=== PATIENT | female | born 1945 | race Caucasian/White ===

== ENCOUNTER 2023-09-23 09:41 | Outpatient (OUT) | payer MEDICARE, OTHER, SELFPAY ==
[2023-09-23 10:06] LABS: Basophils Percent Auto 0.6 % (0.2-2.0); Eosinophils Absolute Auto 0.1 10^3/uL (0.0-0.7); Eosinophils Percent Auto 1.8 % (0.9-7.0); Hematocrit 42.8 % (36.0-48.0); Hemoglobin 14.1 g/dL (12.0-16.0); Immature Granulocytes Abs Auto 0.02 10^3/uL (0.00-0.03); Immature Granulocytes Pct Auto 0.3 % (0.0-0.5); Lymphocytes Absolute Auto 2.4 10^3/uL (1.2-3.8); Lymphocytes Percent Auto 35.2 % (20.5-60.0); Mean Corpuscular HGB Conc 32.9 g/dL (29.9-35.2); Mean Corpuscular Hemoglobin 29.8 pg (26.7-34.0); Mean Corpuscular Volume 90.5 fL (81.0-99.0); Mean Platelet Volume 8.8 fL (9.5-13.5); Monocytes Absolute Auto 0.5 10^3/uL (0.3-0.8); Monocytes Percent Auto 8.1 % (1.7-12.0); Neutrophils Absolute Auto 3.6 10^3/uL (1.4-6.5); Platelet Count 344 10^3/uL (150-450); Red Blood Count 4.73 10^6/uL (4.20-5.40); Red Cell Distribution Width 12.8 % (11.0-15.0); White Blood Count 6.7 10^3/uL (4.0-11.0)
[2023-09-23 10:20] LABS: Alanine Aminotransferase 49 U/L (14-59); Albumin Globulin Ratio 1.1; Albumin Level 3.7 g/dL (3.4-5.0); Alkaline Phosphatase 82 U/L (46-116); Anion Gap 11.6; Aspartate Amino Transferase 37 U/L (15-37); BUN Creatinine Ratio 19.4; Bilirubin Total 0.6 mg/dL (0.2-1.0); Calcium 9.2 mg/dL (8.5-10.1); Carbon Dioxide 27.9 mmol/L (21.0-32.0); Chloride 102 mmol/L (98-107); Chol HDL Ratio 3.2; Cholesterol 164 mg/dL (<=200); Estimated GFR (African America >60 (>=60); Estimated GFR (Non-African Ame 59 (>=60); Globulin 3.5 g/dL; Glucose 108 mg/dL (74-106); HDL Cholesterol 51 mg/dL (40-60); Potassium 4.5 mmol/L (3.5-5.1); Sodium 137 mmol/L (136-145); Total Protein 7.2 g/dL (6.4-8.2); Triglycerides 162 mg/dL (<=150); VLDL CHOLESTEROL 32.4 mg/dL
== END 2023-09-23 09:42 | disposition home or self-care (01) ==
LOC: LAB 09:46
PROVIDERS: PCP Family Medicine; Visit Provider Nurse Practitioner Family
DX: I25.810 Atherosclerosis of coronary artery bypass graft(s) without angina pectoris (principal); E78.2 Mixed hyperlipidemia
CPT/HCPCS: 36415; 80053; 80061; 85025

== ENCOUNTER 2024-02-08 07:16 | Outpatient (OUT) | payer MEDICARE, OTHER, SELFPAY ==
--- OUTSIDE RECORDS SUMMARY | 2024-02-08 07:19 | XMS_ITS | CCD ---
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 [address] [address] Astronomy Department Chair: Shamir Milton MD MCHC (RBC) [Mass/Vol] 32.3 g/dL Normal 28.4-34.8 [facility] Comment on above: Performed By: #### C DP, BMP, MATIAS #### [address] [address] Astronomy Department Chair: Shamir Milton MD MCV (RBC) [Entitic vol] 93.3 fL Normal 82.6-102.9 [facility] Comment on above: Performed By: #### C DP, BMP, MATIAS #### [address] [address] Astronomy Department Chair: Shamir Milton MD NRBC Automated 0.0 per 100 WBC Normal 0.0 [facility] Comment on above: Performed By: #### C DP, BMP, MATIAS #### [address] [address] Astronomy Department Chair: Shamir Milton MD Platelet mean volume (Bld) [Entitic vol] 9.4 fL Normal 8.1-13.5 [facility] Comment on above: Performed By: #### C DP, BMP, MATISA #### [address] [address] [employer] Department Chair: Shamir Milton MD Platelets (Bld) [#/Vol] 292 10*3/uL Normal 138-453 [facility] Comment on above: Performed By: #### C DP, BMP, MATIAS #### [address] [address] Astronomy Department Chair: Shamir Milton MD RBC (Bld) [#/Vol] 3.42 10*6/uL Low 3.95-5.11 [facility] Comment on above: Performed By: #### C DP, BMP, MATIAS #### [address] [address] Astronomy Department Chair: Shamir Milton MD WBC (Bld) [#/Vol] 8.6 10*3/uL Normal 3.5-11.3 [facility] Comment on above: Performed By: #### C DP, BMP, MATIAS #### [address] [address] Astronomy Department Chair: Shamir Milton MD Phosphorus, Inorg.on Phosphorus, Inorg. 2.8 mg/dL Normal 2.6-4.5 [facility] Comment on above: Performed By: #### C DP, BMP, MATIAS #### [facility] [address] [place] [address] Astronomy Department Chair: Shamir Milton MD Basic Metabolic Profon 09-29 Anion gap [Moles/Vol] 8 mmol/L Low 9-17 [facility] Comment on above: Performed By: #### C DP, BMP, MATIAS #### [facility] [address] [place] [address] Astronomy Department Chair: Shamir Milton MD Calcium [Mass/Vol] 8.2 mg/dL Low 8.6-10.4 [facility] Comment on above: Performed By: #### C DP, BMP, MATIAS #### [facility] [address] [place] [address] Astronomy Department Chair: Shamir Milton MD Chloride [Moles/Vol] 98 mmol/L Normal 98-107 [facility] Comment on above: Performed By: #### C DP, BMP, MATIAS #### [facility] [address] [place] [address] Astronomy Department Chair: Shamir Milton MD CO2 [Moles/Vol] 24 mmol/L Normal 20-31 [facility] Comment on above: Performed By: #### C DP, BMP, MATIAS #### [facility] [address] [place] [address] Astronomy Department Chair: Shamir Milton MD Creatinine [Mass/Vol] 0.58 mg/dL Normal 0.50-0.90 [facility] Comment on above: Performed By: #### C DP, BMP, MATIAS #### [facility] [address] [place] [address] Astronomy Department Chair: Shamir Milton MD GFR/1.73 sq M.predicted among non-blacks MDRD (S/P/Bld) [Vol rate/Area] mL/min/{1.73_m2} Normal >60 [facility] Comment on above: Result Comment: Effective Jul 30, 2022 These results are not intended for use in patients <18 years of age. eGFR results are calculated without a race factor using the 2020 CKD-EPI equation. Careful clinical correlation is recommended, particularly when comparing to results calculated using previous equations. The CKD-EPI equation is less accurate in patients with extremes of muscle mass, extra-renal metabolism of creatine, excessive creatine ingestion, or following therapy that affects renal tubular secretion. Performed By: #### C MILAGROS LOPEZ, MATIAS #### [address] [address] Astronomy Department Chair: Shamir Milton MD Glucose [Mass/Vol] 99 mg/dL Normal 70-99 [facility] Comment on above: Performed By: #### C JOHN BMP, MATIAS #### [address] [address] Astronomy Department Chair: Shamir Milton MD Potassium [Moles/Vol] 4.1 mmol/L Normal 3.7-5.3 [facility] Comment on above: Performed By: #### C JOHN BMP, MATIAS #### [address] [address] Astronomy Department Chair: Shamir Milton MD Sodium [Moles/Vol] 130 mmol/L Low 135-144 [facility] Comment on above: Performed By: #### C DP BMP, MATIAS #### [facility] [employer] [address] [place] [address] Astronomy Department Chair: Shamir Milton MD Urea nitrogen [Mass/Vol] 14 mg/dL Normal 8-23 [facility] Comment on above: Performed By: #### C DP BMP, MATIAS #### [facility] [employer] [address] [place] [address] Astronomy Department Chair: Shamir Milton MD CBC with Diffon 09-29-2022 Abs. Basophil 0.04 k/uL Normal 0.00-0.20 [facility] Comment on above: Performed By: #### C DP, MATIAS, BMP #### [place] [address] Astronomy Department Chair: Shamir Milton MD Abs.Imm.Granulocyte 0.05 k/uL Normal 0.00-0.30 [facility] Comment on above: Performed By: #### C DP, MATIAS, BMP #### [place] [address] Astronomy Department Chair: Shamir Milton MD Abs.Neutrophil (Seg) 4.47 k/uL Normal 1.50-8.10 [facility] Comment on above: Performed By: #### C DP, MATIAS, BMP #### [place] [address] [employer] Department Chair: Shamir Milton MD Basophils/100 WBC (Bld) 1 % Normal 0-2 [facility] Comment on above: Performed By: #### C DP, MATIAS, BMP #### [place] [address] [employer] Department Chair: Shamir Milton MD Eosinophils (Bld) [#/Vol] 0.27 10*3/uL Normal 0.00-0.44 [facility] Comment on above: Performed By: #### C DP, MATIAS, BMP #### [address] [address] Astronomy Department Chair: Shamir Milton MD Eosinophils/100 WBC (Bld) 4 % Normal 1-4 [facility] Comment on above: Performed By: #### C DP, MATIAS, BMP #### [facility] [employer] [address] [place] [address] Astronomy Department Chair: Shamir Milton MD Erythrocyte distribution width (RBC) [Ratio] 13.0 % Normal 11.8-14.4 [facility] Comment on above: Performed By: #### C DP, MATIAS, BMP #### [facility] [employer] [address] [place] [address] Astronomy Department Chair: Shamir Milton MD Hematocrit (Bld) [Volume fraction] 29.4 % Low 36.3-47.1 [facility] Comment on above: Performed By: #### C DP, MATIAS, BMP #### [facility] [employer] [address] [place] [address] Astronomy Department Chair: Shamir Milton MD Hemoglobin (Bld) [Mass/Vol] 9.8 g/dL Low 11.9-15.1 [facility] Comment on above: Performed By: #### C DP, MATIAS, BMP #### [facility] [employer] [address] [place] [address] Astronomy Department Chair: Shamir Milton MD Immature granulocytes/100 WBC (Bld) 1 % High 0 [facility] Comment on above: Performed By: #### C DP, MATIAS, BMP #### [address] [address] Astronomy Department Chair: Shamir Milton MD Lymphocytes (Bld) [#/Vol] 1.61 10*3/uL Normal 1.10-3.70 [facility] Comment on above: Performed By: #### C DP, MATIAS, BMP #### [facility] [employer] [address] [place] [address] Astronomy Department Chair: Shamir Milton MD Lymphocytes/100 WBC (Bld) 23 % Low 24-43 [facility] Comment on above: Performed By: #### C DP, MATIAS, BMP #### [facility] [employer] [address] [place] [address] Astronomy Department Chair: Shamir Milton MD MCH (RBC) [Entitic mass] 30.3 pg Normal 25.2-33.5 [facility] Comment on above: Performed By: #### C DP, MATIAS, BMP #### [address] [address] Astronomy Department Chair: Shamir Milton MD MCHC (RBC) [Mass/Vol] 33.3 g/dL Normal 28.4-34.8 [facility] Comment on above: Performed By: #### C DP, MATIAS, BMP #### [address] [address] Astronomy Department Chair: Shamir Milton MD MCV (RBC) [Entitic vol] 91.0 fL Normal 82.6-102.9 [facility] Comment on above: Performed By: #### C DP, MATIAS, BMP #### [address] [address] Astronomy Department Chair: Shamir Milton MD Monocytes (Bld) [#/Vol] 0.71 10*3/uL Normal 0.10-1.20 [facility] Comment on above: Performed By: #### C DP, MATIAS, BMP #### [address] [address] Astronomy Department Chair: Shamir Milton MD Monocytes/100 WBC (Bld) 10 % Normal 3-12 [facility] Comment on above: Performed By: #### C DP, MATIAS, BMP #### [address] [address] Astronomy Department Chair: Shamir Milton MD Neutrophil (Seg) 61 % Normal 36-65 [facility] Comment on above: Performed By: #### C DP, MATIAS, BMP #### [address] [address] Astronomy Department Chair: Shamir Milton MD NRBC Automated 0.0 per 100 WBC Normal 0.0 [facility] Comment on above: Performed By: #### C DP, MATIAS, BMP #### [facility] [address] [place] [address] Astronomy Department Chair: Shamir Milton MD Platelet mean volume (Bld) [Entitic vol] 9.5 fL Normal 8.1-13.5 [facility] Comment on above: Performed By: #### C DP, MATIAS, BMP #### [facility] [employer] [address] [place] [address] Astronomy Department Chair: Shamir Milton MD Platelets (Bld) [#/Vol] 232 10*3/uL Normal 138-453 [facility] Comment on above: Performed By: #### C DP, MATIAS, BMP #### [facility] [employer] [address] [place] [address] Astronomy Department Chair: Shamir Milton MD RBC (Bld) [#/Vol] 3.23 10*6/uL Low 3.95-5.11 [facility] Comment on above: Performed By: #### C DP, MATIAS, BMP #### [address] [address] Astronomy Department Chair: Shamir Milton MD WBC (Bld) [#/Vol] 7.2 10*3/uL Normal 3.5-11.3 [facility] Comment on above: Performed By: #### C DP, MATIAS, BMP #### [facility] [employer] [address] [place] [address] Astronomy Department Chair: Shamir Milton MD Phosphorus, Inorg.on 022 Phosphorus, Inorg. 2.9 mg/dL Normal 2.6-4.5 [facility] Comment on above: Performed By: #### C DP, BMP, MATIAS #### [facility] [employer] [address] [place] [phone] Astronomy Department Chair: Shamir Milton MD Basic Metabolic Profon 09-28 Anion gap [Moles/Vol] 10 mmol/L Normal 9-17 [facility] Comment on above: Performed By: #### B MP, MATIAS, MG, CDP #### [facility] [employer] [address] [place] [address] Astronomy Department Chair: Shamir Milton MD Calcium [Mass/Vol] 8.6 mg/dL Normal 8.6-10.4 [facility] Comment on above: Performed By: #### B MP, MATIAS, MG, CDP #### [facility] [employer] [address] [place] [address] Astronomy Department Chair: Shamir Milton MD Chloride [Moles/Vol] 96 mmol/L Low 98-107 [facility] Comment on above: Performed By: #### B MP, MATIAS, MG, CDP #### [facility] [employer] [address] [place] [address] Astronomy Department Chair: Shamir Milton MD CO2 [Moles/Vol] 23 mmol/L Normal 20-31 [facility] Comment on above: Performed By: #### B MP, MATIAS, MG, CDP #### [facility] [employer] [address] [place] [address] Astronomy Department Chair: Shamir Milton MD Creatinine [Mass/Vol] 0.67 mg/dL Normal 0.50-0.90 [facility] Comment on above: Performed By: #### B MP, MATIAS, MG, CDP #### [facility] [employer] [address] [place] [address] Astronomy Department Chair: Shamir Milton MD GFR/1.73 sq M.predicted among non-blacks MDRD (S/P/Bld) [Vol rate/Area] mL/min/{1.73_m2} Normal >60 [facility] Comment on above: Result Comment: Effective Jul 30, 2022 These results are not intended for use in patients <18 years of age. eGFR results are calculated without a race factor using the 2020 CKD-EPI equation. Careful clinical correlation is recommended, particularly when comparing to results calculated using previous equations. The CKD-EPI equation is less accurate in patients with extremes of muscle mass, extra-renal metabolism of creatine, excessive creatine ingestion, or following therapy that affects renal tubular secretion. Performed By: #### B MP, MATIAS, MG, CDP #### [address] [address] Astronomy Department Chair: Shamir Milton MD Glucose [Mass/Vol] 115 mg/dL High 70-99 [facility] Comment on above: Performed By: #### B MP, MATIAS, MG, CDP #### [address] [address] Astronomy Department Chair: Shamir Milton MD Potassium [Moles/Vol] 4.5 mmol/L Normal 3.7-5.3 [facility] Comment on above: Performed By: #### B MP, MATIAS, MG, CDP #### [address] [address] Astronomy Department Chair: Shamir Milton MD Sodium [Moles/Vol] 129 mmol/L Low 135-144 [facility] Comment on above: Performed By: #### B MP, MATIAS, MG, CDP #### [facility] [employer] [address] [place] [address] Astronomy Department Chair: Shamir Milton MD Urea nitrogen [Mass/Vol] 16 mg/dL Normal 8-23 [facility] Comment on above: Performed By: #### B MP, MATIAS, MG, CDP #### [facility] [employer] [address] [place] [phone] Astronomy Department Chair: Shamir Milton MD CBC with Diffon 09-28-2022 Abs. Basophil <0.03 Normal 0.00-0.20 [facility] Comment on above: Performed By: #### B MP, MAITAS, MG, CDP #### [facility] [employer] [address] [place] [address] Astronomy Department Chair: Shamir Milton MD Abs.Imm.Granulocyte 0.07 k/uL Normal 0.00-0.30 [facility] Comment on above: Performed By: #### B MP, MATIAS, MG, CDP #### [facility] [employer] [address] [place] [address] Astronomy Department Chair: Shamir Milton MD Abs.Neutrophil (Seg) 7.39 k/uL Normal 1.50-8.10 [facility] Comment on above: Performed By: #### B MP, MATIAS, MG, CDP #### [facility] [employer] [address] [place] [phone] Astronomy Department Chair: Shamir Milton MD Basophils/100 WBC (Bld) 0 % Normal 0-2 [facility] Comment on above: Performed By: #### B MP, MATIAS, MG, CDP #### [address] [address] Astronomy Department Chair: Shamir Milton MD Eosinophils (Bld) [#/Vol] 0.12 10*3/uL Normal 0.00-0.44 [facility] Comment on above: Performed By: #### B MP, MATIAS, MG, CDP #### [facility] [employer] [address] [place] [address] Astronomy Department Chair: Shamir Milton MD Eosinophils/100 WBC (Bld) 1 % Normal 1-4 [facility] Comment on above: Performed By: #### B MP, MATIAS, MG, CDP #### [facility] [employer] [address] [place] [address] Astronomy Department Chair: Shamir Milton MD Erythrocyte distribution width (RBC) [Ratio] 13.0 % Normal 11.8-14.4 [facility] Comment on above: Performed By: #### B MP, MATIAS, MG, CDP #### [facility] [employer] [address] [place] [address] Astronomy Department Chair: Shamir Milton MD Hematocrit (Bld) [Volume fraction] 33.2 % Low 36.3-47.1 [facility] Comment on above: Performed By: #### B MP, MATIAS, MG, CDP #### [facility] [employer] [address] [place] [address] Astronomy Department Chair: Shamir Milton MD Hemoglobin (Bld) [Mass/Vol] 10.9 g/dL Low 11.9-15.1 [facility] Comment on above: Performed By: #### B MP, MAITAS, MG, CDP #### [facility] [address] [place] [address] Astronomy Department Chair: Shamir Milton MD Immature granulocytes/100 WBC (Bld) 1 % High 0 [facility] Comment on above: Performed By: #### B MP, MATIAS, MG, CDP #### [facility] [employer] [address] [place] [phone] Astronomy Department Chair: Shamir Milton MD Lymphocytes (Bld) [#/Vol] 2.21 10*3/uL Normal 1.10-3.70 [facility] Comment on above: Performed By: #### B MP, MATIAS, MG, CDP #### [facility] [address] [place] [address] Astronomy Department Chair: Shamir Milton MD Lymphocytes/100 WBC (Bld) 21 % Low 24-43 [facility] Comment on above: Performed By: #### B MP, MATIAS, MG, CDP #### [facility] [address] [place] [phone] Astronomy Department Chair: Shamir Milton MD MCH (RBC) [Entitic mass] 30.8 pg Normal 25.2-33.5 [facility] Comment on above: Performed By: #### B MP, MATIAS, MG, CDP #### [facility] [address] [place] [phone] Astronomy Department Chair: Shamir Milton MD MCHC (RBC) [Mass/Vol] 32.8 g/dL Normal 28.4-34.8 [facility] Comment on above: Performed By: #### B MP, MATIAS, MG, CDP #### [address] [address] Astronomy Department Chair: Shamir Milton MD MCV (RBC) [Entitic vol] 93.8 fL Normal 82.6-102.9 [facility] Comment on above: Performed By: #### B MP, MATIAS, MG, CDP #### [address] [address] Astronomy Department Chair: Shamir Milton MD Monocytes (Bld) [#/Vol] 0.77 10*3/uL Normal 0.10-1.20 [facility] Comment on above: Performed By: #### B MP, MATIAS, MG, CDP #### [place] [address] Astronomy Department Chair: Shamir Milton MD Monocytes/100 WBC (Bld) 7 % Normal 3-12 [facility] Comment on above: Performed By: #### B MP, MATIAS, MG, CDP #### [place] [address] Astronomy Department Chair: Shamir Milton MD Neutrophil (Seg) 70 % High 36-65 [facility] Comment on above: Performed By: #### B MP, MATIAS, MG, CDP #### [place] [address] Astronomy Department Chair: Shamir Milton MD NRBC Automated 0.0 per 100 WBC Normal 0.0 [facility] Comment on above: Performed By: #### B MP, MATIAS, MG, CDP #### [address] [address] Astronomy Department Chair: Shamir Milton MD Platelet mean volume (Bld) [Entitic vol] 9.8 fL Normal 8.1-13.5 [facility] Comment on above: Performed By: #### B MP, MATIAS, MG, CDP #### [facility] [employer] [address] [place] [phone] Astronomy Department Chair: Shamir Milton MD Platelets (Bld) [#/Vol] 273 10*3/uL Normal 138-453 [facility] Comment on above: Performed By: #### B MP, MATIAS, MG, CDP #### [facility] [address] [place] [phone] Astronomy Department Chair: Shamir Milton MD RBC (Bld) [#/Vol] 3.54 10*6/uL Low 3.95-5.11 [facility] Comment on above: Performed By: #### B MP, MATIAS, MG, CDP #### [facility] [employer] [address] [place] [phone] Astronomy Department Chair: Shamir Milton MD WBC (Bld) [#/Vol] 10.6 10*3/uL Normal 3.5-11.3 [facility] Comment on above: Performed By: #### B MP, MATIAS, MG, CDP #### [facility] [employer] [address] [place] [phone] Astronomy Department Chair: Shamir Milton MD Magnesiumon 09-28-2022 Magnesium [Mass/Vol] 2.0 mg/dL Normal 1.6-2.6 [facility] Comment on above: Performed By: #### B MP, MATIAS, MG, CDP #### [facility] [address] [place] [phone] Astronomy Department Chair: Shamir Milton MD Phosphorus, Inorg.on 022 Phosphorus, Inorg. 1.9 mg/dL Low 2.6-4.5 [facility] Comment on above: Performed By: #### B MP, MATIAS, MG, CDP #### [facility] [address] [place] [phone] Astronomy Department Chair: Shamir Milton MD Basic Metabolic Profon 09-27 Anion gap [Moles/Vol] 8 mmol/L Low 9-17 [facility] Comment on above: Performed By: #### B MP, MATIAS, MG, CDP #### [facility] [address] [place] [phone] Astronomy Department Chair: Shamir Milton MD Calcium [Mass/Vol] 8.7 mg/dL Normal 8.6-10.4 [facility] Comment on above: Performed By: #### B MP, MATIAS, MG, CDP #### [facility] [employer] [address] [place] [address] Astronomy Department Chair: Shamir Milton MD Chloride [Moles/Vol] 102 mmol/L Normal 98-107 [facility] Comment on above: Performed By: #### B MP, MATIAS, MG, CDP #### [facility] [address] [place] [phone] Astronomy Department Chair: Shamir Milton MD CO2 [Moles/Vol] 23 mmol/L Normal 20-31 [facility] Comment on above: Performed By: #### B MP, MATIAS, MG, CDP #### [facility] [address] [place] [phone] Astronomy Department Chair: Shamir Milton MD Creatinine [Mass/Vol] 0.61 mg/dL Normal 0.50-0.90 [facility] Comment on above: Performed By: #### B MP, MATIAS, MG, CDP #### [facility] [address] [place] [phone] Astronomy Department Chair: Shamir Milton MD GFR/1.73 sq M.predicted among non-blacks MDRD (S/P/Bld) [Vol rate/Area] mL/min/{1.73_m2} Normal >60 [facility] Comment on above: Result Comment: Effective Jul 30, 2022 These results are not intended for use in patients <18 years of age. eGFR results are calculated without a race factor using the 2020 CKD-EPI equation. Careful clinical correlation is recommended, particularly when comparing to results calculated using previous equations. The CKD-EPI equation is less accurate in patients with extremes of muscle mass, extra-renal metabolism of creatine, excessive creatine ingestion, or following therapy that affects renal tubular secretion. Performed By: #### B MP, MATIAS, MG, CDP #### [facility] [address] [place] [phone] Astronomy Department Chair: Shamir Milton MD Glucose [Mass/Vol] 129 mg/dL High 70-99 [facility] Comment on above: Performed By: #### B MP, MATIAS, MG, CDP #### [facility] [employer] [address] [place] [phone] Astronomy Department Chair: Shamir Milton MD Potassium [Moles/Vol] 4.4 mmol/L Normal 3.7-5.3 [facility] Comment on above: Performed By: #### B MP, MATIAS, MG, CDP #### [facility] [employer] [address] [place] [phone] Astronomy Department Chair: Shamir Milton MD Sodium [Moles/Vol] 133 mmol/L Low 135-144 [facility] Comment on above: Performed By: #### B MP, MATIAS, MG, CDP #### [facility] [employer] [address] [place] [address] [phone] Astronomy Department Chair: Shamir Milton MD Urea nitrogen [Mass/Vol] 14 mg/dL Normal 8-23 [facility] Comment on above: Performed By: #### B MP, MATIAS, MG, CDP #### [facility] [employer] [address] [place] [address] [phone] Astronomy Department Chair: Shamir Milton MD CBC with Diffon 09-27-2022 Abs. Basophil <0.03 Normal 0.00-0.20 [facility] Comment on above: Performed By: #### B MP, MATIAS, MG, CDP #### [facility] [address] [place] [address] [place] [address] Astronomy Department Chair: Shamir Milton MD Abs. Eosinophil <0.03 Normal 0.00-0.44 [facility] Comment on above: Performed By: #### B MP, MATIAS, MG, CDP #### [facility] [employer] [address] [place] [address] [phone] Astronomy Department Chair: Shamir Milton MD Abs.Imm.Granulocyte 0.04 k/uL Normal 0.00-0.30 [facility] Comment on above: Performed By: #### B MP, MATIAS, MG, CDP #### [facility] [employer] [address] [place] [address] [phone] Astronomy Department Chair: Shamir Milton MD Abs.Neutrophil (Seg) 7.93 k/uL Normal 1.50-8.10 [facility] Comment on above: Performed By: #### B MP, MATIAS, MG, CDP #### [facility] [employer] [address] [place] [address] [phone] Astronomy Department Chair: Shamir Milton MD Basophils/100 WBC (Bld) 0 % Normal 0-2 [facility] Comment on above: Performed By: #### B MP, MATIAS, MG, CDP #### [facility] [address] [place] [address] [phone] Astronomy Department Chair: Shamir Milton MD Eosinophils/100 WBC (Bld) 0 % Low 1-4 [facility] Comment on above: Performed By: #### B MP, MATIAS, MG, CDP #### [facility] [address] [place] [phone] Astronomy Department Chair: Shamir Milton MD Erythrocyte distribution width (RBC) [Ratio] 12.9 % Normal 11.8-14.4 [facility] Comment on above: Performed By: #### B MP, MATIAS, MG, CDP #### [facility] [address] [place] [address] [phone] Astronomy Department Chair: Shamir Milton MD Hematocrit (Bld) [Volume fraction] 34.8 % Low 36.3-47.1 [facility] Comment on above: Performed By: #### B MP, MATIAS, MG, CDP #### [facility] [address] [place] [address] 23021 Astronomy Department Chair: Shamir Milton MD Hemoglobin (Bld) [Mass/Vol] 11.0 g/dL Low 11.9-15.1 [facility] Comment on above: Performed By: #### B MP, MATIAS, MG, CDP #### [facility] [employer] [address] [place] [address] 74650 Astronomy Department Chair: Shamir Milton MD Immature granulocytes/100 WBC (Bld) 0 % Normal 0 [facility] Comment on above: Performed By: #### B MP, MATIAS, MG, CDP #### [facility] [employer] [address] [place] [address] [phone] Astronomy Department Chair: Shamir Milton MD Lymphocytes (Bld) [#/Vol] 1.05 10*3/uL Low 1.10-3.70 [facility] Comment on above: Performed By: #### B MP, MATIAS, MG, CDP #### [facility] [employer] [address] [place] [address] 6[address]16 Astronomy Department Chair: Shamir Milton MD Lymphocytes/100 WBC (Bld) 11 % Low 24-43 [facility] Comment on above: Performed By: #### B MP, MATIAS, MG, CDP #### [facility] [employer] [address] [place] [address] 14013 Astronomy Department Chair: Shamir Milton MD MCH (RBC) [Entitic mass] 30.2 pg Normal 25.2-33.5 [facility] Comment on above: Performed By: #### B MP, MATIAS, MG, CDP #### [facility] [employer] [address] [place] [address] 18416 Astronomy Department Chair: Shamir Milton MD MCHC (RBC) [Mass/Vol] 31.6 g/dL Normal 28.4-34.8 [facility] Comment on above: Performed By: #### B MP, MATIAS, MG, CDP #### [address] [address] Astronomy Department Chair: Shamir Milton MD MCV (RBC) [Entitic vol] 95.6 fL Normal 82.6-102.9 [facility] Comment on above: Performed By: #### B MP, MATIAS, MG, CDP #### [address] [address] Astronomy Department Chair: Shamir Milton MD Monocytes (Bld) [#/Vol] 0.76 10*3/uL Normal 0.10-1.20 [facility] Comment on above: Performed By: #### B MP, MATIAS, MG, CDP #### [address] [address] Astronomy Department Chair: Shamir Milton MD Monocytes/100 WBC (Bld) 8 % Normal 3-12 [facility] Comment on above: Performed By: #### B MP, MATIAS, MG, CDP #### [address] [address] Astronomy Department Chair: Shamir Milton MD Neutrophil (Seg) 81 % High 36-65 [facility] Comment on above: Performed By: #### B MP, MATIAS, MG, CDP #### [address] [phone] Astronomy Department Chair: Shamir Milton MD NRBC Automated 0.0 per 100 WBC Normal 0.0 [facility] Comment on above: Performed By: #### B MP, MATIAS, MG, CDP #### [address] [address] Astronomy Department Chair: Shamir Milton MD Platelet mean volume (Bld) [Entitic vol] 9.6 fL Normal 8.1-13.5 [facility] Comment on above: Performed By: #### B MP, MATIAS, MG, CDP #### [facility] [employer] [facility] [place] [address] Astronomy Department Chair: Shamir Milton MD Platelets (Bld) [#/Vol] 244 10*3/uL Normal 138-453 [facility] Comment on above: Performed By: #### B MP, MATIAS, MG, CDP #### [facility] [place] [address] Astronomy Department Chair: Shamir Milton MD RBC (Bld) [#/Vol] 3.64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
[2024-02-08 09:37] LABS: Alanine Aminotransferase 33 U/L (14-59); Albumin Level 3.6 g/dL (3.4-5.0); Alkaline Phosphatase 73 U/L (46-116); Aspartate Amino Transferase 24 U/L (15-37); Bilirubin Direct 0.1 mg/dL (0.0-0.2); Bilirubin Total 0.5 mg/dL (0.2-1.0); Chol HDL Ratio 2.9; Cholesterol 155 mg/dL (<=200); Globulin 3.5 g/dL; HDL Cholesterol 53 mg/dL (40-60); LDL Cholesterol Calculated 73.2 mg/dL; Total Protein 7.1 g/dL (6.4-8.2); Triglycerides 144 mg/dL (<=150); VLDL CHOLESTEROL 28.8 mg/dL
== END 2024-02-08 07:17 | disposition home or self-care (01) ==
LOC: LAB 07:16
PROVIDERS: PCP Family Medicine; Visit Provider Nurse Practitioner Family
DX: E78.5 Hyperlipidemia, unspecified (principal)
CPT/HCPCS: 36415; 80061; 80076

== ENCOUNTER 2024-04-02 07:57 | Outpatient (OUT) | payer MEDICARE, OTHER, SELFPAY ==
--- NOTE | 2024-04-02 07:59 | XR_ITS ---
[facility] [place] [id number] Patient Name: LORENZO ABBASI MRN: [id number] date: 1945 Sex: F Assigned Patient Location: LAB Current Patient Location: Accession/Order Number: [id number] Exam Date: 04/02/2024 08:03 Report Date: 04/03/2024 09:11 At the request of: ASHOK BRYANT Procedure: XR hand RT min 3V PROCEDURE: XR hand RT min 3V HISTORY: Hand Pain M79.643 ; first digit pain; no known injury COMPARISON: None. FINDINGS: BONES:Narrowing of the first tarsal-metatarsal joints and the first metatarsophalangeal joint without significant periarticular osteophytes. Narrowing of the distal interphalangeal joints of the second third digits with large posterior projecting osteophytes. Mild degenerative changes of the scaphoid-trapezium and scaphoid-trapezoid joints of the wrist. SOFT TISSUES:No visible soft tissue swelling. EFFUSION:None visible. OTHER: Negative. XR/XR hand RT min 3V IMPRESSION: 1. No appreciable acute abnormality. 2. Multifocal mild to moderate degenerative joint disease likely contributing to patient's symptoms. Electronically authenticated by: RAQUEL KING Date: 04/03/2024 09:11
--- OUTSIDE RECORDS SUMMARY | 2024-04-02 08:13 | XMS_ITS | CCD ---
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 [facility] [address] [place] [address] Contract Administration Coordinator: Shamir Milton MD Test ordered CDP Normal [facility] Comment on above: Performed By: #### B CATHY, REJEC #### [facility] [address] [place] [address] Contract Administration Coordinator: Shamir Milton MD TSH w/reflex to FT4on 2021 Thyroid Stim. Horm. 1.19 uIU/mL Normal 0.30-5.00 [facility] Comment on above: Performed By: #### C MILAGROS LOPEZ, MATIAS #### [address] [address] Contract Administration Coordinator: Shamir Milton MD Thyroxine, Freeon 09-26-2022 Thyroxine, Free 1.66 ng/dL Normal 0.93-1.70 [facility] Comment on above: Performed By: #### C JOHN BMP, MATIAS #### [facility] [address] [place] [address] Contract Administration Coordinator: Shamir Milton MD Troponinon 09-26-2022 Troponin, High Sens 9 ng/L Normal 0-14 [facility] Comment on above: Result Comment: High Sensitivity Troponin values cannot be compared with other Troponin methodologies. Patients with high levels of Biotin oral intake (i.e >5mg/day) may have falsely decreased Troponin levels. Samples collected within 8 hours of biotin intake may require additional information for diagnosis. Performed By: #### B MP, MATIAS, MG, CDP #### [facility] [address] [place] [address] Contract Administration Coordinator: Shamir Milton MD Vitamin D 25 [place]on 09-26-2022 Vitamin D 25 [place] 47.8 ng/mL Normal >29.9 [facility] Comment on above: Result Comment: Reference Range: Vitamin D status Range Deficiency <20 ng/mL Mild Deficiency 20-30 ng/mL Sufficiency 30-100 ng/mL Toxicity >100 ng/mL Performed By: #### C DP, BMP, MATIAS #### [facility] [address] [place] [phone] Contract Administration Coordinator: Shamir Milton MD Vitamin D 25 [place] 49.4 ng/mL Normal >29.9 [facility] Comment on above: Result Comment: Reference Range: Vitamin D status Range Deficiency <20 ng/mL Mild Deficiency 20-30 ng/mL Sufficiency 30-100 ng/mL Toxicity >100 ng/mL Performed By: #### B MP, MATIAS, MG, CDP #### [facility] [address] [place] [address] Contract Administration Coordinator: Shamir Milton MD XR FEMUR LEFT (MIN [...] C Connors MD 09/26/22 Final result Normal [facility] XR KNEE LEFT (3 VIEWS)on XR [...] C Connors MD 09/26/22 Final result Normal [facility] XR PELVIS (MIN 3 VIEWS)on XR [...] Sanjuana Desouza MD 09/26/22 Final result Normal [facility] CARDIAC RADHA ADMITon 022 CK [Catalytic activity/Vol] 450 U/L Critically high 26-192 [facility] Comment on above: Performed By: #### C JUAN CARLOS MORGAN CMADM ####[facility] [address] [place] [phone] Espinoza CK.MB [Mass/Vol] 10.56 ng/mL Critically high <=3.60 [facility] Comment on above: Performed By: #### C CATHY LIPA, CMADM ####[facility] [address] [place] [phone]. Karey Espinoza HSTROP 7.0 pg/mL Normal 4.0-51.3 [facility] Comment on above: Result Comment: CUT- OFF POINTS HAVE BEEN ESTABLISHED BASED ON THE FOURTH UNIVERSAL DEFINITIONS OF MYOCARDIAL INFARCTION. THE UPPER REFERENCE LIMIT (URL) OF TROPONIN, DEFINED THE 99TH PERCENTILE OF cTnI DISTRIBUTION IN A REFERENCE POPULATION, HAS BEEN CONFIRMED THE DECISION THRESHOLD FOR DC DIAGNOSIS. Performed By: #### C JUAN CARLOS MORGAN CMADM ####[facility] [address] [place] [address]Dr. Karey Espinoza KARL 1641 ng/mL Critically high 9-82 [facility] Comment on above: Performed By: #### C JUAN CARLOS MORGAN CMADM ####[facility] [address] [place] [address]Dr. Karey Espinoza CBC AUTO DIFFon 09-25-2022 BASO # 0.1 103/ul Normal 0.0-0.1 [facility] Comment on above: Performed By: #### C BC ####[facility] [address] [place], [place] [address]Dr. Karey Espinoza Basophils/100 WBC (Bld) 0.4 % Normal 0.2-2.0 [facility] Comment on above: Performed By: #### C BC ####[facility] [address] [place], [place] [address]Dr. Karey Espinoza EO # 0.2 103/ul Normal 0.0-0.7 [facility] Comment on above: Performed By: #### C BC ####[facility] [address] [place] [address]Dr. Karey Espinoza Eosinophils/100 WBC (Bld) 1.2 % Normal 0.9-7.0 [facility] Comment on above: Performed By: #### C BC ####[facility] [address] [place], [place] [address]Dr. Karey Espinoza Erythrocyte distribution width (RBC) [Ratio] 13.0 % Normal 11.0-15.0 [facility] Comment on above: Performed By: #### C BC ####[facility] [address] [place] [address]Dr. Karey Espinoza Hematocrit (Bld) [Volume fraction] 40.8 % Normal 36.0-48.0 [facility] Comment on above: Performed By: #### C BC ####[facility] [address] [place] [address]Dr. Karey Espinoza Hemoglobin (Bld) [Mass/Vol] 14.0 g/dL Normal 12.0-16.0 [facility] Comment on above: Performed By: #### C BC ####[facility] [address] [place] [address]Dr. Karey Espinoza IG # 0.22 10e3/ul Critically high 0.00-0.03 [facility] Comment on above: Performed By: #### C BC ####[facility] [address] [place] [address]Dr. Karey Espinoza IG % 1.6 % Critically high 0.0-0.5 [facility] Comment on above: Performed By: #### C BC ####[facility] [address] [place] [address]Dr. Camillarony Espinoza LYMPH # 1.9 103/ul Normal 1.2-3.8 [facility] Comment on above: Performed By: #### C BC ####[facility] [address] [place] [address]Dr. Camillarony Espinoza Lymphocytes/100 WBC (Bld) 13.3 % Critically low 20.5-60.0 [facility] Comment on above: Performed By: #### C BC ####[facility] [address] [place] [address]Dr. Camillarony Espinoza MANUAL DIFF REQ NO Normal [facility] Comment on above: Performed By: #### C BC ####[facility] [address] [place], [place] [address]Dr. Karey Espinoza MCH (RBC) [Entitic mass] 30.0 pg Normal 26.7-34.0 [facility] Comment on above: Performed By: #### C BC ####[facility] [address] [place] [phone]. Karey Espinoza MCHC (RBC) [Mass/Vol] 34.3 g/dL Normal 29.9-35.2 [facility] Comment on above: Performed By: #### C BC ####[facility] [address] [place] [phone]. Karey Espinoza MCV (RBC) [Entitic vol] 87.4 fL Normal 81.0-99.0 [facility] Comment on above: Performed By: #### C BC ####[facility] [address] [place] [phone]. Karey Espinoza MONO # 0.8 103/ul Normal 0.3-0.8 [facility] Comment on above: Performed By: #### C BC ####[facility] [address] [place] [phone]. Karey Espinoza Monocytes/100 WBC (Bld) 5.4 % Normal 1.7-12.0 [facility] Comment on above: Performed By: #### C BC ####[facility] [address] [place] [phone]. Karey Espinoza NEUT # 10.8 103/ul Critically high 1.4-6.5 [facility] Comment on above: Performed By: #### C BC ####[facility] [address] [place] [phone]. Karey Espinoza Neutrophils/100 WBC (Bld) 78.1 % Critically high 43.0-75.0 [facility] Comment on above: Performed By: #### C BC ####[facility] [address] [place] [phone]. Karey Espinoza Platelet mean volume (Bld) [Entitic vol] 9.0 fL Critically low 9.5-13.5 [facility] Comment on above: Performed By: #### C BC ####[facility] [address] [place] [phone]. Karey Alexis PLT 345 103/ul Normal 150-450 [facility] Comment on above: Performed By: #### C BC ####[facility] [address] [place], [place] [address]Av. Karey Espinoza RBC 4.67 106/ul Normal 4.20-5.40 [facility] Comment on above: Performed By: #### C BC ####[facility] [address] [place], [place] [address]Uk. Karey Espinoza WBC 13.9 103/ul Critically high 4.0-11.0 [facility] Comment on above: Performed By: #### C BC ####[facility] [address] [place], [place] [address]Kj. Karey Espinoza CT ABD/PELV W CONon 09-25-20 [...] by: FADY BAUER Date: 2022-09-25 15:00 Normal [facility] CT HEAD WO CONon 09-25-2022 CT [...] SHAHLA CLAIRE Date: 2022-09-25 14:41 Normal [facility] Covid-19 PCR (CVDTB)on 08-29 SARS-CoV-2 (COVID-19) RNA JORI+probe Ql (Unsp spec) Not detected Normal NOT DETECTED [facility] Comment on above: Result Comment: When [...] for this test is supported by the [place] of Health and Human Service's declaration that [...] longer be used). Performed By: #### C VDTB #### [facility] [address] [place] [address] [address] Karey Espinoza ER URINE PROFILEon 2 Bilirubin Ql (U) Negative Normal NEGATIVE [facility] Comment on above: Performed By: #### E NEDA REDDING ####[facility] [address] [place] [address]Dr. Karey Espinoza Clarity (U) SL CLOUDY Abnormal CLEAR [facility] Comment on above: Performed By: #### E NEDA REDDING ####[facility] [address] [place] [address]DrAshley Espinoza Color (U) YELLOW Normal YELLOW [facility] Comment on above: Performed By: #### NELSON REYESICRO ####[facility] [address] [place] [address]Dr. Karey HAYESAHD A micrscopic examination will be performed if indicated. Normal [facility] Comment on above: Performed By: #### Kvng REDDING UMICRO ####[facility] [address] [place] [address]Dr. Karey Espinoza Glucose Ql (U) Negative Normal NEGATIVE [facility] Comment on above: Performed By: #### Kvng REDDING UMICRO ####[facility] [address] [place], [place] [address]Dr. Karey Espinoza Hemoglobin Ql (U) SMALL Abnormal NEGATIVE [facility] Comment on above: Performed By: #### Kvng REDDING UMICRO ####[facility] [address] [place], [place] [address]Dr. Karey Espinoza Ketones Ql (U) Negative Normal NEGATIVE [facility] Comment on above: Performed By: #### Kvng REDDING UMICRO ####[facility] [address] [place], [place] [address]Dr. Karey Espinoza LEUKOCYTES Negative Normal NEGATIVE [facility] Comment on above: Performed By: #### COLTON REYESRO ####[facility] [address] [place], [place] [address]Dr. Karey Espinoza Nitrite Ql (U) Negative Normal NEGATIVE [facility] Comment on above: Performed By: #### Kvng REDDING UMICRO ####[facility] [address] [place] [address]Dr. Karey Espinoza pH (U) 5.0 [pH] Normal 5-9 [facility] Comment on above: Performed By: #### NELSON REYESICRO ####[facility] [address] [place], [place] [address]Dr. Karey Espinoza SPEC GRAVITY 1.010 Normal 1.005-<=1.025 [facility] Comment on above: Performed By: #### NEDA REYES ####[facility] [address] [place] [address]Dr. Karey Espinzoa UA PROTEIN Negative Normal NEGATIVE/ TRACE [facility] Comment on above: Performed By: #### COLTON REYESRO ####[facility] [address] [place] [address]Dr. Karey Espinoza UR MICRO IND INDICATED Normal [facility] Comment on above: Performed By: #### NEDA REYES ####[facility] [address] [place] [address]Dr. Karey Espinoza Urobilinogen Qn (U) 0.2 {Jose'U}/dL Normal 0.2 - 1. 0 [facility] Comment on above: Performed By: #### NEDA REYES ####[facility] [address] [place] [address]Dr. Karey Espinoza LIPASEon 09-25-2022 Lipase [Catalytic activity/Vol] 341.0 U/L Normal 73.0-393.0 [facility] Comment on above: Performed By: #### C MP, LIPA, CMADM ####[facility] [address] [place] [address]Dr. Karey Espinoza PROF 14(COMP METB)on 022 Albumin [Mass/Vol] 3.6 g/dL Normal 3.4-5.0 [facility] Comment on above: Performed By: #### C MP, LIPA, CMADM ####[facility] [address] [place] [address]Dr. Karey Espinoza Albumin/Globulin [Mass ratio] 1.1 {ratio} Normal [facility] Comment on above: Performed By: #### C MP, LIPA, CMADM ####[facility] [address] [place] [address]Dr. Karey Espinoza ALP [Catalytic activity/Vol] 92 U/L Normal 46-116 [facility] Comment on above: Performed By: #### C MP, LIPA, CMADM ####[facility] [address] [place] [address]Dr. Karey Espinoza ALT [Catalytic activity/Vol] 77 U/L Critically high 14-59 [facility] Comment on above: Performed By: #### C MP, LIPA, CMADM ####[facility] [address] [place] [address]Dr. Karey Espinoza Anion gap [Moles/Vol] 11.6 mmol/L Normal Th e [facility] Comment on above: Performed By: #### C MP, LIPA, CMADM ####[facility] [facility] [address] [place] [address]Dr. Karey Espinoza AST [Catalytic activity/Vol] 85 U/L Critically high 15-37 [facility] Comment on above: Performed By: #### C MP, LIPA, CMADM ####[facility] [address] [place] [address]Dr. Karey Espinoza Bilirubin [Mass/Vol] 0.6 mg/dL Normal 0.2-1.0 [facility] Comment on above: Performed By: #### C MP, LIPA, CMADM ####[facility] [address] [place] [address]Dr. Karey Espinoza Calcium [Mass/Vol] 9.2 mg/dL Normal 8.5-10.1 [facility] Comment on above: Performed By: #### C MP, LIPA, CMADM ####[facility] [address] [place] [address]Dr. Karey Espinoza Chloride [Moles/Vol] 101 mmol/L Normal 98-107 [facility] Comment on above: Performed By: #### C MP, LIPA, CMADM ####[facility] [address] [place] [address]Dr. Karey Espinoza CO2 [Moles/Vol] 25.9 mmol/L Normal 21.0-32.0 [facility] Comment on above: Performed By: #### C MP, LIPA, CMADM ####[facility] [address] [place] [address]Dr. Karey Espinoza Creatinine [Mass/Vol] 1.11 mg/dL Critically high 0.55-1.02 [facility] Comment on above: Performed By: #### C MP, LIPA, CMADM ####[facility] [address] [place] [address]Dr. Karey Espinoza EGFR-AF PERUVIAN 58 mL/min/1.73m2 Critically low >=60 [facility] Comment on above: Performed By: #### C MP, LIPA, CMADM ####[facility] [address] [place] [address]Dr. Camillalan Espinoza EGFR-NON AF PERUVIAN 48 mL/min/1.73m2 Critically low >=60 [facility] Comment on above: Performed By: #### C MP, LIPA, CMADM ####[facility] [address] [place] [address]Dr. Karey Espinoza Globulin (S) [Mass/Vol] 3.3 g/dL Normal [facility] Comment on above: Performed By: #### C MP, LIPA, CMADM ####[facility] [address] [place] [address]Dr. Karey Espinoza Glucose [Mass/Vol] 149 mg/dL Critically high 74-106 [facility] Comment on above: Performed By: #### C MP, LIPA, CMADM ####[facility] [address] [place] [address]Dr. Karey Espinoza Potassium [Moles/Vol] 4.5 mmol/L Normal 3.5-5.1 [facility] Comment on above: Performed By: #### C MP, LIPA, CMADM ####[facility] [address] [place] [address]Dr. Camillalan Espinoza Protein [Mass/Vol] 6.9 g/dL Normal 6.4-8.2 [facility] Comment on above: Performed By: #### C MP, LIPA, CMADM ####[facility] [address] [place] [address]Dr. Camillalan Espinoza Sodium [Moles/Vol] 134 mmol/L Critically low 136-145 Th [facility] Comment on above: Performed By: #### C MP, LIPA, CMADM ####[facility] [address] [place] [phone] Espinoza Urea nitrogen [Mass/Vol] 18.0 mg/dL Normal 7.0-18.0 [facility] Comment on above: Performed By: #### C MP, LIPA, CMADM ####[facility] [address] [place] [phone] Espinoza Urea nitrogen/Creatinine [Mass ratio] 16.2 mg/mg Normal [facility] Comment on above: Performed By: #### C MP, LIPA, CMADM ####[facility] [address] [place] [address]DrAshley Espinoza PROTIMEon 09-25-2022 INR Coag (PPP) [Relative time] 1.11 {INR} Normal [facility] Comment on above: Performed By: #### P T, PTT #### [facility] [address] [address] [address] Karey Espinoza INR GUIDELINES SEE BELOW Normal [facility] Comment on above: Result Comment: FAHAD RED INR: 2.0 - 3.0 CONDITIONS NOT LISTED BELOW 2.5 - 3.5 FOR PROSTHETIC HEART VALVE REPLACEMENT 2.5 - 3.5 RECURRENT THROMBOSIS Performed By: #### P T, PTT #### [facility] [address] [address] [address] Karey Espinoza PT Coag (PPP) [Time] 11.9 s Critically high 9.0-11.6 [facility] Comment on above: Performed By: #### P T, PTT #### [facility] [address] [address] [address] Karey Espinoza PTTon 09-25-2022 aPTT Coag (Bld) [Time] 30.4 s Normal 22.3-36.2 [facility] Comment on above: Performed By: #### P T, PTT #### [facility] [address] [address] [address] Karey Espinoza Trauma Profileon 09-25-2022 Anion gap [Moles/Vol] 12 mmol/L Normal 9-17 [facility] Comment on above: Performed By: #### B MP, MATIAS, MG, CDP #### [place] [id number] Contract Administration Coordinator: Shamir Milton MD Chloride [Moles/Vol] 102 mmol/L Normal 98-107 [facility] Comment on above: Performed By: #### B MP, MATIAS, MG, CDP #### [facility] [address] [place] [address] Contract Administration Coordinator: Shamir Milton MD CO2 [Moles/Vol] 20 mmol/L Normal 20-31 [facility] Comment on above: Performed By: #### B MP, MATIAS, MG, CDP #### [facility] [address] [place] [address] Contract Administration Coordinator: Shamir Milton MD Creatinine [Mass/Vol] 0.76 mg/dL Normal 0.50-0.90 [facility] Comment on above: Performed By: #### B MP, MATIAS, MG, CDP #### [place] [id number] Contract Administration Coordinator: Shamir Milton MD Ethanol [Mass/Vol] mg/dL Normal <10 [facility] Comment on above: Performed By: #### B MP, MATIAS, MG, CDP #### [place] [id number] Contract Administration Coordinator: Shamir Milton MD Ethanol percent <0.010 Normal <0.010 [facility] Comment on above: Performed By: #### B MP, MATIAS, MG, CDP #### [place] [id number] Contract Administration Coordinator: Shamir Milton MD GFR/1.73 sq M.predicted among non-blacks MDRD (S/P/Bld) [Vol rate/Area] mL/min/{1.73_m2} Normal >60 [facility] Comment on above: Result Comment: Effective [...] #### B MP, MATIAS, MG, CDP #### [address] [address] Contract Administration Coordinator: Shamir Milton MD Glucose [Mass/Vol] 127 mg/dL High 70-99 [facility] Comment on above: Performed By: #### B MP, MATIAS, MG, CDP #### [address] [address] Contract Administration Coordinator: Shamir Milton MD Potassium [Moles/Vol] 4.1 mmol/L Normal 3.7-5.3 [facility] Comment on above: Performed By: #### B MP, MATIAS, MG, CDP #### [address] [address] Contract Administration Coordinator: Shamir Milton MD Sodium [Moles/Vol] 134 mmol/L Low 135-144 [facility] Comment on above: Performed By: #### B MP, MATIAS, MG, CDP #### [address] [address] Contract Administration Coordinator: Shamir Milton MD Urea nitrogen [Mass/Vol] 14 mg/dL Normal 8-23 [facility] Comment on above: Performed By: #### B MP, MATIAS, MG, CDP #### [address] [address] Contract Administration Coordinator: Shamir Milton MD aPTT Coag (Bld) [Time] 24.4 s Normal 20.5-30.5 [facility] Comment on above: Result Comment: IV Heparin Therapy Range: 48.6-77.8 Performed By: #### B MP, MATIAS, MG, CDP #### [address] [phone] Contract Administration Coordinator: Shamir Milton MD INR Coag (PPP) [Relative time] 1.1 {INR} Normal [facility] Comment on above: Result Comment: Therapeutic Range: Moderate Anticoagulant Intensity: INR = 2.0-3.0 High Anticoagulant Intensity: INR = 2.5-3.5 Performed By: #### B MP, MATIAS, MG, CDP #### [address] [address] Contract Administration Coordinator: Shamir Milton MD PT Coag (PPP) [Time] 11.3 s Normal 9.1-12.3 [facility] Comment on above: Performed By: #### B MP, MATIAS, MG, CDP #### [address] [address] Contract Administration Coordinator: Shamir Milton MD HCG Screen, Blood Negative Normal [facility] Comment on above: Result Comment: Spec imens with hCG levels near the threshold of the test (25 mIU/mL) may give a negative or indeterminate result. In such cases, another test should be performed with a new specimen in 48-72 hours. If early is suspected clinically in this setting, correlation with quantitative serum b-hCG level is suggested. [employer] [facility] has confirmed the use of plasma for this test. This has not been cleared or approved by the [place]. Food and Drug Administration. The FDA has determined that such clearance is not necessary. Performed By: #### B MP, MATIAS, MG, CDP #### [address] [phone] Contract Administration Coordinator: Shamir Milton MD Body Temp. 37.0 Normal [facility] Comment on above: Performed By: #### B MP, MATIAS, MG, CDP #### [place] [id number] Contract Administration Coordinator: Shamir Milton MD Carboxy Hgb 2.3 % Normal 0-5 [facility] Comment on above: Result Comment: Reference Range: Non-Smokers 0-2% Average Smoker 2-4% Heavy Smoker <10% Performed By: #### B MP, MATIAS, MG, CDP #### [address] [address] Contract Administration Coordinator: Shamir Milton MD FIO2 INFORMATION NOT PROVIDED Normal [facility] Comment on above: Performed By: #### B MP, MATIAS, MG, CDP #### [facility] [address] [place] [phone] Contract Administration Coordinator: Shamir Milton MD HCO3 (Bld) [Moles/Vol] 22.7 mmol/L Low 24-30 [facility] Comment on above: Performed By: #### B MP, MATIAS, MG, CDP #### [facility] [address] [place] [address] Contract Administration Coordinator: Shamir Milton MD Negative Base Excess 2.5 mmol/L High 0.0-2.0 [facility] Comment on above: Performed By: #### B MP, MATIAS, MG, CDP #### [facility] [address] [place] [address] Contract Administration Coordinator: Shamir Milton MD Oxygen saturation in Blood 73.8 % Normal 60.0-85.0 [facility] Comment on above: Performed By: #### B MP, MATIAS, MG, CDP #### [facility] [address] [place] [address] Contract Administration Coordinator: Shamir Milton MD pCO2 42.6 mm Hg Normal 39-55 [facility] Comment on above: Performed By: #### B MP, MATIAS, MG, CDP #### [facility] [address] [place] [address] Contract Administration Coordinator: Shamir Milton MD pH (Bld) 7.345 [pH] Normal 7.320-7.420 [facility] Comment on above: Performed By: #### B MP, MATIAS, MG, CDP #### [facility] [address] [place] [phone] Contract Administration Coordinator: Shamir Milton MD pO2 40.7 mm Hg Normal 30-50 [facility] Comment on above: Performed By: #### B MP, MATIAS, MG, CDP #### [facility] [address] [place] [address] Contract Administration Coordinator: Shamir Milton MD Erythrocyte distribution width (RBC) [Ratio] 13.0 % Normal 11.8-14.4 [facility] Comment on above: Performed By: #### B MP, MATIAS, MG, CDP #### [facility] [address] [place] [address] Contract Administration Coordinator: Shamir Milton MD Hematocrit (Bld) [Volume fraction] 42.4 % Normal 36.3-47.1 [facility] Comment on above: Performed By: #### B MP, MATIAS, MG, CDP #### [facility] [address] [place] [address] Contract Administration Coordinator: Shamir Milton MD Hemoglobin (Bld) [Mass/Vol] 14.5 g/dL Normal 11.9-15.1 [facility] Comment on above: Performed By: #### B MP, MATIAS, MG, CDP #### [facility] [address] [place] [address] Contract Administration Coordinator: Shamir Milton MD MCH (RBC) [Entitic mass] 30.1 pg Normal 25.2-33.5 [facility] Comment on above: Performed By: #### B MP, MATIAS, MG, CDP #### [facility] [address] [place] [phone] Contract Administration Coordinator: Shamir Milton MD MCHC (RBC) [Mass/Vol] 34.2 g/dL Normal 28.4-34.8 [facility] Comment on above: Performed By: #### B MP, MATIAS, MG, CDP #### [address] [address] Contract Administration Coordinator: Shamir Milton MD MCV (RBC) [Entitic vol] 88.1 fL Normal 82.6-102.9 [facility] Comment on above: Performed By: #### B MP, MATIAS, MG, CDP #### [facility] [address] [place] [address] Contract Administration Coordinator: Shamir Milton MD NRBC Automated 0.0 per 100 WBC Normal 0.0 [facility] Comment on above: Performed By: #### B MP, MATIAS, MG, CDP #### [address] [address] Contract Administration Coordinator: Shamir Milton MD Platelet mean volume (Bld) [Entitic vol] 9.3 fL Normal 8.1-13.5 [facility] Comment on above: Performed By: #### B MP, MATIAS, MG, CDP #### [address] [address] Contract Administration Coordinator: Shamir Milton MD Platelets (Bld) [#/Vol] 335 10*3/uL Normal 138-453 [facility] Comment on above: Performed By: #### B MP, MATIAS, MG, CDP #### [facility] [address] [place] [phone] Contract Administration Coordinator: Shamir Milton MD RBC (Bld) [#/Vol] 4.81 10*6/uL Normal 3.95-5.11 [facility] Comment on above: Performed By: #### B MP, MATIAS, MG, CDP #### [facility] [address] [place] [phone] Contract Administration Coordinator: Shamir Milton MD WBC (Bld) [#/Vol] 12.0 10*3/uL High 3.5-11.3 [facility] Comment on above: Performed By: #### B MP, MATIAS, MG, CDP #### [facility] [address] [place] [address] Contract Administration Coordinator: Shamir Milton MD Blood Bank BILL FOR SERVICES PERFORMED Normal [facility] Comment on above: Performed By: #### B MP, MATIAS, MG, CDP #### [facility] [address] [place], [place] [phone] Contract Administration Coordinator: Shamir Milton MD Type + Screenon 09-25-2022 Type + Screen Sample Expiration 09/28/2022,2359 Arm Band Number [id number] ABO/Rh(D) O POSITIVE Antibody Screen NEGATIVE Normal [facility] Comment on above: Performed By: #### C DP, BMP, MATIAS #### [facility] [address] [facility] [place], [place] [phone] Contract Administration Coordinator: Shamir Milton MD URINE MICROSCOPIC ONLYon BACTERIA NONE SEEN Normal NONE SEEN [facility] Comment on above: Performed By: #### NEDA REYES ####[facility] [address] [place] [address]Dr. Karey Espinoza Bacteria identified Cx Nom (U) NOT INDICATED Normal [facility] Comment on above: Performed By: #### COLTON REYESRO ####[facility] [address] [place] [phone]. Karey Espinoza CAST NONE SEEN Normal NONE SEEN [facility] Comment on above: Performed By: #### COLTON REYESRO ####[facility] [address] [place] [address]Dr. aKrey Espinoza Crystals LM Nom (Urine sed) NONE SEEN Normal NONE SEEN [facility] Comment on above: Performed By: #### NEDA REYES ####[facility] [address] [place] [address]Dr. Karey Espinoza Epithelial cells LM Ql (Urine sed) RARE Normal NONE SEEN /RARE [facility] Comment on above: Performed By: #### E ERICKAR UMICRO ####[facility] [address] [place] [phone]. Karey Espinoza MUCOUS NONE SEEN Normal NONE SEEN [facility] Comment on above: Performed By: #### E MILADIS UMICRO ####[facility] [address] [place] [phone]. Karey Espinoza RBC 0-2 Normal 0-2 [facility] Comment on above: Performed By: #### E MILADIS UMICRO ####[facility] [address] [place] [phone]. Karey Espinoza WBC NONE SEEN Normal NONE SEEN [facility] Comment on above: Performed By: #### E NELSON REDDINGICRO ####[facility] [address] [place] [phone]. Karey Espinoza XR HIP LEFT (2-3 VIEWS)on [...] Mikie Caba MD 09/25/22 Final result Normal [facility] XR PELVIS (MIN 3 VIEWS)on XR [...] Mikie Caba MD 09/25/22 Final result Normal [facility] XR TIBIA FIBULA LEFT (2 VIEW [...] Mikie Caba MD 09/25/22 Final result Normal [facility] LIPID PROFILEon 09-14-2022 CHOL-HDL RATIO NORM SEE BELOW Normal [facility] Comment on above: Result Comment: 3.3 - 4.4 LOW RISK 4.4 - 7.1 AVERAGE RISK 7.1 - 11.0 MODERATE RISK >11.0 HIGH RISK Performed By: #### L IPID, LIVER #### [facility] [address] [address] [address] Karey Espinoza Cholesterol [Mass/Vol] 165 mg/dL Normal <=200 [facility] Comment on above: Performed By: #### L IPID, LIVER #### [facility] [address] [address] [address] Karey Espinoza Cholesterol in HDL [Mass/Vol] 57 mg/dL Normal 40-60 [facility] Comment on above: Performed By: #### L IPID, LIVER #### [facility] [address] [address] [address] Karey Espinoza Cholesterol in LDL [Mass/Vol] 83.2 mg/dL Normal [facility] Comment on above: Performed By: #### L IPID, LIVER #### [facility] [address] [address] [address] Karey Espinoza Cholesterol.total/Cho lesterol in HDL [Mass ratio] 2.9 {ratio} Normal [facility] Comment on above: Performed By: #### L IPID, LIVER #### [facility] [address] [address] [address] Karey Espinoza HDL NORMAL > or = 60 mg/dl - LO W CARDIOVASCULAR RISK <40 mg/dl - HIGH CARDIOVASCULAR RISK Normal [facility] Comment on above: Performed By: #### L IPID, LIVER #### [facility] [address] [address] [address] Karey Espinoza LDL CALC NORMAL SEE BELOW Normal [facility] Comment on above: Result Comment: <100 mg/dl OPTIMAL 100 - 129 mg/dl NEAR OR ABOVE OPTIMAL 130 - 159 mg/dl BORDERLINE HIGH 160 - 189 mg/dl HIGH >190 mg/dl VERY HIGH Performed By: #### L IPID, LIVER #### [facility] [address] [address] [address] Karey Espinoza Triglyceride [Mass/Vol] 124 mg/dL Normal <=150 [facility] Comment on above: Performed By: #### L IPID, LIVER #### [facility] [address] [address] [address] Karey Espinoza VLDL CALC 24.8 mg/dL Normal [facility] Comment on above: Performed By: #### L IPID, LIVER #### [facility] [address] [address] [address] Karey Espinoza LIVER PROFILEon 09-14-2022 Albumin [Mass/Vol] 3.6 g/dL Normal 3.4-5.0 [facility] Comment on above: Performed By: #### L IPID, LIVER #### [facility] [address] [place] [address] Dr. Karey Espinoza Albumin/Globulin [Mass ratio] 1.1 {ratio} Normal [facility] Comment on above: Performed By: #### L IPID, LIVER #### [facility] [address] [place] [address] Dr. Karey Espinoza ALP [Catalytic activity/Vol] 75 U/L Normal 46-116 [facility] Comment on above: Performed By: #### L IPID, LIVER #### [facility] [address] [place] [address] Dr. Karey Espinoza ALT [Catalytic activity/Vol] 57 U/L Normal 14-59 [facility] Comment on above: Performed By: #### L IPID, LIVER #### [facility] [address] [place] [address] Dr. Karey Espinoza AST [Catalytic activity/Vol] 35 U/L Normal 15-37 [facility] Comment on above: Performed By: #### L IPID, LIVER #### [facility] [address] [place] [address] Dr. Karey Espinoza BILI, CONJUGATED 0.1 mg/dL Normal 0.0-0.2 [facility] Comment on above: Performed By: #### L IPID, LIVER #### [facility] [address] [address] [address] Kraey Espinoza Bilirubin [Mass/Vol] 0.5 mg/dL Normal 0.2-1.0 [facility] Comment on above: Performed By: #### L IPID, LIVER #### [facility] [address] [address] [address] Karey Espinoza Globulin (S) [Mass/Vol] 3.3 g/dL Normal [facility] Comment on above: Performed By: #### L IPID, LIVER #### [facility] [address] [address] [address] Karey Espinoza Protein [Mass/Vol] 6.9 g/dL Normal 6.4-8.2 [facility] Comment on above: Performed By: #### L IPID, LIVER #### [facility] [address] [place] [address] Dr. Karey Espinoza Covid-19 PCR (CVDTB)on 03-29 SARS-CoV-2 (COVID-19) RNA JORI+probe Ql (Unsp spec) Not detected Normal NOT DETECTED [facility] Comment on above: Result Comment: This test is not yet approved or cleared by the [place] FDA. When there are no FDA-approved or cleared tests available, and other criteria are met, FDA can make tests available under an emergency access mechanism called an Emergency Use Authorization (EUA). The EUA for this test is supported by the Lead Systems Analyst of Health and Human Service's (HHS's) declaration [...] SARS-CoV-2. Performed By: #### C VDTBH #### [facility] [address] [place], [place] [address] Dr. Karey Espinoza SYMPTOMATIC COVID-19 ANTIGEN on 04-20-2022 EUA Statement SEE BELOW Normal [facility] Comment on above: Result Comment: This test [...] revoked sooner. Performed By: #### C VDAGS ####[facility] [address] [place] [phone] Espinoza SARS-CoV-2 (COVID-19) RNA JORI+probe Ql (Unsp spec) Negative Normal NEGATIVE [facility] Comment on above: Performed By: #### C VDAGS ####[facility] [address] [place] [phone]. Karey Espinoza LIPID PROFILEon 04-04-2022 CHOL-HDL RATIO NORM SEE BELOW Normal [facility] Comment on above: Result Comment: 3.3 - 4.4 LOW RISK 4.4 - 7.1 AVERAGE RISK 7.1 - 11.0 MODERATE RISK >11.0 HIGH RISK Performed By: #### L RAJ, LIPID ####[facility] [address] [place] [phone] Espinoza Cholesterol [Mass/Vol] 198 mg/dL Normal <=200 [facility] Comment on above: Performed By: #### L RAJ, LIPID ####[facility] [address] [place] [phone] Espinoza Cholesterol in HDL [Mass/Vol] 50 mg/dL Normal 40-60 [facility] Comment on above: Performed By: #### L RAJ LIPID ####[facility] [address] [place] [phone]. Karey Espinoza Cholesterol in LDL [Mass/Vol] 110.8 mg/dL Normal [facility] Comment on above: Performed By: #### L IVROGELIO LIPID ####[facility] [address] [place] [phone]. Karey Espinoza Cholesterol.total/Cho lesterol in HDL [Mass ratio] 4.0 {ratio} Normal [facility] Comment on above: Performed By: #### L RAJ LIPID ####[facility] [address] [place] [phone]. Karey Espinoza HDL NORMAL > or = 60 mg/dl - LO W CARDIOVASCULAR RISK <40 mg/dl - HIGH CARDIOVASCULAR RISK Normal [facility] Comment on above: Performed By: #### Carli ATNHONY LIPID ####[facility] Mqajyccbsu0962 [place] [phone]. Karey Espinoza LDL CALC NORMAL SEE BELOW Normal [facility] Comment on above: Result Comment: <100 mg/dl OPTIMAL 100 - 129 mg/dl NEAR OR ABOVE OPTIMAL 130 - 159 mg/dl BORDERLINE HIGH 160 - 189 mg/dl HIGH >190 mg/dl VERY HIGH Performed By: #### L RAJ LIPID ####[facility] [address] [place], [place] [address]Ep. Karey Espinoza Triglyceride [Mass/Vol] 186 mg/dL Critically high <=150 [facility] Comment on above: Performed By: #### L RAJ LIPID ####[facility] Pwetwcjrgl4107 [place], [place] [address]Sd. Karey Espinoza VLDL CALC 37.2 mg/dL Normal [facility] Comment on above: Performed By: #### L IVROGELIO LIPID ####[facility] Cqxmhjpenm8090 [place], [place] [address]Mx. Karey Espinoza LIVER PROFILEon 04-04-2022 Albumin [Mass/Vol] 3.8 g/dL Normal 3.4-5.0 [facility] Comment on above: Performed By: #### L IVER, LIPID ####[facility] Dhqthcvfoc2506 [place] [id number]. Karey Espinoza Albumin/Globulin [Mass ratio] 1.2 {ratio} Normal [facility] Comment on above: Performed By: #### L IVER, LIPID ####[facility] Cfjqyqgjyx1668 [place] [id number]. Karey Espinoza ALP [Catalytic activity/Vol] 78 U/L Normal 46-116 [facility] Comment on above: Performed By: #### L IVER, LIPID ####[facility] Pnwerbrrbh5563 [place] [id number]. Karey Espinoza ALT [Catalytic activity/Vol] 33 U/L Normal 14-59 [facility] Comment on above: Performed By: #### L IVER, LIPID ####[facility] Sipwwynott0373 [place] [id number]. Karey Espinoza AST [Catalytic activity/Vol] 26 U/L Normal 15-37 [facility] Comment on above: Performed By: #### L IVER, LIPID ####[facility] Atnsnmitbw3458 [place] [id number]. Karey Espinoza BILI, CONJUGATED 0.1 mg/dL Normal 0.0-0.2 [facility] Comment on above: Performed By: #### L IVER, LIPID ####[facility] Bswefghjyo0362 [place] [id number]. Karey Espinoza Bilirubin [Mass/Vol] 0.5 mg/dL Normal 0.2-1.0 [facility] Comment on above: Performed By: #### L IVER, LIPID ####[facility] Pashqbxorx2089 [place] [phone]. Karey Espinoza Globulin (S) [Mass/Vol] 3.2 g/dL Normal [facility] Comment on above: Performed By: #### L IVER, LIPID ####[facility] Ipxmcvygbp9964 [place] [phone]. Karey Espinoza Protein [Mass/Vol] 7.0 g/dL Normal 6.4-8.2 [facility] Comment on above: Performed By: #### L RAJ, LIPID ####[facility] Gbigqessua7425 [place] [address]DrAshley Espinoza XR lumbar spine 2-3V*on XR lumbar spine 2-3V* [facility] Main [place] [address] [place] [address] XRay Report Signed Patient: Anabela Abbasi MR#: [id number] 5 : 1945 Acct:[id number] Age/Sex: 75 / F ADM Date: 03/30/21 Loc: XD Room: Type: [facility] Attending Dr: Brian Gonzales MD Ordering [...] Wang Jr., M.D.03/30/2021 2:53 PM Dictation Location: [place] [address] Transcribed By: [facility] 03/30/21 1456 Dictated By: Maciel Wang Jr, MD 03/30/211449 Signed By: 03/30/211452 [facility] Home Health Records 2020 Home Health Records [id number]:127 Normal [facility] Glucose Poct Glucometerson 0 03-03-2021 Commemt1 Glu2: Cleaned Meter Normal [facility] Comment on above: Result Comment: PERF ORMED BY: [facility] [address] [place] [id number] PATHOLOGIST ENGINEERING TECHNICAL ANALYST JU MCPHERSON M.D. Performed By: #### G LULS ####Point of Care testing, Glucose [Mass/Vol] 99 mg/dL Normal [facility] Comment on above: Result Comment: Enders om Glucose Reference Range is dependent on time and content of last meal. Glucose of more than 200 mg/dL in a nonstressed, ambulatory subject supports the diagnosis of Diabetes Mellitus. Performed By: #### G LULS ####Point of Care testing, Glucose Poct Glucometerson 0 03-02-2021 Commemt1 Glu2: Cleaned Meter Normal [facility] Comment on above: Result Comment: PERF ORMED BY: [facility] [address] [place] [address] PATHOLOGIST ENGINEERING TECHNICAL ANALYST JU MCPHERSON M.D. Performed By: #### G LULS ####Point of Care testing, Glucose [Mass/Vol] 87 mg/dL Normal [facility] Comment on above: Result Comment: [place] om Glucose Reference Range is dependent on time and content of last meal. Glucose of more than 200 mg/dL in a nonstressed, ambulatory subject supports the diagnosis of Diabetes Mellitus. Performed By: #### G LULS ####Point of Care testing, Glucose [Mass/Vol] 131 mg/dL Normal [facility] Comment on above: Result Comment: [place] om Glucose Reference Range is dependent on time and content of last meal. Glucose of more than 200 mg/dL in a nonstressed, ambulatory subject supports the diagnosis of Diabetes Mellitus. PERFORMED BY: [place] [id number] PATHOLOGIST ENGINEERING TECHNICAL ANALYST JU MCPHERSON M.D. Performed By: #### G LULS ####Point of Care testing, Glucose Poct Glucometerson 0 03-01-2021 Commemt1 Glu2: Cleaned Meter [facility] Comment on above: Result Comment: PERF ORMED BY: [place] [address] [place] [address] PATHOLOGIST ENGINEERING TECHNICAL ANALYST JU MCPHERSON M.D. Performed By: #### G LULS ####Point of Care testing, Glucose [Mass/Vol] 197 mg/dL Normal [facility] Comment on above: Result Comment: [place] om Glucose Reference Range is dependent on time and content of last meal. Glucose of more than 200 mg/dL in a nonstressed, ambulatory subject supports the diagnosis of Diabetes Mellitus. Performed By: #### G LULS ####Point of Care testing, Commemt1 Glu2: Cleaned Meter [facility] Comment on above: Result Comment: PERF ORMED BY: [address] [address] PATHOLOGIST ENGINEERING TECHNICAL ANALYST JU MCPHERSON M.D. Performed By: #### G LULS ####Point of Care testing, Glucose [Mass/Vol] 132 mg/dL Normal [facility] Comment on above: Result Comment: [place] om Glucose Reference Range is dependent on time and content of last meal. Glucose of more than 200 mg/dL in a nonstressed, ambulatory subject supports the diagnosis of Diabetes Mellitus. Performed By: #### G LULS ####Point of Care testing, ABO/Rh Retypeon 02-28-2021 ABO/RH Recheck Result Positive Normal [facility] Comment on above: Result Comment: PERF ORMED BY: [address] [place] [address] PATHOLOGIST ENGINEERING TECHNICAL ANALYST JU MCPHERSON M.D. Complete Blood Count Auto Di ffon 02-28-2021 Basophils (Bld) [#/Vol] 0.1 10*3/uL Normal 0.0-0.2 [facility] Comment on above: Result Comment: PERF ORMED BY: [facility] [address] [place] [address] PATHOLOGIST ENGINEERING TECHNICAL ANALYST JU MCPHERSON M.D. Performed By: #### C MP, CBC, TROP ####[address] Basophils/100 WBC (Bld) 0.4 % Normal . [facility] Comment on above: Performed By: #### C MP, CBC, TROP ####[address] Eosinophils (Bld) [#/Vol] 0.0 10*3/uL Normal 0.0-0.45 [facility] Comment on above: Performed By: #### C MP, CBC, TROP ####[address] Eosinophils/100 WBC (Bld) 0.0 % Normal . [facility] Comment on above: Performed By: #### C MP, CBC, TROP ####[address] Erythrocyte distribution width (RBC) [Ratio] 13.6 % Normal 11.9-15.3 [facility] Comment on above: Performed By: #### C MP, CBC, TROP ####[address] Hematocrit (Bld) [Volume fraction] 38.3 % Normal 34.0-46.4 [facility] Comment on above: Performed By: #### C MP, CBC, TROP ####[address] Hemoglobin (Bld) [Mass/Vol] 13.0 g/dL Normal 11.8-15.4 [facility] Comment on above: Performed By: #### C MP, CBC, TROP ####[address] Lymphocytes (Bld) [#/Vol] 0.8 10*3/uL Low 1.00-4.8 [facility] Comment on above: Performed By: #### C MP, CBC, TROP ####[address] [address] [place] Lymphocytes/100 WBC (Bld) 5.8 % Normal . [facility] Comment on above: Performed By: #### C MP, CBC, TROP ####[address] MCH (RBC) [Entitic mass] 30.0 pg Normal 24.7-34.3 [facility] Comment on above: Performed By: #### C MP, CBC, TROP ####[address] MCV (RBC) [Entitic vol] 88.6 fL Normal 80-100 [facility] Comment on above: Performed By: #### C MP, CBC, TROP ####[address] Mean Corpuscular HGB Conc 33.8 g/dL Normal 32.0-35.0 [facility] Comment on above: Performed By: #### C MP, CBC, TROP ####[address] Monocytes (Bld) [#/Vol] 0.6 10*3/uL Normal 0.0-0.8 [facility] Comment on above: Performed By: #### C MP, CBC, TROP ####[address] Monocytes/100 WBC (Bld) 4.5 % Normal . [facility] Comment on above: Performed By: #### C MP, CBC, TROP ####[address] Neutrophils (Bld) [#/Vol] 11.8 10*3/uL High 1.8-7.7 [facility] Comment on above: Performed By: #### C MP, CBC, TROP ####[address] Neutrophils/100 WBC (Bld) 89.3 % Normal . [facility] Comment on above: Performed By: #### C MP, CBC, TROP ####[place] [id number] [facility] Nucleated RBC/100 WBC (Bld) [Ratio] 0.1 % Normal 0-0.5 [facility] Comment on above: Performed By: #### C MP, CBC, TROP ####[address] Platelet mean volume (Bld) [Entitic vol] 7.2 fL Normal 6.3-10.7 [facility] Comment on above: Performed By: #### C MP, CBC, TROP ####[address] Platelets (Bld) [#/Vol] 369 10*3/uL Normal 150-450 [facility] Comment on above: Performed By: #### C MP, CBC, TROP ####[address] RBC (Bld) [#/Vol] 4.32 10*6/uL Normal 3.60-5.00 [facility] Comment on above: Performed By: #### C MP, CBC, TROP ####[address] WBC (Bld) [#/Vol] 13.2 10*3/uL High 4.5-11.0 [facility] Comment on above: Performed By: #### C MP, CBC, TROP ####[address] Comprehensive Metabolic Pane khalida 02-28-2021 Albumin [Mass/Vol] 3.4 g/dL Normal 3.2-5.5 [facility] Comment on above: Performed By: #### C MP, CBC, TROP ####[address] Albumin/Globulin [Mass ratio] 1.4 {ratio} Normal [facility] Comment on above: Performed By: #### C MP, CBC, TROP ####[address] ALP [Catalytic activity/Vol] 48 U/L Normal 32-92 [facility] Comment on above: Performed By: #### C MP, CBC, TROP ####[facility] Vbr2940 [place] [address] [facility] ALT [Catalytic activity/Vol] 23 U/L Normal 10-60 [facility] Comment on above: Performed By: #### C MP, CBC, TROP ####[facility] Vya0119 [place] [address] [facility] AST [Catalytic activity/Vol] 32 U/L Normal 10-42 [facility] Comment on above: Performed By: #### C MP, CBC, TROP ####[facility] Agv8601 [place] [address] [facility] Bilirubin [Mass/Vol] 0.5 mg/dL Normal 0.3-1.2 [facility] Comment on above: Performed By: #### C MP, CBC, TROP ####[place] [id number] [facility] Calcium [Mass/Vol] 8.9 mg/dL Normal 8.2-10.2 [facility] Comment on above: Performed By: #### C MP, CBC, TROP ####[place] [id number] [facility] Chloride [Moles/Vol] 102 mmol/L Normal 95-114 [facility] Comment on above: Performed By: #### C MP, CBC, TROP ####[facility] Ydj9600 [place] [address] [facility] CO2 [Moles/Vol] 22.6 mmol/L Normal 22.0-30.0 [facility] Comment on above: Performed By: #### C MP, CBC, TROP ####[facility] Caa4309 [place] [address] [facility] Creatinine [Mass/Vol] 0.93 mg/dL Normal 0.44-1.03 [facility] Comment on above: Performed By: #### C MP, CBC, TROP ####[facility] [place] [address] [place] Creatinine Clr Calc Pharmacy 50.13 Normal [facility] Comment on above: Result Comment: PERF ORMED BY: [facility] [address] [place] [id number] PATHOLOGIST ENGINEERING TECHNICAL ANALYST JU MCPHERSON M.D. Performed By: #### C MP, CBC, TROP ####[facility] [place] [address] [facility] Estimated GFR ( [place] > 60 [facility] Comment on above: Result Comment: GFR estimated reference range: According to KDOQI guidelines, <60 ml/min/1.73m2 is sufficient to diagnose a patient with chronic kidney disease. Performed By: #### C MP, CBC, TROP ####[place] [address] [place] [id number] [facility] Estimated GFR (Non- Am 59 [facility] Comment on above: Performed By: #### C MP, CBC, TROP ####[place] [address] [place] [phone] [facility] Globulin (S) [Mass/Vol] 2.5 g/dL [facility] Comment on above: Performed By: #### C MP, CBC, TROP ####[place] [address] [place] [address] [facility] Glucose [Mass/Vol] 198 mg/dL High 70-100 [facility] Comment on above: Result Comment: [place] Glucose Reference Range is dependent on time and content of last meal. Glucose of more than 200 mg/dL in a nonstressed, ambulatory subject supports the diagnosis of Diabetes Mellitus. ADA recommended reference range Performed By: #### C MP, CBC, TROP ####[place] [address] [place] [address] [facility] Potassium [Moles/Vol] 3.9 mmol/L Normal 3.5-5.1 [facility] Comment on above: Performed By: #### C MP, CBC, TROP ####[place] [address] [place] [id number] [facility] Protein [Mass/Vol] 5.9 g/dL Low 6.1-7.9 [facility] Comment on above: Performed By: #### C MP, CBC, TROP ####[facility] Izd0073 [place] [id number] [facility] Sodium [Moles/Vol] 133 mmol/L Low 136-146 [facility] Comment on above: Performed By: #### C MP, CBC, TROP ####[facility] Hzn0558 [place] [address] [facility] Urea nitrogen [Mass/Vol] 13 mg/dL Normal 9-23 [facility] Comment on above: Performed By: #### C MP, CBC, TROP ####[facility] Kux7053 [place] [address] [facility] ECG 12 lead ECGon 02-28-2021 ECG 12 lead ECG [facility] Main [place] [address] [place] [address] Electrocardiograph Report Signed Patient: Anabela Abbasi MR#: [id number] 5 : 1945 Acct:[id number] Age/Sex: 75 / F ADM Date: 02/28/21 Loc: Room: [address] [place] [address] Type: ADM IN Attending Dr: Brian Gonzales [...] MD 02/28/21 1425 Signed By: 02/28/21 1538 [facility] Glucose Poct Glucometerson 0 02-28-2021 Glucose [Mass/Vol] 192 mg/dL [facility] Comment on above: Result Comment: [facility] Glucose Reference Range is dependent on time and content of last meal. Glucose of more than 200 mg/dL in a nonstressed, ambulatory subject supports the diagnosis of Diabetes Mellitus. PERFORMED BY: [place] [address] PATHOLOGIST ENGINEERING TECHNICAL ANALYST JU MCPHERSON M.D. Performed By: #### G LULS ####Point of Care testing, Commemt1 Glu2: Cleaned Meter Normal [facility] Comment on above: Result Comment: PERF ORMED BY: [address] [place] [id number] PATHOLOGIST ENGINEERING TECHNICAL ANALYST JU MCPHERSON M.D. Performed By: #### G LULS ####Point of Care testing, Glucose [Mass/Vol] 202 mg/dL Normal [facility] Comment on above: Result Comment: [place] Glucose Reference Range is dependent on time and content of last meal. Glucose of more than 200 mg/dL in a nonstressed, ambulatory subject supports the diagnosis of Diabetes Mellitus. Performed By: #### G LULS ####Point of Care testing, Troponin I(TnI)on 02-28-2021 Troponin I.cardiac [Mass/Vol] ng/mL Normal 0-0.02 [facility] Comment on above: Result Comment: VARGHESE DC Cut off value > or equal to 0.03 ng/mL in conjunction with clinical conditions of myocardial infarction. (www.escardio.org/guidelines) PERFORMED BY: [place] [address] PATHOLOGIST ENGINEERING TECHNICAL ANALYST JU MCPHERSON M.D. Performed By: #### C MP, CBC, TROP ####[facility] Dcv3587 [place] [phone] [place] XR lumbar spine 2-3V*on XR lumbar spine 2-3V* [facility] Main [place] [address] [place], [place] [id number] XRay Report Signed Patient: Anabela Abbasi MR#: [id number] 5 : 1945 Acct:[id number] Age/Sex: 75 / F ADM Date: 02/28/21 Loc: Room: 9G3878-7 Type: ADM IN Attending Dr: Brian Gonzales [...] Rahul Desai M.D.02/28/2021 12:05 PM Dictation Location: [place] [address] Transcribed By: [facility] 02/28/21 1205 Dictated By: Rahul Desai DO 02/28/21 1153 Signed By: 02/28/21 1205 Normal [facility] COVID-19 FRon 02-24-2021 SARS-CoV-2 (COVID-19) RNA JORI+probe Ql (Unsp spec) Negative Normal Negative [facility] Comment on above: Order Comment: Healt hcare Worker?: N Result Comment: Test ing for SARS-CoV-2 by RT-PCR This test was developed and its performance characteristics determined by [employer]) and validated at the [facility]. This test has not been FDA cleared [...] is terminated or revoked sooner. PERFORMED BY: [place] [address] PATHOLOGIST ENGINEERING TECHNICAL ANALYST JU MCPHERSON M.D. Performed By: #### C OVID-19 [facility] #### [address] Basic Metabolic Panelon 01-27 Calcium [Mass/Vol] 10.1 mg/dL Normal 8.2-10.2 [facility] Comment on above: Result Comment: PERF ORMED BY: [place] [address] PATHOLOGIST ENGINEERING TECHNICAL ANALYST JU MCPHERSON M.D. Performed By: #### C BC, BMP #### [address] Chloride [Moles/Vol] 100 mmol/L Normal 95-114 [facility] Comment on above: Performed By: #### C BC, BMP #### [address] CO2 [Moles/Vol] 25.9 mmol/L Normal 22.0-30.0 [facility] Comment on above: Performed By: #### C BC, BMP #### [address] Creatinine [Mass/Vol] 1.00 mg/dL Normal 0.44-1.03 [facility] Comment on above: Performed By: #### C BC, BMP #### [address] Estimated GFR ( [place] > 60 [facility] Comment on above: Result Comment: GFR estimated reference range: According to KDOQI guidelines, <60 ml/min/1.73m2 is sufficient to diagnose a patient with chronic kidney disease. Performed By: #### C BC, BMP #### [address] Estimated GFR (Non- Am 54 [facility] Comment on above: Performed By: #### C BC, BMP #### [place] [address] [place] Glucose [Mass/Vol] 101 mg/dL High 70-100 [facility] Comment on above: Result Comment: [facility] Glucose Reference Range is dependent on time and content of last meal. Glucose of more than 200 mg/dL in a nonstressed, ambulatory subject supports the diagnosis of Diabetes Mellitus. ADA recommended reference range Performed By: #### C BC, BMP #### [facility] [address] Potassium [Moles/Vol] 4.6 mmol/L Normal 3.5-5.1 [facility] Comment on above: Performed By: #### C BC, BMP #### [facility] [address] Sodium [Moles/Vol] 135 mmol/L Low 136-146 [facility] Comment on above: Performed By: #### C BC, BMP #### [facility] [address] Urea nitrogen [Mass/Vol] 13 mg/dL Normal 9-23 [facility] Comment on above: Performed By: #### C BC, BMP #### [facility] [address] [place] [address] [place] Basophils Auto (Bld) [#/Vol] on 02-16-2021 Basophils (Bld) [#/Vol] 0.0 10*3/uL 0.0-0.2 [facility] Basophils/100 WBC Auto (Bld) on 02-16-2021 Basophils/100 WBC (Bld) 0.9 % [facility] Blood hemoglobin measurement (mass/volume)on 02-16-2021 Hemoglobin (Bld) [Mass/Vol] 14.5 g/dL 11.8-15.4 [facility] Blood leukocytes automated c ount (number/volume)on 02-16-2021 WBC (Bld) [#/Vol] 5.6 10*3/uL 4.5-11.0 [facility] Complete Blood Count Auto Di ffon 02-16-2021 Basophils (Bld) [#/Vol] 0.0 10*3/uL Normal 0.0-0.2 [facility] Comment on above: Result Comment: PERF ORMED BY: [place] [address] PATHOLOGIST ENGINEERING TECHNICAL ANALYST JU MCPHERSON M.D. Performed By: #### C BC, BMP #### [address] Basophils/100 WBC (Bld) 0.9 % Normal . [facility] Comment on above: Performed By: #### C BC, BMP #### [facility] [address] Eosinophils (Bld) [#/Vol] 0.1 10*3/uL Normal 0.0-0.45 [facility] Comment on above: Performed By: #### C BC, BMP #### [address] Eosinophils/100 WBC (Bld) 1.0 % Normal . [facility] Comment on above: Performed By: #### C BC, BMP #### [address] Erythrocyte distribution width (RBC) [Ratio] 14.1 % Normal 11.9-15.3 [facility] Comment on above: Performed By: #### C BC, BMP #### [address] Hematocrit (Bld) [Volume fraction] 42.6 % Normal 34.0-46.4 [facility] Comment on above: Performed By: #### C BC, BMP #### [address] Hemoglobin (Bld) [Mass/Vol] 14.5 g/dL Normal 11.8-15.4 [facility] Comment on above: Performed By: #### C BC, BMP #### [address] Lymphocytes (Bld) [#/Vol] 1.9 10*3/uL Normal 1.00-4.8 [facility] Comment on above: Performed By: #### C BC, BMP #### [address] Lymphocytes/100 WBC (Bld) 33.3 % Normal . [facility] Comment on above: Performed By: #### C BC, BMP #### [address] MCH (RBC) [Entitic mass] 30.1 pg Normal 24.7-34.3 [facility] Comment on above: Performed By: #### C BC, BMP #### [address] MCV (RBC) [Entitic vol] 88.4 fL Normal 80-100 [facility] Comment on above: Performed By: #### C JOSE L, BMP #### [address] Mean Corpuscular HGB Conc 34.0 g/dL Normal 32.0-35.0 [facility] Comment on above: Performed By: #### C JOSE L, BMP #### [address] Monocytes (Bld) [#/Vol] 0.5 10*3/uL Normal 0.0-0.8 [facility] Comment on above: Performed By: #### C JOSE L, BMP #### [address] Monocytes/100 WBC (Bld) 9.3 % Normal . [facility] Comment on above: Performed By: #### C BC, BMP #### [address] Neutrophils (Bld) [#/Vol] 3.1 10*3/uL Normal 1.8-7.7 [facility] Comment on above: Performed By: #### C BC, BMP #### [address] Neutrophils/100 WBC (Bld) 55.5 % Normal . [facility] Comment on above: Performed By: #### C BC, BMP #### [address] Nucleated RBC/100 WBC (Bld) [Ratio] 0.1 % Normal 0-0.5 [facility] Comment on above: Performed By: #### C JOSE L, BMP #### [facility] [address] Platelet mean volume (Bld) [Entitic vol] 7.6 fL Normal 6.3-10.7 [facility] Comment on above: Performed By: #### C JOSE L, BMP #### [facility] [address] Platelets (Bld) [#/Vol] 417 10*3/uL Normal 150-450 [facility] Comment on above: Performed By: #### C JOSE L, BMP #### [address] RBC (Bld) [#/Vol] 4.82 10*6/uL Normal 3.60-5.00 [facility] Comment on above: Performed By: #### C JOSE L, BMP #### [address] WBC (Bld) [#/Vol] 5.6 10*3/uL Normal 4.5-11.0 [facility] Comment on above: Performed By: #### C JOSE L, BMP #### [address] Creatinine and Glomerular fi ltration rate.predicted panel (S/P/Bld)on 02-16-2021 Creatinine [Mass/Vol] 1.00 mg/dL 0.44-1.03 [facility] Eosinophils Auto (Bld) [#/Vo l]on 02-16-2021 Eosinophils (Bld) [#/Vol] 0.1 10*3/uL 0.0-0.45 [facility] Eosinophils/100 WBC Auto (Bl d)on 02-16-2021 Eosinophils/100 WBC (Bld) 1.0 % [facility] Erythrocyte distribution wid th Auto (RBC) [Ratio]on 02-16-2021 Erythrocyte distribution width (RBC) [Ratio] 14.1 % 11.9-15.3 [facility] Estimated glomerular filtrat ion rate (GFR) non- Americanon 02-16-2021 GFR/1.73 sq M.predicted among non-blacks MDRD (S/P/Bld) [Vol rate/Area] 54 mL/Min [facility] Hematocrit Auto (Bld) [Volum e fraction]on 02-16-2021 Hematocrit (Bld) [Volume fraction] 42.6 % 34.0-46.4 [facility] Laboratory - Hematology and Cell countson 02-16-2021 Nucleated RBC/100 WBC (Bld) [Ratio] 0.1 % 0-0.5 [facility] Lymphocytes Auto (Bld) [#/Vo l]on 02-16-2021 Lymphocytes (Bld) [#/Vol] 1.9 10*3/uL 1.00-4.8 [facility] Lymphocytes/100 WBC Auto (Bl d)on 02-16-2021 Lymphocytes/100 WBC (Bld) 33.3 % [facility] MCH Auto (RBC) [Entitic mass ]on 02-16-2021 MCH (RBC) [Entitic mass] 30.1 pg 24.7-34.3 [facility] MCHC Auto (RBC) [Mass/Vol]on 02-16-2021 MCHC (RBC) [Mass/Vol] 34.0 g/dL 32.0-35.0 [facility] MCV Auto (RBC) [Entitic vol] on 02-16-2021 MCV (RBC) [Entitic vol] 88.4 fL 80-100 [facility] Monocytes Auto (Bld) [#/Vol] on 02-16-2021 Monocytes (Bld) [#/Vol] 0.5 10*3/uL 0.0-0.8 [facility] Monocytes/100 WBC Auto (Bld) on 02-16-2021 Monocytes/100 WBC (Bld) 9.3 % [facility] Neutrophils Auto (Bld) [#/Vo l]on 02-16-2021 Neutrophils (Bld) [#/Vol] 3.1 10*3/uL 1.8-7.7 [facility] Neutrophils/100 WBC Auto (Bl d)on 02-16-2021 Neutrophils/100 WBC (Bld) 55.5 % [facility] No Panel Informationon 02-16 Estimated GFR () > 60 mL/Min [facility] Comment on above: GFR estimated refere nce range: According to KDOQI guidelines, <60 ml/min/1.73m2 is sufficient to diagnose a patient with chronic kidney disease. Pharmacy Creatinine Clearance (Chem N/A [facility] PST Type and Screenon 2020 ABO and Rh group Nom (Bld) Blood group O Rh(D) positive Normal [facility] Comment on above: Order Comment: Date of Surgery: [id number] Result Comment: PERF ORMED BY: [facility] [address] [place] [address] PATHOLOGIST ENGINEERING TECHNICAL ANALYST JU MCPHERSON M.D. Platelet mean volume Auto (B ld) [Entitic vol]on 02-16-2021 Platelet mean volume (Bld) [Entitic vol] 7.6 fL 6.3-10.7 [facility] Platelets Auto (Bld) [#/Vol] on 02-16-2021 Platelets (Bld) [#/Vol] 417 10*3/uL 150-450 [facility] RBC Auto (Bld) [#/Vol]on RBC (Bld) [#/Vol] 4.82 10*6/uL 3.60-5.00 [facility] Serum or plasma calcium samir urement (mass/volume)on 02-16-2021 Calcium [Mass/Vol] 10.1 mg/dL 8.2-10.2 [facility] Serum or plasma chloride valeria surement (moles/volume)on 02-16-2021 Chloride [Moles/Vol] 100 mmol/L 95-114 [facility] Serum or plasma glucose samir urement (mass/volume)on 02-16-2021 Glucose [Mass/Vol] 101 mg/dL 70-100 [facility] Comment on above: ADA recommended refe rence rangeRandom Glucose Reference Range is dependent on time and content of last meal. Glucose of more than 200 mg/dL in a nonstressed, ambulatory subject supports the diagnosis of Diabetes Mellitus. Serum or plasma potassium me asurement (moles/volume)on 02-16-2021 Potassium [Moles/Vol] 4.6 mmol/L 3.5-5.1 [facility] Serum or plasma sodium measu rement (moles/volume)on 02-16-2021 Sodium [Moles/Vol] 135 mmol/L 136-146 [facility] Serum or plasma total carbon dioxide measurement (moles/volume)on 02-16-2021 CO2 [Moles/Vol] 25.9 mmol/L 22.0-30.0 [facility] Serum or plasma urea nitroge n measurement (mass/volume)on 02-16-2021 Urea nitrogen [Mass/Vol] 13 mg/dL 07-20 [facility] STR cardiac stress/lexiscano n 02-09-2021 STR cardiac stress/lexiscan [facility] [place] [address] Cardiac Stress Test Signed Patient: Anabela Abbasi MR#: [id number] 5 : 1945 Acct:[id number] Age/Sex: 75 / F ADM Date: 02/07/21 Loc: [place] Room: Type: [facility] Attending Dr: Mikie Daugherty MD Ordering Provider: [...] 02/09/21 1831 Signed By: 02/10/21 1408 Normal [facility] NM karl perf SPECT rest stron 02-07-2021 NM karl perf SPECT rest str [address] [address] Nuclear Medicine Report Signed Patient: Anabela Abbasi MR#: [id number] 5 : 1945 Acct:[id number] Age/Sex: 75 / F ADM Date: 02/07/21 Loc: [place] Room: Type: [facility] Attending Dr: Mikie Daugherty MD Ordering Provider: [...] available for comparison. Transcribed By: ISSAC 02/07/21 4399 Dictated By: Bjorn Simon MD 02/07/21 1654 Signed By: 02/08/21 0943 [facility] XR lumbar spine 6V w bending on 01-05-2021 XR lumbar spine 6V w bending [address] [address] XRay Report Signed Patient: Anabela Abbasi MR#: [id number] 5 : 1945 Acct:[id number] Age/Sex: 75 / F ADM Date: 01/05/21 Loc: XD Room: Type: [facility] Attending Dr: Brian Gonzales MD Ordering Provider: Brian Gonzales MD Date of Service: 01/05/21 XR/XR lumbar spine 6V w bending: m54.16 ([id number]) XR/XR scoliosis survey: M54.16 Copies to: Brian [...] Wang Jr., M.D.01/05/2021 3:44 PM Dictation Location: [place] [address] Transcribed By: [facility] 01/05/21 1544 Dictated By: Maciel Wang Jr, MD 01/05/21 1535 Signed By: 01/05/21 1544 [facility] Vital Signs Date Time Vital Sign Value Performing Clinician Facility 10-11-2021 14:00-0500 Body height 160.02 cm Brian Gonzales Other [facility] Other 10-11-2021 14:00-0500 Body mass index (BMI) [Ratio] 27.63 kg/m2 Brian Gonzales Other [facility] Other 10-11-2021 14:00-0500 Body weight 70.76 kg Brian Gonzales Other [facility] Other 10-11-2021 14:00-0500 Diastolic blood pressure 86 mm[Hg] Brian Gonzales Other [facility] Other 10-11-2021 14:00-0500 Systolic blood pressure 132 mm[Hg] Brian Gonzales Other [facility] Other 02-07-2021 14:28-0400 Body height 160.02 cm M Ashok Hoy Work Phone: [facility] 02-07-2021 14:28-0400 Body weight 72.12 kg M Ashok Hoy Work Phone: [facility] 02-07-2021 14:20-0400 Diastolic blood pressure 82 mm[Hg] M Ashok Hoy Work Phone: [facility] 02-07-2021 14:20-0400 Heart rate 64 /min M Ashok Hoy Work Phone: [facility] 02-07-2021 14:20-0400 Systolic blood pressure 145 mm[Hg] M Ashok Hoy Work Phone: [facility] Encounters Encounter Date Encounter Type Care Provider Facility Start: 09-18-2023 End: 09-18-2023 ambulatory KATLYN [facility] Start: 12-18-2022 End: 12-18-2022 ambulatory [facility] Start: 11-06-2022 End: 11-06-2022 ambulatory [facility] Start: 09-25-2022 End: 10-01-2022 Evaluation and management of inpatient KEYONNA SUMMERS [facility] Start: 09-25-2022 End: 09-25-[address] RAQUEL KING Facility:[facility] Start: 09-14-2022 End: 09-15-[address] SHADE ROJO Facility:[facility] Start: 04-20-2022 End: 04-20-[address] ASHOK AGUSTIN . Facility:[facility] Start: 04-04-2022 End: 04-05-2022 ambulatory KATLYN BERNADINE Facility:[facility] Start: 10-11-2021 End: 10-11-2021 ambulatory Brian Gonzales Other [facility] Other Start: 10-11-2021 Office outpatient vi sit 15 minutes Brian Gonzales [facility] [place] Start: 02-16-2021 End: 02-16-2021 Patient encounter procedure Tim Connollyyovani Nisreen Phone: -Pre-Surgical Testing Start: 02-07-2021 End: 02-07-2021 Patient encounter procedure Tim Connollyyovani Work Phone: -Nuc Med [facility] Start: 01-05-2021 End: 01-05-2021 Patient encounter procedure Tim Connollyyovani Work Phone: -XRay [facility] Procedures Date Procedure Procedure Detail Performing Clinician Start: 02-16-2021 Antibody screen Comment on above: Order Comment: Date of Surgery: [id number] Result Comment: PERF ORMED BY: [facility] [address] [place] [address] PATHOLOGIST ENGINEERING TECHNICAL ANALYST JU MCPHERSON M.D. Start: 02-07-2021 Single photon emissi on computerized tomography Tim AvalosAshok Mohsenyovani Work Phone: Start: 01-05-2021 Scoliosis survey X-ray Tim AvalosAshok Mohsenyovani Nisreen Phone: Start: 01-05-2021 X-ray of lumbar spin e, six views including bending views Tim Ashok Mohsenoyvani Work Phone: Immunizations Immunization Date Immunization Notes Care Provider Emily walter 01-12-2021 COVID-19 mRNA,[id number] b2 (Pfizer) Tim Agustin Work Phone: [facility] 12-22-2020 COVID-19 mRNA,[id number] b2 (Pfizer) Tim Agustin Work Phone: [facility] Payers Date Payer Category Payer Unknown [id number] 2022 Unknown [id number] 1958 Medicare [id number] 1958 Private Health Insurance [id number] 1945 Unknown [id number] 2.16. [id number] 1945 Unknown [id number] 2.16. [id number] 1945 Unknown [id number] 2.16. [id number] 1945 Unknown [id number] 2.16.84 [id number] 1945 Unknown [id number] 2.16.84 [id number] 1945 Unknown [id number] 2.16.84 [id number] 1945 Unknown [id number] 2.16.84 [id number] Self-pay Self Pay [id number] Social History Date Type Detail Facility Start: 02-16-2021 Tobacco smoking status NHIS Never smoked tobacco (finding) [facility] Start: 1945 Sex Assigned At Female F [facility] Sex Assigned At Sex Assigned At Bir [facility] Other Goals Date Patient Goal Desired Activity /State Progress note 09-18-2023 Note Date & Type Note Facility 09-18-2023 Note Cardiovascular Medic [facility] SUBJECTIVE Chief Complaint Patient presents with [...] comparison ASSESSMENT/PLAN: Diagnosis Plan 1. Atherosclerosis of [place] coronary artery of [place] heart without angina pectoris Comprehensive metabolic panel CBC Lipid panel 2. Essential hypertension 3. Mixed hyperlipid (more content not included)... [facility] Clinical Note 09-25-2022 Note Date & [...] authenticated by: RAQUEL KING Date: 2022-09-25 14:50 [facility] Clinical Note 09-25-2022 Note Date & [...] authenticated by: RAQUEL KING Date: 2022-09-25 14:50 [facility] Evaluation note 10-11-2021 Note Date & [...] 9 months. Sep, Kyphoscoliosis (ICD-10 - M41.9) [facility] Other Evaluation note Note Date & Type Note Facility Evaluation note No Assessments Information Avail able [facility] History general Narrative - Reported Note Date & Type Note Facility History general Narrative - Reported Type Medical History high blood pressure Medical History high cholesterol Surgical History heart stent Surgical History knee replacement Surgical History tonsillectomy Surgical History breast cyst Surgical History [facility] see surgical hx [facility] Other Advance Directives No Advanced Directives Records Found Advance Directive Response Recorded Date/ Time Advance Directives No May 19 18 9:01am Chief Complaint and Reason for Visit [...] section and content) DATE CREATED AUTHOR 03/27/2021 [facility] DATE CREATED AUTHOR AUTHOR'S ORGANIZ ATION 10/16/2021 [facility] DATE CREATED AUTHOR AUTHOR'S ORGANIZ ATION 02/01/2023 [facility] DATE CREATED AUTHOR AUTHOR'S ORGANIZ ATION 02/28/2023 [facility] DATE CREATED AUTHOR AUTHOR'S ORGANIZ ATION 02/28/2024 [facility] REASON FOR VISIT (unrecogniz ed section and [...] BE BASED ON THE PRIMARY CLINICAL RECORDS. [facility] [email or web address] [facility]. provides no warranty or guarantee of the accuracy or completeness of information in this document.
== END 2024-04-02 07:58 | disposition home or self-care (01) ==
LOC: LAB 07:57
PROVIDERS: PCP Family Medicine; Visit Provider Family Medicine
DX: M79.641 Pain in right hand (principal); M19.041 Primary osteoarthritis, right hand
CPT/HCPCS: 73130

== ENCOUNTER 2024-04-08 15:16 | Outpatient (RCR) | payer MEDICARE, OTHER, SELFPAY | END 2024-04-18 16:27 | disposition home or self-care (01) | LOC: OT 15:16 | PROVIDERS: PCP Family Medicine; Visit Provider Family Medicine | DX: M79.643 Pain in unspecified hand (principal) | CPT/HCPCS: 97018; 97110; 97165; 97760 ==

== ENCOUNTER 2024-07-16 13:29 | Outpatient (RCR) | payer MEDICARE, OTHER, SELFPAY | END 2024-08-22 15:46 | disposition home or self-care (01) | LOC: PT 13:29 | PROVIDERS: PCP Family Medicine; Visit Provider Family Medicine | DX: R42 Dizziness and giddiness (principal) | CPT/HCPCS: 95992; 97110; 97112; 97140; 97162; 97530 ==

== ENCOUNTER 2024-07-21 06:41 | Outpatient (OUT) | payer MEDICARE, OTHER, SELFPAY ==
--- NOTE | 2024-07-21 | MR_ITS ---
The [address] [address] Patient Name: LORENZO ABBASI MRN: [facility]:[id number] date: 1945 Sex: F Assigned Patient Location: MRI Current Patient Location: MRI Accession/Order Number: [id number] Exam Date: 07/21/2024 07:05 Report Date: 07/21/2024 16:57 At the request of: ASHOK BRYANT Procedure: MR head/brain wo con EXAMINATION: MR head/brain wo con HISTORY: R42 Vertigo. Dizziness. COMPARISON: Head CT 09/25/2022. TECHNIQUE: Multiplanar, multisequence MRI images of the brain without intravenous contrast. FINDINGS: No restricted diffusion. Mild T2 hyperintensity in the supratentorial white matter. Ventricles and sulci normal in size. No hydrocephalus. There is no midline shift, mass effect, or abnormal extraaxial fluid collections. Pituitary gland is not abnormally enlarged. There is no evidence for a Chiari I malformation. The orbital apices are clear. The flow voids of [place] are visualized, implying that the vessels are patent. MR/MR head/brain wo con IMPRESSION: Negative for acute infarct or acute intracranial process. Minimal age-appropriate chronic microvascular ischemia in the supratentorial white matter. No evidence for communicating hydrocephalus. Electronically authenticated by: MAGALIS LIPSCOMB Date: 07/21/2024 16:57
--- OUTSIDE RECORDS SUMMARY | 2024-07-21 06:44 | XMS_ITS | CCD ---
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 Sufficiency 30-100 ng/mL Toxicity >100 ng/mL Performed By: #### C JOHN BMP, MATIAS #### [facility] [address] [place] [address] Kitchen Helper: Shamir Milton MD Vitamin D 25 [place] 49.4 ng/mL Normal >29.9 [facility] Comment on above: Result Comment: Reference Range: Vitamin D status Range Deficiency <20 ng/mL Mild Deficiency 20-30 ng/mL Sufficiency 30-100 ng/mL Toxicity >100 ng/mL Performed By: #### B MP MATIAS, MG, CDP #### [facility] [address] [place] [address] Kitchen Helper: Shamir Milton MD XR FEMUR LEFT (MIN [...] MD 09/26/22 Final result Normal [facility] XR KNEE LEFT (3 VIEWS)on XR [...] MD 09/26/22 Final result Normal [facility] XR PELVIS (MIN 3 VIEWS)on XR [...] MD 09/26/22 Final result Normal [facility] CARDIAC RADHA ADMITon 022 CK [Catalytic activity/Vol] 450 U/L Critically high 26-192 [facility] Comment on above: Performed By: #### C MP, LIPA, CMADM ####[facility] [address] [address]Dr. Karey Espinoza CK.MB [Mass/Vol] 10.56 ng/mL Critically high <=3.60 [facility] Comment on above: Performed By: #### C MP, LIPA, CMADM ####[facility] [address] [phone]. Karey Espinoza HSTROP 7.0 pg/mL Normal 4.0-51.3 [facility] Comment on above: Result Comment: CUT- OFF POINTS HAVE BEEN ESTABLISHED BASED ON THE FOURTH UNIVERSAL DEFINITIONS OF MYOCARDIAL INFARCTION. THE UPPER REFERENCE LIMIT (URL) OF TROPONIN, DEFINED THE 99TH PERCENTILE OF cTnI DISTRIBUTION IN A REFERENCE POPULATION, HAS BEEN CONFIRMED THE DECISION THRESHOLD FOR AK DIAGNOSIS. Performed By: #### C MP, LIPA, CMADM ####[facility] [address] [phone]. Karey Espinoza KARL 1641 ng/mL Critically high 9-82 [facility] Comment on above: Performed By: #### C MP, LIPA, CMADM ####[facility] [address] [phone]. Karey Espinoza CBC AUTO DIFFon 09-25-2022 BASO # 0.1 103/ul Normal 0.0-0.1 [facility] Comment on above: Performed By: #### C BC ####[facility] [address] [phone]. Karey Espinoza Basophils/100 WBC (Bld) 0.4 % Normal 0.2-2.0 [facility] Comment on above: Performed By: #### C BC ####[facility] [address] [address]Dr. Karey Espinoza EO # 0.2 103/ul Normal 0.0-0.7 [facility] Comment on above: Performed By: #### C BC ####[facility] [address] [place], [place] [address]Dr. Karey Espinoza Eosinophils/100 WBC (Bld) 1.2 % Normal 0.9-7.0 [facility] Comment on above: Performed By: #### C BC ####[facility] [address] [place], [place] [address]Dr. Karey Espinoza Erythrocyte distribution width (RBC) [Ratio] 13.0 % Normal 11.0-15.0 [facility] Comment on above: Performed By: #### C BC ####[facility] [address] [place], [place] [address]Dr. Karey Espinoza Hematocrit (Bld) [Volume fraction] 40.8 % Normal 36.0-48.0 [facility] Comment on above: Performed By: #### C BC ####[facility] [address] [place], [place] [address]Dr. Karey Espinoza Hemoglobin (Bld) [Mass/Vol] 14.0 g/dL Normal 12.0-16.0 [facility] Comment on above: Performed By: #### C BC ####[facility] [address] [place], [place] [address]Dr. Karey Espinoza IG # 0.22 10e3/ul Critically high 0.00-0.03 [facility] Comment on above: Performed By: #### C BC ####[facility] [address] [place], [place] [address]Dr. Karey Espinoza IG % 1.6 % Critically high 0.0-0.5 [facility] Comment on above: Performed By: #### C BC ####[facility] [address] [address]Dr. Karey Alexis LYMPH # 1.9 103/ul Normal 1.2-3.8 [facility] Comment on above: Performed By: #### C BC ####[facility] [address] [address]Dr. Karey Alexis Lymphocytes/100 WBC (Bld) 13.3 % Critically low 20.5-60.0 [facility] Comment on above: Performed By: #### C BC ####[facility] [address] [address]Dr. Karey Alexis MANUAL DIFF REQ NO Normal [facility] Comment on above: Performed By: #### C BC ####[facility] [address] [address]Dr. Karey Alexis MCH (RBC) [Entitic mass] 30.0 pg Normal 26.7-34.0 [facility] Comment on above: Performed By: #### C BC ####[facility] [address] [place], [place] [address]Dr. Karey Espinoza MCHC (RBC) [Mass/Vol] 34.3 g/dL Normal 29.9-35.2 [facility] Comment on above: Performed By: #### C BC ####[facility] [address] [place], [place] [address]Dr. Karey Alexis MCV (RBC) [Entitic vol] 87.4 fL Normal 81.0-99.0 [facility] Comment on above: Performed By: #### C BC ####[facility] [address] [place], [place] [address]Dr. Karey Alexis MONO # 0.8 103/ul Normal 0.3-0.8 [facility] Comment on above: Performed By: #### C BC ####[facility] [address] [place], [place] [address]Dr. Karey Alexis Monocytes/100 WBC (Bld) 5.4 % Normal 1.7-12.0 [facility] Comment on above: Performed By: #### C BC ####[facility] [address] [place], [place] [address]Dr. Karey Espinoza NEUT # 10.8 103/ul Critically high 1.4-6.5 [facility] Comment on above: Performed By: #### C BC ####[facility] [address] [address]Dr. Karey Espinoza Neutrophils/100 WBC (Bld) 78.1 % Critically high 43.0-75.0 [facility] Comment on above: Performed By: #### C BC ####[facility] [address] [address]Dr. Karey Espinoza Platelet mean volume (Bld) [Entitic vol] 9.0 fL Critically low 9.5-13.5 [facility] Comment on above: Performed By: #### C BC ####[facility] [address] [address]Dr. Karey Espinoza PLT 345 103/ul Normal 150-450 [facility] Comment on above: Performed By: #### C BC ####[facility] [address] [phone]. Karey Espinoza RBC 4.67 106/ul Normal 4.20-5.40 [facility] Comment on above: Performed By: #### C BC ####[facility] [address] [phone]. Karey Espinoza WBC 13.9 103/ul Critically high 4.0-11.0 [facility] Comment on above: Performed By: #### C BC ####[facility] [address] [address]. Karey Espinoza CT ABD/PELV W CONon 09-25-[address] ABD/PELV W CON EXAM: CT ABD/PELV [...] FADY BAUER Date: 2022-09-25 15:00 Normal [facility] CT HEAD WO CONon 09-25-2022 CT HEAD [...] SHAHLA CLAIRE Date: 2022-09-25 14:41 Normal [facility] 08[facility]29 SARS-CoV-2 (COVID-19) RNA JORI+probe Ql (Unsp spec) Not detected Normal NOT DETECTED [facility] Comment on above: Result Comment: When diagnostic [...] for this test is supported by the [place] [employer] and [employer] Service's declaration that [...] longer be used). Performed By: #### [facility] #### [facility] [address] [address] [address] Karey Espinoza ER URINE PROFILEon 2 Bilirubin Ql (U) Negative Normal NEGATIVE [facility] Comment on above: Performed By: #### Kvng REDDING UMICRO ####[facility] [address] [address]Dr. Karey Espinoza Clarity (U) SL CLOUDY Abnormal CLEAR [facility] Comment on above: Performed By: #### Kvng REDDING UMICRO ####[facility] [address] [address]Dr. Karey Espinoza Color (U) YELLOW Normal YELLOW [facility] Comment on above: Performed By: #### Kvng REDDING UMICRO ####[facility] [address] [address]Dr. Karey FRANZ A micrscopic examination will be performed if indicated. Normal [facility] Comment on above: Performed By: #### Kvng REDDING UMICRO ####[facility] [address] [address]Dr. Karey Espinoza Glucose Ql (U) Negative Normal NEGATIVE [facility] Comment on above: Performed By: #### Kvng REDDING UMICRO ####[facility] [address] [address]Dr. Karey Espinoza Hemoglobin Ql (U) SMALL Abnormal NEGATIVE [facility] Comment on above: Performed By: #### Kvng REDDING UMICRO ####[facility] [address] [address]Dr. Karey Espinoza Ketones Ql (U) Negative Normal NEGATIVE [facility] Comment on above: Performed By: #### NEDA REYES ####[facility] [address] [address]Dr. Camillarony Alexis LEUKOCYTES Negative Normal NEGATIVE [facility] Comment on above: Performed By: #### NEDA REYES ####[facility] [address] [address]Dr. Karey Espinoza Nitrite Ql (U) Negative Normal NEGATIVE [facility] Comment on above: Performed By: #### NEDA REYES ####[facility] [address] [address]Dr. Karey Espinoza pH (U) 5.0 [pH] Normal 5-9 [facility] Comment on above: Performed By: #### NEDA REYES ####[facility] [address] [address]Dr. Karey Espinoza SPEC GRAVITY 1.010 Normal 1.005-<=1.025 [facility] Comment on above: Performed By: #### NEDA REYES ####[facility] [address] [place], [place] [address]Dr. Karey Espinoza UA PROTEIN Negative Normal NEGATIVE/ TRACE [facility] Comment on above: Performed By: #### NEDA REYES ####[facility] [address] [address]Dr. Karey Espinoza UR MICRO IND INDICATED Normal [facility] Comment on above: Performed By: #### NEDA REYES ####[facility] [address] [address]Dr. Camillarony Espinoza Urobilinogen Qn (U) 0.2 {Jose'U}/dL Normal 0.2 - 1. 0 [facility] Comment on above: Performed By: #### NEDA REYES ####[facility] [address] [address]Dr. Karey Espinoza LIPASEon 09-25-2022 Lipase [Catalytic activity/Vol] 341.0 U/L Normal 73.0-393.0 [facility] Comment on above: Performed By: #### C MP, LIPA, CMADM ####[facility] [address] [address]Dr. Karey Espinoza PROF 14(COMP METB)on 022 Albumin [Mass/Vol] 3.6 g/dL Normal 3.4-5.0 [facility] Comment on above: Performed By: #### C MP, LIPA, CMADM ####[facility] [address] [address]Dr. Karey Espinoza Albumin/Globulin [Mass ratio] 1.1 {ratio} Normal [facility] Comment on above: Performed By: #### C CATHY LIPA, CMADM ####[facility] [address] [place], [place] [address]Dr. Karey Espinoza ALP [Catalytic activity/Vol] 92 U/L Normal 46-116 [facility] Comment on above: Performed By: #### C CATHY LIPA, CMADM ####[facility] [address] [place], [place] [address]Dr. Karey Espinoza ALT [Catalytic activity/Vol] 77 U/L Critically high 14-59 [facility] Comment on above: Performed By: #### C CATHY LIPA, CMADM ####[facility] [address] [place], [place] [address]Dr. Karey Espinoza Anion gap [Moles/Vol] 11.6 mmol/L Normal [facility] Comment on above: Performed By: #### C MP, LIPA, CMADM ####[facility] [address] [address]Dr. Karey Espinoza AST [Catalytic activity/Vol] 85 U/L Critically high 15-37 [facility] Comment on above: Performed By: #### C CATHY LIPA, CMADM ####[facility] [address] [address]Dr. Karey Espinoza Bilirubin [Mass/Vol] 0.6 mg/dL Normal 0.2-1.0 [facility] Comment on above: Performed By: #### C MP, LIPA, CMADM ####[facility] [address] [address]Dr. Karey Espinoza Calcium [Mass/Vol] 9.2 mg/dL Normal 8.5-10.1 [facility] Comment on above: Performed By: #### C MP, LIPA, CMADM ####[facility] [address] [address]Dr. Karey Espinoza Chloride [Moles/Vol] 101 mmol/L Normal 98-107 [facility] Comment on above: Performed By: #### C MP, LIPA, CMADM ####[facility] [address] [address]Dr. Karey Espinoza CO2 [Moles/Vol] 25.9 mmol/L Normal 21.0-32.0 [facility] Comment on above: Performed By: #### C MP, LIPA, CMADM ####[facility] [address] [address]Dr. Karey Espinoza Creatinine [Mass/Vol] 1.11 mg/dL Critically high 0.55-1.02 [facility] Comment on above: Performed By: #### C MP, LIPA, CMADM ####[facility] [address] [address]Dr. Karey Espinoza EGFR-AF NIUEAN 58 mL/min/1.73m2 Critically low >=60 [facility] Comment on above: Performed By: #### C MP, LIPA, CMADM ####[facility] [address] [address]Dr. Karey Espinoza EGFR-NON AF NIUEAN 48 mL/min/1.73m2 Critically low >=60 The [facility] Comment on above: Performed By: #### C MP, LIPA, CMADM ####[facility] [address] [place], [place] [address]Dr. Karey Espinoza Globulin (S) [Mass/Vol] 3.3 g/dL Normal [facility] Comment on above: Performed By: #### C MP, LIPA, CMADM ####[facility] [address] [place] [address]Dr. Karey Espinoza Glucose [Mass/Vol] 149 mg/dL Critically high 74-106 T [facility] Comment on above: Performed By: #### C JUAN CARLOS MORGAN, CMADM ####[facility] [address] [address]Dr. Karey Espinoza Potassium [Moles/Vol] 4.5 mmol/L Normal 3.5-5.1 [facility] Comment on above: Performed By: #### C CIERRA MORGANA, CMADM ####[facility] [address] [address]Dr. Karey Espinoza Protein [Mass/Vol] 6.9 g/dL Normal 6.4-8.2 [facility] Comment on above: Performed By: #### C JUAN CARLOS MORGAN, CMADM ####[facility] [address] [address]Dr. Karey Espinoza Sodium [Moles/Vol] 134 mmol/L Critically low 136-145 Th [facility] Comment on above: Performed By: #### C CIERRA MORGANA, CMADM ####[facility] [address] [address]Dr. Karey Espinoza Urea nitrogen [Mass/Vol] 18.0 mg/dL Normal 7.0-18.0 [facility] Comment on above: Performed By: #### C CIERRA MORGANA, CMADM ####[facility] [address] [address]Dr. Karey Espinoza Urea nitrogen/Creatinine [Mass ratio] 16.2 mg/mg Normal [facility] Comment on above: Performed By: #### C ACTHY LIPA, CMADM ####[facility] [address] [address]Dr. Karey Espinoza PROTIMEon 09-25-2022 INR Coag (PPP) [Relative time] 1.11 {INR} Normal [facility] Comment on above: Performed By: #### P T, PTT #### [facility] Laboratory [address] [address] [address] Karey Espinoza INR GUIDELINES SEE BELOW Normal [facility] Comment on above: Result Comment: FAHAD RED INR: 2.0 - 3.0 CONDITIONS NOT LISTED BELOW 2.5 - 3.5 FOR PROSTHETIC HEART VALVE REPLACEMENT 2.5 - 3.5 RECURRENT THROMBOSIS Performed By: #### P T, PTT #### [facility] Laboratory [address] [place] [address] Dr. Karey Espinoza PT Coag (PPP) [Time] 11.9 s Critically high 9.0-11.6 [facility] Comment on above: Performed By: #### P T, PTT #### [facility] Laboratory [address] [place] [address] Dr. Karey Espinoza PTTon 09-25-2022 aPTT Coag (Bld) [Time] 30.4 s Normal 22.3-36.2 [facility] Comment on above: Performed By: #### P T, PTT #### [facility] [address] [place] [address] Dr. Karey Espinoza Trauma Profileon 09-25-2022 Anion gap [Moles/Vol] 12 mmol/L Normal 9-17 [facility] Comment on above: Performed By: #### B MP, MATIAS, MG, CDP #### [facility] [address] [place] [address] Kitchen Helper: Shamir Milton MD Chloride [Moles/Vol] 102 mmol/L Normal 98-107 [facility] Comment on above: Performed By: #### B MP, MATIAS, MG, CDP #### [facility] [address] [place] [address] Kitchen Helper: Shamir Milton MD CO2 [Moles/Vol] 20 mmol/L Normal 20-31 [facility] Comment on above: Performed By: #### B MP, MATIAS, MG, CDP #### [facility] [address] [place] [address] Kitchen Helper: Shamir Milton MD Creatinine [Mass/Vol] 0.76 mg/dL Normal 0.50-0.90 [facility] Comment on above: Performed By: #### B MP, MATIAS, MG, CDP #### [address] [address] Kitchen Helper: Shamir Milton MD Ethanol [Mass/Vol] mg/dL Normal <10 [facility] Comment on above: Performed By: #### B MP, MATIAS, MG, CDP #### [address] [address] Kitchen Helper: Shamir Milton MD Ethanol percent <0.010 Normal <0.010 [facility] Comment on above: Performed By: #### B MP, MATIAS, MG, CDP #### [address] [address] Kitchen Helper: Shamir Milton MD GFR/1.73 sq M.predicted among non-blacks MDRD (S/P/Bld) [Vol rate/Area] mL/min/{1.73_m2} Normal >60 [facility] Comment on above: Result Comment: Effective [...] #### B MP, MATIAS, MG, CDP #### [address] [address] Kitchen Helper: Shamir Milton MD Glucose [Mass/Vol] 127 mg/dL High 70-99 [facility] Comment on above: Performed By: #### B MP, MATIAS, MG, CDP #### [address] [address] Kitchen Helper: Shamir Milton MD Potassium [Moles/Vol] 4.1 mmol/L Normal 3.7-5.3 [facility] Comment on above: Performed By: #### B MP, MATIAS, MG, CDP #### [facility] [address] [place] [address] Kitchen Helper: Shamir Milton MD Sodium [Moles/Vol] 134 mmol/L Low 135-144 [facility] Comment on above: Performed By: #### B MP, MATIAS, MG, CDP #### [facility] [address] [place] [address] Kitchen Helper: Shamir Milton MD Urea nitrogen [Mass/Vol] 14 mg/dL Normal 8-23 [facility] Comment on above: Performed By: #### B MP, MATIAS, MG, CDP #### [facility] [address] [place] [address] Kitchen Helper: Shamir Milton MD aPTT Coag (Bld) [Time] 24.4 s Normal 20.5-30.5 [facility] Comment on above: Result Comment: IV Heparin Therapy Range: 48.6-77.8 Performed By: #### B MP, MATIAS, MG, CDP #### [facility] [address] [place] [address] Kitchen Helper: Shamir Milton MD INR Coag (PPP) [Relative time] 1.1 {INR} Normal [facility] Comment on above: Result Comment: Therapeutic Range: Moderate Anticoagulant Intensity: INR = 2.0-3.0 High Anticoagulant Intensity: INR = 2.5-3.5 Performed By: #### B MP, MATIAS, MG, CDP #### [facility] [address] [place] [address] Kitchen Helper: Shamir Milton MD PT Coag (PPP) [Time] 11.3 s Normal 9.1-12.3 [facility] Comment on above: Performed By: #### B MP, MATIAS, MG, CDP #### [facility] [address] [place] [address] Kitchen Helper: Shamir Milton MD HCG Screen, Blood Negative Normal [facility]G [facility] Comment on above: Result Comment: Spec imens with hCG levels near the threshold of the test (25 mIU/mL) may give a negative or indeterminate result. In such cases, another test should be performed with a new specimen in 48-72 hours. If early is suspected clinically in this setting, correlation with quantitative serum b-hCG level is suggested. [facility] has confirmed the use of plasma for this test. This has not been cleared or approved by the [place]. Food and Drug Administration. The FDA has determined that such clearance is not necessary. Performed By: #### B MP, MATIAS, MG, CDP #### [facility] [address] [address] Kitchen Helper: Shamir Milton MD Body Temp. 37.0 Normal [facility] Comment on above: Performed By: #### B MP, MATIAS, MG, CDP #### [facility] [address] [place] [address] Kitchen Helper: Shamir Milton MD Carboxy Hgb 2.3 % Normal 0-5 [facility] Comment on above: Result Comment: Reference Range: Non-Smokers 0-2% Average Smoker 2-4% Heavy Smoker <10% Performed By: #### B MP, MATIAS, MG, CDP #### [facility] [address] [place] [address] Kitchen Helper: Shamir Milton MD FIO2 INFORMATION NOT PROVIDED Normal [facility] Comment on above: Performed By: #### B MP, MATIAS, MG, CDP #### [facility] [address] [place] [address] Kitchen Helper: Shamir Milton MD HCO3 (Bld) [Moles/Vol] 22.7 mmol/L Low 24-30 [facility] Comment on above: Performed By: #### B MP, MATIAS, MG, CDP #### [facility] [address] [place] [address] Kitchen Helper: Shamir Milton MD Negative Base Excess 2.5 mmol/L High 0.0-2.0 [facility] Comment on above: Performed By: #### B MP, MATIAS, MG, CDP #### [facility] [address] [place] [address] Kitchen Helper: Shamir Milton MD Oxygen saturation in Blood 73.8 % Normal 60.0-85.0 [facility] Comment on above: Performed By: #### B MP, MATIAS, MG, CDP #### [facility] [address] [place] [address] Kitchen Helper: Shamir Milton MD pCO2 42.6 mm Hg Normal 39-55 [facility] Comment on above: Performed By: #### B MP, MATIAS, MG, CDP #### [address] [address] Kitchen Helper: Shamir Milton MD pH (Bld) 7.345 [pH] Normal 7.320-7.420 [facility] Comment on above: Performed By: #### B MP, MATIAS, MG, CDP #### [facility] [address] [place] [address] Kitchen Helper: Shamir Milton MD pO2 40.7 mm Hg Normal 30-50 [facility] Comment on above: Performed By: #### B MP, MATIAS, MG, CDP #### [facility] [address] [place] [address] Kitchen Helper: Shamir Milton MD Erythrocyte distribution width (RBC) [Ratio] 13.0 % Normal 11.8-14.4 [facility] Comment on above: Performed By: #### B MP, MATIAS, MG, CDP #### [facility] [address] [place] [address] Kitchen Helper: Shamir Milton MD Hematocrit (Bld) [Volume fraction] 42.4 % Normal 36.3-47.1 [facility] Comment on above: Performed By: #### B MP, MATIAS, MG, CDP #### [facility] [address] [place] [address] Kitchen Helper: Shamir Milton MD Hemoglobin (Bld) [Mass/Vol] 14.5 g/dL Normal 11.9-15.1 [facility] Comment on above: Performed By: #### B MP, MATIAS, MG, CDP #### [facility] [address] [place] [address] Kitchen Helper: Shamir Milton MD MCH (RBC) [Entitic mass] 30.1 pg Normal 25.2-33.5 [facility] Comment on above: Performed By: #### B MP, MATIAS, MG, CDP #### [address] [address] Kitchen Helper: Shamir Milton MD MCHC (RBC) [Mass/Vol] 34.2 g/dL Normal 28.4-34.8 [facility] Comment on above: Performed By: #### B MP, MATIAS, MG, CDP #### [address] [address] Kitchen Helper: Shamir Milton MD MCV (RBC) [Entitic vol] 88.1 fL Normal 82.6-102.9 [facility] Comment on above: Performed By: #### B MP, MATIAS, MG, CDP #### [facility] [address] [place] [address] Kitchen Helper: Shamir Milton MD NRBC Automated 0.0 per 100 WBC Normal 0.0 [facility] Comment on above: Performed By: #### B MP, MATIAS, MG, CDP #### [facility] [address] [place] [address] Kitchen Helper: Shamir Milton MD Platelet mean volume (Bld) [Entitic vol] 9.3 fL Normal 8.1-13.5 [facility] Comment on above: Performed By: #### B MP, MATIAS, MG, CDP #### [address] [address] Kitchen Helper: Shamir Milton MD Platelets (Bld) [#/Vol] 335 10*3/uL Normal 138-453 [facility] Comment on above: Performed By: #### B MP, MATIAS, MG, CDP #### [facility] [address] [place] [address] Kitchen Helper: Shamir Milton MD RBC (Bld) [#/Vol] 4.81 10*6/uL Normal 3.95-5.11 [facility] Comment on above: Performed By: #### B MP, MATIAS, MG, CDP #### [address] [address] Kitchen Helper: Shamir Milton MD WBC (Bld) [#/Vol] 12.0 10*3/uL High 3.5-11.3 [facility] Comment on above: Performed By: #### B MP, MATIAS, MG, CDP #### [facility] [address] [place] [address] Kitchen Helper: Shamir Milton MD Blood Bank BILL FOR SERVICES PERFORMED Normal [facility] Comment on above: Performed By: #### B MP, MATIAS, MG, CDP #### [facility] [address] [place] [address] Kitchen Helper: Shamir Milton MD Type + Screenon 09-25-2022 Type + Screen Sample Expiration 09/28/2022,2359 Arm Band Number BE [id number] ABO/Rh(D) O POSITIVE Antibody Screen NEGATIVE Normal [facility] Comment on above: Performed By: #### C DP, BMP, MATIAS #### [address] [address] Kitchen Helper: Shamir Milton MD URINE MICROSCOPIC ONLYon BACTERIA NONE SEEN Normal NONE SEEN [facility] Comment on above: Performed By: #### Kvng REDDING UMICRO ####[facility] [address] [place], [place] [address]Dr. Karey Espinoza Bacteria identified Cx Nom (U) NOT INDICATED Normal [facility] Comment on above: Performed By: #### Kvng REDDING UMICRO ####[facility] [address] [place], [place] [address]Dr. Karey Espinoza CAST NONE SEEN Normal NONE SEEN [facility] Comment on above: Performed By: #### Kvng REDDING UMICRO ####[facility] [address] [place], [place] [address]Dr. Karey Espinoza Crystals LM Nom (Urine sed) NONE SEEN Normal NONE SEEN [facility] Comment on above: Performed By: #### Kvng REDDING UMICRO ####[facility] [address] [place], [place] [address]Dr. Karey Espinoza Epithelial cells LM Ql (Urine sed) RARE Normal NONE SEEN /RARE [facility] Comment on above: Performed By: #### Kvng REDDING UMICRO ####[facility] [address] [place], [place] [address]Dr. Karey Espinoza MUCOUS NONE SEEN Normal NONE SEEN [facility] Comment on above: Performed By: #### Kvng REDDING UMICRO ####[facility] [address] [place], [place] [address]Dr. Karey Espinoza RBC 0-2 Normal 0-2 [facility] Comment on above: Performed By: #### Kvng REDDING UMICRO ####[facility] [address] [place], [place] [address]Dr. Karey Espinoza WBC NONE SEEN Normal NONE SEEN [facility] Comment on above: Performed By: #### Kvng REDDING UMICRO ####[facility] [address] [place], [place] [address]Dr. Karey Espinoza XR HIP LEFT (2-3 VIEWS)on [...] MD 09/25/22 Final result Normal [facility] XR PELVIS (MIN 3 VIEWS)on XR [...] MD 09/25/22 Final result Normal [facility] XR TIBIA FIBULA LEFT (2 VIEW [...] MD 09/25/22 Final result Normal [facility] LIPID PROFILEon 09-14-2022 CHOL-HDL RATIO NORM SEE BELOW Normal [facility] Comment on above: Result Comment: 3.3 - 4.4 LOW RISK 4.4 - 7.1 AVERAGE RISK 7.1 - 11.0 MODERATE RISK >11.0 HIGH RISK Performed By: #### L IPID, LIVER #### [facility] [address] [address] [address] Karey Espinoza Cholesterol [Mass/Vol] 165 mg/dL Normal <=200 [facility] Comment on above: Performed By: #### L IPID, LIVER #### [facility] [address] [address] [address] Karey Espinoza Cholesterol in HDL [Mass/Vol] 57 mg/dL Normal 40-60 [facility] Comment on above: Performed By: #### L IPID, LIVER #### [facility] [address] [address] [address] Karey Espinoza Cholesterol in LDL [Mass/Vol] 83.2 mg/dL Normal [facility] Comment on above: Performed By: #### L IPID, LIVER #### [facility] [address] [address] [address] Karey Espinoza Cholesterol.total/Cho lesterol in HDL [Mass ratio] 2.9 {ratio} Normal [facility] Comment on above: Performed By: #### L IPID, LIVER #### [facility] [address] [address] [address] Karey Espinoza HDL NORMAL > or = 60 mg/dl - LO W CARDIOVASCULAR RISK <40 mg/dl - HIGH CARDIOVASCULAR RISK Normal [facility] Comment on above: Performed By: #### L IPID, LIVER #### [facility] [address] [place] [address] Dr. Karey Espinoza LDL CALC NORMAL SEE BELOW Normal [facility] Comment on above: Result Comment: <100 mg/dl OPTIMAL 100 - 129 mg/dl NEAR OR ABOVE OPTIMAL 130 - 159 mg/dl BORDERLINE HIGH 160 - 189 mg/dl HIGH >190 mg/dl VERY HIGH Performed By: #### L IPID, LIVER #### [facility] [address] [place] [address] Dr. Karey Espinoza Triglyceride [Mass/Vol] 124 mg/dL Normal <=150 [facility] Comment on above: Performed By: #### L IPID, LIVER #### [facility] [address] [place] [address] Dr. Karey Espinoza VLDL CALC 24.8 mg/dL Normal [facility] Comment on above: Performed By: #### L IPID, LIVER #### [facility] [address] [address] [address] Karey Espinoza LIVER PROFILEon 09-14-2022 Albumin [Mass/Vol] 3.6 g/dL Normal 3.4-5.0 [facility] Comment on above: Performed By: #### L IPID, LIVER #### [facility] [address] [place] [address] Dr. Karey Espinoza Albumin/Globulin [Mass ratio] 1.1 {ratio} Normal [facility] Comment on above: Performed By: #### L IPID, LIVER #### [facility] [address] [address] [address] Karey Espinoza ALP [Catalytic activity/Vol] 75 U/L Normal 46-116 [facility] Comment on above: Performed By: #### L IPID, LIVER #### [facility] [address] [address] [address] Karey Espinoza ALT [Catalytic activity/Vol] 57 U/L Normal 14-59 [facility] Comment on above: Performed By: #### L IPID, LIVER #### [facility] [address] [address] [address] Karey Espinoza AST [Catalytic activity/Vol] 35 U/L Normal 15-37 [facility] Comment on above: Performed By: #### L IPID, LIVER #### [facility] [address] [place] [address] Dr. Karey Espinoza BILI, CONJUGATED 0.1 mg/dL Normal 0.0-0.2 [facility] Comment on above: Performed By: #### L IPID, LIVER #### [facility] [address] [place] [address] Dr. Karey Espinoza Bilirubin [Mass/Vol] 0.5 mg/dL Normal 0.2-1.0 [facility] Comment on above: Performed By: #### L IPID, LIVER #### [facility] [address] [place] [address] Dr. Karey Espinoza Globulin (S) [Mass/Vol] 3.3 g/dL Normal [facility] Comment on above: Performed By: #### L IPID, LIVER #### [facility] [address] [place] [address] Dr. Karey Espinoza Protein [Mass/Vol] 6.9 g/dL Normal 6.4-8.2 [facility] Comment on above: Performed By: #### L IPID, LIVER #### [facility] [address] [place] [address] Dr. Karey Espinoza Covid-19 PCR (CVDTB)on 03-29 SARS-CoV-2 (COVID-19) RNA JORI+probe Ql (Unsp spec) Not detected Normal NOT DETECTED [facility] Comment on above: Result Comment: This test is not yet approved or cleared by the [place] FDA. When there are no FDA-approved or cleared tests available, and other criteria are met, FDA can make tests available under an emergency access mechanism called an Emergency Use Authorization (EUA). The EUA for this test is supported by the Tube Puller of Health and Human Service's (HHS's) declaration [...] consistent with SARS-CoV-2. Performed By: #### C VDTB #### [facility] [address] [place], [place] [address] Dr. Karey Espinoza SYMPTOMATIC COVID-19 ANTIGEN on 04-20-2022 EUA Statement SEE BELOW Normal [facility] Comment on above: Result Comment: This [...] revoked sooner. Performed By: #### C VDAGS ####[facility] [address] [address]Dr. Karey Espinoza SARS-CoV-2 (COVID-19) RNA JORI+probe Ql (Unsp spec) Negative Normal NEGATIVE [facility] Comment on above: Performed By: #### C VDAGS ####[facility] [address] [place], [place] [address]Xy. Karey Espinoza LIPID PROFILEon 04-04-2022 CHOL-HDL RATIO NORM SEE BELOW Normal [facility] Comment on above: Result Comment: 3.3 - 4.4 LOW RISK 4.4 - 7.1 AVERAGE RISK 7.1 - 11.0 MODERATE RISK >11.0 HIGH RISK Performed By: #### L IVER, LIPID ####[facility] [address] [id number]. Karey Alexis Cholesterol [Mass/Vol] 198 mg/dL Normal <=200 [facility] Comment on above: Performed By: #### L IVER, LIPID ####[facility] [address] [phone]. Karey Espinoza Cholesterol in HDL [Mass/Vol] 50 mg/dL Normal 40-60 [facility] Comment on above: Performed By: #### L IVER, LIPID ####[facility] [address] [place] [phone]. Karey Espinoza Cholesterol in LDL [Mass/Vol] 110.8 mg/dL Normal [facility] Comment on above: Performed By: #### L IVER, LIPID ####[facility] [address] [place] [phone]. Karey Espinoza Cholesterol.total/Cho lesterol in HDL [Mass ratio] 4.0 {ratio} Normal [facility] Comment on above: Performed By: #### L IVER, LIPID ####[facility] [address] [place] [phone]. Karey Espinoza HDL NORMAL > or = 60 mg/dl - LO W CARDIOVASCULAR RISK <40 mg/dl - HIGH CARDIOVASCULAR RISK Normal [facility] Comment on above: Performed By: #### L IVER, LIPID ####[facility] [address] [place] [phone]. Karey Espinoza LDL CALC NORMAL SEE BELOW Normal [facility] Comment on above: Result Comment: <100 mg/dl OPTIMAL 100 - 129 mg/dl NEAR OR ABOVE OPTIMAL 130 - 159 mg/dl BORDERLINE HIGH 160 - 189 mg/dl HIGH >190 mg/dl VERY HIGH Performed By: #### L RAJ, LIPID ####[facility] [address] [place] [phone]. Karey Espinoza Triglyceride [Mass/Vol] 186 mg/dL Critically high <=150 [facility] Comment on above: Performed By: #### L RAJ, LIPID ####[facility] [address] [address]Dr. Karey Espinoza VLDL CALC 37.2 mg/dL Normal [facility] Comment on above: Performed By: #### Carli ANTHONY, LIPID ####[facility] [address] [address]Dr. Karey Espinoza LIVER PROFILEon 04-04-2022 Albumin [Mass/Vol] 3.8 g/dL Normal 3.4-5.0 [facility] Comment on above: Performed By: #### Carli ANTHONY LIPID ####[facility] [address] [address]Dr. Karey Espinoza Albumin/Globulin [Mass ratio] 1.2 {ratio} Normal [facility] Comment on above: Performed By: #### Carli ANTHONY, LIPID ####[facility] [address] [address]Dr. Karey Espinoza ALP [Catalytic activity/Vol] 78 U/L Normal 46-116 [facility] [facility] Comment on above: Performed By: #### Carli ANTHONY, LIPID ####[facility] [address] [place] [address]Dr. Karey Espinoza ALT [Catalytic activity/Vol] 33 U/L Normal 14-59 [facility] Comment on above: Performed By: #### L RAJ, LIPID ####[facility] [address] [place] [address]Dr. Karey Espinoza AST [Catalytic activity/Vol] 26 U/L Normal 15-37 [facility] Comment on above: Performed By: #### L RAJ LIPID ####[facility] [address] [place], [place] [address]Sq. Karey Espinoza BILI, CONJUGATED 0.1 mg/dL Normal 0.0-0.2 [facility] Comment on above: Performed By: #### L IVER, LIPID ####[facility] [address] [place], [place] [address]Kj. Karey Espinoza Bilirubin [Mass/Vol] 0.5 mg/dL Normal 0.2-1.0 [facility] Comment on above: Performed By: #### L IVER, LIPID ####[facility] [address] [place], [place] [address]Ge. Karey Espinoza Globulin (S) [Mass/Vol] 3.2 g/dL Normal [facility] Comment on above: Performed By: #### L IVER, LIPID ####[facility] [address] [place], [place] [address]Iy. Karey Espinoza Protein [Mass/Vol] 7.0 g/dL Normal 6.4-8.2 [facility] Comment on above: Performed By: #### L IVER, LIPID ####[facility] [address] [place], [place] [address]Qh. Karey Espinoza XR lumbar spine 2-3V*on XR lumbar spine 2-3V* [facility] [place] [address] XRay Report Signed Patient: Anabela Abbasi MR#: [id number] 5 : 1945 Acct:[id number] Age/Sex: 75 / F ADM Date: 03/30/21 Loc: XD Room: Type: [facility] Attending Dr: Brian Gonzales MD Ordering Provider: [...] post lumbosacral spinal fusion. Impression dictated by: Camryn Wang Jr., M.D.03/30/2021 2:53 PM Dictation Location: [place] [address] Transcribed By: [facility] 03/30/211452 Dictated By: Camryn Wang Jr, MD 03/30/211449 Signed By: 03/30/21 145 [facility] Home Health Records 2020 Home Health Records [id number]#[id number]:[id number] Normal [facility] Glucose Poct Glucometerson 0 03-03-2021 Commemt1 Glu2: Cleaned Meter [facility] Comment on above: Result Comment: PERF ORMED BY: [facility] [address] [place] [address] PATHOLOGIST STABLE MANAGER JU MCPHERSON M.D. Performed By: #### G LULS ####Point of Care testing, Glucose [Mass/Vol] 99 mg/dL [facility] Comment on above: Result Comment: [place] Glucose Reference Range is dependent on time and content of last meal. Glucose of more than 200 mg/dL in a nonstressed, ambulatory subject supports the diagnosis of Diabetes Mellitus. Performed By: #### G LULS ####Point of Care testing, Glucose Poct Glucometerson 0 03-02-2021 Commemt1 Glu2: Cleaned Meter [facility] Comment on above: Result Comment: PERF ORMED BY: [facility] [address] [place] [id number] PATHOLOGIST STABLE MANAGER JU MCPHERSON M.D. Performed By: #### G LULS ####Point of Care testing, Glucose [Mass/Vol] 87 mg/dL Normal [facility] Comment on above: Result Comment: [place] om Glucose Reference Range is dependent on time and content of last meal. Glucose of more than 200 mg/dL in a nonstressed, ambulatory subject supports the diagnosis of Diabetes Mellitus. Performed By: #### G LULS ####Point of Care testing, Glucose [Mass/Vol] 131 mg/dL Normal [facility] Comment on above: Result Comment: [place] om Glucose Reference Range is dependent on time and content of last meal. Glucose of more than 200 mg/dL in a nonstressed, ambulatory subject supports the diagnosis of Diabetes Mellitus. PERFORMED BY: [address] [place] [id number] PATHOLOGIST STABLE MANAGER JU MCPHERSON M.D. Performed By: #### G LULS ####Point of Care testing, Glucose Poct Glucometerson 0 03-01-2021 Commemt1 Glu2: Cleaned Meter [facility] Comment on above: Result Comment: PERF ORMED BY: [address] [place] [id number] PATHOLOGIST STABLE MANAGER JU MCPHERSON M.D. Performed By: #### G LULS ####Point of Care testing, Glucose [Mass/Vol] 197 mg/dL Normal [facility] Comment on above: Result Comment: [place] om Glucose Reference Range is dependent on time and content of last meal. Glucose of more than 200 mg/dL in a nonstressed, ambulatory subject supports the diagnosis of Diabetes Mellitus. Performed By: #### G LULS ####Point of Care testing, Commemt1 Glu2: Cleaned Meter [facility] Comment on above: Result Comment: PERF ORMED BY: [address] [place] [id number] PATHOLOGIST STABLE MANAGER JU MCPHERSON M.D. Performed By: #### G LULS ####Point of Care testing, Glucose [Mass/Vol] 132 mg/dL Normal [facility] Comment on above: Result Comment: [facility] Glucose Reference Range is dependent on time and content of last meal. Glucose of more than 200 mg/dL in a nonstressed, ambulatory subject supports the diagnosis of Diabetes Mellitus. Performed By: #### G MCKENNA ####Point of Care testing, ABO/Rh Retypeon 02-28-2021 ABO/RH Recheck Result Positive Normal [facility] Comment on above: Result Comment: PERF ORMED BY: [facility] [address] [address] PATHOLOGIST STABLE MANAGER JU MCPHERSON M.D. Complete Blood Count Auto Di ffon 02-28-2021 Basophils (Bld) [#/Vol] 0.1 10*3/uL Normal 0.0-0.2 [facility] Comment on above: Result Comment: PERF ORMED BY: [facility] [address] [place] [id number] PATHOLOGIST STABLE MANAGER JU MCPHERSON M.D. Performed By: #### C MP, CBC, TROP ####[place] [id number] [facility] Basophils/100 WBC (Bld) 0.4 % Normal . [facility] Comment on above: Performed By: #### C MP, CBC, TROP ####[place] [id number] [facility] Eosinophils (Bld) [#/Vol] 0.0 10*3/uL Normal 0.0-0.45 [facility] Comment on above: Performed By: #### C MP, CBC, TROP ####[facility] [address] [place] [id number] [place] Eosinophils/100 WBC (Bld) 0.0 % Normal . [facility] Comment on above: Performed By: #### C MP, CBC, TROP ####[place] [id number] [facility] Erythrocyte distribution width (RBC) [Ratio] 13.6 % Normal 11.9-15.3 [facility] Comment on above: Performed By: #### C MP, CBC, TROP ####[address] Hematocrit (Bld) [Volume fraction] 38.3 % Normal 34.0-46.4 [facility] Comment on above: Performed By: #### C MP, CBC, TROP ####[address] Hemoglobin (Bld) [Mass/Vol] 13.0 g/dL Normal 11.8-15.4 [facility] Comment on above: Performed By: #### C MP, CBC, TROP ####[address] Lymphocytes (Bld) [#/Vol] 0.8 10*3/uL Low 1.00-4.8 [facility] Comment on above: Performed By: #### C MP, CBC, TROP ####[address] Lymphocytes/100 WBC (Bld) 5.8 % Normal . [facility] Comment on above: Performed By: #### C MP, CBC, TROP ####[address] MCH (RBC) [Entitic mass] 30.0 pg Normal 24.7-34.3 [facility] Comment on above: Performed By: #### C MP, CBC, TROP ####[address] MCV (RBC) [Entitic vol] 88.6 fL Normal 80-100 [facility] Comment on above: Performed By: #### C MP, CBC, TROP ####[address] Mean Corpuscular HGB Conc 33.8 g/dL Normal 32.0-35.0 [facility] Comment on above: Performed By: #### C MP, CBC, TROP ####[address] Monocytes (Bld) [#/Vol] 0.6 10*3/uL Normal 0.0-0.8 [facility] Comment on above: Performed By: #### C MP, CBC, TROP ####[address] Monocytes/100 WBC (Bld) 4.5 % Normal . [facility] Comment on above: Performed By: #### C MP, CBC, TROP ####[address] Neutrophils (Bld) [#/Vol] 11.8 10*3/uL High 1.8-7.7 [facility] Comment on above: Performed By: #### C MP, CBC, TROP ####[address] Neutrophils/100 WBC (Bld) 89.3 % Normal . [facility] Comment on above: Performed By: #### C MP, CBC, TROP ####[address] Nucleated RBC/100 WBC (Bld) [Ratio] 0.1 % Normal 0-0.5 [facility] Comment on above: Performed By: #### C MP, CBC, TROP ####[address] Platelet mean volume (Bld) [Entitic vol] 7.2 fL Normal 6.3-10.7 [facility] Comment on above: Performed By: #### C MP, CBC, TROP ####[address] Platelets (Bld) [#/Vol] 369 10*3/uL Normal 150-450 [facility] Comment on above: Performed By: #### C MP, CBC, TROP ####[address] RBC (Bld) [#/Vol] 4.32 10*6/uL Normal 3.60-5.00 [facility] Comment on above: Performed By: #### C MP, CBC, TROP ####[facility] [place] [address] [facility] WBC (Bld) [#/Vol] 13.2 10*3/uL High 4.5-11.0 [facility] Comment on above: Performed By: #### C MP, CBC, TROP ####[address] [address] [facility] Comprehensive Metabolic Pane khalida 02-28-2021 Albumin [Mass/Vol] 3.4 g/dL Normal 3.2-5.5 [facility] Comment on above: Performed By: #### C MP, CBC, TROP ####[address] [address] [facility] Albumin/Globulin [Mass ratio] 1.4 {ratio} Normal [facility] Comment on above: Performed By: #### C MP, CBC, TROP ####[address] [address] [facility] ALP [Catalytic activity/Vol] 48 U/L Normal 32-92 [facility] Comment on above: Performed By: #### C MP, CBC, TROP ####[address] [address] [facility] ALT [Catalytic activity/Vol] 23 U/L Normal 10-60 [facility] Comment on above: Performed By: #### C MP, CBC, TROP ####[address] [address] [facility] AST [Catalytic activity/Vol] 32 U/L Normal 10-42 [facility] Comment on above: Performed By: #### C MP, CBC, TROP ####[address] [address] [facility] Bilirubin [Mass/Vol] 0.5 mg/dL Normal 0.3-1.2 [facility] Comment on above: Performed By: #### C MP, CBC, TROP ####[address] [address] [facility] Calcium [Mass/Vol] 8.9 mg/dL Normal 8.2-10.2 [facility] Comment on above: Performed By: #### C MP, CBC, TROP ####[place] [address] [place] [address] [facility] Chloride [Moles/Vol] 102 mmol/L Normal 95-114 [facility] Comment on above: Performed By: #### C MP, CBC, TROP ####[place] [address] [place] [address] [facility] CO2 [Moles/Vol] 22.6 mmol/L Normal 22.0-30.0 [facility] Comment on above: Performed By: #### C MP, CBC, TROP ####[place] [address] [place] [address] [facility] Creatinine [Mass/Vol] 0.93 mg/dL Normal 0.44-1.03 [facility] Comment on above: Performed By: #### C MP, CBC, TROP ####[place] [address] [address] Creatinine Clr Calc Pharmacy 50.13 [facility] Comment on above: Result Comment: PERF ORMED BY: [facility] [address] [facility] [place] [address] PATHOLOGIST STABLE MANAGER JU MCPHERSON M.D. Performed By: #### C MP, CBC, TROP ####[place] [address] [place] [id number] [facility] Estimated GFR ( [place] > 60 [facility] Comment on above: Result Comment: GFR estimated reference range: According to KDOQI guidelines, <60 ml/min/1.73m2 is sufficient to diagnose a patient with chronic kidney disease. Performed By: #### C MP, CBC, TROP ####[place] [address] [place] [address] [facility] Estimated GFR (Non- Am 59 [facility] Comment on above: Performed By: #### C MP, CBC, TROP ####[facility] [place] [id number] [facility] Globulin (S) [Mass/Vol] 2.5 g/dL [facility] Comment on above: Performed By: #### C MP, CBC, TROP ####[facility] [place] [address] [facility] Glucose [Mass/Vol] 198 mg/dL High 70-100 [facility] Comment on above: Result Comment: [facility] [place] Glucose Reference Range is dependent on time and content of last meal. Glucose of more than 200 mg/dL in a nonstressed, ambulatory subject supports the diagnosis of Diabetes Mellitus. ADA recommended reference range Performed By: #### C MP, CBC, TROP ####[facility] [place] [address] [facility] Potassium [Moles/Vol] 3.9 mmol/L Normal 3.5-5.1 [facility] Comment on above: Performed By: #### C MP, CBC, TROP ####[place] [address] [place] [address] [facility] Protein [Mass/Vol] 5.9 g/dL Low 6.1-7.9 [facility] Comment on above: Performed By: #### C MP, CBC, TROP ####[place] [id number] [facility] Sodium [Moles/Vol] 133 mmol/L Low 136-146 [facility] Comment on above: Performed By: #### C MP, CBC, TROP ####[facility] [place] [address] [facility] Urea nitrogen [Mass/Vol] 13 mg/dL Normal 9-23 [facility] Comment on above: Performed By: #### C MP, CBC, TROP ####[place] [address] [place] [address] [facility] ECG 12 lead ECGon 02-28-2021 ECG 12 lead ECG [facility] [address] [place] [address] [place] [address] Electrocardiograph Report Signed Patient: Anabela Abbasi MR#: [id number] 5 : 1945 Acct:[id number] Age/Sex: 75 / F ADM Date: 02/28/21 Loc: Room: [address] [place] [address] Type: ADM IN Attending Dr: Brian Gonzales [...] MD 02/28/21 1425 Signed By: 02/28/21 1538 [facility] Glucose Poct Glucometerson 0 02-28-2021 Glucose [Mass/Vol] 192 mg/dL Normal [facility] Comment on above: Result Comment: [facility] [place] Glucose Reference Range is dependent on time and content of last meal. Glucose of more than 200 mg/dL in a nonstressed, ambulatory subject supports the diagnosis of Diabetes Mellitus. PERFORMED BY: [address] [place] [address] PATHOLOGIST STABLE MANAGER JU MCPHERSON M.D. Performed By: #### G LULS ####Point of Care testing, Commemt1 Glu2: Cleaned Meter Normal [facility] Comment on above: Result Comment: PERF ORMED BY: [facility] [address] [place] [address] PATHOLOGIST STABLE MANAGER JU MCPHERSON M.D. Performed By: #### G LULS ####Point of Care testing, Glucose [Mass/Vol] 202 mg/dL Normal [facility] Comment on above: Result Comment: [facility] [place] Glucose Reference Range is dependent on time and content of last meal. Glucose of more than 200 mg/dL in a nonstressed, ambulatory subject supports the diagnosis of Diabetes Mellitus. Performed By: #### G LULS ####Point of Care testing, Troponin I(TnI)on 02-28-2021 Troponin I.cardiac [Mass/Vol] ng/mL Normal 0-0.02 [facility] Comment on above: Result Comment: [place] Cut off value > or equal to 0.03 ng/mL in conjunction with clinical conditions of myocardial infarction. (www.escardio.org/guidelines) PERFORMED BY: [place] [address] PATHOLOGIST STABLE MANAGER JU MCPHERSON M.D. Performed By: #### C MP, CBC, TROP ####[facility] [address] XR lumbar spine 2-3V*on XR lumbar spine 2-3V* [facility] [place] [address] XRay Report Signed Patient: Anabela Abbasi MR#: [id number] 5 : 1945 Acct:[id number] Age/Sex: 75 / F ADM Date: 02/28/21 Loc: Room: [address] [place] [address] Type: ADM IN Attending Dr: Brian Gonzales [...] Rahul Desai M.D.02/28/2021 12:05 PM Dictation Location: [place] [address] Transcribed By: [facility] 02/28/21 1205 Dictated By: Rahul Desai DO 02/28/21 1153 Signed By: 02/28/21 1205 Normal [facility] SARS-CoV-2 (COVID-19) RNA JORI+probe Ql (Unsp spec) Negative Normal Negative [facility] Comment on above: Order Comment: Healt hcare Worker?: N Result Comment: Test ing for SARS-CoV-2 by RT-PCR This test was developed and its performance characteristics determined by [employer] and validated at the [facility]. This test has not been FDA [...] is terminated or revoked sooner. PERFORMED BY: [place] [address] PATHOLOGIST STABLE MANAGER JU MCPHERSON M.D. Performed By: #### C OVID-19 [facility] #### [address] Basic Metabolic Panelon 01-27 Calcium [Mass/Vol] 10.1 mg/dL Normal 8.2-10.2 [facility] Comment on above: Result Comment: PERF ORMED BY: [place] [address] PATHOLOGIST STABLE MANAGER JU MCPHERSON M.D. Performed By: #### C BC, BMP #### [facility] [address] [place] [address] [place] Chloride [Moles/Vol] 100 mmol/L Normal 95-114 [facility] Comment on above: Performed By: #### C BC, BMP #### [facility] [address] [place] [address] [place] CO2 [Moles/Vol] 25.9 mmol/L Normal 22.0-30.0 [facility] Comment on above: Performed By: #### C BC, BMP #### [facility] [address] Creatinine [Mass/Vol] 1.00 mg/dL Normal 0.44-1.03 [facility] Comment on above: Performed By: #### C BC, BMP #### [facility] [address] Estimated GFR ( [place] > 60 Normal [facility] Comment on above: Result Comment: GFR estimated reference range: According to KDOQI guidelines, <60 ml/min/1.73m2 is sufficient to diagnose a patient with chronic kidney disease. Performed By: #### C BC, BMP #### [facility] [address] Estimated GFR (Non- Am 54 [facility] Comment on above: Performed By: #### C BC, BMP #### [facility] [address] Glucose [Mass/Vol] 101 mg/dL High 70-100 [facility] Comment on above: Result Comment: [place] om Glucose Reference Range is dependent on time and content of last meal. Glucose of more than 200 mg/dL in a nonstressed, ambulatory subject supports the diagnosis of Diabetes Mellitus. ADA recommended reference range Performed By: #### C BC, BMP #### [facility] [address] [place] [address] [place] Potassium [Moles/Vol] 4.6 mmol/L Normal 3.5-5.1 [facility] Comment on above: Performed By: #### C BC, BMP #### [facility] [address] [place] [id number] [place] Sodium [Moles/Vol] 135 mmol/L Low 136-146 [facility] Comment on above: Performed By: #### C BC, BMP #### [facility] [address] Urea nitrogen [Mass/Vol] 13 mg/dL Normal 9-23 [facility] Comment on above: Performed By: #### C BC, BMP #### [facility] [address] [place] [address] [place] Basophils Auto (Bld) [#/Vol] on 02-16-2021 Basophils (Bld) [#/Vol] 0.0 10*3/uL 0.0-0.[address] [facility] Basophils/100 WBC Auto (Bld) on 02-16-2021 Basophils/100 WBC (Bld) 0.9 % [facility] Blood hemoglobin measurement (mass/volume)on 02-16-2021 Hemoglobin (Bld) [Mass/Vol] 14.5 g/dL 11.8-15.[address] [facility] Blood leukocytes automated c ount (number/volume)on 02-16-2021 WBC (Bld) [#/Vol] 5.6 10*3/uL 4.5-11.0 [facility] Complete Blood Count Auto Di ffon 02-16-2021 Basophils (Bld) [#/Vol] 0.0 10*3/uL Normal 0.0-0.2 [facility] Comment on above: Result Comment: PERF ORMED BY: [place] [address] PATHOLOGIST STABLE MANAGER JU MCPHERSON M.D. Performed By: #### C JOSE L, BMP #### [place] [address] [place] Basophils/100 WBC (Bld) 0.9 % Normal . [facility] Comment on above: Performed By: #### C JOSE L, BMP #### [place] [address] [place] Eosinophils (Bld) [#/Vol] 0.1 10*3/uL Normal 0.0-0.45 [facility] Comment on above: Performed By: #### C JOSE L, BMP #### [place] [address] [place] Eosinophils/100 WBC (Bld) 1.0 % Normal . [facility] Comment on above: Performed By: #### C JOSE L, BMP #### [place] [address] [place] Erythrocyte distribution width (RBC) [Ratio] 14.1 % Normal 11.9-15.3 [facility] Comment on above: Performed By: #### C BC, BMP #### [address] Hematocrit (Bld) [Volume fraction] 42.6 % Normal 34.0-46.4 [facility] Comment on above: Performed By: #### C BC, BMP #### [address] Hemoglobin (Bld) [Mass/Vol] 14.5 g/dL Normal 11.8-15.4 [facility] Comment on above: Performed By: #### C BC, BMP #### [address] Lymphocytes (Bld) [#/Vol] 1.9 10*3/uL Normal 1.00-4.8 [facility] Comment on above: Performed By: #### C BC, BMP #### [address] Lymphocytes/100 WBC (Bld) 33.3 % Normal . [facility] Comment on above: Performed By: #### C BC, BMP #### [address] MCH (RBC) [Entitic mass] 30.1 pg Normal 24.7-34.3 [facility] Comment on above: Performed By: #### C BC, BMP #### [address] MCV (RBC) [Entitic vol] 88.4 fL Normal 80-100 [facility] Comment on above: Performed By: #### C BC, BMP #### [address] Mean Corpuscular HGB Conc 34.0 g/dL Normal 32.0-35.0 [facility] Comment on above: Performed By: #### C BC, BMP #### [address] Monocytes (Bld) [#/Vol] 0.5 10*3/uL Normal 0.0-0.8 [facility] Comment on above: Performed By: #### C BC, BMP #### [facility] [address] [place] [address] [place] Monocytes/100 WBC (Bld) 9.3 % Normal . [facility] Comment on above: Performed By: #### C BC, BMP #### [facility] [address] [place] [address] [place] Neutrophils (Bld) [#/Vol] 3.1 10*3/uL Normal 1.8-7.7 [facility] Comment on above: Performed By: #### C BC, BMP #### [facility] [address] Neutrophils/100 WBC (Bld) 55.5 % Normal . [facility] Comment on above: Performed By: #### C BC, BMP #### [facility] [address] [place] [address] [place] Nucleated RBC/100 WBC (Bld) [Ratio] 0.1 % Normal 0-0.5 [facility] Comment on above: Performed By: #### C BC, BMP #### [facility] [address] [place] [address] [place] Platelet mean volume (Bld) [Entitic vol] 7.6 fL Normal 6.3-10.7 [facility] Comment on above: Performed By: #### C BC, BMP #### [facility] [address] [place] [address] [place] Platelets (Bld) [#/Vol] 417 10*3/uL Normal 150-450 [facility] Comment on above: Performed By: #### C BC, BMP #### [facility] [address] [place] [address] [place] RBC (Bld) [#/Vol] 4.82 10*6/uL Normal 3.60-5.00 [facility] Comment on above: Performed By: #### C BC, BMP #### [facility] [address] [place] [address] [place] WBC (Bld) [#/Vol] 5.6 10*3/uL Normal 4.5-11.0 [facility] Comment on above: Performed By: #### C BC, BMP #### [facility] [address] [place] [id number] [facility] Creatinine and Glomerular fi ltration rate.predicted panel (S/P/Bld)on 02-16-2021 Creatinine [Mass/Vol] 1.00 mg/dL 0.44-1.03 [facility] [place] Eosinophils Auto (Bld) [#/Vo l]on 02-16-2021 Eosinophils (Bld) [#/Vol] 0.1 10*3/uL 0.0-0.[address] [facility] Eosinophils/100 WBC Auto (Bl d)on 02-16-2021 Eosinophils/100 WBC (Bld) 1.0 % [facility] Erythrocyte distribution wid th Auto (RBC) [Ratio]on 02-16-2021 Erythrocyte distribution width (RBC) [Ratio] 14.1 % 11.9-15.[address] [facility] Estimated glomerular filtrat ion rate (GFR) non- Americanon 02-16-2021 GFR/1.73 sq M.predicted among non-blacks MDRD (S/P/Bld) [Vol rate/Area] 54 mL/Min [facility] Hematocrit Auto (Bld) [Volum e fraction]on 02-16-2021 Hematocrit (Bld) [Volume fraction] 42.6 % 34.0-46.[address] [facility] Laboratory - Hematology and Cell countson 02-16-2021 Nucleated RBC/100 WBC (Bld) [Ratio] 0.1 % 0-0.[address] [facility] Lymphocytes Auto (Bld) [#/Vo l]on 02-16-2021 Lymphocytes (Bld) [#/Vol] 1.9 10*3/uL 1.00-4.[address] [facility] Lymphocytes/100 WBC Auto (Bl d)on 02-16-2021 Lymphocytes/100 WBC (Bld) 33.3 % [facility] MCH Auto (RBC) [Entitic mass ]on 02-16-2021 MCH (RBC) [Entitic mass] 30.1 pg 24.7-34.[address] [facility] MCHC Auto (RBC) [Mass/Vol]on 02-16-2021 MCHC (RBC) [Mass/Vol] 34.0 g/dL 32.0-35.0 [facility] [place] MCV Auto (RBC) [Entitic vol] on 02-16-2021 MCV (RBC) [Entitic vol] 88.4 fL 80-[address] [facility] Monocytes Auto (Bld) [#/Vol] on 02-16-2021 Monocytes (Bld) [#/Vol] 0.5 10*3/uL 0.0-0.[address] [facility] Monocytes/100 WBC Auto (Bld) on 02-16-2021 Monocytes/100 WBC (Bld) 9.3 % [facility] Neutrophils Auto (Bld) [#/Vo l]on 02-16-2021 Neutrophils (Bld) [#/Vol] 3.1 10*3/uL 1.8-7.[address] [facility] Neutrophils/100 WBC Auto (Bl d)on 02-16-2021 Neutrophils/100 WBC (Bld) 55.5 % [facility] No Panel Informationon 02-16 Estimated GFR () > 60 mL/Min [facility] Comment on above: GFR estimated refere nce range: According to KDOQI guidelines, <60 ml/min/1.73m2 is sufficient to diagnose a patient with chronic kidney disease. Pharmacy Creatinine Clearance (Chem N/A [facility] PST Type and Screenon 2020 ABO and Rh group Nom (Bld) Blood group O Rh(D) positive Normal [facility] Comment on above: Order Comment: Date of Surgery: [id number] Result Comment: PERF ORMED BY: [facility] [address] [place] [address] PATHOLOGIST STABLE MANAGER JU MCPHERSON M.D. Platelet mean volume Auto (B ld) [Entitic vol]on 02-16-2021 Platelet mean volume (Bld) [Entitic vol] 7.6 fL 6.3-10.[address] [facility] Platelets Auto (Bld) [#/Vol] on 02-16-2021 Platelets (Bld) [#/Vol] 417 10*3/uL 150-[address] [facility] RBC Auto (Bld) [#/Vol]on RBC (Bld) [#/Vol] 4.82 10*6/uL 3.60-5.00 [facility] Serum or plasma calcium samir urement (mass/volume)on 02-16-2021 Calcium [Mass/Vol] 10.1 mg/dL 8.2-10.2 [facility] Serum or plasma chloride valeria surement (moles/volume)on 02-16-2021 Chloride [Moles/Vol] 100 mmol/L 95-114 [facility] Serum or plasma glucose samir urement (mass/volume)on 02-16-2021 Glucose [Mass/Vol] 101 mg/dL 70-100 [facility] Comment on above: ADA recommended refe rence rangeRandom Glucose Reference Range is dependent on time and content of last meal. Glucose of more than 200 mg/dL in a nonstressed, ambulatory subject supports the diagnosis of Diabetes Mellitus. Serum or plasma potassium me asurement (moles/volume)on 02-16-2021 Potassium [Moles/Vol] 4.6 mmol/L 3.5-5.1 [facility] Serum or plasma sodium measu rement (moles/volume)on 02-16-2021 Sodium [Moles/Vol] 135 mmol/L 136-146 [facility] Serum or plasma total carbon dioxide measurement (moles/volume)on 02-16-2021 CO2 [Moles/Vol] 25.9 mmol/L 22.0-30.0 [facility] Serum or plasma urea nitroge n measurement (mass/volume)on 02-16-2021 Urea nitrogen [Mass/Vol] 13 mg/dL 9-[address] [facility] STR cardiac stress/lexiscano n 02-09-2021 STR cardiac stress/lexiscan [facility] [address] [place] [id number] Cardiac Stress Test Signed Patient: Anabela Abbasi MR#: [id number] 5 : 1945 Acct:[id number] Age/Sex: 75 / F ADM Date: 02/07/21 Loc: NM [facility]: [facility] Dr: Mikie Daugherty MD Ordering Provider: [...] 02/09/21 1831 Signed By: 02/10/21 1408 Normal [facility] NM karl perf SPECT rest stron 02-07-2021 NM karl perf SPECT rest str [facility] [place] [address] Nuclear Medicine Report Signed Patient: Anabela Abbasi MR#: [id number] 5 : 1945 Acct:[id number] Age/Sex: 75 / F ADM Date: 02/07/21 Loc: NM [facility]: [facility]: Mikie Daugherty MD Ordering Provider: [...] available for comparison. Transcribed By: ISSAC 02/07/21 9162 Dictated By: Bjorn Simon MD 02/07/21 1656 Signed By: 02/08/21 0930 Normal [facility] XR lumbar spine 6V w bending on 01-05-2021 XR lumbar spine 6V w bending [facility] [address] [place] [address] [place] [address] XRay Report Signed Patient: Anabela Abbasi MR#: [id number] 5 : 1945 Acct:[id number] Age/Sex: 75 / F ADM Date: 01/05/21 Loc: XD Room: Type: [facility] Attending Dr: Brian Gonzales MD Ordering Provider: Brian Gonzales MD Date of Service: 01/05/21 XR/XR lumbar spine 6V w bending: m54.16 ([id number]) XR/XR scoliosis survey: M54.16 Copies to: Brian [...] degenerative changes as described. Impression dictated by: Camryn Wang Jr., M.D.01/05/2021 3:44 PM Dictation Location: [place] [address] Transcribed By: [facility] 01/05/21 1544 Dictated By: Camryn Wang Jr, MD 01/05/21 1535 Signed By: 01/05/21 1544 [facility] Vital Signs Date Time Vital Sign Value Performing Clinician Facility 10-11-2021 14:00-0500 Body height 160.02 cm Brian Gonzales Other [facility] Other 10-11-2021 14:00-0500 Body mass index (BMI) [Ratio] 27.63 kg/m2 Brian Gonzales Other [facility] Other 10-11-2021 14:00-0500 Body weight 70.76 kg Brian Gonzales Other [facility] Other 10-11-2021 14:00-0500 Diastolic blood pressure 86 mm[Hg] Brian Gonzales Other [facility] Other 10-11-2021 14:00-0500 Systolic blood pressure 132 mm[Hg] Brian Gonzales Other [facility] Other 02-07-2021 14:28-0400 Body height 160.02 cm M Stroz Friedberg Work Phone: [facility] 02-07-2021 14:28-0400 Body weight 72.12 kg Tim Agustin Work Phone: [facility] 02-07-2021 14:20040 Diastolic blood pressure 82 mm[Hg] Tim Agustin Work Phone: [facility] 02-07-2021 14:20040 Heart rate 64 /min M Ashok Agustin Work Phone: [facility] 02-07-2021 14:20-0400 Systolic blood pressure 145 mm[Hg] Tim Agustin Work Phone: [facility] Encounters Encounter Date Encounter Type Care Provider Facility Start: 06-12-2024 End: 06-12-2024 ambulatory CAMRYN A VISCI Not Available Start: 06-03-2024 End: 06-03-2024 ambulatory CAMRYN A VISCI Not Available Start: 06-03-2024 End: 06-03-2024 ambulatory CAMRYN A VISCI Not Available Start: 09-18-2023 End: 09-18-2023 ambulatory KATLYN [facility] Start: 12-18-2022 End: 12-18-2022 ambulatory [facility] Start: 11-06-2022 End: 11-06-2022 ambulatory [facility] Start: 09-25-2022 End: 10-01-2022 Evaluation and management of inpatient KEYONNA Kashmir SUMM[facility] Start: 09-25-2022 End: 09-25-[address] RAQUEL KING Facility:[facility] Start: 09-14-2022 End: 09-15-[address] SHADE ROJO Facility:[facility] Start: 04-20-2022 End: 04-20-[address] ASHOK AGUSTIN . Facility:[facility] Start: 04-04-2022 End: 04-05-2022 ambulatory KATLYN COLINDRES Facility:[facility] Start: 10-11-2021 End: 10-11-2021 ambulatory Brian Gonzales Other [facility] Other Start: 10-11-2021 Office outpatient vi sit 15 minutes Brian Gonzales [facility] [place] Start: 02-16-2021 End: 02-16-2021 Patient encounter procedure Tim Nielson Phone: -Pre-Surgical Testing Start: 02-07-2021 End: 02-07-2021 Patient encounter procedure Tim Nielson Phone: -Nuc Med [place] Start: 01-05-2021 End: 01-05-2021 Patient encounter procedure Tim Nielson Phone: -XRay [facility] Procedures Date Procedure Procedure Detail Performing Clinician Start: 02-16-2021 Antibody screen Comment on above: Order Comment: Date of Surgery: [id number] Result Comment: PERF ORMED BY: [place] [address] [place] [address] PATHOLOGIST STABLE MANAGER JU MCPHERSON M.D. Start: 02-07-2021 Single photon emissi on computerized tomography Tim Nielson Phone: Start: 01-05-2021 Scoliosis survey X-ray Tim Nielson Phone: Start: 01-05-2021 X-ray of lumbar spin e, six views including bending views Tim Nielson Phone: Immunizations Immunization Date Immunization Notes Care Provider Emily walter 01-12-2021 COVID-19 mRNA,OQQ587 b2 (Pfizer) Tim Agustin Work Phone: [facility] 12-22-2020 COVID-19 mRNA,LVE101 b2 (Pfizer) Tim Agustin Work Phone: [facility] Payers Date Payer Category Payer Unknown [id number] 2022 Unknown [id number] 1958 Medicare [id number] 1958 Private Health Insurance [id number] 1945 Unknown [id number] 2.16. [id number] 1945 Unknown [id number] 2.16. [id number] 1945 Unknown [id number] 2.16. [id number] 1945 Unknown [id number] 2.16.84 [id number] 1945 Unknown [id number] 2.16.84 [id number] 1945 Unknown [id number] 2.16.84 [id number] 1945 Unknown [id number] 2.16.84 [id number] 1945 Unknown [id number] 2.16.84 [id number] 1945 Unknown [id number] 2.16.84 [id number] 1945 Unknown [id number] 2.16.84 [id number] Self-pay Self Pay [id number] Social History Date Type Detail Facility Start: 02-16-2021 Tobacco smoking status NHIS Never smoked tobacco (finding) [facility] Start: 1945 Sex Assigned At Female F [facility] Sex Assigned At Sex Assigned At Bir th [facility] Other Goals Date Patient Goal Desired Activity /State Progress note 09-18-2023 Note Date & Type Note Facility 09-18-2023 Note Cardiovascular [facility] SUBJECTIVE Chief Complaint Patient presents with Follow-up [...] comparison ASSESSMENT/PLAN: Diagnosis Plan 1. Atherosclerosis of [place] coronary artery of [place] heart without angina pectoris Comprehensive metabolic panel CBC Lipid panel 2. Essential hypertension 3. Mixed hyperlipid (more content not included)... [facility] Clinical Note 09-25-2022 Note Date [...] by: RAQUEL KING Date: 2022-09-25 14:50 [facility] Clinical Note 09-25-2022 Note Date & Type [...] by: RAQUEL KING Date: 2022-09-25 14:50 [facility] Evaluation note 10-11-2021 Note Date & Type [...] 9 months. Sep, Kyphoscoliosis (ICD-10 - M41.9) [facility] [place] Other Evaluation note Note Date & Type Note Facility Evaluation note No Assessments Information Avail able [facility] History general Narrative - Reported Note Date & Type Note Facility History general Narrative - Reported Type Medical History high blood pressure Medical History high cholesterol Surgical History heart stent Surgical History knee replacement Surgical History tonsillectomy Surgical History breast cyst Surgical History [facility] Hospitalization History see surgical hx [facility] [place] Other Advance Directives No Advanced Directives Records [...] section and content) DATE CREATED AUTHOR [facility] DATE CREATED AUTHOR AUTHOR'S ORGANIZ ATION 10/16/2021 [facility] DATE CREATED AUTHOR AUTHOR'S ORGANIZ ATION 02/01/2023 [facility] DATE CREATED AUTHOR AUTHOR'S ORGANIZ ATION 02/28/2023 [facility] DATE CREATED AUTHOR AUTHOR'S ORGANIZ ATION 02/28/2024 [facility] DATE CREATED AUTHOR AUTHOR'S ORGANIZ ATION 06/16/2024 [facility] d[facility] Specialists EPIC REASON FOR VISIT (unrecogniz ed section and [...] BE BASED ON THE PRIMARY CLINICAL RECORDS. [facility]. provides no warranty or guarantee of the accuracy or completeness of information in this document.
== END 2024-07-21 06:42 | disposition home or self-care (01) ==
LOC: MRI 06:41
PROVIDERS: PCP Family Medicine; Visit Provider Family Medicine
DX: R42 Dizziness and giddiness (principal)
CPT/HCPCS: 70551

== ENCOUNTER 2024-09-15 07:07 | Outpatient (OUT) | payer MEDICARE, OTHER, SELFPAY ==
--- OUTSIDE RECORDS SUMMARY | 2024-09-15 07:10 | XMS_ITS | CCD ---
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 [facility] Comment on above: Performed By: #### C BC ####[facility] [address] [place], [place] [address]Dr. Karey Espinoza IG # 0.22 10e3/ul Critically high 0.00-0.03 [facility] Comment on above: Performed By: #### C BC ####[facility] [address] [place], [place] [address]Dr. Karey Espinoza IG % 1.6 % Critically high 0.0-0.5 [facility] Comment on above: Performed By: #### C BC ####[facility] [address] [address]Dr. Karey Alexis LYMPH # 1.9 103/ul Normal 1.2-3.8 [facility] Comment on above: Performed By: #### C BC ####[facility] [address] [address]Dr. Karey Alexis Lymphocytes/100 WBC (Bld) 13.3 % Critically low 20.5-60.0 [facility] Comment on above: Performed By: #### C BC ####[facility] [address] [address]Dr. Karey Alexis MANUAL DIFF REQ NO Normal [facility] Comment on above: Performed By: #### C BC ####[facility] [address] [address]Dr. Karey Alexis MCH (RBC) [Entitic mass] 30.0 pg Normal 26.7-34.0 [facility] Comment on above: Performed By: #### C BC ####[facility] [address] [place], [place] [address]Dr. Karey Espinoza MCHC (RBC) [Mass/Vol] 34.3 g/dL Normal 29.9-35.2 [facility] Comment on above: Performed By: #### C BC ####[facility] [address] [place], [place] [address]Dr. Karey Alexis MCV (RBC) [Entitic vol] 87.4 fL Normal 81.0-99.0 [facility] Comment on above: Performed By: #### C BC ####[facility] [address] [place], [place] [address]Dr. Karey Alexis MONO # 0.8 103/ul Normal 0.3-0.8 [facility] Comment on above: Performed By: #### C BC ####[facility] Q[address] [place], [place] [address]Dr. Karey Alexis Monocytes/100 WBC (Bld) 5.4 % Normal 1.7-12.0 [facility] Comment on above: Performed By: #### C BC ####[facility] [address] [place], [place] [address]Dr. Karey Espinoza NEUT # 10.8 103/ul Critically high 1.4-6.5 The [facility] Comment on above: Performed By: #### C BC ####[facility] [address] [address]Dr. Karey Espinoza Neutrophils/100 WBC (Bld) 78.1 % Critically high 43.0-75.0 [facility] Comment on above: Performed By: #### C BC ####[facility] [address] [address]Dr. Karey Espinoza Platelet mean volume (Bld) [Entitic vol] 9.0 fL Critically low 9.5-13.5 [facility] Comment on above: Performed By: #### C BC ####[facility] [address] [address]Dr. Karey Espinoza PLT 345 103/ul Normal 150-450 [facility] Comment on above: Performed By: #### C BC ####[facility] [address] [id number]. Karey Espinoza RBC 4.67 106/ul Normal 4.20-5.40 [facility] Comment on above: Performed By: #### C BC ####[facility] [address] [id number]. Karey Espinoza WBC 13.9 103/ul Critically high 4.0-11.0 The [facility] Comment on above: Performed By: #### C BC ####[facility] [address] [address] Karey Espinoza CT ABD/PELV W CONon 09-25-20 [...] Date: 2022-09-25 15:00 Normal [facility] CT HEAD WO CONon 09-25-2022 [...] Date: 2022-09-25 14:41 Normal [facility]on 08-29 SARS-CoV-2 (COVID-19) RNA JORI+probe Ql (Unsp spec) Not detected Normal NOT DETECTED [facility] Comment on above: Result Comment: [...] for this test is supported by the [place] of Health and Human Service's declaration that [...] [facility] #### [facility] Laboratory [address] [address] [address] Karey Espinoza ER URINE PROFILEon 2 Bilirubin Ql (U) Negative Normal NEGATIVE [facility] Comment on above: Performed By: #### Kvng REDDING UMICRO ####[facility] [address] [address]Dr. Karey Espinoza Clarity (U) SL CLOUDY Abnormal CLEAR [facility] Comment on above: Performed By: #### vKng REDDING UMICRO ####[facility] [address] [address]Dr. Karey Espinoza Color (U) YELLOW Normal YELLOW [facility] Comment on above: Performed By: #### Kvng REDDING UMICRO ####[facility] [address] [address]Dr. Karey FRANZ A micrscopic examination will be performed if indicated. Normal [facility] Comment on above: Performed By: #### Kvng REDDING UMICRO ####[facility] [address] [address]Dr. Karey Espinoza Glucose Ql (U) Negative Normal NEGATIVE [facility] Comment on above: Performed By: #### Kvng REDDING UMICRO ####[facility] [address] [address]Dr. Karey Espinoza Hemoglobin Ql (U) SMALL Abnormal NEGATIVE The [facility] Comment on above: Performed By: #### Kvng REDDING UMICRO ####[facility] [address] [address]Dr. Karey Espinoza Ketones Ql (U) Negative Normal NEGATIVE [facility] Comment on above: Performed By: #### NEDA REYES ####[facility] [address] [address]Dr. Camillarony Alexis LEUKOCYTES Negative Normal NEGATIVE [facility] Comment on above: Performed By: #### NEDA REYES ####[facility] [address] [address]Dr. Karey Espinoza Nitrite Ql (U) Negative Normal NEGATIVE [facility] Comment on above: Performed By: #### NEDA REYES ####[facility] [address] [address]Dr. Karey Espinoza pH (U) 5.0 [pH] Normal 5-9 [facility] Comment on above: Performed By: #### NEDA REYES ####[facility] [address] [address]Dr. Karey Espinoza SPEC GRAVITY 1.010 Normal 1.005-<=1.025 [facility] Comment on above: Performed By: #### NEDA REYES ####[facility] [address] [place], [place] [address]Dr. Karey Espinoza UA PROTEIN Negative Normal NEGATIVE/ TRACE [facility] Comment on above: Performed By: #### NEDA REYES ####[facility] [address] [address]Dr. Karey Espinoza UR MICRO IND INDICATED Normal [facility] Comment on above: Performed By: #### NEDA REYES ####[facility] [address] [address]Dr. Camillarony Espinoza Urobilinogen Qn (U) 0.2 {Jose'U}/dL Normal 0.2 - 1. 0 [facility] Comment on above: Performed By: #### NEDA REYES ####[facility] [address] [address]Dr. Karey Espinoza LIPASEon 09-25-2022 Lipase [Catalytic activity/Vol] 341.0 U/L Normal 73.0-393.0 [facility] Comment on above: Performed By: #### C MP, LIPA, CMADM ####[facility] [address] [address]Dr. Karey Espinoza PROF 14(COMP METB)on 022 Albumin [Mass/Vol] 3.6 g/dL Normal 3.4-5.0 [facility] Comment on above: Performed By: #### C MP, LIPA, CMADM ####[facility] [address] [address]Dr. Karey Espinoza Albumin/Globulin [Mass ratio] 1.1 {ratio} Normal [facility] Comment on above: Performed By: #### C CATHY LIPA, CMADM ####[facility] [address] [place], [place] [address]Dr. Karey Espinoza ALP [Catalytic activity/Vol] 92 U/L Normal 46-116 [facility] Comment on above: Performed By: #### C CATHY LIPA, CMADM ####[facility] [address] [place], [place] [address]Dr. Karey Espinoza ALT [Catalytic activity/Vol] 77 U/L Critically high 14-59 [facility] Comment on above: Performed By: #### C CATHY LIPA, CMADM ####[facility] Y[address] [place], [place] [address]Dr. Karey Espinoza Anion gap [Moles/Vol] 11.6 mmol/L Normal [facility] Comment on above: Performed By: #### C MP, LIPA, CMADM ####[facility] [address] [address]Dr. Karey Espinoza AST [Catalytic activity/Vol] 85 U/L Critically high 15-37 [facility] Comment on above: Performed By: #### C CATHY LIPA, CMADM ####[facility] [address] [address]Dr. Karey Espinoza Bilirubin [Mass/Vol] 0.6 mg/dL Normal 0.2-1.0 [facility] Comment on above: Performed By: #### C MP, LIPA, CMADM ####[facility] [address] [address]Dr. Karey Espinoza Calcium [Mass/Vol] 9.2 mg/dL Normal 8.5-10.1 [facility] Comment on above: Performed By: #### C MP, LIPA, CMADM ####[facility] [address] [address]Dr. Karey Espinoza Chloride [Moles/Vol] 101 mmol/L Normal 98-107 [facility] Comment on above: Performed By: #### C MP, LIPA, CMADM ####[facility] [address] [address]Dr. Karey Espinoza CO2 [Moles/Vol] 25.9 mmol/L Normal 21.0-32.0 [facility] Comment on above: Performed By: #### C MP, LIPA, CMADM ####[facility] [address] [address]Dr. Karey Espinoza Creatinine [Mass/Vol] 1.11 mg/dL Critically high 0.55-1.02 [facility] Comment on above: Performed By: #### C MP, LIPA, CMADM ####[facility] [address] [address]Dr. Karey Espinoza EGFR-AF BOLIVIAN 58 mL/min/1.73m2 Critically low >=60 [facility] Comment on above: Performed By: #### C MP, LIPA, CMADM ####[facility] [address] [address]Dr. Karey Espinoza EGFR-NON AF BOLIVIAN 48 mL/min/1.73m2 Critically low >=60 [facility] Comment on above: Performed By: #### C MP, LIPA, CMADM ####[facility] [address] [place], [place] [address]Dr. Karey Espinoza Globulin (S) [Mass/Vol] 3.3 g/dL Normal [facility] Comment on above: Performed By: #### C MP, LIPA, CMADM ####[facility] [address] [address]Dr. Karey Espinoza Glucose [Mass/Vol] 149 mg/dL Critically high 74-106 T [facility] Comment on above: Performed By: #### C JUAN CARLOS MORGAN, CMADM ####[facility] [address] [address]Dr. Karey Espinoza Potassium [Moles/Vol] 4.5 mmol/L Normal 3.5-5.1 [facility] Comment on above: Performed By: #### C CIERRA MORGANA, CMADM ####[facility] [address] [address]Dr. Karey Espinoza Protein [Mass/Vol] 6.9 g/dL Normal 6.4-8.2 [facility] Comment on above: Performed By: #### C JUAN CARLOS MORGAN, CMADM ####[facility] [address] [address]Dr. Karey Espinoza Sodium [Moles/Vol] 134 mmol/L Critically low 136-145 [facility] Comment on above: Performed By: #### C CIERRA MORGANA, CMADM ####[facility] [address] [address]Dr. Karey Espinoza Urea nitrogen [Mass/Vol] 18.0 mg/dL Normal 7.0-18.0 [facility] Comment on above: Performed By: #### C CIERRA MORGANA, CMADM ####[facility] [address] [address]Dr. Karey Espinoza Urea nitrogen/Creatinine [Mass ratio] 16.2 mg/mg Normal [facility] Comment on above: Performed By: #### C CATHY LIPA, CMADM ####[facility] [address] [address]Dr. Karey Espinoza PROTIMEon 09-25-2022 INR Coag (PPP) [Relative time] 1.11 {INR} Normal [facility] Comment on above: Performed By: #### P T, PTT #### [facility] [address] [address] [address] Karey Espinoza INR GUIDELINES SEE BELOW Normal [facility] Comment on above: Result Comment: FAHAD RED INR: 2.0 - 3.0 CONDITIONS NOT LISTED BELOW 2.5 - 3.5 FOR PROSTHETIC HEART VALVE REPLACEMENT 2.5 - 3.5 RECURRENT THROMBOSIS Performed By: #### P T, PTT #### [facility] [address] [place] [address] Dr. Karey Espinoza PT Coag (PPP) [Time] 11.9 s Critically high 9.0-11.6 [facility] Comment on above: Performed By: #### P T, PTT #### [facility] [address] [place] [address] Dr. Karey Espinoza PTTon 09-25-2022 aPTT Coag (Bld) [Time] 30.4 s Normal 22.3-36.2 [facility] Comment on above: Performed By: #### P T, PTT #### [facility] [address] [place] [address] Dr. Karey Espinoza Trauma Profileon 09-25-2022 Anion gap [Moles/Vol] 12 mmol/L Normal 9-17 [facility] Comment on above: Performed By: #### B MP, MATIAS, MG, CDP #### [facility] [address] [place] [address] [employer] Operator: Shamir Milton MD Chloride [Moles/Vol] 102 mmol/L Normal 98-107 [facility] Comment on above: Performed By: #### B MP, MATIAS, MG, CDP #### [facility] [address] [place] [address] [employer] Operator: Shamir Milton MD CO2 [Moles/Vol] 20 mmol/L Normal 20-31 [facility] Comment on above: Performed By: #### B MP, MATIAS, MG, CDP #### [facility] [address] [place] [address] [employer] Operator: Shamir Milton MD Creatinine [Mass/Vol] 0.76 mg/dL Normal 0.50-0.90 [facility] Comment on above: Performed By: #### B MP, MATIAS, MG, CDP #### [address] [address] [employer] Operator: Shamir Milton MD Ethanol [Mass/Vol] mg/dL Normal <10 [facility] Comment on above: Performed By: #### B MP, MATIAS, MG, CDP #### [address] [address] [employer] Operator: Shamir Milton MD Ethanol percent <0.010 Normal <0.010 [facility] Comment on above: Performed By: #### B MP, MATIAS, MG, CDP #### [address] [address] [employer] Operator: Shamir Milton MD GFR/1.73 sq M.predicted among non-blacks MDRD (S/P/Bld) [Vol rate/Area] mL/min/{1.73_m2} Normal >60 [facility] Comment on above: Result Comment: Effective [...] #### B MP, MATIAS, MG, CDP #### [address] [address] [employer] Operator: Shamir Milton MD Glucose [Mass/Vol] 127 mg/dL High 70-99 [facility] Comment on above: Performed By: #### B MP, MATIAS, MG, CDP #### [address] [address] [employer] Machine Operator: Shamir Milton MD Potassium [Moles/Vol] 4.1 mmol/L Normal 3.7-5.3 [facility] Comment on above: Performed By: #### B MP, MATIAS, MG, CDP #### [facility] [address] [place] [address] [employer] Operator: Shamir Milton MD Sodium [Moles/Vol] 134 mmol/L Low 135-144 [facility] Comment on above: Performed By: #### B MP, MATIAS, MG, CDP #### [facility] [address] [place] [address] [employer] Machine Operator: Shamir Milton MD Urea nitrogen [Mass/Vol] 14 mg/dL Normal 8-23 [facility] Comment on above: Performed By: #### B MP, MATIAS, MG, CDP #### [facility] [address] [place] [address] [employer] Operator: Shamir Milton MD aPTT Coag (Bld) [Time] 24.4 s Normal 20.5-30.5 [facility] Comment on above: Result Comment: IV Heparin Therapy Range: 48.6-77.8 Performed By: #### B MP, MATIAS, MG, CDP #### [facility] [address] [place] [address] [employer] Machine Operator: Shamir Milton MD INR Coag (PPP) [Relative time] 1.1 {INR} Normal [facility] Comment on above: Result Comment: Therapeutic Range: Moderate Anticoagulant Intensity: INR = 2.0-3.0 High Anticoagulant Intensity: INR = 2.5-3.5 Performed By: #### B MP, MATIAS, MG, CDP #### [facility] [address] [place] [address] [employer] Operator: Shamir Milton MD PT Coag (PPP) [Time] 11.3 s Normal 9.1-12.3 [facility] Comment on above: Performed By: #### B MP, MATIAS, MG, CDP #### [facility] [address] [place] [address] Sing[employer] Machine Operator: Shamir Milton MD HCG Screen, Blood Negative Normal NEG [facility] Comment on above: Result Comment: Spec imens with hCG levels near the threshold of the test (25 mIU/mL) may give a negative or indeterminate result. In such cases, another test should be performed with a new specimen in 48-72 hours. If early is suspected clinically in this setting, correlation with quantitative serum b-hCG level is suggested. [facility] has confirmed the use of plasma for this test. This has not been cleared or approved by the U.S. Food and Drug Administration. The FDA has determined that such clearance is not necessary. Performed By: #### B MP, MATIAS, MG, CDP #### [facility] [address] [address] [employer]e Machine Operator: Shamir Milton MD Body Temp. 37.0 Normal [facility] Comment on above: Performed By: #### B MP, MATIAS, MG, CDP #### [facility] [address] [place] [address] Singe Machine Operator: Shamir Milton MD Carboxy Hgb 2.3 % Normal 0-5 [facility] Comment on above: Result Comment: Reference Range: Non-Smokers 0-2% Average Smoker 2-4% Heavy Smoker <10% Performed By: #### B MP, MATIAS, MG, CDP #### [facility] [address] [place] [address] Singe Machine Operator: Shamir Milton MD FIO2 INFORMATION NOT PROVIDED Normal [facility] Comment on above: Performed By: #### B MP, MATIAS, MG, CDP #### [employer] [address] [place] [address] [employer] Machine Operator: Shamir Milton MD HCO3 (Bld) [Moles/Vol] 22.7 mmol/L Low 24-30 [facility] Comment on above: Performed By: #### B MP, MATIAS, MG, CDP #### [facility] [address] [place] [address] [employer] Operator: Shamir Milton MD Negative Base Excess 2.5 mmol/L High 0.0-2.0 [facility] Comment on above: Performed By: #### B MP, MATIAS, MG, CDP #### [facility] [address] [place] [address] [employer] Operator: Shamir Milton MD Oxygen saturation in Blood 73.8 % Normal 60.0-85.0 [facility] Comment on above: Performed By: #### B MP, MATIAS, MG, CDP #### [facility] [address] [place] [address] [employer] Operator: Shamir Milton MD pCO2 42.6 mm Hg Normal 39-55 [facility] Comment on above: Performed By: #### B MP, MATIAS, MG, CDP #### [address] [address] [employer] Machine Operator: Shamir Milton MD pH (Bld) 7.345 [pH] Normal 7.320-7.420 [facility] Comment on above: Performed By: #### B MP, MATIAS, MG, CDP #### [facility] [address] [place] [address] [employer] Machine Operator: Shamir Milton MD pO2 40.7 mm Hg Normal 30-50 [facility] Comment on above: Performed By: #### B MP, MATIAS, MG, CDP #### [facility] [address] [place] [address] [employer] Operator: Shamir Milton MD Erythrocyte distribution width (RBC) [Ratio] 13.0 % Normal 11.8-14.4 [facility] Comment on above: Performed By: #### B MP, MATIAS, MG, CDP #### [facility] [address] [place] [address] [employer] Operator: Shamir Milton MD Hematocrit (Bld) [Volume fraction] 42.4 % Normal 36.3-47.1 [facility] Comment on above: Performed By: #### B MP, MATIAS, MG, CDP #### [facility] [address] [place] [address] [employer] Operator: Shamir Milton MD Hemoglobin (Bld) [Mass/Vol] 14.5 g/dL Normal 11.9-15.1 [facility] Comment on above: Performed By: #### B MP, MATIAS, MG, CDP #### [facility] [address] [place] [address] [employer] Operator: Shamir Milton MD MCH (RBC) [Entitic mass] 30.1 pg Normal 25.2-33.5 [facility] Comment on above: Performed By: #### B MP, MATIAS, MG, CDP #### [address] [address] [employer] Operator: Shamir Milton MD MCHC (RBC) [Mass/Vol] 34.2 g/dL Normal 28.4-34.8 [facility] Comment on above: Performed By: #### B MP, MATIAS, MG, CDP #### [address] [address] [employer] Operator: Shamir Milton MD MCV (RBC) [Entitic vol] 88.1 fL Normal 82.6-102.9 [facility] Comment on above: Performed By: #### B MP, MATIAS, MG, CDP #### [facility] [address] [place] [address] Singe Machine Operator: Shamir Milton MD NRBC Automated 0.0 per 100 WBC Normal 0.0 [facility] Comment on above: Performed By: #### B MP, MATIAS, MG, CDP #### [facility] [address] [place] [address] [employer] Operator: Shamir Milton MD Platelet mean volume (Bld) [Entitic vol] 9.3 fL Normal 8.1-13.5 [facility] Comment on above: Performed By: #### B MP, MATIAS, MG, CDP #### [address] [address] [employer] Operator: Shamir Milton MD Platelets (Bld) [#/Vol] 335 10*3/uL Normal 138-453 [facility] Comment on above: Performed By: #### B MP, MATIAS, MG, CDP #### [facility] [address] [place] [address] [employer] Operator: Shamir Milton MD RBC (Bld) [#/Vol] 4.81 10*6/uL Normal 3.95-5.11 [facility] Comment on above: Performed By: #### B MP, MATIAS, MG, CDP #### [address] [address] [employer] Machine Operator: Shamir Milton MD WBC (Bld) [#/Vol] 12.0 10*3/uL High 3.5-11.3 [facility] Comment on above: Performed By: #### B MP, MATIAS, MG, CDP #### [facility] [address] [place] [address] Singe Machine Operator: Shamir Milton MD Blood Bank BILL FOR SERVICES PERFORMED Normal [facility] Comment on above: Performed By: #### B MP, MATIAS, MG, CDP #### [facility] [address] [place] [address] [employer] Machine Operator: Shamir Milton MD Type + Screenon 09-25-2022 Type + Screen Sample Expiration 09/28/2022,2359 Arm Band Number [id number] ABO/Rh(D) O POSITIVE Antibody Screen NEGATIVE Normal [facility] Comment on above: Performed By: #### C DP, BMP, MATIAS #### [address] [address] [employer] Machine Operator: Shamir Milton MD URINE MICROSCOPIC ONLYon BACTERIA NONE SEEN Normal NONE SEEN [facility] Comment on above: Performed By: #### Kvng REDDING UMICRO ####[facility] [address] [place], [place] [address]Dr. Karey Espinoza Bacteria identified Cx Nom (U) NOT INDICATED Normal [facility] Comment on above: Performed By: #### Kvng REDDING UMICRO ####[facility] [address] [place], [place] [address]Dr. Karey Espinoza CAST NONE SEEN Normal NONE SEEN [facility] Comment on above: Performed By: #### Kvng REDDING UMICRO ####[facility] [address] [place], [place] [address]Dr. Karey Espinoza Crystals LM Nom (Urine sed) NONE SEEN Normal NONE SEEN [facility] Comment on above: Performed By: #### Kvng REDDING UMICRO ####[facility] [address] [place], [place] [address]Dr. Karey Espinoza Epithelial cells LM Ql (Urine sed) RARE Normal NONE SEEN /RARE [facility] Comment on above: Performed By: #### Kvng REDDING UMICRO ####[facility] [address] [place], [place] [address]Dr. Karey Espinoza MUCOUS NONE SEEN Normal NONE SEEN [facility] Comment on above: Performed By: #### Kvng REDDING UMICRO ####[facility] [address] [place], [place] [address]Dr. Karey Espinoza RBC 0-2 Normal 0-2 [facility] Comment on above: Performed By: #### Kvng REDDING UMICRO ####[facility] [address] [place], [place] [address]Dr. Karey Espinoza WBC NONE SEEN Normal NONE SEEN [facility] Comment on above: Performed By: #### Kvng REDDING UMICRO ####[facility] [address] [place], [place] [address]Dr. Karey Espinoza XR HIP LEFT (2-3 VIEWS)on [...] Mikie Caba MD 09/25/22 Final result Normal [facility] XR PELVIS (MIN 3 VIEWS)on XR [...] Mikie Caba MD 09/25/22 Final result Normal [facility] XR TIBIA FIBULA LEFT (2 VIEW [...] Mikie Caba MD 09/25/22 Final result Normal [facility] LIPID PROFILEon 09-14-2022 CHOL-HDL RATIO NORM SEE BELOW Normal [facility] Comment on above: Result Comment: 3.3 - 4.4 LOW RISK 4.4 - 7.1 AVERAGE RISK 7.1 - 11.0 MODERATE RISK >11.0 HIGH RISK Performed By: #### L IPID, LIVER #### [facility] [address] [address] [address] Karey Espinoza Cholesterol [Mass/Vol] 165 mg/dL Normal <=200 [facility] Comment on above: Performed By: #### L IPID, LIVER #### [facility] [address] [address] [address] Karey Espinoza Cholesterol in HDL [Mass/Vol] 57 mg/dL Normal 40-60 [facility] Comment on above: Performed By: #### L IPID, LIVER #### [facility] [address] [address] [address] Karey Espinoza Cholesterol in LDL [Mass/Vol] 83.2 mg/dL Normal [facility] Comment on above: Performed By: #### L IPID, LIVER #### [facility] [address] [address] [address] Karey Espinoza Cholesterol.total/Cho lesterol in HDL [Mass ratio] 2.9 {ratio} Normal [facility] Comment on above: Performed By: #### L IPID, LIVER #### [facility] [address] [address] [address] Karey Espinoza HDL NORMAL > or = 60 mg/dl - LO W CARDIOVASCULAR RISK <40 mg/dl - HIGH CARDIOVASCULAR RISK Normal [facility] Comment on above: Performed By: #### L IPID, LIVER #### [facility] [address] [place] [address] Dr. Karey Espinoza LDL CALC NORMAL SEE BELOW Normal [facility] Comment on above: Result Comment: <100 mg/dl OPTIMAL 100 - 129 mg/dl NEAR OR ABOVE OPTIMAL 130 - 159 mg/dl BORDERLINE HIGH 160 - 189 mg/dl HIGH >190 mg/dl VERY HIGH Performed By: #### L IPID, LIVER #### [facility] [address] [place] [address] Dr. Karey Espinoza Triglyceride [Mass/Vol] 124 mg/dL Normal <=150 [facility] Comment on above: Performed By: #### L IPID, LIVER #### [facility] [address] [place] [address] Dr. Karey Espinoza VLDL CALC 24.8 mg/dL Normal [facility] Comment on above: Performed By: #### L IPID, LIVER #### [facility] [address] [address] [address] Karey Espinoza LIVER PROFILEon 09-14-2022 Albumin [Mass/Vol] 3.6 g/dL Normal 3.4-5.0 [facility] Comment on above: Performed By: #### L IPID, LIVER #### [facility] [address] [place] [address] Dr. Karey Espinoza Albumin/Globulin [Mass ratio] 1.1 {ratio} Normal [facility] Comment on above: Performed By: #### L IPID, LIVER #### [facility] [address] [address] [address] Karey Espinoza ALP [Catalytic activity/Vol] 75 U/L Normal 46-116 [facility] Comment on above: Performed By: #### L IPID, LIVER #### [facility] [address] [address] [address] Karey Espinoza ALT [Catalytic activity/Vol] 57 U/L Normal 14-59 [facility] Comment on above: Performed By: #### L IPID, LIVER #### [facility] [address] [address] [address] Karey Espinoza AST [Catalytic activity/Vol] 35 U/L Normal 15-37 [facility] Comment on above: Performed By: #### L IPID, LIVER #### [facility] [address] [place] [address] Dr. Karey Espinoza BILI, CONJUGATED 0.1 mg/dL Normal 0.0-0.2 [facility] Comment on above: Performed By: #### L IPID, LIVER #### [facility] [address] [place] [address] Dr. Karey Espinoza Bilirubin [Mass/Vol] 0.5 mg/dL Normal 0.2-1.0 [facility] Comment on above: Performed By: #### L IPID, LIVER #### [facility] [address] [place] [address] Dr. Karey Espinoza Globulin (S) [Mass/Vol] 3.3 g/dL Normal [facility] Comment on above: Performed By: #### L IPID, LIVER #### [facility] [address] [place] [address] Dr. Karey Espinoza Protein [Mass/Vol] 6.9 g/dL Normal 6.4-8.2 [facility] Comment on above: Performed By: #### L IPID, LIVER #### [facility] [address] [place] [address] Dr. Karey Espinoza Covid-19 PCR (CVDTB)on 03-29 SARS-CoV-2 (COVID-19) RNA JORI+probe Ql (Unsp spec) Not detected Normal NOT DETECTED [facility] Comment on above: Result Comment: This test is not yet approved or cleared by the [place] FDA. When there are no FDA-approved or cleared tests available, and other criteria are met, FDA can make tests available under an emergency access mechanism called an Emergency Use Authorization (EUA). The EUA for this test is supported by the [place] of Health and Human Service's (HHS's) declaration [...] By: #### C VDTB #### [facility] [address] [place], [place] [address] Dr. Karey Espinoza SYMPTOMATIC COVID-19 ANTIGEN on 04-20-2022 EUA Statement SEE BELOW Normal [facility] Comment on above: Result Comment: This [...] Performed By: #### C VDAGS ####[facility] [address] [address]Dr. Karey Espinoza SARS-CoV-2 (COVID-19) RNA JORI+probe Ql (Unsp spec) Negative Normal NEGATIVE [facility] Comment on above: Performed By: #### C VDAGS ####[facility] [address] [place], [place] [address]Lj. Karey Espinoza LIPID PROFILEon 04-04-2022 CHOL-HDL RATIO NORM SEE BELOW Normal [facility] Comment on above: Result Comment: 3.3 - 4.4 LOW RISK 4.4 - 7.1 AVERAGE RISK 7.1 - 11.0 MODERATE RISK >11.0 HIGH RISK Performed By: #### L IVER, LIPID ####[facility] [address] [place] [id number]. Karey Alexis Cholesterol [Mass/Vol] 198 mg/dL Normal <=200 [facility] Comment on above: Performed By: #### L IVER, LIPID ####[facility] [address] [place] [id number]. Karey Espinoza Cholesterol in HDL [Mass/Vol] 50 mg/dL Normal 40-60 [facility] Comment on above: Performed By: #### L IVER, LIPID ####[facility] [address] [place] [phone]. Karey Espinoza Cholesterol in LDL [Mass/Vol] 110.8 mg/dL Normal [facility] Comment on above: Performed By: #### L IVER, LIPID ####[facility] [address] [place] [phone]. Karey Espinoza Cholesterol.total/Cho lesterol in HDL [Mass ratio] 4.0 {ratio} Normal [facility] Comment on above: Performed By: #### L IVER, LIPID ####[facility] [address] [place] [id number]. Karey Espinoza HDL NORMAL > or = 60 mg/dl - LO W CARDIOVASCULAR RISK <40 mg/dl - HIGH CARDIOVASCULAR RISK Normal [facility] Comment on above: Performed By: #### L IVER, LIPID ####[facility] [address] [place] [phone]. Karey Espinoza LDL CALC NORMAL SEE BELOW Normal [facility] Comment on above: Result Comment: <100 mg/dl OPTIMAL 100 - 129 mg/dl NEAR OR ABOVE OPTIMAL 130 - 159 mg/dl BORDERLINE HIGH 160 - 189 mg/dl HIGH >190 mg/dl VERY HIGH Performed By: #### L RAJ, LIPID ####[facility] [address] [place] [phone]. Karey Espinoza Triglyceride [Mass/Vol] 186 mg/dL Critically high <=150 [facility] Comment on above: Performed By: #### L RAJ, LIPID ####[facility] [address] [address]Dr. Karey Espinoza VLDL CALC 37.2 mg/dL Normal [facility] Comment on above: Performed By: #### Carli ANTHONY, LIPID ####[facility] [address] [place] [address]Dr. Karey Espinoza LIVER PROFILEon 04-04-2022 Albumin [Mass/Vol] 3.8 g/dL Normal 3.4-5.0 [facility] Comment on above: Performed By: #### Carli ANTHONY LIPID ####[facility] [address] [address]Dr. Karey Espinoza Albumin/Globulin [Mass ratio] 1.2 {ratio} Normal [facility] Comment on above: Performed By: #### Carli ANTHONY, LIPID ####[facility] [address] [address]Dr. Karey Espinoza ALP [Catalytic activity/Vol] 78 U/L Normal 46-116 [facility] Comment on above: Performed By: #### Carli ANTHONY, LIPID ####[facility] [address] [address]Dr. Karey Espinoza ALT [Catalytic activity/Vol] 33 U/L Normal 14-59 [facility] Comment on above: Performed By: #### L RAJ, LIPID ####[facility] [address] [address]Dr. Karey Espinoza AST [Catalytic activity/Vol] 26 U/L Normal 15-37 [facility] Comment on above: Performed By: #### L RAJ LIPID ####[facility] [address] [place], [place] [address]Ny. Karey Espinoza BILI, CONJUGATED 0.1 mg/dL Normal 0.0-0.2 [facility] Comment on above: Performed By: #### L IVER, LIPID ####[facility] [address] [place], [place] [address]Ts. Karey Espinoza Bilirubin [Mass/Vol] 0.5 mg/dL Normal 0.2-1.0 [facility] Comment on above: Performed By: #### L IVER, LIPID ####[facility] [address] [place], [place] [address]Hb. Karey Espinoza Globulin (S) [Mass/Vol] 3.2 g/dL Normal [facility] Comment on above: Performed By: #### L IVER, LIPID ####[facility] [address] [place], [place] [address]Ei. Karey Espinoza Protein [Mass/Vol] 7.0 g/dL Normal 6.4-8.2 [facility] Comment on above: Performed By: #### L IVER, LIPID ####[facility] [address] [place], [place] [address]He. Karey Espinoza XR lumbar spine 2-3V*on XR lumbar spine 2-3V* [facility] [place] [address] XRay Report Signed Patient: Anabela Abbasi MR#: [id number] 5 : 1945 Acct:[id number] Age/Sex: 75 / F ADM Date: 03/30/21 Loc: XD Room: Type: [facility] Attending Dr: Brian Gonzales MD Ordering Provider: [...] Wang Jr., M.D.03/30/2021 2:53 PM Dictation Location: [place] [address] Transcribed By: [facility] 03/30/211452 Dictated By: Camryn Wang Jr, MD 03/30/211449 Signed By: 03/30/21 145 [facility] Home Health Records 2020 Home Health Records [id number] Normal [facility] Glucose Poct Glucometerson 0 03-03-2021 Commemt1 Glu2: Cleaned Meter [facility] Comment on above: Result Comment: PERF ORMED BY: [facility] [address] [place] [address] PATHOLOGIST [employer] JU MCPHERSON M.D. Performed By: #### G LULS ####Point of Care testing, Glucose [Mass/Vol] 99 mg/dL [facility] Comment on above: Result Comment: [place] Glucose Reference Range is dependent on time and content of last meal. Glucose of more than 200 mg/dL in a nonstressed, ambulatory subject supports the diagnosis of Diabetes Mellitus. Performed By: #### G LULS ####Point of Care testing, Glucose Poct Glucometerson 0 03-02-2021 Commemt1 Glu2: Cleaned [facility] Comment on above: Result Comment: PERF ORMED BY: [facility] [address] [place] [id number] PATHOLOGIST [employer] UJ MCPHERSON M.D. Performed By: #### G LULS ####Point of Care testing, Glucose [Mass/Vol] 87 mg/dL Normal [facility] Comment on above: Result Comment: [place] om Glucose Reference Range is dependent on time and content of last meal. Glucose of more than 200 mg/dL in a nonstressed, ambulatory subject supports the diagnosis of Diabetes Mellitus. Performed By: #### G LULS ####Point of Care testing, Glucose [Mass/Vol] 131 mg/dL Normal [facility] Comment on above: Result Comment: [place] om Glucose Reference Range is dependent on time and content of last meal. Glucose of more than 200 mg/dL in a nonstressed, ambulatory subject supports the diagnosis of Diabetes Mellitus. PERFORMED BY: [address] [place] [id number] PATHOLOGIST [employer] JU MCPHERSON M.D. Performed By: #### G LULS ####Point of Care testing, Glucose Poct Glucometerson 0 03-01-2021 Commemt1 Glu2: Cleaned [facility] Comment on above: Result Comment: PERF ORMED BY: [address] [place] [id number] PATHOLOGIST [employer] JU MCPHERSON M.D. Performed By: #### G LULS ####Point of Care testing, Glucose [Mass/Vol] 197 mg/dL Normal [facility] Comment on above: Result Comment: [place] Glucose Reference Range is dependent on time and content of last meal. Glucose of more than 200 mg/dL in a nonstressed, ambulatory subject supports the diagnosis of Diabetes Mellitus. Performed By: #### G LULS ####Point of Care testing, Commemt1 Glu2: Cleaned Meter [facility] Comment on above: Result Comment: PERF ORMED BY: [address] [place] [id number] PATHOLOGIST [employer]IF[employer] JU MCPHERSON M.D. Performed By: #### G LULS ####Point of Care testing, Glucose [Mass/Vol] 132 mg/dL Normal [facility] Comment on above: Result Comment: [facility] Glucose Reference Range is dependent on time and content of last meal. Glucose of more than 200 mg/dL in a nonstressed, ambulatory subject supports the diagnosis of Diabetes Mellitus. Performed By: #### G MCKENNA ####Point of Care testing, ABO/Rh Retypeon 02-28-2021 ABO/RH Recheck Result Positive Normal [facility] Comment on above: Result Comment: PERF ORMED BY: [facility] [address] [place] [address] PATHOLOGIST [employer] JU MCPHERSON M.D. Complete Blood Count Auto Di ffon 02-28-2021 Basophils (Bld) [#/Vol] 0.1 10*3/uL Normal 0.0-0.2 [facility] Comment on above: Result Comment: PERF ORMED BY: [facility] [address] [place] [id number] PATHOLOGIST [employer] JU MCPHERSON M.D. Performed By: #### C MP, CBC, TROP ####[place] [id number] [facility] Basophils/100 WBC (Bld) 0.4 % Normal . [facility] Comment on above: Performed By: #### C MP, CBC, TROP ####[place] [id number] [facility] Eosinophils (Bld) [#/Vol] 0.0 10*3/uL Normal 0.0-0.45 [facility] Comment on above: Performed By: #### C MP, CBC, TROP ####[facility] [id number] [place] [id number] [place] Eosinophils/100 WBC (Bld) 0.0 % Normal . [facility] Comment on above: Performed By: #### C MP, CBC, TROP ####[place] [id number] [facility] Erythrocyte distribution width (RBC) [Ratio] 13.6 % Normal 11.9-15.3 [facility] Comment on above: Performed By: #### C MP, CBC, TROP ####[address] Hematocrit (Bld) [Volume fraction] 38.3 % Normal 34.0-46.4 [facility] Comment on above: Performed By: #### C MP, CBC, TROP ####[address] Hemoglobin (Bld) [Mass/Vol] 13.0 g/dL Normal 11.8-15.4 [facility] Comment on above: Performed By: #### C MP, CBC, TROP ####[address] Lymphocytes (Bld) [#/Vol] 0.8 10*3/uL Low 1.00-4.8 [facility] Comment on above: Performed By: #### C MP, CBC, TROP ####[address] Lymphocytes/100 WBC (Bld) 5.8 % Normal . [facility] Comment on above: Performed By: #### C MP, CBC, TROP ####[address] MCH (RBC) [Entitic mass] 30.0 pg Normal 24.7-34.3 [facility] Comment on above: Performed By: #### C MP, CBC, TROP ####[address] MCV (RBC) [Entitic vol] 88.6 fL Normal 80-100 [facility] Comment on above: Performed By: #### C MP, CBC, TROP ####[address] Mean Corpuscular HGB Conc 33.8 g/dL Normal 32.0-35.0 [facility] Comment on above: Performed By: #### C MP, CBC, TROP ####[address] Monocytes (Bld) [#/Vol] 0.6 10*3/uL Normal 0.0-0.8 [facility] Comment on above: Performed By: #### C MP, CBC, TROP ####[address] Monocytes/100 WBC (Bld) 4.5 % Normal . [facility] Comment on above: Performed By: #### C MP, CBC, TROP ####[address] Neutrophils (Bld) [#/Vol] 11.8 10*3/uL High 1.8-7.7 [facility] Comment on above: Performed By: #### C MP, CBC, TROP ####[address] Neutrophils/100 WBC (Bld) 89.3 % Normal . [facility] Comment on above: Performed By: #### C MP, CBC, TROP ####[address] Nucleated RBC/100 WBC (Bld) [Ratio] 0.1 % Normal 0-0.5 [facility] Comment on above: Performed By: #### C MP, CBC, TROP ####[address] Platelet mean volume (Bld) [Entitic vol] 7.2 fL Normal 6.3-10.7 [facility] Comment on above: Performed By: #### C MP, CBC, TROP ####[address] Platelets (Bld) [#/Vol] 369 10*3/uL Normal 150-450 [facility] Comment on above: Performed By: #### C MP, CBC, TROP ####[address] RBC (Bld) [#/Vol] 4.32 10*6/uL Normal 3.60-5.00 [facility] Comment on above: Performed By: #### C MP, CBC, TROP ####[facility] [place] [address] [facility] WBC (Bld) [#/Vol] 13.2 10*3/uL High 4.5-11.0 [facility] Comment on above: Performed By: #### C MP, CBC, TROP ####[address] [address] [facility] Comprehensive Metabolic Pane khalida 02-28-2021 Albumin [Mass/Vol] 3.4 g/dL Normal 3.2-5.5 [facility] Comment on above: Performed By: #### C MP, CBC, TROP ####[address] [address] [facility] Albumin/Globulin [Mass ratio] 1.4 {ratio} Normal [facility] Comment on above: Performed By: #### C MP, CBC, TROP ####[address] [address] [facility] ALP [Catalytic activity/Vol] 48 U/L Normal 32-92 [facility] Comment on above: Performed By: #### C MP, CBC, TROP ####[address] [address] [facility] ALT [Catalytic activity/Vol] 23 U/L Normal 10-60 [facility] Comment on above: Performed By: #### C MP, CBC, TROP ####[address] [address] [facility] AST [Catalytic activity/Vol] 32 U/L Normal 10-42 [facility] Comment on above: Performed By: #### C MP, CBC, TROP ####[address] [address] [facility] Bilirubin [Mass/Vol] 0.5 mg/dL Normal 0.3-1.2 [facility] Comment on above: Performed By: #### C MP, CBC, TROP ####[address] [address] [facility] Calcium [Mass/Vol] 8.9 mg/dL Normal 8.2-10.2 [facility] Comment on above: Performed By: #### C MP, CBC, TROP ####[place] [address] [place] [address] [facility] Chloride [Moles/Vol] 102 mmol/L Normal 95-114 [facility] Comment on above: Performed By: #### C MP, CBC, TROP ####[place] [address] [place] [address] [facility] CO2 [Moles/Vol] 22.6 mmol/L Normal 22.0-30.0 [facility] Comment on above: Performed By: #### C MP, CBC, TROP ####[place] [address] [place] [address] [facility] Creatinine [Mass/Vol] 0.93 mg/dL Normal 0.44-1.03 [facility] Comment on above: Performed By: #### C MP, CBC, TROP ####[place] [address] Creatinine Clr Calc Pharmacy 50.13 [facility] Comment on above: Result Comment: PERF ORMED BY: [facility] [address] [facility] [address] PATHOLOGIST [employer] JU MCPHERSON M.D. Performed By: #### C MP, CBC, TROP ####[place] [address] [place] [id number] [facility] Estimated GFR ( [place] > 60 [facility] Comment on above: Result Comment: GFR estimated reference range: According to KDOQI guidelines, <60 ml/min/1.73m2 is sufficient to diagnose a patient with chronic kidney disease. Performed By: #### C MP, CBC, TROP ####[place] [address] [place] [address] [facility] Estimated GFR (Non- Am 59 [facility] Comment on above: Performed By: #### C MP, CBC, TROP ####[facility] [place] [id number] [facility] Globulin (S) [Mass/Vol] 2.5 g/dL [facility] Comment on above: Performed By: #### C MP, CBC, TROP ####[facility] [place] [address] [facility] Glucose [Mass/Vol] 198 mg/dL High 70-100 [facility] Comment on above: Result Comment: [facility] Glucose Reference Range is dependent on time and content of last meal. Glucose of more than 200 mg/dL in a nonstressed, ambulatory subject supports the diagnosis of Diabetes Mellitus. ADA recommended reference range Performed By: #### C MP, CBC, TROP ####[facility] [place] [address] [facility] Potassium [Moles/Vol] 3.9 mmol/L Normal 3.5-5.1 [facility] Comment on above: Performed By: #### C MP, CBC, TROP ####[place] [address] [place] [address] [facility] Protein [Mass/Vol] 5.9 g/dL Low 6.1-7.9 [facility] Comment on above: Performed By: #### C MP, CBC, TROP ####[place] [id number] [facility] Sodium [Moles/Vol] 133 mmol/L Low 136-146 [facility] Comment on above: Performed By: #### C MP, CBC, TROP ####[facility] [place] [address] [facility] Urea nitrogen [Mass/Vol] 13 mg/dL Normal 9-23 [facility] Comment on above: Performed By: #### C MP, CBC, TROP ####[place] [address] [place] [address] [facility] ECG 12 lead ECGon 02-28-2021 ECG 12 lead ECG [facility] [address] [place] [address] Electrocardiograph Report Signed Patient: Anabela Abbasi MR#: [id number] 5 : 1945 Acct:[id number] Age/Sex: 75 / F ADM Date: 02/28/21 Loc: Room: [address] [place] [address] Type: ADM IN Attending Dr: Brian Gonzales [...] MD Transcribed By: MUS Dictated By: Silvana Motnaño MD 02/28/21 1425 Signed By: 02/28/21 1538 [facility] Glucose Poct Glucometerson 0 02-28-2021 Glucose [Mass/Vol] 192 mg/dL Normal [facility] Comment on above: Result Comment: [facility] Glucose Reference Range is dependent on time and content of last meal. Glucose of more than 200 mg/dL in a nonstressed, ambulatory subject supports the diagnosis of Diabetes Mellitus. PERFORMED BY: [address] [place] [address] PATHOLOGIST [employer] JU MCPHERSON M.D. Performed By: #### G LULS ####Point of Care testing, Commemt1 Glu2: Cleaned Meter Normal [facility] Comment on above: Result Comment: PERF ORMED BY: [facility] [address] [place] [address] PATHOLOGIST [employer] JU MCPHERSON M.D. Performed By: #### G LULS ####Point of Care testing, Glucose [Mass/Vol] 202 mg/dL Normal [facility] Comment on above: Result Comment: [facility] Glucose Reference Range is dependent on time and content of last meal. Glucose of more than 200 mg/dL in a nonstressed, ambulatory subject supports the diagnosis of Diabetes Mellitus. Performed By: #### G LULS ####Point of Care testing, Troponin I(TnI)on 02-28-2021 Troponin I.cardiac [Mass/Vol] ng/mL Normal 0-0.02 [facility] Comment on above: Result Comment: [place] Cut off value > or equal to 0.03 ng/mL in conjunction with clinical conditions of myocardial infarction. (www.escardio.org/guidelines) PERFORMED BY: [place] [address] PATHOLOGIST [employer]YLE [employer] JU MCPHERSON M.D. Performed By: #### C MP, CBC, TROP ####[facility] [id number] XR lumbar spine 2-3V*on XR lumbar spine 2-3V* [facility] [place] [address] XRay Report Signed Patient: Anabela Abbasi MR#: [id number] 5 : 1945 Acct:[id number] Age/Sex: 75 / F ADM Date: 02/28/21 Loc: Room: [address] [place] [address] Type: ADM IN Attending Dr: Brian Gonzales [...] Rahul Desai M.D.02/28/2021 12:05 PM Dictation Location: [place] [address] Transcribed By: [facility] 02/28/21 1205 Dictated By: Rahul Desai DO 02/28/21 1153 Signed By: 02/28/21 1205 Normal [facility] SARS-CoV-2 (COVID-19) RNA JORI+probe Ql (Unsp spec) Negative Normal Negative [facility] Comment on above: Order Comment: Healt hcare Worker?: N Result Comment: Test ing for SARS-CoV-2 by RT-PCR This test was developed and its performance characteristics determined by [employer]) and validated at the [facility]. This test has not been [...] is terminated or revoked sooner. PERFORMED BY: [place] [address] PATHOLOGIST LIFESTYLE [employer] FARMER JU MCPHERSON M.D. Performed By: #### C OVID-19 [facility] #### [address] Basic Metabolic Panelon 01-27 Calcium [Mass/Vol] 10.1 mg/dL Normal 8.2-10.2 [facility] Comment on above: Result Comment: PERF ORMED BY: [place] [address] PATHOLOGIST [employer]YLE [employer] F[employer] JU MCPHERSON M.D. Performed By: #### C BC, BMP #### [facility] [address] [place] [address] [place] Chloride [Moles/Vol] 100 mmol/L Normal 95-114 [facility] Comment on above: Performed By: #### C BC, BMP #### [facility] [address] [place] [address] [place] CO2 [Moles/Vol] 25.9 mmol/L Normal 22.0-30.0 [facility] Comment on above: Performed By: #### C BC, BMP #### [facility] [address] Creatinine [Mass/Vol] 1.00 mg/dL Normal 0.44-1.03 [facility] Comment on above: Performed By: #### C BC, BMP #### [facility] [address] Estimated GFR ( [place] > 60 Normal [facility] Comment on above: Result Comment: GFR estimated reference range: According to KDOQI guidelines, <60 ml/min/1.73m2 is sufficient to diagnose a patient with chronic kidney disease. Performed By: #### C BC, BMP #### [facility] [address] Estimated GFR (Non- Am 54 [facility] Comment on above: Performed By: #### C BC, BMP #### [facility] [address] Glucose [Mass/Vol] 101 mg/dL High 70-100 [facility] Comment on above: Result Comment: [place] Glucose Reference Range is dependent on time and content of last meal. Glucose of more than 200 mg/dL in a nonstressed, ambulatory subject supports the diagnosis of Diabetes Mellitus. ADA recommended reference range Performed By: #### C BC, BMP #### [facility] [address] [place] [address] [place] Potassium [Moles/Vol] 4.6 mmol/L Normal 3.5-5.1 [facility] Comment on above: Performed By: #### C BC, BMP #### [facility] [address] [place] [id number] [place] Sodium [Moles/Vol] 135 mmol/L Low 136-146 [facility] Comment on above: Performed By: #### C BC, BMP #### [facility] [address] Urea nitrogen [Mass/Vol] 13 mg/dL Normal 9-23 [facility] Comment on above: Performed By: #### C BC, BMP #### [facility] [address] [place] [address] [place] Basophils Auto (Bld) [#/Vol] on 02-16-2021 Basophils (Bld) [#/Vol] 0.0 10*3/uL 0.0-0.2 [facility] Basophils/100 WBC Auto (Bld) on 02-16-2021 Basophils/100 WBC (Bld) 0.9 % [facility] Blood hemoglobin measurement (mass/volume)on 02-16-2021 Hemoglobin (Bld) [Mass/Vol] 14.5 g/dL 11.8-15.4 [facility] Blood leukocytes automated c ount (number/volume)on 02-16-2021 WBC (Bld) [#/Vol] 5.6 10*3/uL 4.5-11.0 [facility] Complete Blood Count Auto Di ffon 02-16-2021 Basophils (Bld) [#/Vol] 0.0 10*3/uL Normal 0.0-0.2 [facility] Comment on above: Result Comment: PERF ORMED BY: [place] [address] PATHOLOGIST [employer]YLE [employer] F[employer] JU MCPHERSON M.D. Performed By: #### C JOSE L, BMP #### [place] [address] [place] Basophils/100 WBC (Bld) 0.9 % Normal . [facility] Comment on above: Performed By: #### C JOSE L, BMP #### [place] [address] [place] Eosinophils (Bld) [#/Vol] 0.1 10*3/uL Normal 0.0-0.45 [facility] Comment on above: Performed By: #### C JOSE L, BMP #### [place] [address] [place] Eosinophils/100 WBC (Bld) 1.0 % Normal . [facility] Comment on above: Performed By: #### C JOSE L, BMP #### [place] [address] [place] Erythrocyte distribution width (RBC) [Ratio] 14.1 % Normal 11.9-15.3 [facility] Comment on above: Performed By: #### C BC, BMP #### [address] Hematocrit (Bld) [Volume fraction] 42.6 % Normal 34.0-46.4 [facility] Comment on above: Performed By: #### C BC, BMP #### [address] Hemoglobin (Bld) [Mass/Vol] 14.5 g/dL Normal 11.8-15.4 [facility] Comment on above: Performed By: #### C BC, BMP #### [address] Lymphocytes (Bld) [#/Vol] 1.9 10*3/uL Normal 1.00-4.8 [facility] Comment on above: Performed By: #### C BC, BMP #### [address] Lymphocytes/100 WBC (Bld) 33.3 % Normal . [facility] Comment on above: Performed By: #### C BC, BMP #### [address] MCH (RBC) [Entitic mass] 30.1 pg Normal 24.7-34.3 [facility] Comment on above: Performed By: #### C BC, BMP #### [address] MCV (RBC) [Entitic vol] 88.4 fL Normal 80-100 [facility] Comment on above: Performed By: #### C BC, BMP #### [address] Mean Corpuscular HGB Conc 34.0 g/dL Normal 32.0-35.0 [facility] Comment on above: Performed By: #### C BC, BMP #### [address] Monocytes (Bld) [#/Vol] 0.5 10*3/uL Normal 0.0-0.8 [facility] Comment on above: Performed By: #### C BC, BMP #### [facility] [address] [place] [address] [place] Monocytes/100 WBC (Bld) 9.3 % Normal . [facility] Comment on above: Performed By: #### C BC, BMP #### [facility] [address] [place] [address] [place] Neutrophils (Bld) [#/Vol] 3.1 10*3/uL Normal 1.8-7.7 [facility] Comment on above: Performed By: #### C BC, BMP #### [facility] [address] Neutrophils/100 WBC (Bld) 55.5 % Normal . [facility] Comment on above: Performed By: #### C BC, BMP #### [facility] [address] [place] [address] [place] Nucleated RBC/100 WBC (Bld) [Ratio] 0.1 % Normal 0-0.5 [facility] Comment on above: Performed By: #### C BC, BMP #### [facility] [address] [place] [address] [place] Platelet mean volume (Bld) [Entitic vol] 7.6 fL Normal 6.3-10.7 [facility] Comment on above: Performed By: #### C BC, BMP #### [facility] [address] [place] [address] [place] Platelets (Bld) [#/Vol] 417 10*3/uL Normal 150-450 [facility] Comment on above: Performed By: #### C BC, BMP #### [facility] [address] [place] [address] [place] RBC (Bld) [#/Vol] 4.82 10*6/uL Normal 3.60-5.00 [facility] Comment on above: Performed By: #### C BC, BMP #### [facility] [address] [place] [address] [place] WBC (Bld) [#/Vol] 5.6 10*3/uL Normal 4.5-11.0 [facility] Comment on above: Performed By: #### C BC, BMP #### [facility] [address] [place] [id number] [facility] Creatinine and Glomerular fi ltration rate.predicted panel (S/P/Bld)on 02-16-2021 Creatinine [Mass/Vol] 1.00 mg/dL 0.44-1.03 [facility] Eosinophils Auto (Bld) [#/Vo l]on 02-16-2021 Eosinophils (Bld) [#/Vol] 0.1 10*3/uL 0.0-0.45 [facility] Eosinophils/100 WBC Auto (Bl d)on 02-16-2021 Eosinophils/100 WBC (Bld) 1.0 % [facility] Erythrocyte distribution wid th Auto (RBC) [Ratio]on 02-16-2021 Erythrocyte distribution width (RBC) [Ratio] 14.1 % 11.9-15.3 [facility] Estimated glomerular filtrat ion rate (GFR) non- Americanon 02-16-2021 GFR/1.73 sq M.predicted among non-blacks MDRD (S/P/Bld) [Vol rate/Area] 54 mL/Min [facility] Hematocrit Auto (Bld) [Volum e fraction]on 02-16-2021 Hematocrit (Bld) [Volume fraction] 42.6 % 34.0-46.4 [facility] - Hematology and Cell countson 02-16-2021 Nucleated RBC/100 WBC (Bld) [Ratio] 0.1 % 0-0.5 [facility] Lymphocytes Auto (Bld) [#/Vo l]on 02-16-2021 Lymphocytes (Bld) [#/Vol] 1.9 10*3/uL 1.00-4.8 [facility] Lymphocytes/100 WBC Auto (Bl d)on 02-16-2021 Lymphocytes/100 WBC (Bld) 33.3 % [facility] MCH Auto (RBC) [Entitic mass ]on 02-16-2021 MCH (RBC) [Entitic mass] 30.1 pg 24.7-34.3 [facility] MCHC Auto (RBC) [Mass/Vol]on 02-16-2021 MCHC (RBC) [Mass/Vol] 34.0 g/dL 32.0-35.0 [facility] MCV Auto (RBC) [Entitic vol] on 02-16-2021 MCV (RBC) [Entitic vol] 88.4 fL 80-100 [facility] Monocytes Auto (Bld) [#/Vol] on 02-16-2021 Monocytes (Bld) [#/Vol] 0.5 10*3/uL 0.0-0.8 [facility] Monocytes/100 WBC Auto (Bld) on 02-16-2021 Monocytes/100 WBC (Bld) 9.3 % [facility] Neutrophils Auto (Bld) [#/Vo l]on 02-16-2021 Neutrophils (Bld) [#/Vol] 3.1 10*3/uL 1.8-7.7 [facility] Neutrophils/100 WBC Auto (Bl d)on 02-16-2021 Neutrophils/100 WBC (Bld) 55.5 % [facility] No Panel Informationon 02-16 Estimated GFR () > 60 mL/Min [facility] Comment on above: GFR estimated refere nce range: According to KDOQI guidelines, <60 ml/min/1.73m2 is sufficient to diagnose a patient with chronic kidney disease. Pharmacy Creatinine Clearance (Chem N/A [facility] PST Type and Screenon 2020 ABO and Rh group Nom (Bld) Blood group O Rh(D) positive Normal [facility] Comment on above: Order Comment: Date of Surgery: [id number] Result Comment: PERF ORMED BY: [facility] [address] [place] [address] PATHOLOGIST [employer] JU MCPHERSON M.D. Platelet mean volume Auto (B ld) [Entitic vol]on 02-16-2021 Platelet mean volume (Bld) [Entitic vol] 7.6 fL 6.3-10.7 [facility] Platelets Auto (Bld) [#/Vol] on 02-16-2021 Platelets (Bld) [#/Vol] 417 10*3/uL 150-450 [facility] RBC Auto (Bld) [#/Vol]on RBC (Bld) [#/Vol] 4.82 10*6/uL 3.60-5.00 [facility] Serum or plasma calcium samir urement (mass/volume)on 02-16-2021 Calcium [Mass/Vol] 10.1 mg/dL 8.2-10.2 [facility] Serum or plasma chloride valeria surement (moles/volume)on 02-16-2021 Chloride [Moles/Vol] 100 mmol/L 95-114 [facility] Serum or plasma glucose samir urement (mass/volume)on 02-16-2021 Glucose [Mass/Vol] 101 mg/dL 70-100 [facility] Comment on above: ADA recommended refe rence rangeRandom Glucose Reference Range is dependent on time and content of last meal. Glucose of more than 200 mg/dL in a nonstressed, ambulatory subject supports the diagnosis of Diabetes Mellitus. Serum or plasma potassium me asurement (moles/volume)on 02-16-2021 Potassium [Moles/Vol] 4.6 mmol/L 3.5-5.1 [facility] Serum or plasma sodium measu rement (moles/volume)on 02-16-2021 Sodium [Moles/Vol] 135 mmol/L 136-146 [facility] Serum or plasma total carbon dioxide measurement (moles/volume)on 02-16-2021 CO2 [Moles/Vol] 25.9 mmol/L 22.0-30.0 [facility] Serum or plasma urea nitroge n measurement (mass/volume)on 02-16-2021 Urea nitrogen [Mass/Vol] 13 mg/dL 9-23 [facility] STR cardiac stress/lexiscano n 02-09-2021 STR cardiac stress/lexiscan [facility] Main [place] [id number] Cardiac Stress Test Signed Patient: Anabela Abbasi MR#: [id number] 5 : 1945 Acct:[id number] Age/Sex: 75 / F ADM Date: 02/07/21 Loc: [place] [facility]: Mikie Daugherty MD Ordering [...] 1831 Signed By: 02/10/21 1408 Normal [facility] NM karl perf SPECT rest stron 02-07-2021 NM karl perf SPECT rest str [facility] [place] [address] Nuclear Medicine Report Signed Patient: Anabela Abbasi MR#: [id number] 5 : 1945 Acct:[id number] Age/Sex: 75 / F ADM Date: 02/07/21 Loc: NM [facility]: [facility] Dr: Mikie Daugherty MD Ordering [...] available for comparison. Transcribed By: ISSAC 02/07/21 3649 Dictated By: Bjorn Simon MD 02/07/21 165 Signed By: 02/08/21 0996 Normal [facility] XR lumbar spine 6V w bending on 01-05-2021 XR lumbar spine 6V w bending [facility] [place] [address] [place] [address] XRay Report Signed Patient: Anabela Abbasi MR#: [id number] 5 : 1945 Acct:[id number] Age/Sex: 75 / F ADM Date: 01/05/21 Loc: XD Room: Type: [facility] Attending Dr: Brian Gonzales MD Ordering Provider: Brian Gonzales MD Date of Service: 01/05/21 XR/XR lumbar spine 6V w bending: m54.16 ([id number]) XR/XR scoliosis survey: M54.16 Copies to: Brian [...] Wang Jr., M.D.01/05/2021 3:44 PM Dictation Location: [place] [address] Transcribed By: [facility] 01/05/21 1544 Dictated By: Camryn Wang Jr, MD 01/05/21 1535 Signed By: 01/05/21 1544 [facility] Vital Signs Date Time Vital Sign Value Performing Clinician Facility 10-11-2021 14:00-0500 Body height 160.02 cm Brian Gonzales Other [facility] Other 10-11-2021 14:00-0500 Body mass index (BMI) [Ratio] 27.63 kg/m2 Brian Gonzales Other [facility] Other 10-11-2021 14:00-0500 Body weight 70.76 kg Brian Gonzales Other [facility] Other 10-11-2021 14:00-0500 Diastolic blood pressure 86 mm[Hg] Brian Gonzales Other [facility] Other 10-11-2021 14:00-0500 Systolic blood pressure 132 mm[Hg] Brian Gonzales Other [facility] Other 02-07-2021 14:28-0400 Body height 160.02 cm M fromAtoB Work Phone: [facility] 02-07-2021 14:28-0400 Body weight 72.12 kg Tim Agustin Work Phone: [facility] 02-07-2021 14:20040 Diastolic blood pressure 82 mm[Hg] Tim Agustin Work Phone: [facility] 02-07-2021 14:20040 Heart rate 64 /min M Ashok Agustin Work Phone: [facility] 02-07-2021 14:20-0400 Systolic blood pressure 145 mm[Hg] Tim Agustin Work Phone: [facility] Encounters Encounter Date Encounter Type Care Provider Facility Start: 06-12-2024 End: 06-12-2024 ambulatory CAMRYN A [facility] Not Available Start: 06-03-2024 End: 06-03-2024 ambulatory CAMRYN [facility] Not Available Start: 06-03-2024 End: 06-03-2024 ambulatory CAMRYN A [facility] Not Available Start: 09-18-2023 End: 09-18-2023 ambulatory KATLYN [facility] Start: 12-18-2022 End: 12-18-[address] [facility] Start: 11-06-2022 End: 11-06-[address] [facility] Start: 09-25-2022 End: 10-01-2022 Evaluation and management of inpatient KEYONNA Kashmir [facility] Start: 09-25-2022 End: 09-25-[address] RAQUEL KING Facility:[facility] Start: 09-14-2022 End: 09-15-[address] SHADE ROJO Facility:[facility] Start: 04-20-2022 End: 04-20-[address] ASHOK AGUSTIN . Facility:[facility] Start: 04-04-2022 End: 04-05-2022 ambulatory KATLYN COLINDRES Facility:[facility] Start: 10-11-2021 End: 10-11-2021 ambulatory Brian Gonzales Other [facility] Other Start: 10-11-2021 Office outpatient vi sit 15 minutes Brian Gonzales [facility] Neurosurgery Zak Start: 02-16-2021 End: 02-16-2021 Patient encounter procedure Tim Nielson Phone: -Pre-Surgical Testing Start: 02-07-2021 End: 02-07-2021 Patient encounter procedure Tim Nielson Phone: -Nuc Med [place] Start: 01-05-2021 End: 01-05-2021 Patient encounter procedure Tim Nielson Phone: -XRay [facility] Procedures Date Procedure Procedure Detail Performing Clinician Start: 02-16-2021 Antibody screen Comment on above: Order Comment: Date of Surgery: [id number] Result Comment: PERF ORMED BY: [place] [address] [place] [address] PATHOLOGIST [employer] JU MCPHERSON M.D. Start: 02-07-2021 Single photon emissi on computerized tomography Tim Nielson Phone: Start: 01-05-2021 Scoliosis survey X-ray Tim Nielson Phone: Start: 01-05-2021 X-ray of lumbar spin e, six views including bending views Tim Nielson Phone: Immunizations Immunization Date Immunization Notes Care Provider Emily walter 01-12-2021 COVID-19 mRNA,CGP094 b2 (Pfizer) Tim Agustin Work Phone: [facility] 12-22-2020 COVID-19 mRNA,CSM923 b2 (Pfizer) Tim Agustin Work Phone: [facility] Payers Date Payer Category Payer Unknown [id number] 2022 Unknown [id number] 1958 Medicare [id number] 1958 Private Health Insurance [id number] 1945 Unknown [id number] 2.16. [id number] 1945 Unknown [id number] 2.16. [id number] 1945 Unknown [id number] 2.16. [id number] 1945 Unknown [id number] 2.16.84 [id number] 1945 Unknown [id number] 2.16.84 [id number] 1945 Unknown [id number] 2.16.84 [id number] 1945 Unknown [id number] 2.16.84 [id number] 1945 Unknown [id number] 2.16.84 [id number] 1945 Unknown [id number] 2.16.84 [id number] 1945 Unknown [id number] 2.16.84 [id number] Self-pay Self Pay [id number] Social History Date Type Detail Facility Start: 02-16-2021 Tobacco smoking status NHIS Never smoked tobacco (finding) [facility] Start: 1945 Sex Assigned At Female F [facility] Sex Assigned At Sex Assigned At Bir th [facility] Other Goals Date Patient Goal Desired Activity /State Progress note 09-18-2023 Note Date & Type Note Facility 09-18-2023 Note Cardiovascular Medic [facility] SUBJECTIVE Chief Complaint Patient presents with Follow-up [...] comparison ASSESSMENT/PLAN: Diagnosis Plan 1. Atherosclerosis of quechan coronary artery of quechan heart without angina pectoris Comprehensive metabolic panel CBC Lipid panel 2. Essential hypertension 3. Mixed hyperlipid (more content not included)... [facility] Clinical Note 09-25-2022 Note Date & Type [...] KING Date: 2022-09-25 14:50 [facility] Clinical Note 09-25-2022 Note Date [...] KING Date: 2022-09-25 14:50 [facility] Evaluation note 10-11-2021 Note Date [...] 9 months. Sep, Kyphoscoliosis (ICD-10 - M41.9) [facility] Other Evaluation note Note Date & Type Note Facility Evaluation note No Assessments Information Avail able [facility] History general Narrative - Reported Note Date & Type Note Facility History general Narrative - Reported Type Medical History high blood pressure Medical History high cholesterol Surgical History heart stent Surgical History knee replacement Surgical History tonsillectomy Surgical History breast cyst Surgical History [facility] Hospitalization History see surgical hx [facility] Other Advance Directives No Advanced Directives Records [...] section and content) DATE CREATED AUTHOR [facility]27[facility]20[facility] DATE CREATED AUTHOR AUTHOR'S ORGANIZ ATION 10/16/2021 [facility] DATE CREATED AUTHOR AUTHOR'S ORGANIZ ATION 02/01/2023 [facility] DATE CREATED AUTHOR AUTHOR'S ORGANIZ ATION 02/28/2023 [facility] DATE CREATED AUTHOR AUTHOR'S ORGANIZ ATION 02/28/2024 [facility] DATE CREATED AUTHOR AUTHOR'S ORGANIZ ATION 06/16/2024 [facility] EPIC REASON FOR VISIT [...] BE BASED ON THE PRIMARY CLINICAL RECORDS. [employer] [facility]. provides no warranty or guarantee of the accuracy or completeness of information in this document.
[2024-09-15 07:22] LABS: Basophils Percent Auto 0.5 % (0.2-2.0); Eosinophils Absolute Auto 0.1 10^3/uL (0.0-0.7); Eosinophils Percent Auto 1.3 % (0.9-7.0); Hematocrit 43.4 % (36.0-48.0); Hemoglobin 14.8 g/dL (12.0-16.0); Immature Granulocytes Abs Auto 0.04 10^3/uL (0.00-0.03); Immature Granulocytes Pct Auto 0.5 % (0.0-0.5); Lymphocytes Absolute Auto 2.3 10^3/uL (1.2-3.8); Lymphocytes Percent Auto 26.6 % (20.5-60.0); Mean Corpuscular HGB Conc 34.1 g/dL (29.9-35.2); Mean Corpuscular Hemoglobin 30.4 pg (26.7-34.0); Mean Corpuscular Volume 89.1 fL (81.0-99.0); Mean Platelet Volume 8.9 fL (9.5-13.5); Monocytes Absolute Auto 0.7 10^3/uL (0.3-0.8); Monocytes Percent Auto 7.8 % (1.7-12.0); Neutrophils Absolute Auto 5.5 10^3/uL (1.4-6.5); Neutrophils Percent Auto 63.3 % (43.0-75.0); Platelet Count 350 10^3/uL (150-450); Red Blood Count 4.87 10^6/uL (4.20-5.40); Red Cell Distribution Width 13.4 % (11.0-15.0); White Blood Count 8.7 10^3/uL (4.0-11.0)
[2024-09-15 09:00] LABS: Alanine Aminotransferase 43 U/L (14-59); Albumin Level 3.4 g/dL (3.4-5.0); Alkaline Phosphatase 65 U/L (46-116); Anion Gap 15.2; Aspartate Amino Transferase 28 U/L (15-37); BUN Creatinine Ratio 18.4; Bilirubin Total 0.6 mg/dL (0.2-1.0); Carbon Dioxide 25.4 mmol/L (21.0-32.0); Chloride 102 mmol/L (98-107); Chol HDL Ratio 2.9; Cholesterol 185 mg/dL (<=200); Estimated GFR (African America 56 (>=60 mL/min/1.73m^2); Estimated GFR (Non-African Ame 46 (>=60 mL/min/1.73m^2); Free T3 2.54 pg/mL (2.18-3.98); Globulin 3.4 g/dL; Glucose 103 mg/dL (74-106); HDL Cholesterol 64 mg/dL (40-60); Potassium 4.6 mmol/L (3.5-5.1); Sodium 138 mmol/L (136-145); Thyroid Stimulating Hormone 1.856 uIU/mL (0.358-3.740); Total Protein 6.8 g/dL (6.4-8.2); Triglycerides 93 mg/dL (<=150); VLDL CHOLESTEROL 18.6 mg/dL
[2024-09-15 10:10] LABS: Estimated Average Glucose 120 mg/dL; Glycohemoglobin A1C 5.8 % (4.5-6.2)
== END 2024-09-15 07:08 | disposition home or self-care (01) ==
LOC: LAB 07:07
PROVIDERS: PCP Family Medicine; Visit Provider Family Medicine
DX: K44.9 Diaphragmatic hernia without obstruction or gangrene (principal); I25.10 Atherosclerotic heart disease of native coronary artery without angina pectoris; I10 Essential (primary) hypertension; K21.9 Gastro-esophageal reflux disease without esophagitis; R42 Dizziness and giddiness; E78.5 Hyperlipidemia, unspecified; R73.09 Other abnormal glucose; D64.9 Anemia, unspecified; E03.9 Hypothyroidism, unspecified
CPT/HCPCS: 36415; 80053; 80061; 83036; 83540; 84436; 84443; 84481; 85025

== ENCOUNTER 2025-08-10 08:13 | Outpatient (OUT) | payer MEDICARE, OTHER, SELFPAY ==
--- OUTSIDE RECORDS SUMMARY | 2025-08-10 08:19 | XMS_ITS | CCD ---
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 Normal 1-4 [facility] Comment on above: Performed By: #### C DP, BMP, MATIAS #### [address] [address] Counter Control Operator: Shamir Milton MD Immature granulocytes/100 WBC (Bld) 1 % High 0 [facility] Comment on above: Performed By: #### C DP, BMP, MATIAS #### [address] [address] Counter Control Operator: Shamir Milton MD Lymphocytes (Bld) [#/Vol] 1.57 10*3/uL Normal 1.10-3.70 [facility] Comment on above: Performed By: #### C DP, BMP, MATIAS #### [address] [address] Counter Control Operator: Shamir Milton MD Lymphocytes/100 WBC (Bld) 18 % Low 24-43 [facility] Comment on above: Performed By: #### C DP, BMP, MATIAS #### [address] [address] Counter Control Operator: Shamir Milton MD Monocytes (Bld) [#/Vol] 0.85 10*3/uL Normal 0.10-1.20 [facility] Comment on above: Performed By: #### C DP, BMP, MATIAS #### [address] [address] Counter Control Operator: Shamir Milton MD Monocytes/100 WBC (Bld) 10 % Normal 3-12 [facility] Comment on above: Performed By: #### C DP, BMP, MATIAS #### [address] [address] Counter Control Operator: Shamir Milton MD Neutrophil (Seg) 67 % High 36-65 [facility] Comment on above: Performed By: #### C DP, BMP, MATIAS #### [address] [address] Counter Control Operator: Shamir Milton MD Erythrocyte distribution width (RBC) [Ratio] 12.9 % Normal 11.8-14.4 [facility] Comment on above: Performed By: #### C DP, BMP, MATIAS #### [address] [address] Counter Control Operator: Shamir Milton MD Hematocrit (Bld) [Volume fraction] 31.9 % Low 36.3-47.1 [facility] Comment on above: Performed By: #### C DP, BMP, MATIAS #### [address] [address] Counter Control Operator: Shamir Milton MD Hemoglobin (Bld) [Mass/Vol] 10.3 g/dL Low 11.9-15.1 [facility] Comment on above: Performed By: #### C DP, BMP, MATIAS #### [address] [address] Counter Control Operator: Shamir Milton MD MCH (RBC) [Entitic mass] 30.1 pg Normal 25.2-33.5 [facility] Comment on above: Performed By: #### C DP, BMP, MATIAS #### [address] [address] Counter Control Operator: Shamir Milton MD MCHC (RBC) [Mass/Vol] 32.3 g/dL Normal 28.4-34.8 [facility] Comment on above: Performed By: #### C DP, BMP, MATIAS #### [place] [address] Counter Control Operator: Shamir Milton MD MCV (RBC) [Entitic vol] 93.3 fL Normal 82.6-102.9 [facility] Comment on above: Performed By: #### C DP, BMP, MATIAS #### [address] [address] Counter Control Operator: Shamir Milton MD NRBC Automated 0.0 per 100 WBC Normal 0.0 [facility] Comment on above: Performed By: #### C DP, BMP, MATIAS #### [address] [address] Counter Control Operator: Shamir Milton MD Platelet mean volume (Bld) [Entitic vol] 9.4 fL Normal 8.1-13.5 [facility] Comment on above: Performed By: #### C DP, BMP, MATIAS #### [address] [address] Counter Control Operator: Shamir Milton MD Platelets (Bld) [#/Vol] 292 10*3/uL Normal 138-453 [facility] Comment on above: Performed By: #### C DP, BMP, MATIAS #### [address] [address] Counter Control Operator: Shamir Milton MD RBC (Bld) [#/Vol] 3.42 10*6/uL Low 3.95-5.11 [facility] Comment on above: Performed By: #### C DP, BMP, MATIAS #### [address] [address] Counter Control Operator: Shamir Milton MD WBC (Bld) [#/Vol] 8.6 10*3/uL Normal 3.5-11.3 [facility] Comment on above: Performed By: #### C DP, BMP, MATIAS #### [address] [address] Counter Control Operator: Shamir Milton MD Phosphorus, Inorg.on 022 Phosphorus, Inorg. 2.8 mg/dL Normal 2.6-4.5 [facility] Comment on above: Performed By: #### C DP, BMP, MATIAS #### [address] [address] Counter Control Operator: Shamir Milton MD Basic Metabolic Profon 09-29 Anion gap [Moles/Vol] 8 mmol/L Low 9-17 [facility] Comment on above: Performed By: #### C DP, BMP, MATIAS #### [address] [address] Counter Control Operator: Shamir Milton MD Calcium [Mass/Vol] 8.2 mg/dL Low 8.6-10.4 [facility] Comment on above: Performed By: #### C DP, BMP, MATIAS #### [address] [address] Counter Control Operator: Shamir Milton MD Chloride [Moles/Vol] 98 mmol/L Normal 98-107 [facility] Comment on above: Performed By: #### C DP, BMP, MATIAS #### [address] [address] Counter Control Operator: Shamir Milton MD CO2 [Moles/Vol] 24 mmol/L Normal 20-31 [facility] Comment on above: Performed By: #### C DP, BMP, MATIAS #### [address] [address] Counter Control Operator: Shamir Milton MD Creatinine [Mass/Vol] 0.58 mg/dL Normal 0.50-0.90 [facility] Comment on above: Performed By: #### C DP, BMP, MATIAS #### [address] [address] Counter Control Operator: Shamir Milton MD GFR/1.73 sq M.predicted among non-blacks MDRD (S/P/Bld) [Vol rate/Area] mL/min/{1.73_m2} Normal >60 [facility] Comment on above: Result Comment: Effective Jul [...] By: #### C DP, BMP, MATIAS #### [address] [address] Counter Control Operator: Shamir Milton MD Glucose [Mass/Vol] 99 mg/dL Normal 70-99 [facility] Comment on above: Performed By: #### C DP, BMP, MATIAS #### [address] [address] Counter Control Operator: Shamir Milton MD Potassium [Moles/Vol] 4.1 mmol/L Normal 3.7-5.3 [facility] Comment on above: Performed By: #### C DP, BMP, MATIAS #### [address] [address] Counter Control Operator: Shamir Milton MD Sodium [Moles/Vol] 130 mmol/L Low 135-144 [facility] Comment on above: Performed By: #### C DP, BMP, MATIAS #### [address] [address] Counter Control Operator: Shamir Milton MD Urea nitrogen [Mass/Vol] 14 mg/dL Normal 8-23 [facility] Comment on above: Performed By: #### C DP, BMP, MATIAS #### [place] [address] Counter Control Operator: Shamir Milton MD CBC with Diffon 09-29-2022 Abs. Basophil 0.04 k/uL Normal 0.00-0.20 [facility] Comment on above: Performed By: #### C DP, MATIAS, BMP #### [facility] [employer] [address] [place] [address] Counter Control Operator: Shamir Milton MD Abs.Imm.Granulocyte 0.05 k/uL Normal 0.00-0.30 [facility] Comment on above: Performed By: #### C DP, MATIAS, BMP #### [address] [address] Counter Control Operator: Shamir Milton MD Abs.Neutrophil (Seg) 4.47 k/uL Normal 1.50-8.10 [facility] Comment on above: Performed By: #### C DP, MATIAS, BMP #### [address] [address] Counter Control Operator: Shamir Milton MD Basophils/100 WBC (Bld) 1 % Normal 0-2 [facility] Comment on above: Performed By: #### C DP, MATIAS, BMP #### [address] [address] Counter Control Operator: Shamir Milton MD Eosinophils (Bld) [#/Vol] 0.27 10*3/uL Normal 0.00-0.44 [facility] Comment on above: Performed By: #### C DP, MATIAS, BMP #### [address] [address] Counter Control Operator: Shamir Milton MD Eosinophils/100 WBC (Bld) 4 % Normal 1-4 [facility] Comment on above: Performed By: #### C DP, MATIAS, BMP #### [address] [address] Counter Control Operator: Shamir Milton MD Erythrocyte distribution width (RBC) [Ratio] 13.0 % Normal 11.8-14.4 [facility] Comment on above: Performed By: #### C DP, MATIAS, BMP #### [facility] [employer] [address] [place] [address] Counter Control Operator: Shamir Milton MD Hematocrit (Bld) [Volume fraction] 29.4 % Low 36.3-47.1 [facility] Comment on above: Performed By: #### C DP, MATIAS, BMP #### [facility] [employer] [address] [place] [address] Counter Control Operator: Shamir Milton MD Hemoglobin (Bld) [Mass/Vol] 9.8 g/dL Low 11.9-15.1 [facility] Comment on above: Performed By: #### C DP, MATIAS, BMP #### [address] [address] Counter Control Operator: Shamir Milton MD Immature granulocytes/100 WBC (Bld) 1 % High 0 [facility] Comment on above: Performed By: #### C DP, MATIAS, BMP #### [address] [address] Counter Control Operator: Shamir Milton MD Lymphocytes (Bld) [#/Vol] 1.61 10*3/uL Normal 1.10-3.70 [facility] Comment on above: Performed By: #### C DP, MATIAS, BMP #### [address] [address] Counter Control Operator: Shamir Milton MD Lymphocytes/100 WBC (Bld) 23 % Low 24-43 [facility] Comment on above: Performed By: #### C DP, MATIAS, BMP #### [facility] [employer] [address] [place] [address] Counter Control Operator: Shamir Milton MD MCH (RBC) [Entitic mass] 30.3 pg Normal 25.2-33.5 [facility] Comment on above: Performed By: #### C DP, MATIAS, BMP #### [facility] [address] [place] [address] Counter Control Operator: Shamir Milton MD MCHC (RBC) [Mass/Vol] 33.3 g/dL Normal 28.4-34.8 [facility] Comment on above: Performed By: #### C DP, MATIAS, BMP #### [facility] [employer] [address] [place] [address] Counter Control Operator: Shamir Milton MD MCV (RBC) [Entitic vol] 91.0 fL Normal 82.6-102.9 [facility] Comment on above: Performed By: #### C DP, MATIAS, BMP #### [address] [address] Counter Control Operator: Shamir Milton MD Monocytes (Bld) [#/Vol] 0.71 10*3/uL Normal 0.10-1.20 [facility] Comment on above: Performed By: #### C DP, MATIAS, BMP #### [address] [address] Counter Control Operator: Shamir Milton MD Monocytes/100 WBC (Bld) 10 % Normal 3-12 [facility] Comment on above: Performed By: #### C DP, MATIAS, BMP #### [address] [address] Counter Control Operator: Shamir Milton MD Neutrophil (Seg) 61 % Normal 36-65 [facility] Comment on above: Performed By: #### C DP, MATIAS, BMP #### [address] [address] Counter Control Operator: Shamir Milton MD NRBC Automated 0.0 per 100 WBC Normal 0.0 [facility] Comment on above: Performed By: #### C DP, MATIAS, BMP #### [address] [address] Counter Control Operator: Shamir Milton MD Platelet mean volume (Bld) [Entitic vol] 9.5 fL Normal 8.1-13.5 [facility] Comment on above: Performed By: #### C DP, MATIAS, BMP #### [address] [address] Counter Control Operator: Shamir Milton MD Platelets (Bld) [#/Vol] 232 10*3/uL Normal 138-453 [facility] Comment on above: Performed By: #### C DP, MATIAS, BMP #### [address] [address] Counter Control Operator: Shamir Milton MD RBC (Bld) [#/Vol] 3.23 10*6/uL Low 3.95-5.11 [facility] Comment on above: Performed By: #### C DP, MATIAS, BMP #### [facility] [address] [place] [address] Counter Control Operator: Shamir Milton MD WBC (Bld) [#/Vol] 7.2 10*3/uL Normal 3.5-11.3 [facility] Comment on above: Performed By: #### C DP, MATIAS, BMP #### [address] [address] Counter Control Operator: Shamir Milton MD Phosphorus, Inorg.on 022 Phosphorus, Inorg. 2.9 mg/dL Normal 2.6-4.5 [facility] Comment on above: Performed By: #### C DP, BMP, MATIAS #### [address] [address] Counter Control Operator: Shamir Milton MD Basic Metabolic Profon 09-28 Anion gap [Moles/Vol] 10 mmol/L Normal 9-17 [facility] Comment on above: Performed By: #### B MP, MATIAS, MG, CDP #### [facility] [employer] [address] [place] [address] Counter Control Operator: Shamir Milton MD Calcium [Mass/Vol] 8.6 mg/dL Normal 8.6-10.4 [facility] Comment on above: Performed By: #### B MP, MATIAS, MG, CDP #### [address] [address] Counter Control Operator: Shamir Milton MD Chloride [Moles/Vol] 96 mmol/L Low 98-107 [facility] Comment on above: Performed By: #### B MP, MATIAS, MG, CDP #### [facility] [address] [place] [address] Counter Control Operator: Shamir Milton MD CO2 [Moles/Vol] 23 mmol/L Normal 20-31 [facility] Comment on above: Performed By: #### B MP, MATIAS, MG, CDP #### [facility] [address] [place] [address] Counter Control Operator: Shamir Milton MD Creatinine [Mass/Vol] 0.67 mg/dL Normal 0.50-0.90 [facility] Comment on above: Performed By: #### B MP, MATIAS, MG, CDP #### [address] [address] Counter Control Operator: Shamir Milton MD GFR/1.73 sq M.predicted among non-blacks MDRD (S/P/Bld) [Vol rate/Area] mL/min/{1.73_m2} Normal >60 [facility] Comment on above: Result Comment: Effective Jul [...] #### B MP, MATIAS, MG, CDP #### [facility] [employer] [address] [place] [address] Counter Control Operator: Shamir Milton MD Glucose [Mass/Vol] 115 mg/dL High 70-99 [facility] Comment on above: Performed By: #### B MP, MATIAS, MG, CDP #### [facility] [employer] [address] [place] [address] Counter Control Operator: Shamir Milton MD Potassium [Moles/Vol] 4.5 mmol/L Normal 3.7-5.3 [facility] Comment on above: Performed By: #### B MP, MATIAS, MG, CDP #### [facility] [employer] [address] [place] [address] Counter Control Operator: Shamir Milton MD Sodium [Moles/Vol] 129 mmol/L Low 135-144 [facility] Comment on above: Performed By: #### B MP, MATIAS, MG, CDP #### [facility] [employer] [address] [place] [address] Counter Control Operator: Shamir Milton MD Urea nitrogen [Mass/Vol] 16 mg/dL Normal 8-23 [facility] Comment on above: Performed By: #### B MP, MATIAS, MG, CDP #### [facility] [employer] [address] [place] [address] Counter Control Operator: Shamir Milton MD CBC with Diffon 09-28-2022 Abs. Basophil <0.03 Normal 0.00-0.20 [facility] Comment on above: Performed By: #### B MP, MATIAS, MG, CDP #### [facility] [employer] [address] [place] [address] Counter Control Operator: Shamir Milton MD Abs.Imm.Granulocyte 0.07 k/uL Normal 0.00-0.30 [facility] Comment on above: Performed By: #### B MP, MATIAS, MG, CDP #### [facility] [employer] [address] [place] [address] Counter Control Operator: Shamir Milton MD Abs.Neutrophil (Seg) 7.39 k/uL Normal 1.50-8.10 [facility] Comment on above: Performed By: #### B MP, MATIAS, MG, CDP #### [facility] [employer] [address] [place] [address] [phone] Counter Control Operator: Shamir Milton MD Basophils/100 WBC (Bld) 0 % Normal 0-2 [facility] Comment on above: Performed By: #### B MP, MATIAS, MG, CDP #### [facility] [address] [place] [address] Counter Control Operator: Shamir Milton MD Eosinophils (Bld) [#/Vol] 0.12 10*3/uL Normal 0.00-0.44 [facility] Comment on above: Performed By: #### B MP, MATIAS, MG, CDP #### [facility] [employer] [address] [place] [address] Counter Control Operator: Shamir Milton MD Eosinophils/100 WBC (Bld) 1 % Normal 1-4 [facility] Comment on above: Performed By: #### B MP, MATIAS, MG, CDP #### [facility] [employer] [address] [place] [address] Counter Control Operator: Shamir Milton MD Erythrocyte distribution width (RBC) [Ratio] 13.0 % Normal 11.8-14.4 [facility] Comment on above: Performed By: #### B MP, MATIAS, MG, CDP #### [facility] [employer] [address] [place] [address] Counter Control Operator: Shamir Milton MD Hematocrit (Bld) [Volume fraction] 33.2 % Low 36.3-47.1 [facility] Comment on above: Performed By: #### B MP, MATIAS, MG, CDP #### [facility] [address] [place] [address] Counter Control Operator: Shamir Milton MD Hemoglobin (Bld) [Mass/Vol] 10.9 g/dL Low 11.9-15.1 [facility] Comment on above: Performed By: #### B MP, MATIAS, MG, CDP #### [facility] [employer] [address] [place] [address] Counter Control Operator: Shamir Milton MD Immature granulocytes/100 WBC (Bld) 1 % High 0 [facility] Comment on above: Performed By: #### B MP, MATIAS, MG, CDP #### [address] [address] Counter Control Operator: Shamir Milton MD Lymphocytes (Bld) [#/Vol] 2.21 10*3/uL Normal 1.10-3.70 [facility] Comment on above: Performed By: #### B MP, MATIAS, MG, CDP #### [address] [address] Counter Control Operator: Shamir Milton MD Lymphocytes/100 WBC (Bld) 21 % Low 24-43 [facility] Comment on above: Performed By: #### B MP, MATIAS, MG, CDP #### [address] [address] Counter Control Operator: Shamir Milton MD MCH (RBC) [Entitic mass] 30.8 pg Normal 25.2-33.5 [facility] Comment on above: Performed By: #### B MP, MATIAS, MG, CDP #### [address] [address] Counter Control Operator: Shamir Milton MD MCHC (RBC) [Mass/Vol] 32.8 g/dL Normal 28.4-34.8 [facility] Comment on above: Performed By: #### B MP, MATIAS, MG, CDP #### [facility] [employer] [address] [place] [address] Counter Control Operator: Shamir Milton MD MCV (RBC) [Entitic vol] 93.8 fL Normal 82.6-102.9 [facility] Comment on above: Performed By: #### B MP, MATIAS, MG, CDP #### [address] [address] Counter Control Operator: Shamir Milton MD Monocytes (Bld) [#/Vol] 0.77 10*3/uL Normal 0.10-1.20 [facility] Comment on above: Performed By: #### B MP, MATIAS, MG, CDP #### [facility] [employer] [address] [place] [address] Counter Control Operator: Shamir Milton MD Monocytes/100 WBC (Bld) 7 % Normal 3-12 [facility] Comment on above: Performed By: #### B MP, MATIAS, MG, CDP #### [facility] [employer] [address] [place] [address] Counter Control Operator: Shamir Milton MD Neutrophil (Seg) 70 % High 36-65 [facility] Comment on above: Performed By: #### B MP, MATIAS, MG, CDP #### [address] [address] Counter Control Operator: Shamir Milton MD NRBC Automated 0.0 per 100 WBC Normal 0.0 [facility] Comment on above: Performed By: #### B MP, MATIAS, MG, CDP #### [address] [address] Counter Control Operator: Shamir Milton MD Platelet mean volume (Bld) [Entitic vol] 9.8 fL Normal 8.1-13.5 [facility] Comment on above: Performed By: #### B MP, MATIAS, MG, CDP #### [facility] [employer] [address] [place] [address] Counter Control Operator: Shamir Milton MD Platelets (Bld) [#/Vol] 273 10*3/uL Normal 138-453 [facility] Comment on above: Performed By: #### B MP, MATIAS, MG, CDP #### [facility] [employer] [address] [place] [address] Counter Control Operator: Shamir Milton MD RBC (Bld) [#/Vol] 3.54 10*6/uL Low 3.95-5.11 [facility] Comment on above: Performed By: #### B MP, MATIAS, MG, CDP #### [facility] [employer] [address] [place] [address] Counter Control Operator: Shamir Milton MD WBC (Bld) [#/Vol] 10.6 10*3/uL Normal 3.5-11.3 [facility] Comment on above: Performed By: #### B MP, MATIAS, MG, CDP #### [facility] [employer] [address] [place] [address] Counter Control Operator: Shamir Milton MD Magnesiumon 09-28-2022 Magnesium [Mass/Vol] 2.0 mg/dL Normal 1.6-2.6 [facility] Comment on above: Performed By: #### B MP, MATIAS, MG, CDP #### [facility] [employer] [address] [place] [address] Counter Control Operator: Shamir Milton MD Phosphorus, Inorg.on 022 Phosphorus, Inorg. 1.9 mg/dL Low 2.6-4.5 [facility] Comment on above: Performed By: #### B MP, MATIAS, MG, CDP #### [facility] [employer] [address] [place] [address] Counter Control Operator: Shamir Milton MD Basic Metabolic Profon 09-27 Anion gap [Moles/Vol] 8 mmol/L Low 9-17 [facility] Comment on above: Performed By: #### B MP, MATIAS, MG, CDP #### [facility] [employer] [address] [place] [address] Counter Control Operator: Shamir Milton MD Calcium [Mass/Vol] 8.7 mg/dL Normal 8.6-10.4 [facility] Comment on above: Performed By: #### B MP, MATIAS, MG, CDP #### [employer] [address] [place] [address] Counter Control Operator: Shamir Milton MD Chloride [Moles/Vol] 102 mmol/L Normal 98-107 [facility] Comment on above: Performed By: #### B MP, MATIAS, MG, CDP #### [facility] [address] [place] [address] Counter Control Operator: Shamir Milton MD CO2 [Moles/Vol] 23 mmol/L Normal 20-31 [facility] Comment on above: Performed By: #### B MP, MATIAS, MG, CDP #### [address] [address] Counter Control Operator: Shamir Milton MD Creatinine [Mass/Vol] 0.61 mg/dL Normal 0.50-0.90 [facility] Comment on above: Performed By: #### B MP, MATIAS, MG, CDP #### [address] [address] Counter Control Operator: Shamir Milton MD GFR/1.73 sq M.predicted among non-blacks MDRD (S/P/Bld) [Vol rate/Area] mL/min/{1.73_m2} Normal >60 [facility] Comment on above: Result Comment: Effective Jul [...] #### B MP, MATIAS, MG, CDP #### [address] [address] Counter Control Operator: Shamir Milton MD Glucose [Mass/Vol] 129 mg/dL High 70-99 [facility] Comment on above: Performed By: #### B MP, MATIAS, MG, CDP #### [facility] [employer] [address] [place] [phone] Counter Control Operator: Shamir Milton MD Potassium [Moles/Vol] 4.4 mmol/L Normal 3.7-5.3 [facility] Comment on above: Performed By: #### B MP, MATIAS, MG, CDP #### [facility] [employer] [address] [place] [address] Counter Control Operator: Shamir Milton MD Sodium [Moles/Vol] 133 mmol/L Low 135-144 [facility] Comment on above: Performed By: #### B MP, MATIAS, MG, CDP #### [facility] [employer] [address] [place] [address] Counter Control Operator: Shamir Milton MD Urea nitrogen [Mass/Vol] 14 mg/dL Normal 8-23 [facility] Comment on above: Performed By: #### B MP, MATIAS, MG, CDP #### [facility] [employer] [address] [place] [address] Counter Control Operator: Shamir Milton MD CBC with Diffon 09-27-2022 Abs. Basophil <0.03 Normal 0.00-0.20 [facility] Comment on above: Performed By: #### B MP, MATIAS, MG, CDP #### [facility] [employer] [address] [place] [address] Counter Control Operator: Shamir Milton MD Abs. Eosinophil <0.03 Normal 0.00-0.44 [facility] Comment on above: Performed By: #### B MP, MATIAS, MG, CDP #### [facility] [employer] [address] [place] [address] Counter Control Operator: Shamir Milton MD Abs.Imm.Granulocyte 0.04 k/uL Normal 0.00-0.30 [facility] Comment on above: Performed By: #### B MP, MATIAS, MG, CDP #### [employer] [address] [place] [address] Counter Control Operator: Shamir Milton MD Abs.Neutrophil (Seg) 7.93 k/uL Normal 1.50-8.10 [facility] Comment on above: Performed By: #### B MP, MATIAS, MG, CDP #### [address] [address] Counter Control Operator: Shamir Milton MD Basophils/100 WBC (Bld) 0 % Normal 0-2 [facility] Comment on above: Performed By: #### B MP, MATIAS, MG, CDP #### [address] [address] Counter Control Operator: Shamir Milton MD Eosinophils/100 WBC (Bld) 0 % Low 1-4 [facility] Comment on above: Performed By: #### B MP, MATIAS, MG, CDP #### [address] [address] Counter Control Operator: Shamir Milton MD Erythrocyte distribution width (RBC) [Ratio] 12.9 % Normal 11.8-14.4 [facility] Comment on above: Performed By: #### B MP, MATIAS, MG, CDP #### [address] [address] Counter Control Operator: Shamir Milton MD Hematocrit (Bld) [Volume fraction] 34.8 % Low 36.3-47.1 [facility] Comment on above: Performed By: #### B MP, MATIAS, MG, CDP #### [facility] [employer] [address] [place] [address] Counter Control Operator: Shamir Milton MD Hemoglobin (Bld) [Mass/Vol] 11.0 g/dL Low 11.9-15.1 [facility] Comment on above: Performed By: #### B MP, MATIAS, MG, CDP #### [facility] [address] [place] [address] Counter Control Operator: Shamir Milton MD Immature granulocytes/100 WBC (Bld) 0 % Normal 0 [facility] Comment on above: Performed By: #### B MP, MATIAS, MG, CDP #### [address] [address] Counter Control Operator: Shamir Milton MD Lymphocytes (Bld) [#/Vol] 1.05 10*3/uL Low 1.10-3.70 [facility] Comment on above: Performed By: #### B MP, MATIAS, MG, CDP #### [address] [address] Counter Control Operator: Shamir Milton MD Lymphocytes/100 WBC (Bld) 11 % Low 24-43 [facility] Comment on above: Performed By: #### B MP, MATIAS, MG, CDP #### [address] [address] Counter Control Operator: Shamir Milton MD MCH (RBC) [Entitic mass] 30.2 pg Normal 25.2-33.5 [facility] Comment on above: Performed By: #### B MP, MATIAS, MG, CDP #### [address] [address] Counter Control Operator: Shamir Milton MD MCHC (RBC) [Mass/Vol] 31.6 g/dL Normal 28.4-34.8 [facility] Comment on above: Performed By: #### B MP, MATIAS, MG, CDP #### [address] [address] Counter Control Operator: Shamir Milton MD MCV (RBC) [Entitic vol] 95.6 fL Normal 82.6-102.9 [facility] Comment on above: Performed By: #### B MP, MATIAS, MG, CDP #### [address] [address] Counter Control Operator: Shamir Milton MD Monocytes (Bld) [#/Vol] 0.76 10*3/uL Normal 0.10-1.20 [facility] Comment on above: Performed By: #### B MP, MATIAS, MG, CDP #### [address] [address] Counter Control Operator: Shamir Milton MD Monocytes/100 WBC (Bld) 8 % Normal 3-12 [facility] Comment on above: Performed By: #### B MP, MATIAS, MG, CDP #### [address] [address] Counter Control Operator: Shamir Milton MD Neutrophil (Seg) 81 % High 36-65 [facility] Comment on above: Performed By: #### B MP, MATIAS, MG, CDP #### [address] [address] Counter Control Operator: Shamir Milton MD NRBC Automated 0.0 per 100 WBC Normal 0.0 [facility] Comment on above: Performed By: #### B MP, MATIAS, MG, CDP #### [facility] [employer] [address] [place] [address] Counter Control Operator: Shamir Milton MD Platelet mean volume (Bld) [Entitic vol] 9.6 fL Normal 8.1-13.5 [facility] Comment on above: Performed By: #### B MP, MATIAS, MG, CDP #### [facility] [employer] [address] [place] [address] Counter Control Operator: Shamir Milton MD Platelets (Bld) [#/Vol] 244 10*3/uL Normal 138-453 [facility] Comment on above: Performed By: #### B MP, MATIAS, MG, CDP #### [facility] [employer] [address] [place] [address] Counter Control Operator: Shamir Milton MD RBC (Bld) [#/Vol] 3.64 10*6/uL Low 3.95-5.11 [facility] Comment on above: Performed By: #### B MP, MATIAS, MG, CDP #### [facility] [address] [place], [place] [phone] Counter Control Operator: Shamir Milton MD WBC (Bld) [#/Vol] 9.8 10*3/uL Normal 3.5-11.3 [facility] Comment on above: Performed By: #### B MP, MATIAS, MG, CDP #### [facility] [address] [place],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 above: Performed By: #### B MP, MATIAS, MG, CDP #### [facility] [employer] [address] [place] [phone] Counter Control Operator: Shamir Milton MD Chloride [Moles/Vol] 102 mmol/L Normal 98-107 [facility] Comment on above: Performed By: #### B MP, MATIAS, MG, CDP #### [facility] [employer] [address] [place] [phone] Counter Control Operator: Shamir Milton MD CO2 [Moles/Vol] 20 mmol/L Normal 20-31 [facility] Comment on above: Performed By: #### B MP, MATIAS, MG, CDP #### [employer] [address] [place] [address] Counter Control Operator: Shamir Milton MD Creatinine [Mass/Vol] 0.76 mg/dL Normal 0.50-0.90 [facility] Comment on above: Performed By: #### B MP, MATIAS, MG, CDP #### [employer] [address] [place] [address] [phone] Counter Control Operator: Shamir Milton MD Ethanol [Mass/Vol] mg/dL Normal <10 [facility] Comment on above: Performed By: #### B MP, MATIAS, MG, CDP #### [facility] [employer] [address] [place] [address] Counter Control Operator: Shamir Milton MD Ethanol percent <0.010 Normal <0.010 [facility] Comment on above: Performed By: #### B MP, MATIAS, MG, CDP #### [facility] [employer] [address] [place] [address] Counter Control Operator: Shamir Milton MD GFR/1.73 sq M.predicted among non-blacks MDRD (S/P/Bld) [Vol rate/Area] mL/min/{1.73_m2} Normal >60 [facility] Comment on above: Result Comment: Effective Jul [...] #### B MP, MATIAS, MG, CDP #### [address] [address] Counter Control Operator: Shamir Milton MD Glucose [Mass/Vol] 127 mg/dL High 70-99 [facility] Comment on above: Performed By: #### B MP, MATIAS, MG, CDP #### [address] [address] Counter Control Operator: Shamir Milton MD Potassium [Moles/Vol] 4.1 mmol/L Normal 3.7-5.3 [facility] Comment on above: Performed By: #### B MP, MATIAS, MG, CDP #### [facility] [employer] [address] [place] [phone] Counter Control Operator: Shamir Milton MD Sodium [Moles/Vol] 134 mmol/L Low 135-144 [facility] Comment on above: Performed By: #### B MP, MATIAS, MG, CDP #### [address] [address] Counter Control Operator: Shamir Milton MD Urea nitrogen [Mass/Vol] 14 mg/dL Normal 8-23 [facility] Comment on above: Performed By: #### B MP, MATIAS, MG, CDP #### [address] [address] Counter Control Operator: Shamir Milton MD aPTT Coag (Bld) [Time] 24.4 s Normal 20.5-30.5 [facility] Comment on above: Result Comment: IV Heparin Therapy Range: 48.6-77.8 Performed By: #### B MP, MATIAS, MG, CDP #### [facility] [employer] [address] [place] [phone] Counter Control Operator: Shamir Milton MD INR Coag (PPP) [Relative time] 1.1 {INR} Normal [facility] Comment on above: Result Comment: Therapeutic Range: Moderate Anticoagulant Intensity: INR = 2.0-3.0 High Anticoagulant Intensity: INR = 2.5-3.5 Performed By: #### B MP, MATIAS, MG, CDP #### [facility] [employer] [address] [place] [id number] Counter Control Operator: Shamir Milton MD PT Coag (PPP) [Time] 11.3 s Normal 9.1-12.3 [facility] Comment on above: Performed By: #### B MP, MATIAS, MG, CDP #### [facility] [employer] [address] [place] [phone] Counter Control Operator: Shamir Milton MD HCG Screen, Blood Negative Normal [facility] Comment on above: Result Comment: Spec imens with hCG levels near the threshold of the test (25 mIU/mL) may give a negative or indeterminate result. In such cases, another test should be performed with a new specimen in 48-72 hours. If early is suspected clinically in this setting, correlation with quantitative serum b-hCG level is suggested. [facility] has confirmed the use of plasma for this test. This has not been cleared or approved by the U.S. Food and Drug Administration. The FDA has determined that such clearance is not necessary. Performed By: #### B MP, MATIAS, MG, CDP #### [facility] [employer] [address] [place] [address] Counter Control Operator: Shamir Milton MD Body Temp. 37.0 Normal [facility] Comment on above: Performed By: #### B MP, MATIAS, MG, CDP #### [address] [address] Counter Control Operator: Shamir Milton MD Carboxy Hgb 2.3 % Normal 0-5 [facility] Comment on above: Result Comment: Reference Range: Non-Smokers 0-2% Average Smoker 2-4% Heavy Smoker <10% Performed By: #### B MP, MATIAS, MG, CDP #### [address] [address] Counter Control Operator: Shamir Milton MD FIO2 INFORMATION NOT PROVIDED [facility] Comment on above: Performed By: #### B MP, MATIAS, MG, CDP #### [employer] [address] [place] [phone] Counter Control Operator: Shamir Milton MD HCO3 (Bld) [Moles/Vol] 22.7 mmol/L Low 24-30 [facility] Comment on above: Performed By: #### B MP, MATIAS, MG, CDP #### [facility] [employer] [address] [place] [address] Counter Control Operator: Shamir Milton MD Negative Base Excess 2.5 mmol/L High 0.0-2.0 [facility] Comment on above: Performed By: #### B MP, MATIAS, MG, CDP #### [address] [address] Counter Control Operator: Shamir Milton MD Oxygen saturation in Blood 73.8 % Normal 60.0-85.0 [facility] Comment on above: Performed By: #### B MP, MATIAS, MG, CDP #### [facility] [employer] [address] [place] [address] Counter Control Operator: Shamir Milton MD pCO2 42.6 mm Hg Normal 39-55 [facility] Comment on above: Performed By: #### B MP, MATIAS, MG, CDP #### [facility] [employer] [address] [place] [address] Counter Control Operator: Shamir Milton MD pH (Bld) 7.345 [pH] Normal 7.320-7.420 [facility] Comment on above: Performed By: #### B MP, MATIAS, MG, CDP #### [address] [address] Counter Control Operator: Shamir Milton MD pO2 40.7 mm Hg Normal 30-50 [facility] Comment on above: Performed By: #### B MP, MATIAS, MG, CDP #### [address] [address] Counter Control Operator: Shamir Milton MD Erythrocyte distribution width (RBC) [Ratio] 13.0 % Normal 11.8-14.4 [facility] Comment on above: Performed By: #### B MP, MATIAS, MG, CDP #### [facility] [employer] [address] [place] [address] Counter Control Operator: Shamir Milton MD Hematocrit (Bld) [Volume fraction] 42.4 % Normal 36.3-47.1 [facility] Comment on above: Performed By: #### B MP, MATIAS, MG, CDP #### [address] [address] Counter Control Operator: Shamir Milton MD Hemoglobin (Bld) [Mass/Vol] 14.5 g/dL Normal 11.9-15.1 [facility] Comment on above: Performed By: #### B MP, MATIAS, MG, CDP #### [address] [address] Counter Control Operator: Shamir Milton MD MCH (RBC) [Entitic mass] 30.1 pg Normal 25.2-33.5 [facility] Comment on above: Performed By: #### B MP, MATIAS, MG, CDP #### [address] [address] Counter Control Operator: Shamir Milton MD MCHC (RBC) [Mass/Vol] 34.2 g/dL Normal 28.4-34.8 [facility] Comment on above: Performed By: #### B MP, MATIAS, MG, CDP #### [place] [address] Counter Control Operator: Shamir Milton MD MCV (RBC) [Entitic vol] 88.1 fL Normal 82.6-102.9 [facility] Comment on above: Performed By: #### B MP, MATIAS, MG, CDP #### [place] [address] Counter Control Operator: Shamir Milton MD NRBC Automated 0.0 per 100 WBC Normal 0.0 [facility] Comment on above: Performed By: #### B MP, MATIAS, MG, CDP #### [facility] [employer] [address] [place] [address] Counter Control Operator: Shamir Milton MD Platelet mean volume (Bld) [Entitic vol] 9.3 fL Normal 8.1-13.5 [facility] Comment on above: Performed By: #### B MP, MATIAS, MG, CDP #### [facility] [address] [place] [address] Counter Control Operator: Shaimr Milton MD Platelets (Bld) [#/Vol] 335 10*3/uL Normal 138-453 [facility] Comment on above: Performed By: #### B MP, MATIAS, MG, CDP #### [facility] [address] [place] [address] Counter Control Operator: Shamir Milton MD RBC (Bld) [#/Vol] 4.81 10*6/uL Normal 3.95-5.11 [facility] Comment on above: Performed By: #### B MP, MATIAS, MG, CDP #### [facility] [address] [place] [address] Counter Control Operator: Shamir Milton MD WBC (Bld) [#/Vol] 12.0 10*3/uL High 3.5-11.3 [facility] Comment on above: Performed By: #### B MP, MATIAS, MG, CDP #### [facility] [employer] [address] [place] [address] Counter Control Operator: Shamir Milton MD Blood Bank BILL FOR SERVICES PERFORMED Normal [facility] Comment on above: Performed By: #### B MP, MATIAS, MG, CDP #### [facility] [employer] [address] [place] [address] Counter Control Operator: Shamir Milton MD Type + Screenon 09-25-2022 Type + Screen Sample Expiration 09/28/2022,2359 Arm Band Number BE [id number] ABO/Rh(D) O POSITIVE Antibody Screen NEGATIVE Normal [facility] Comment on above: Performed By: #### C DP, BMP, MATIAS #### [facility] [employer] [address] [place] [address] Counter Control Operator: Shamir Milton MD URINE MICROSCOPIC ONLYon BACTERIA NONE SEEN Normal NONE SEEN [facility] Comment on above: Performed By: #### Kvng REDDING UMICRO ####[facility] [address] [place], [place] [address]Dr. Karey Espinoza Bacteria identified Cx Nom (U) NOT INDICATED Normal [facility] Comment on above: Performed By: #### Kvng REDDING UMTHANHRO ####[facility] [address] [place], [place] [address]Dr. Karey Espinoza CAST NONE SEEN Normal NONE SEEN [facility] Comment on above: Performed By: #### Kvng REDDING UMICRO ####[facility] [address] [place], [place] [address]Dr. Karey Epsinoza Crystals LM Nom (Urine sed) NONE SEEN Normal NONE SEEN [facility] Comment on above: Performed By: #### Kvng REDDING UMICRO ####[facility] [address] [place], [place] [address]Dr. Karey Espinoza Epithelial cells LM Ql (Urine sed) RARE Normal NONE SEEN /RARE [facility] Comment on above: Performed By: #### Kvng REDDING UMICRO ####[facility] [address] [place], [place] [address]Dr. Karey Espinoza MUCOUS NONE SEEN Normal NONE SEEN [facility] Comment on above: Performed By: #### Kvng REDDING UMTHANHRO ####[facility] [address] [place], [place] [address]Dr. Karey Espinoza RBC 0-2 Normal 0-2 [facility] Comment on above: Performed By: #### COLTON REYESRO ####[facility] [address] [place], [place] [address]Dr. Karey Espinoza WBC NONE SEEN Normal NONE SEEN [facility] Comment on above: Performed By: #### COLTON REYESRO ####[facility] [address] [place], [place] [address]Dr. Karey Espinoza XR HIP LEFT (2-3 VIEWS)on [...] Mikie Caba MD 09/25/22 Final result Normal [facility] XR PELVIS (MIN 3 VIEWS)on XR PELVIS [...] Mikie Caba MD 09/25/22 Final result Normal [facility] XR TIBIA FIBULA LEFT (2 VIEW S)on [...] Mikie Caba MD 09/25/22 Final result Normal [facility] LIPID PROFILEon 09-14-2022 CHOL-HDL RATIO NORM SEE BELOW Normal [facility] Comment on above: Result Comment: 3.3 - 4.4 LOW RISK 4.4 - 7.1 AVERAGE RISK 7.1 - 11.0 MODERATE RISK >11.0 HIGH RISK Performed By: #### L IPID, LIVER #### [facility] [address] [address] [address] Karey Espinoza Cholesterol [Mass/Vol] 165 mg/dL Normal <=200 [facility] Comment on above: Performed By: #### L IPID, LIVER #### [facility] [address] [address] [address] Karey Espinoza Cholesterol in HDL [Mass/Vol] 57 mg/dL Normal 40-60 [facility] Comment on above: Performed By: #### L IPID, LIVER #### [facility] [address] [address] [address] Karey Espinoza Cholesterol in LDL [Mass/Vol] 83.2 mg/dL Normal [facility] Comment on above: Performed By: #### L IPID, LIVER #### [facility] [address] [address] [address] Karey Espinoza Cholesterol.total/Cho lesterol in HDL [Mass ratio] 2.9 {ratio} Normal [facility] Comment on above: Performed By: #### L IPID, LIVER #### [facility] [address] [address] [address] Karey Espinoza HDL NORMAL > or = 60 mg/dl - LO W CARDIOVASCULAR RISK <40 mg/dl - HIGH CARDIOVASCULAR RISK Normal [facility] Comment on above: Performed By: #### L IPID, LIVER #### [facility] [address] [address] [address] Karey Espinoza LDL CALC NORMAL SEE BELOW Normal [facility] Comment on above: Result Comment: <100 mg/dl OPTIMAL 100 - 129 mg/dl NEAR OR ABOVE OPTIMAL 130 - 159 mg/dl BORDERLINE HIGH 160 - 189 mg/dl HIGH >190 mg/dl VERY HIGH Performed By: #### L IPID, LIVER #### [facility] [address] [address] [address] Karey Espinoza Triglyceride [Mass/Vol] 124 mg/dL Normal <=150 [facility] Comment on above: Performed By: #### L IPID, LIVER #### [facility] [address] [address] [address] Karey Espinoza VLDL CALC 24.8 mg/dL Normal [facility] Comment on above: Performed By: #### L IPID, LIVER #### [facility] [address] [address] [address] Karey Espinoza LIVER PROFILEon 09-14-2022 Albumin [Mass/Vol] 3.6 g/dL Normal 3.4-5.0 [facility] Comment on above: Performed By: #### L IPID, LIVER #### [facility] [address] [place] [address] Dr. Karey Espinoza Albumin/Globulin [Mass ratio] 1.1 {ratio} Normal [facility] Comment on above: Performed By: #### L IPID, LIVER #### [facility] [address] [address] [address] Karey Espinoza ALP [Catalytic activity/Vol] 75 U/L Normal 46-116 [facility] Comment on above: Performed By: #### L IPID, LIVER #### [facility] [address] [place] [address] Dr. Karey Espinoza ALT [Catalytic activity/Vol] 57 U/L Normal 14-59 [facility] Comment on above: Performed By: #### L IPID, LIVER #### [facility] [address] [place] [address] Dr. Karey Espinoza AST [Catalytic activity/Vol] 35 U/L Normal 15-37 [facility] Comment on above: Performed By: #### L IPID, LIVER #### [facility] [address] [place] [address] Dr. Karey Espinoza BILI, CONJUGATED 0.1 mg/dL Normal 0.0-0.2 [facility] Comment on above: Performed By: #### L IPID, LIVER #### [facility] [address] [place] [address] Dr. Karey Espinoza Bilirubin [Mass/Vol] 0.5 mg/dL Normal 0.2-1.0 [facility] Comment on above: Performed By: #### L IPID, LIVER #### [facility] [address] [place] [address] Dr. Karey Espinoza Globulin (S) [Mass/Vol] 3.3 g/dL Normal [facility] Comment on above: Performed By: #### L IPID, LIVER #### [facility] [address] [place] [address] Dr. Karey Espinoza Protein [Mass/Vol] 6.9 g/dL Normal 6.4-8.2 [facility] Comment on above: Performed By: #### L IPID, LIVER #### [facility] [address] [place] [address] Dr. Karey Espinoza Covid-19 PCR ([facility]on 03-29 SARS-CoV-2 (COVID-19) RNA JORI+probe Ql (Unsp spec) Not detected Normal NOT DETECTED [facility] Comment on above: Result Comment: This test is not yet approved or cleared by the [place] FDA. When there are no FDA-approved or cleared tests available, and other criteria are met, FDA can make tests available under an emergency access mechanism called an Emergency Use Authorization (EUA). The EUA for this test is supported by the [place] of Health and Human Service's (HHS's) declaration [...] SARS-CoV-2. Performed By: #### C VDTB #### [facility] [address] [place], [place] [address] Dr. Karey Espinoza SYMPTOMATIC COVID-19 ANTIGEN on 04-20-2022 EUA Statement SEE BELOW Normal [facility] Comment on above: Result Comment: This [...] revoked sooner. Performed By: #### C VDAGS ####[facility] [address] [place], [place] [address]UnDr. Karey Espinoza SARS-CoV-2 (COVID-19) RNA JORI+probe Ql (Unsp spec) Negative Normal NEGATIVE [facility] Comment on above: Performed By: #### C VDAGS ####[facility] [address] [place], [place] [address]Jc. Karey Espinoza LIPID PROFILEon 04-04-2022 CHOL-HDL RATIO NORM SEE BELOW Normal [facility] Comment on above: Result Comment: 3.3 - 4.4 LOW RISK 4.4 - 7.1 AVERAGE RISK 7.1 - 11.0 MODERATE RISK >11.0 HIGH RISK Performed By: #### L RAJ, LIPID ####[facility] [address] [place], [place] [address]Np. Karey Espinoza Cholesterol [Mass/Vol] 198 mg/dL Normal <=200 [facility] Comment on above: Performed By: #### L RAJ, LIPID ####[facility] [address] [place], [place] [address]Zs. Karey Espinoza Cholesterol in HDL [Mass/Vol] 50 mg/dL Normal 40-60 [facility] Comment on above: Performed By: #### Carli ANTHONY, LIPID ####[facility] [address] [place], [place] [address]Yq. Karey Espinoza Cholesterol in LDL [Mass/Vol] 110.8 mg/dL Normal [facility] Comment on above: Performed By: #### Carli ANTHONY, LIPID ####[facility] [address] [place], [place] [address]Hn. Karey Espinoza Cholesterol.total/Cho lesterol in HDL [Mass ratio] 4.0 {ratio} Normal [facility] Comment on above: Performed By: #### Carli ANTHONY, LIPID ####[facility] [address] [place], [place] [address]Nw. Karey Espinoza HDL NORMAL > or = 60 mg/dl - LO W CARDIOVASCULAR RISK <40 mg/dl - HIGH CARDIOVASCULAR RISK Normal [facility] Comment on above: Performed By: #### L RAJ, LIPID ####[facility] [address] [place], [place] [address]Wo. Karey Espinoza LDL CALC NORMAL SEE BELOW Normal The [facility] Comment on above: Result Comment: <100 mg/dl OPTIMAL 100 - 129 mg/dl NEAR OR ABOVE OPTIMAL 130 - 159 mg/dl BORDERLINE HIGH 160 - 189 mg/dl HIGH >190 mg/dl VERY HIGH Performed By: #### L RAJ LIPID ####[facility] [address] [address]Dr. Karey Espinoza Triglyceride [Mass/Vol] 186 mg/dL Critically high <=150 [facility] Comment on above: Performed By: #### L RAJ LIPID ####[facility] [address] [address]Dr. Karey Espinoza VLDL CALC 37.2 mg/dL Normal [facility] Comment on above: Performed By: #### L RAJ LIPID ####[facility] [address] [address]Dr. Karey Espinoza LIVER PROFILEon 04-04-2022 Albumin [Mass/Vol] 3.8 g/dL Normal 3.4-5.0 [facility] Comment on above: Performed By: #### Carli ANTHONY LIPID ####[facility] [address] [place], [place] [address]Dr. Karey Espinoza Albumin/Globulin [Mass ratio] 1.2 {ratio} Normal [facility] Comment on above: Performed By: #### L RAJ LIPID ####[facility] [address] [address]Dr. Karey Espinoza ALP [Catalytic activity/Vol] 78 U/L Normal 46-116 [facility] Comment on above: Performed By: #### L RAJ LIPID ####[facility] [address] [address]Dr. Karey Espinoza ALT [Catalytic activity/Vol] 33 U/L Normal 14-59 [facility] Comment on above: Performed By: #### L RAJ LIPID ####[facility] [address] [address]Dr. Karey Espinoza AST [Catalytic activity/Vol] 26 U/L Normal 15-37 [facility] Comment on above: Performed By: #### L RAJ LIPID ####[facility] [address] [place], [place] [address]Dr. Karey Espinoza BILI, CONJUGATED 0.1 mg/dL Normal 0.0-0.2 [facility] Comment on above: Performed By: #### L IVER, LIPID ####[facility] [address] [id number]. Karey Espinoza Bilirubin [Mass/Vol] 0.5 mg/dL Normal 0.2-1.0 [facility] Comment on above: Performed By: #### L IVER, LIPID ####[facility] [address] [id number]. Karey Espinoza Globulin (S) [Mass/Vol] 3.2 g/dL Normal [facility] Comment on above: Performed By: #### L IVER, LIPID ####[facility] [address] [address]Dr. Karey Espinoza Protein [Mass/Vol] 7.0 g/dL Normal 6.4-8.2 [facility] Comment on above: Performed By: #### L IVER, LIPID ####[facility] [address] [id number]. Karey Espinoza XR lumbar spine 2-3V*on XR lumbar spine 2-3V* [facility] [place] [address] XRay Report Signed Patient: Anabela Helm MR#: [id number] 5 : 1945 Acct:[id number] Age/Sex: 75 / F ADM Date: 03/30/21 Loc: XD Room: Type: [facility] Attending Dr: Brian Gonzales MD Ordering Provider: [...] Wang Jr., M.D.03/30/2021 2:53 PM Dictation Location: [address] [place] [address] Transcribed By: [facility] 03/30/21 145 Dictated By: Camryn Wang Jr, MD 03/30/211449 Signed By: 03/30/211452 [facility] Home Health Recordson 2020 Home Health Records [id number] Normal [facility] Glucose Poct Glucometerson 0 03-03-2021 Commemt1 Glu2: Cleaned Meter [facility] Comment on above: Result Comment: PERF ORMED BY: [facility] [address] [place] [address] PATHOLOGIST DOOR REPAIRER BUS JU MCPHERSON M.D. Performed By: #### G LULS ####Point of Care testing, Glucose [Mass/Vol] 99 mg/dL [facility] Comment on above: Result Comment: [facility] Glucose Reference Range is dependent on time and content of last meal. Glucose of more than 200 mg/dL in a nonstressed, ambulatory subject supports the diagnosis of Diabetes Mellitus. Performed By: #### G LULS ####Point of Care testing, Glucose Poct Glucometerson 0 03-02-2021 Commemt1 Glu2: Cleaned Meter [facility] Comment on above: Result Comment: PERF ORMED BY: [facility] [address] [address] PATHOLOGIST DOOR REPAIRER BUS JIANLAN SUN M.D. Performed By: #### G LULS ####Point of Care testing, Glucose [Mass/Vol] 87 mg/dL Normal [facility] Comment on above: Result Comment: [place] [facility] Glucose Reference Range is dependent on time and content of last meal. Glucose of more than 200 mg/dL in a nonstressed, ambulatory subject supports the diagnosis of Diabetes Mellitus. Performed By: #### G LULS ####Point of Care testing, Glucose [Mass/Vol] 131 mg/dL Normal [facility] Comment on above: Result Comment: [place] [facility] Glucose Reference Range is dependent on time and content of last meal. Glucose of more than 200 mg/dL in a nonstressed, ambulatory subject supports the diagnosis of Diabetes Mellitus. PERFORMED BY: [address] [place] [address] PATHOLOGIST DOOR REPAIRER BUS JU MCPHERSON M.D. Performed By: #### G LULS ####Point of Care testing, Glucose Poct Glucometerson 0 03-01-2021 Commemt1 Glu2: Cleaned Meter [facility] Comment on above: Result Comment: PERF ORMED BY: [address] [address] PATHOLOGIST DOOR REPAIRER BUS JU MCPHERSON M.D. Performed By: #### G LULS ####Point of Care testing, Glucose [Mass/Vol] 197 mg/dL Normal [facility] Comment on above: Result Comment: [place] [facility] Glucose Reference Range is dependent on time and content of last meal. Glucose of more than 200 mg/dL in a nonstressed, ambulatory subject supports the diagnosis of Diabetes Mellitus. Performed By: #### G LULS ####Point of Care testing, Commemt1 Glu2: Cleaned Meter [facility] Comment on above: Result Comment: PERF ORMED BY: [address] [place] [address] PATHOLOGIST DOOR REPAIRER BUS JU MCPHERSON M.D. Performed By: #### G LULS ####Point of Care testing, Glucose [Mass/Vol] 132 mg/dL Normal [facility] Comment on above: Result Comment: [facility] Glucose Reference Range is dependent on time and content of last meal. Glucose of more than 200 mg/dL in a nonstressed, ambulatory subject supports the diagnosis of Diabetes Mellitus. Performed By: #### G MCKENNA ####Point of Care testing, ABO/Rh Retypeon 02-28-2021 ABO/RH Recheck Result Positive Normal Fir [facility] Comment on above: Result Comment: PERF ORMED BY: [facility] [address] [id number] PATHOLOGIST DOOR REPAIRER BUS JU MCPHERSON M.D. Complete Blood Count Auto Di ffon 02-28-2021 Basophils (Bld) [#/Vol] 0.1 10*3/uL Normal 0.0-0.2 [facility] Comment on above: Result Comment: PERF ORMED BY: [facility] [address] [place] [place] [id number] PATHOLOGIST DOOR REPAIRER BUS JU MCPHERSON M.D. Performed By: #### C MP, CBC, TROP ####[facility] [id number] [facility] Basophils/100 WBC (Bld) 0.4 % Normal . [facility] Comment on above: Performed By: #### C MP, CBC, TROP ####[facility] [place] [address] [facility] Eosinophils (Bld) [#/Vol] 0.0 10*3/uL Normal 0.0-0.45 [facility] Comment on above: Performed By: #### C MP, CBC, TROP ####[facility] [address]kg[address] [place] [address] [facility] Eosinophils/100 WBC (Bld) 0.0 % Normal . [facility] Comment on above: Performed By: #### C MP, CBC, TROP ####[facility] [id number] [facility] Erythrocyte distribution width (RBC) [Ratio] 13.6 % Normal 11.9-15.3 [facility] Comment on above: Performed By: #### C MP, CBC, TROP ####[address] [id number] [facility] Hematocrit (Bld) [Volume fraction] 38.3 % Normal 34.0-46.4 [facility] Comment on above: Performed By: #### C MP, CBC, TROP ####[address] Hemoglobin (Bld) [Mass/Vol] 13.0 g/dL Normal 11.8-15.4 [facility] Comment on above: Performed By: #### C MP, CBC, TROP ####[address] Lymphocytes (Bld) [#/Vol] 0.8 10*3/uL Low 1.00-4.8 [facility] Comment on above: Performed By: #### C MP, CBC, TROP ####[address] Lymphocytes/100 WBC (Bld) 5.8 % Normal . [facility] Comment on above: Performed By: #### C MP, CBC, TROP ####[address] MCH (RBC) [Entitic mass] 30.0 pg Normal 24.7-34.3 [facility] Comment on above: Performed By: #### C MP, CBC, TROP ####[place] [id number] [facility] MCV (RBC) [Entitic vol] 88.6 fL Normal 80-100 [facility] Comment on above: Performed By: #### C MP, CBC, TROP ####[address] [place] [id number] [facility] Mean Corpuscular HGB Conc 33.8 g/dL Normal 32.0-35.0 [facility] Comment on above: Performed By: #### C MP, CBC, TROP ####[address] Monocytes (Bld) [#/Vol] 0.6 10*3/uL Normal 0.0-0.8 [facility] Comment on above: Performed By: #### C MP, CBC, TROP ####[address] [address] [facility] Monocytes/100 WBC (Bld) 4.5 % Normal . [facility] Comment on above: Performed By: #### C MP, CBC, TROP ####[address] [address] [facility] Neutrophils (Bld) [#/Vol] 11.8 10*3/uL High 1.8-7.7 [facility] Comment on above: Performed By: #### C MP, CBC, TROP ####[address] [address] [facility] Neutrophils/100 WBC (Bld) 89.3 % Normal . [facility] Comment on above: Performed By: #### C MP, CBC, TROP ####[address] [place] [address] [facility] Nucleated RBC/100 WBC (Bld) [Ratio] 0.1 % Normal 0-0.5 [facility] Comment on above: Performed By: #### C MP, CBC, TROP ####[address] [id number] [facility] Platelet mean volume (Bld) [Entitic vol] 7.2 fL Normal 6.3-10.7 [facility] Comment on above: Performed By: #### C MP, CBC, TROP ####[address] [place] [id number] [facility] Platelets (Bld) [#/Vol] 369 10*3/uL Normal 150-450 [facility] Comment on above: Performed By: #### C MP, CBC, TROP ####[address] [place] [id number] [facility] RBC (Bld) [#/Vol] 4.32 10*6/uL Normal 3.60-5.00 [facility] Comment on above: Performed By: #### C MP, CBC, TROP ####[address] [id number] [place] WBC (Bld) [#/Vol] 13.2 10*3/uL High 4.5-11.0 [facility] Comment on above: Performed By: #### C MP, CBC, TROP ####[address] [address] [facility] Comprehensive Metabolic Pane khalida 02-28-2021 Albumin [Mass/Vol] 3.4 g/dL Normal 3.2-5.5 [facility] Comment on above: Performed By: #### C MP, CBC, TROP ####[address] [address] [facility] Albumin/Globulin [Mass ratio] 1.4 {ratio} Normal [facility] Comment on above: Performed By: #### C MP, CBC, TROP ####[address] [place] [address] [facility] ALP [Catalytic activity/Vol] 48 U/L Normal 32-92 [facility] Comment on above: Performed By: #### C MP, CBC, TROP ####[place] [address] [facility] ALT [Catalytic activity/Vol] 23 U/L Normal 10-60 [facility] Comment on above: Performed By: #### C MP, CBC, TROP ####[place] [address] [facility] AST [Catalytic activity/Vol] 32 U/L Normal 10-42 [facility] Comment on above: Performed By: #### C MP, CBC, TROP ####[place] [address] [facility] Bilirubin [Mass/Vol] 0.5 mg/dL Normal 0.3-1.2 [facility] Comment on above: Performed By: #### C MP, CBC, TROP ####[place] [address] [facility] Calcium [Mass/Vol] 8.9 mg/dL Normal 8.2-10.2 [facility] Comment on above: Performed By: #### C MP, CBC, TROP ####[address] [place] [address] [place] Chloride [Moles/Vol] 102 mmol/L Normal 95-114 [facility] Comment on above: Performed By: #### C MP, CBC, TROP ####[place] [address] [facility] CO2 [Moles/Vol] 22.6 mmol/L Normal 22.0-30.0 [facility] Comment on above: Performed By: #### C MP, CBC, TROP ####[address] Creatinine [Mass/Vol] 0.93 mg/dL Normal 0.44-1.03 [facility] Comment on above: Performed By: #### C MP, CBC, TROP ####[address] Creatinine Clr Calc Pharmacy 50.13 [facility] Comment on above: Result Comment: PERF ORMED BY: [facility] [address] [place] [address] PATHOLOGIST DOOR REPAIRER BUS JU MCPHERSON M.D. Performed By: #### C MP, CBC, TROP ####[address] Estimated GFR ( [place] > 60 [facility] Comment on above: Result Comment: GFR estimated reference range: According to KDOQI guidelines, <60 ml/min/1.73m2 is sufficient to diagnose a patient with chronic kidney disease. Performed By: #### C MP, CBC, TROP ####[place] [address] [facility] Estimated GFR (Non- Am 59 [facility] Comment on above: Performed By: #### C MP, CBC, TROP ####[place] [address] [facility] Globulin (S) [Mass/Vol] 2.5 g/dL [facility] Comment on above: Performed By: #### C MP, CBC, TROP ####[place] [address] [facility] Glucose [Mass/Vol] 198 mg/dL High 70-100 [facility] Comment on above: Result Comment: [place] Glucose Reference Range is dependent on time and content of last meal. Glucose of more than 200 mg/dL in a nonstressed, ambulatory subject supports the diagnosis of Diabetes Mellitus. ADA recommended reference range Performed By: #### C MP, CBC, TROP ####[facility] [place] [address] [facility] Potassium [Moles/Vol] 3.9 mmol/L Normal 3.5-5.1 [facility] Comment on above: Performed By: #### C MP, CBC, TROP ####[facility] [place] [address] [facility] Protein [Mass/Vol] 5.9 g/dL Low 6.1-7.9 [facility] Comment on above: Performed By: #### C MP, CBC, TROP ####[facility] [place] [address] [facility] Sodium [Moles/Vol] 133 mmol/L Low 136-146 [facility] Comment on above: Performed By: #### C MP, CBC, TROP ####[facility] [place] [id number] [facility] Urea nitrogen [Mass/Vol] 13 mg/dL Normal 9-23 [facility] Comment on above: Performed By: #### C MP, CBC, TROP ####[facility] [place] [address] [facility] ECG 12 lead ECGon 02-28-2021 ECG 12 lead ECG [facility] [place] [address] [place] [address] Electrocardiograph Report Signed Patient: Anabela Helm MR#: [id number] 5 : 1945 Acct:[id number] Age/Sex: 75 / F ADM Date: 02/28/21 Loc: 4N Room: 6V0385-3 Type: ADM IN Attending Dr: Brian Gonzales [...] MD 02/28/21 1425 Signed By: 02/28/21 1538 Normal [facility] Glucose Poct Glucometerson 0 02-28-2021 Glucose [Mass/Vol] 192 mg/dL Normal [facility] Comment on above: Result Comment: [facility] Glucose Reference Range is dependent on time and content of last meal. Glucose of more than 200 mg/dL in a nonstressed, ambulatory subject supports the diagnosis of Diabetes Mellitus. PERFORMED BY: [address] [place] [address] PATHOLOGIST DOOR REPAIRER BUS JU MCPHERSON M.D. Performed By: #### G LULS ####Point of Care testing, Commemt1 Glu2: Cleaned Meter Normal [facility] Comment on above: Result Comment: PERF ORMED BY: [address] [place] [address] PATHOLOGIST DOOR REPAIRER BUS JU MCPHERSON M.D. Performed By: #### G LULS ####Point of Care testing, Glucose [Mass/Vol] 202 mg/dL Normal [facility] Comment on above: Result Comment: [facility] Glucose Reference Range is dependent on time and content of last meal. Glucose of more than 200 mg/dL in a nonstressed, ambulatory subject supports the diagnosis of Diabetes Mellitus. Performed By: #### G LULS ####Point of Care testing, Troponin I(TnI)on 02-28-2021 Troponin I.cardiac [Mass/Vol] ng/mL Normal 0-0.02 [facility] Comment on above: Result Comment: [place] Cut off value > or equal to 0.03 ng/mL in conjunction with clinical conditions of myocardial infarction. (www.escardio.org/guidelines) PERFORMED BY: [place] [address] PATHOLOGIST DOOR REPAIRER BUS JU MCPHERSON M.D. Performed By: #### C MP, CBC, TROP ####[facility] Lhp[address] XR lumbar spine 2-3V*on XR lumbar spine 2-3V* [facility] [place] [address] [place] [address] XRay Report Signed Patient: Anabela Helm MR#: [id number] 5 : 1945 Acct:[id number] Age/Sex: 75 / F ADM Date: 02/28/21 Loc: Room: [address] [place] [address] Type: ADM IN Attending Dr: Brian Gonzales [...] Rahul Desai M.D.02/28/2021 12:05 PM Dictation Location: [place] [address] Transcribed By: [facility] 02/28/21 1205 Dictated By: Rahul Desai DO 02/28/21 1153 Signed By: 02/28/21 1205 Normal [facility] SARS-CoV-2 (COVID-19) RNA JORI+probe Ql (Unsp spec) Negative Normal Negative [facility] Comment on above: Order Comment: Healt hcare Worker?: N Result Comment: Test ing for SARS-CoV-2 by RT-PCR This test was developed and its performance characteristics determined by [employer] and validated at the [facility]. This test has not been [...] is terminated or revoked sooner. PERFORMED BY: [facility] [address] [place] [address] PATHOLOGIST DOOR REPAIRER BUS JU MCPHERSON M.D. Performed By: #### C OVID-19 [facility] #### [address] Basic Metabolic Panelon 01-27 Calcium [Mass/Vol] 10.1 mg/dL Normal 8.2-10.2 [facility] Comment on above: Result Comment: PERF ORMED BY: [facility] [address] [place] [address] PATHOLOGIST DOOR REPAIRER BUS JU MCPHERSON M.D. Performed By: #### C BC, BMP #### [facility] [address] [place] [address] [place] Chloride [Moles/Vol] 100 mmol/L Normal 95-114 [facility] Comment on above: Performed By: #### C BC, BMP #### [facility] [address] [place] [address] [facility] CO2 [Moles/Vol] 25.9 mmol/L Normal 22.0-30.0 [facility] Comment on above: Performed By: #### C BC, BMP #### [address] Creatinine [Mass/Vol] 1.00 mg/dL Normal 0.44-1.03 [facility] Comment on above: Performed By: #### C BC, BMP #### [address] Estimated GFR ( [place] > 60 Normal [facility] Comment on above: Result Comment: GFR estimated reference range: According to KDOQI guidelines, <60 ml/min/1.73m2 is sufficient to diagnose a patient with chronic kidney disease. Performed By: #### C BC, BMP #### [address] Estimated GFR (Non- Am 54 [facility] Comment on above: Performed By: #### C BC, BMP #### [address] Glucose [Mass/Vol] 101 mg/dL High 70-100 [facility] Comment on above: Result Comment: [place] om Glucose Reference Range is dependent on time and content of last meal. Glucose of more than 200 mg/dL in a nonstressed, ambulatory subject supports the diagnosis of Diabetes Mellitus. ADA recommended reference range Performed By: #### C BC, BMP #### [address] Potassium [Moles/Vol] 4.6 mmol/L Normal 3.5-5.1 [facility] Comment on above: Performed By: #### C BC, BMP #### [address] Sodium [Moles/Vol] 135 mmol/L Low 136-146 [facility] Comment on above: Performed By: #### C BC, BMP #### [address] Urea nitrogen [Mass/Vol] 13 mg/dL Normal 9-23 [facility] Comment on above: Performed By: #### C BC, BMP #### [place] [address] [place] Basophils Auto (Bld) [#/Vol] on 02-16-2021 Basophils (Bld) [#/Vol] 0.0 10*3/uL 0.0-0.2 [facility] Basophils/100 WBC Auto (Bld) on 02-16-2021 Basophils/100 WBC (Bld) 0.9 % [facility] Blood hemoglobin measurement (mass/volume)on 02-16-2021 Hemoglobin (Bld) [Mass/Vol] 14.5 g/dL 11.8-15.4 [facility] Blood leukocytes automated c ount (number/volume)on 02-16-2021 WBC (Bld) [#/Vol] 5.6 10*3/uL 4.5-11.0 [facility] Complete Blood Count Auto Di ffon 02-16-2021 Basophils (Bld) [#/Vol] 0.0 10*3/uL Normal 0.0-0.2 [facility] Comment on above: Result Comment: PERF ORMED BY: [facility] [address] [place] [address] PATHOLOGIST DOOR REPAIRER BUS JU MCPHERSON M.D. Performed By: #### C BC, BMP #### [facility] [address] Basophils/100 WBC (Bld) 0.9 % Normal . [facility] Comment on above: Performed By: #### C BC, BMP #### [facility] [address] [place] [address] [place] Eosinophils (Bld) [#/Vol] 0.1 10*3/uL Normal 0.0-0.45 [facility] Comment on above: Performed By: #### C BC, BMP #### [facility] [address] [place] [address] [place] Eosinophils/100 WBC (Bld) 1.0 % Normal . [facility] Comment on above: Performed By: #### C BC, BMP #### [facility] [address] Erythrocyte distribution width (RBC) [Ratio] 14.1 % Normal 11.9-15.3 [facility] Comment on above: Performed By: #### C BC, BMP #### [facility] [address] Hematocrit (Bld) [Volume fraction] 42.6 % Normal 34.0-46.4 [facility] Comment on above: Performed By: #### C BC, BMP #### [facility] [address] Hemoglobin (Bld) [Mass/Vol] 14.5 g/dL Normal 11.8-15.4 [facility] Comment on above: Performed By: #### C BC, BMP #### [facility] [address] [place] [address] [place] Lymphocytes (Bld) [#/Vol] 1.9 10*3/uL Normal 1.00-4.8 [facility] Comment on above: Performed By: #### C BC, BMP #### [facility] [address] Lymphocytes/100 WBC (Bld) 33.3 % Normal . [facility] Comment on above: Performed By: #### C BC, BMP #### [facility] [address] [place] [address] [place] MCH (RBC) [Entitic mass] 30.1 pg Normal 24.7-34.3 [facility] Comment on above: Performed By: #### C BC, BMP #### [facility] [address] MCV (RBC) [Entitic vol] 88.4 fL Normal 80-100 [facility] Comment on above: Performed By: #### C BC, BMP #### [facility] [address] Mean Corpuscular HGB Conc 34.0 g/dL Normal 32.0-35.0 [facility] Comment on above: Performed By: #### C BC, BMP #### [facility] [address] [place] [address] [place] Monocytes (Bld) [#/Vol] 0.5 10*3/uL Normal 0.0-0.8 [facility] Comment on above: Performed By: #### C BC, BMP #### [facility] [address] [place] [address] [place] Monocytes/100 WBC (Bld) 9.3 % Normal . [facility] Comment on above: Performed By: #### C BC, BMP #### [facility] [address] [place] [id number] [place] Neutrophils (Bld) [#/Vol] 3.1 10*3/uL Normal 1.8-7.7 [facility] Comment on above: Performed By: #### C BC, BMP #### [facility] [address] Neutrophils/100 WBC (Bld) 55.5 % Normal . [facility] Comment on above: Performed By: #### C BC, BMP #### [facility] [address] [place] [address] [place] Nucleated RBC/100 WBC (Bld) [Ratio] 0.1 % Normal 0-0.5 [facility] Comment on above: Performed By: #### C BC, BMP #### [facility] [address] [place] [address] [place] Platelet mean volume (Bld) [Entitic vol] 7.6 fL Normal 6.3-10.7 [facility] Comment on above: Performed By: #### C BC, BMP #### [facility] [address] [place] [id number] [place] Platelets (Bld) [#/Vol] 417 10*3/uL Normal 150-450 [facility] Comment on above: Performed By: #### C BC, BMP #### [facility] [address] [place] [id number] [place] RBC (Bld) [#/Vol] 4.82 10*6/uL Normal 3.60-5.00 [facility] Comment on above: Performed By: #### C BC, BMP #### [facility] [address] [place] [id number] [place] WBC (Bld) [#/Vol] 5.6 10*3/uL Normal 4.5-11.0 [facility] Comment on above: Performed By: #### C BC, BMP #### [facility] [address] Creatinine and Glomerular fi ltration rate.predicted panel (S/P/Bld)on 02-16-2021 Creatinine [Mass/Vol] 1.00 mg/dL 0.44-1.03 [facility] Eosinophils Auto (Bld) [#/Vo l]on 02-16-2021 Eosinophils (Bld) [#/Vol] 0.1 10*3/uL 0.0-0.45 [facility] Eosinophils/100 WBC Auto (Bl d)on 02-16-2021 Eosinophils/100 WBC (Bld) 1.0 % [facility] Erythrocyte distribution wid th Auto (RBC) [Ratio]on 02-16-2021 Erythrocyte distribution width (RBC) [Ratio] 14.1 % 11.9-15.3 [facility] Estimated glomerular filtrat ion rate (GFR) non- Americanon 02-16-2021 GFR/1.73 sq M.predicted among non-blacks MDRD (S/P/Bld) [Vol rate/Area] 54 mL/Min [facility] Hematocrit Auto (Bld) [Volum e fraction]on 02-16-2021 Hematocrit (Bld) [Volume fraction] 42.6 % 34.0-46.4 [facility] Laboratory - Hematology and Cell countson 02-16-2021 Nucleated RBC/100 WBC (Bld) [Ratio] 0.1 % 0-0.5 [facility] Lymphocytes Auto (Bld) [#/Vo l]on 02-16-2021 Lymphocytes (Bld) [#/Vol] 1.9 10*3/uL 1.00-4.8 [facility] Lymphocytes/100 WBC Auto (Bl d)on 02-16-2021 Lymphocytes/100 WBC (Bld) 33.3 % [facility] MCH Auto (RBC) [Entitic mass ]on 02-16-2021 MCH (RBC) [Entitic mass] 30.1 pg 24.7-34.3 [facility] MCHC Auto (RBC) [Mass/Vol]on 02-16-2021 MCHC (RBC) [Mass/Vol] 34.0 g/dL 32.0-35.0 [facility] MCV Auto (RBC) [Entitic vol] on 02-16-2021 MCV (RBC) [Entitic vol] 88.4 fL 80-100 [facility] Monocytes Auto (Bld) [#/Vol] on 02-16-2021 Monocytes (Bld) [#/Vol] 0.5 10*3/uL 0.0-0.8 [facility] Monocytes/100 WBC Auto (Bld) on 02-16-2021 Monocytes/100 WBC (Bld) 9.3 % [facility] Neutrophils Auto (Bld) [#/Vo l]on 02-16-2021 Neutrophils (Bld) [#/Vol] 3.1 10*3/uL 1.8-7.7 [facility] Neutrophils/100 WBC Auto (Bl d)on 02-16-2021 Neutrophils/100 WBC (Bld) 55.5 % [facility] No Panel Informationon 02-16 Estimated GFR () > 60 mL/Min [facility] Comment on above: GFR estimated refere nce range: According to KDOQI guidelines, <60 ml/min/1.73m2 is sufficient to diagnose a patient with chronic kidney disease. Pharmacy Creatinine Clearance (Chem N/A [facility] PST Type and Screenon 2020 ABO and Rh group Nom (Bld) Blood group O Rh(D) positive Normal [facility] Comment on above: Order Comment: Date of Surgery: [id number] Result Comment: PERF ORMED BY: [facility] [address] [place] [address] PATHOLOGIST DOOR REPAIRER [employer] JU MCPHERSON M.D. Platelet mean volume Auto (B ld) [Entitic vol]on 02-16-2021 Platelet mean volume (Bld) [Entitic vol] 7.6 fL 6.3-10.7 [facility] Platelets Auto (Bld) [#/Vol] on 02-16-2021 Platelets (Bld) [#/Vol] 417 10*3/uL 150-450 [facility] RBC Auto (Bld) [#/Vol]on RBC (Bld) [#/Vol] 4.82 10*6/uL 3.60-5.00 [facility] Serum or plasma calcium samir urement (mass/volume)on 02-16-2021 Calcium [Mass/Vol] 10.1 mg/dL 8.2-10.2 [facility] Serum or plasma chloride valeria surement (moles/volume)on 02-16-2021 Chloride [Moles/Vol] 100 mmol/L 95-114 [facility] Serum or plasma glucose samir urement (mass/volume)on 02-16-2021 Glucose [Mass/Vol] 101 mg/dL 70-100 [facility] Comment on above: ADA recommended refe rence rangeRandom Glucose Reference Range is dependent on time and content of last meal. Glucose of more than 200 mg/dL in a nonstressed, ambulatory subject supports the diagnosis of Diabetes Mellitus. Serum or plasma potassium me asurement (moles/volume)on 02-16-2021 Potassium [Moles/Vol] 4.6 mmol/L 3.5-5.1 [facility] Serum or plasma sodium measu rement (moles/volume)on 02-16-2021 Sodium [Moles/Vol] 135 mmol/L 136-146 [facility] Serum or plasma total carbon dioxide measurement (moles/volume)on 02-16-2021 CO2 [Moles/Vol] 25.9 mmol/L 22.0-30.0 [facility] Serum or plasma urea nitroge n measurement (mass/volume)on 02-16-2021 Urea nitrogen [Mass/Vol] 13 mg/dL 9- [facility] STR cardiac stress/lexiscano n 02-09-2021 STR cardiac stress/lexiscan [facility] [place] [address] Cardiac Stress Test Signed Patient: Anabela Helm MR#: [id number] 5 : 1945 Acct:[id number] Age/Sex: 75 / F ADM Date: 02/07/21 Loc: PA Room: Type: [facility] Attending Dr: Mikie Daugherty MD Ordering Provider: [...] 02/09/21 1831 Signed By: 02/10/21 1408 Normal [facility] NM karl perf SPECT rest stron 02-07-2021 NM karl perf SPECT rest str [facility] [place] [address] Nuclear Medicine Report Signed Patient: Anabela Helm MR#: [id number] 5 : 1945 Acct:[id number] Age/Sex: 75 / F ADM Date: 02/07/21 Loc: PA Room: Type: [facility] Attending Dr: Mikie Daugherty MD Ordering Provider: [...] available for comparison. Transcribed By: ISSAC 02/07/21 2720 Dictated By: Bjorn Simon MD 02/07/21 1654 Signed By: 02/08/21 0943 Normal [facility] XR lumbar spine 6V w bending on 01-05-2021 XR lumbar spine 6V w bending [facility] [place] [address] [place] [address] XRay Report Signed Patient: Anabela Helm MR#: [id number] 5 : 1945 Acct:[id number] Age/Sex: 75 / F ADM Date: 01/05/21 Loc: XD Room: Type: [facility] Attending Dr: Brian Gonzales MD Ordering Provider: Brian Gonzales MD Date of Service: 01/05/21 XR/XR lumbar spine 6V w bending: m54.16 ([id number]) XR/XR scoliosis survey: M54.16 Copies to: Brian [...] Wang Jr., M.D.01/05/2021 3:44 PM Dictation Location: [place] [address] Transcribed By: [facility] 01/05/21 1548 Dictated By: Camryn Wang Jr, MD 01/05/21 1535 Signed By: 01/05/21 154 [facility] Vital Signs Date Time Vital Sign Value Performing Clinician Meño zabala 07-19-2025 14:24-0400 Body height 157.5 cm Camryn Visci DO Work Phone: [facility] 07-19-2025 14:24-0400 Body mass index (BMI) [Ratio] 30.36 kg/m2 Camryn Visci DO Work Phone: [facility] 07-19-2025 14:24-0400 Body weight 75.3 kg Camryn Visci DO Work Phone: [facility] 07-19-2025 14:24-0400 Diastolic blood pressure 80 mm[Hg] Camryn Visci DO Work Phone: [facility] 07-19-2025 14:24-0400 Systolic blood pressure 128 mm[Hg] Camryn Visci DO Work Phone: [facility] 12-23-2024 15:27-0500 Body mass index (BMI) [Ratio] 29.19 kg/m2 Danielkelle Avalos DO Work Phone: [facility] 12-23-2024 15:27-0500 Body weight 72.39 kg Danielkelle Frederickett DO Work Phone: [facility] 12-23-2024 15:27-0500 Diastolic blood pressure 92 mm[Hg] Jorge A Frederickett DO Work Phone: [facility] 12-23-2024 15:27-0500 Heart rate 67 /min Jorge A Avalos DO Work Phone: [facility] 12-23-2024 15:27-0500 SaO2% (BldA) [Mass fraction] 98 % Jorge A Avalos DO Work Phone: [facility] 12-23-2024 15:27-0500 Systolic blood pressure 148 mm[Hg] Jorge A Avalos DO Work Phone: [facility] 12-19-2024 10:16-0500 Body height 160.02 cm [facility] 12-19-2024 10:16-0500 Body mass index (BMI) [Ratio] 28.3 kg/m2 [facility] 12-19-2024 10:16-0500 Body temperature 99.1 [degF] [facility] 12-19-2024 10:16-0500 Body weight 72.57 kg [facility] 12-19-2024 10:16-0500 Diastolic blood pressure 80 mm[Hg] [facility] 12-19-2024 10:16-0500 Heart rate 56 /min [facility] 12-19-2024 10:16-0500 Respiratory rate 18 /min [facility] 12-19-2024 10:16-0500 SaO2% (BldA) [Mass fraction] 97 % [facility] 12-19-2024 10:16-0500 Systolic blood pressure 137 mm[Hg] [facility] 10-11-2021 14:00-0500 Body height 160.02 cm Brian Gonzales Other [employer] [facility] Other 10-11-2021 14:00-0500 Body mass index (BMI) [Ratio] 27.63 kg/m2 Brian Gonzales Other [employer] Other 10-11-2021 14:00-0500 Body weight 70.76 kg Brian Gonzales Other [employer] Other 10-11-2021 14:00-0500 Diastolic blood pressure 86 mm[Hg] Brian Gonzales Other [employer] Other 10-11-2021 14:00-0500 Systolic blood pressure 132 mm[Hg] Brian Gonzales Other [employer] Other 02-07-2021 14:28-0400 Body height 160.02 cm M [employer] Work Phone: [facility] 02-07-2021 14:28-0400 Body weight 72.12 kg M [employer] Work Phone: [facility] 02-07-2021 14:20-0400 Diastolic blood pressure 82 mm[Hg] M [employer] Work Phone: [facility] 02-07-2021 14:20-0400 Heart rate 64 /min [employer] Work Phone: [facility] 02-07-2021 14:20-0400 Systolic blood pressure 145 mm[Hg] M [employer] Work Phone: [facility] Encounters Encounter Date Encounter Type Care Provider Facility Start: 07-19-2025 End: 07-19-2025 Office outpatient visit 25 minutes Camryn A [facility]isc[facility] DO [facility] Comment on above: Encounter for gyneco logical examination with abnormal finding; Encounter for screening mammogram for malignant neoplasm of breast; Osteoporosis, post-menopausal ; Vaginal atrophy; Osteoporosis screening; Asymptomatic menopause Start: 07-19-2025 End: 07-19-2025 Patient encounter status Camryn A Visci DO Work Phone: [facility] Start: 07-19-2025 End: 07-19-2025 ambulatory CAMRYN A VISCI Not Available Start: 07-19-2025 End: 07-19-2025 Bamboo flowsheet Camryn A Visci DO Work Phone: [facility] Start: 07-19-2025 End: 07-19-2025 Bamboo flowsheet Camryn A Visci DO Work Phone: [facility] Start: 06-14-2025 End: 06-14-2025 ambulatory CAMRYN A VISCI Not Available Start: 12-23-2024 End: 12-23-2024 Office outpatient new 45 minutes Christopher Bailey DO Work Phone: [facility] Comment on above: Dizziness (Primary D x) Start: 12-23-2024 End: 12-23-2024 ambulatory CHRISTOPHER BAILEY Not Available Start: 12-23-2024 End: 12-23-2024 Bamboo flowsheet Christopher Bailey DO Work Phone: [facility] Start: 12-23-2024 End: 12-23-2024 Bamboo flowsheet Christopher Bailey DO Work Phone: [facility] Start: 12-19-2024 End: 12-19-[address] [facility] Work Phone: Start: 12-19-2024 End: 12-19-2024 Patient encounter procedure [facility] Work Phone: Start: 10-14-2024 End: 10-14-2024 [facility] Start: 12-18-2022 End: 12-18-2022 ambulatory ASHOK BRYANT [facility] Start: 11-06-2022 End: 11-06-2022 ambulatory ASHOK BRYANT [facility] Start: 09-25-2022 End: 10-01-2022 Evaluation and management of inpatient KEYONNA SUMMERS [facility] Start: 09-25-2022 End: 09-25-[address] RAQUEL KING Facility:[facility] Start: 09-14-2022 End: 09-15-[address] SHADE ROJO Facility:[facility] Start: 04-20-2022 End: 04-20-[address] ASHOK BRYANT . Facility: Start: 04-04-2022 End: 04-05-2022 ambulatory KATLYN PRASDA Facility:[facility] Start: 10-11-2021 End: 10-11-2021 ambulatory Brian Gonzales Other [facility] Other Start: 10-11-2021 Office outpatient vi sit 15 minutes Brian Gonzales [facility] Start: 02-16-2021 End: 02-16-2021 Patient encounter procedure Tim AvalosAshok Mohsenyovani Work Phone: -Pre-Surgical Testing Start: 02-07-2021 End: 02-07-2021 Patient encounter procedure Tim Connollyyovani Work Phone: -Nuc Med [facility] Start: 01-05-2021 End: 01-05-2021 Patient encounter procedure Tim Bryant Work Phone: -XRay [facility] Procedures Date Procedure Procedure Detail Performing Clinician Start: 02-16-2021 Antibody screen Comment on above: Order Comment: Date of Surgery: [id number] Result Comment: PERF ORMED BY: [facility] [address] [place] [address] PATHOLOGIST DOOR REPAIRER [employer] JU MCPHERSON M.D. Start: 02-07-2021 Single photon emissi on computerized tomography Tim Bryant Work Phone: Start: 01-05-2021 Scoliosis survey X-ray Tim Bryant Work Phone: Start: 01-05-2021 X-ray of lumbar spin e, six views including bending views Tim Bryant Work Phone: Plan of Treatment Date Care Activity Detail Author Start: 08-08-2026 End: 08-08-2026 Patient encounter procedure 08/08/2026 10:00 AM EDT Office Visit [facility] [address] [place] [phone] Camryn Amador DO [address] [place] [address] [facility] Start: 07-19-2026 End: 09-18-2026 DBT Breast - bilateral screening Bilateral screening mammogram with tomosynthesis Imaging Routine Encounter for screening mammogram for malignant neoplasm of breast Expected: 07/19/2026, Expires: 09/18/2026 [facility] Work Phone: Comment on above: Expected: 07/19/2026 , Expires: 09/18/2026 Start: 07-19-2026 End: 07-19-2026 DXA Skeletal system Views for bone density DEXA bone density Imaging Routine Osteoporosis, post-menopausal Osteoporosis screening Asymptomatic menopause Expected: 07/19/2026, Expires: 07/19/2026 [facility] Comment on above: Expected: 07/19/2026 , Expires: 07/19/2026 Start: 06-17-2026 End: 06-17-2026 Professional / ancillary services management [facility] Start: 07-19-2025 End: 07-19-2025 Patient encounter procedure 07/19/2025 2:15 PM EDT Office Visit [facility] [address] [place] [phone] Camryn Amador DO [address] [place] [address] Encounter for gynecological examination with abnormal finding; Encounter for screening mammogram for malignant neoplasm of breast; Osteoporosis, post-menopausal ; Vaginal atrophy [facility] Comment on above: Encounter for gyneco logical examination with abnormal finding; Encounter for screening mammogram for malignant neoplasm of breast; Osteoporosis, post-menopausal ; Vaginal atrophy Start: 06-28-2025 Influenza vaccination Influenza Vacc ine (#1) [facility] Start: 06-14-2025 End: 06-14-2025 Professional / ancillary services management 06/14/2025 11:00 AM EDT Ancillary Procedure [facility] [place] [address] [place] [address] [facility] [place] Start: 06-14-2025 End: 06-14-2025 Patient encounter procedure 06/14/2025 10:00 AM EDT Office Visit [facility] [address] [place] [phone] Camryn Amador, DO [address] [place] [address] [facility] Start: 12-23-2024 End: 12-23-2024 Patient encounter procedure 12/23/2024 3:30 PM EST Office Visit [facility] [address] [place] [phone] Jorge A Avalos DO [address] [place] [address] Arrived [facility] Comment on above: Arrived Start: 06-28-2024 Influenza vaccination Influenza Vacc ine (#1) [facility] Immunizations Immunization Date Immunization Notes Care Provider Fa cili 08-10-2024 influenza virus vaccine, unspecified formulation Camryn Amador DO Work Phone: [facility] 07-28-2021 influenza virus vaccine, unspecified formulation Jorge A Avalos DO Work Phone: [facility] 01-12-2021 COVID-19 mRNA,RGI201 b2 (Pfizer) Tim AvalosAshok Manny Work Phone: [facility] 12-22-2020 COVID-19 mRNA,FYK811 b2 (Pfizer) Tim AvalosAshok Manny Work Phone: [facility] Payers Date Payer Category Payer Private Health Insurance VIOLET Dumont embalex LACHELLE LYNCH [id number] 2022 Unknown [id number] 2022 Unknown [id number] 2011 Medicare MEDICARE [id number] 1959 Medicare [id number] 1959 Private Health Insurance [id number] 1945 Unknown [id number] .175 1945 Unknown [id number] .175 1945 Unknown [id number] .175 1945 Unknown [id number] .593 1945 Unknown [id number] [id number] .593 1945 Unknown [id number] .593 1945 Unknown [id number] [id number] .593 1945 Unknown [id number] [id number] .1259 1945 Unknown [id number] [id number] .1259 1945 Unknown [id number] .1259 Self-pay Self Pay [id number] Social History Date Type Detail Facility Start: 02-16-2021 End: 06-03-2024 Tobacco smoking status NHIS Never smoked tobacco (finding) [facility] Start: 1945 Sex Assigned At Female F [facility] Start: 06-03-2024 End: 07-13-2025 Sex Assigned At [facility] Other Start: 12-19-2024 Sex Female (finding) [facility] Start: 06-03-2024 Tobacco use and exposure Smokeless tobacco non-user [facility] Start: 06-03-2024 End: 07-19-2025 Alcoholic beverage intake Current drinker of alcohol (finding) [facility] Start: 06-03-2024 End: 07-13-2025 History of Social function [facility] How often to you hav e a drink containing alcohol? Monthly or less [facility] How many standard drinks containing alcohol do you have on a typical day? 1 or 2 [facility] How often do you hav e 6 or more drinks on 1 occasion? Never [facility] Start: 1945 Sex assigned at Not on file [facility] Medical Equipment Procedure Code Equipment Code Equipment Origin al Text Equipment Identifier Dates Fusion, spine, lumbar, XLIF CANCELLOUS 15CC CRUSHED FDA Start: 02-28-2021 Fusion, spine, lumbar, XLIF Bone-screw internal spinal fixation system, non-sterile ()[id number] FDA Start: 02-28-2021 Fusion, spine, lumbar, XLIF Bone-screw internal spinal fixation system, non-sterile ()[id number] FDA Start: 02-28-2021 Fusion, spine, lumbar, XLIF Bone-screw internal spinal fixation system, non-sterile ()[id number] FDA Start: 02-28-2021 Fusion, spine, lumbar, XLIF MAS REDUCTION FIXATION ADD LEV FDA Start: 02-28-2021 Fusion, spine, lumbar, XLIF Bone-screw internal spinal fixation system, non-sterile ()[id number] FDA Start: 02-28-2021 Fusion, spine, lumbar, XLIF Bone-screw internal spinal fixation system, non-sterile ()[id number] FDA Start: 02-28-2021 Fusion, spine, lumbar, XLIF Polymeric spinal fusion cage, non-sterile ()[id number] FDA Start: 02-28-2021 Fusion, spine, lumbar, XLIF MAS REDUCTION FIXATION ADD LEV FDA Start: 02-28-2021 Fusion, spine, lumbar, XLIF XLIF 1 LEVEL MAS REDUCTION FDA Start: 02-28-2021 Fusion, spine, lumbar, XLIF Spinal fusion graft kit ()[id number] FDA Start: 02-28-2021 Fusion, spine, lumbar, XLIF Spinal fusion graft kit ()[id number] FDA Start: 02-28-2021 Fusion, spine, lumbar, XLIF Bone matrix implant, human-derived ()[id number] FDA Start: 02-28-2021 Fusion, spine, lumbar, XLIF Metallic spinal fusion cage, non-sterile ()[id number] FDA Start: 02-28-2021 Fusion, spine, lumbar, XLIF Bone-screw internal spinal fixation system, non-sterile [id number] FDA Start: 02-28-2021 Goals Date Patient Goal Desired Activity /State Clinical Notes 10-11-2021 to 07-19-2025 Ruthy Monreal LPN - 07/19/2025 2:15 PM Anjelica Avalos DO - 12/23/2024 3:30 PM EST Note Date & Type Note Facility 07-19-2025 History of Present illness Narrative Images from the original note were not included. Camryn Amador, Obstetrics and Gynecology [place] Nika Alicja 1945 07/19/25 [id number] Yearly Wellness Exam Chief Complaint Patient presents with Gynecologic Exam Pt presents for yearly. Denies breast,bowel,bladder,pastry cook helper problems. Visit Vitals BP 128/80 Ht 5' 2 Wt 166 lb LMP (LMP Unknown) BMI 30.36 kg/m OB Status Postmenopausal Smoking Status Never BSA 1.82 m History of Present Illness Current Outpatient Medications Medication Sig Dispense Refill diclofenac (Voltaren) 75 MG EC tablet Take 75 mg by mouth 2 (two) times a day as needed ibuprofen 600 MG tablet Take 1 tablet by mouth every 6 (six) hours meclizine (Antivert) 25 MG tablet Take 25 mg by mouth every 6 (six) hours if needed metoprolol succinate XL (Toprol-XL) 100 MG 24 hr tablet Take 100 mg by mouth Daily tiZANidine (Zanaflex) 4 MG tablet Take 4 mg by mouth if needed for muscle spasms alendronate (Fosamax) 70 MG tablet Take 1 tablet (70 mg) by mouth every 7 (seven) days for 28 days Take in the morning with a full glass of water, on an empty stomach, and do not take anything else by mouth or lie down for the next 30 min. 4 tablet 0 aspirin 81 MG EC tablet Take 1 tablet by mouth Daily B Complex Vitamins (VITAMIN B COMPLEX PO) Vitamin B Complex CALCIUM PO Take 500 mg by mouth Daily cholecalciferol (Vitamin D-3) 25 MCG (1000 UT) capsule Take 1,000 Units by mouth Daily ezetimibe (Zetia) 10 MG tablet Take 10 mg by mouth in the morning. lisinopril 30 MG tablet Take 30 mg by mouth in the morning. magnesium citrate oral solution Take 296 mL by mouth pantoprazole (ProtoNix) 40 MG EC tablet Take 40 mg by mouth Daily rosuvastatin (Crestor) 40 MG tablet Take 40 mg by mouth at bedtime therapeutic multivitamin-minerals (Theragran-M) tablet Take 1 tablet by mouth Daily No current facility-administered medications for this visit. Allergies Allergen Reactions Hylan G-F 20 Other Reaction(s): swelling in legs Sulfamethoxazole-Trimethoprim Nausea Only Past Medical History: Diagnosis Date CAD (coronary artery disease) Heart disease Hyperlipidemia IBS (irritable bowel syndrome) Osteopenia Past Surgical History: Procedure Laterality Date ANGIOPLASTY BACK SURGERY 2020 COLONOSCOPY 2018 CYST REMOVAL L breast x3 TONSILLECTOMY TOTAL KNEE ARTHROPLASTY Left TUBAL LIGATION OB History Para Term AB Living 1 1 SAB IAB Ectopic Multiple Live Births 1 # Outcome Date GA Lbr Sergey/2nd Weight Sex Type Anes PTL Lv 1 Vag-Spont ROSANA Obstetric Comments Pap 12/23/15- Neg; Neg HPV DEXA 06/12/24 -osteoporosis of spine and L forearm (fosamax) Mammogram 06/14/25- Neg ([facility]) Colonoscopy 2018 ROS General: Denies fevers/chills Eyes: Denies vision changes ENT: Denies neck stiffness, neck mass Endocrine: Denies polydipsia and polyuria Respiratory: Denies shortness of breath Cardiovascular: Denies chest pain and palpitations Gastrointestinal: Denies changes in bowel habits, blood in stool, constipation and diarrhea. Hematology: Denies easy bruising. Women Only: Denies breast masses, skin changes, nipple discharge, abnormal bleeding, pelvic pain and dyspareunia Genitourinary: Denies dysuria, pelvic pain and nocturia Skin: Denies rashes/lesions Neurologic: Denies headaches, dizziness, syncope Psychiatric: Denies hallucinations, suicidal ideas EXAM GENERAL EXAMINATION: Alert, oriented, well developed, well nourished. HEAD: Normocephalic, atraumatic. EYES: EDGARDO, sclera anicteric. EARS: No obvious hearing deficit. NECK/THYROID: Neck supple no cervical lymphadenopathy no thyromegaly. LYMPH NODES: No axillary, supraclavicular or inguinal adenopathy. SKIN: Warm and dry. No rashes HEART: Regular rate and rhythm. No murmur LUNGS: Clear to auscultation bilaterally. CHEST: Axillary nodes grossly normal. BREASTS: No dominant masses palpable bilaterally, no skin changes, nipple discharge, supra-clavicular or axillary adenopathy ABDOMEN: Soft, nontender, nondistended, no hernia or masses palpable. BACK: No obvious scoliosis/kyphosis. 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 EXTREMITIES No edema. NEUROLOGIC: Alert and oriented. PSYCH: Cooperative with exam. ICD-10-CM 1. Encounter for gynecological examination with abnormal finding Z01.411 2. Encounter for screening mammogram for malignant neoplasm of breast Z12.31 3. Osteoporosis, post-menopausal M81.0 4. Vaginal atrophy N95.2 Advised pt to perform monthly self breast exams. Encouraged calcium and Vitamin D intake. Mammogram up to date, future order sent. Reviewed Dexa from 2023- osteoporosis, currently on Fosamax and doing well so will refill for 1 year. Plan to repeat Dexa next year with mammogram. Plan to return in 1 year for annual exam. Entered by Ruthy Monreal LPN acting as scribe for Dr. Camryn Amador. Signature: Ruthy Monreal LPN The documentation recorded by the scribe accurately reflects the service(s) I personally performed and the decisions I made. Signature: Camryn Amador, DO Assessment & Plan documented in this encounter [facility] 12-23-2024 History of Present illness Narrative Images from the original note were not included. Chief Complaint: dizziness Subjective Anabela Helm, 79 y.o., female Patient presents today for a neurologic consult at the request of Dr. Bryant for dizziness. Patient states she's has been having dizziness for about 6 months. She states this has gotten better. This is happening 2-3 times a week. This will last a few minutes. She describes this as a really weird feeling in her head. She notices this a lot when she is bowling. She admits some imbalance. She is in vestibular therapy. She currently has a sinus infection which is making things a bit worse. Review of Systems Constitutional: Negative for appetite change, fatigue and fever. Respiratory: Negative for cough, shortness of breath and wheezing. Cardiovascular: Negative for chest pain, palpitations and leg swelling. Gastrointestinal: Negative for abdominal pain, constipation, diarrhea and nausea. Musculoskeletal: Negative for arthralgias, gait problem and myalgias. Neurological: Positive for dizziness. Negative for tremors, numbness and headaches. Past Medical History: Diagnosis Date CAD (coronary artery disease) ([facility]) Heart disease Hyperlipidemia ([facility]) IBS (irritable bowel syndrome) Osteopenia Past Surgical History: Procedure Laterality Date ANGIOPLASTY BACK SURGERY 2020 COLONOSCOPY 2018 CYST REMOVAL L breast x3 TONSILLECTOMY TOTAL KNEE ARTHROPLASTY Left TUBAL LIGATION No family history on file. Social History Tobacco Use Smoking status: Never Smokeless tobacco: Never Substance Use Topics Alcohol use: Yes Allergies: Tricia g-f 20 Vitals: 12/23/24 1527 BP: (!) 148/92 Pulse: 67 SpO2: 98% Body mass index is 29.19 kg/m . weight: 159 lb 9.6 oz Neurologic exam: Mental status: Awake, alert to person, place and time. Recent and remote memory are intact. Language is fluent without aphasia. Attention and concentration are normal. Fund of knowledge is appropriate for level of education. Cranial nerves: CN II: Visual acuity is normal. Visual ruelas full to confrontation. CN III, IV, : pupils equal round and reactive to light. Extraocular movements intact. No ptosis present. CN V: Facial sensation is normal. CN VII: Full and symmetric facial movement. CN VIII: Hearing is normal to finger rub bilaterally: CN IX and X: Palate elevates symmetrically. CN XI: Shoulder shrug is normal bilaterally. CN XII: Tongue is midline without atrophy or fasciculation. Motor: RUE Strength deltoid, , biceps , triceps , wrist extensors , wrist flexor , nicker and breaker strength 5/5. LUE Strength deltoid , biceps , triceps , wrist extensors , wrist flexor , nicker and breaker strength 5/5. RLE Strength illopsoas, quadriceps, tibialis anterior, and gastrocnemius strength 5/5. LLE Strength illopsoas, quadriceps, tibialis anterior, and gastrocnemius strength 5/5. Normal tone x4 extremities. Bulk is normal. Sensory: Sensation is intact to light touch throughout Four extremities. Reflexes: RUE biceps reflex 2+ brachioradialis reflex 2+ . LUE biceps reflex 2+ brachioradialis reflex 2+ . RLE knee reflex 2+ . LLE knee reflex 2+ . Cummings's sign negative. Coordination: [id number] testing and rapid alternating movements are normal Gait: Normal Review and summary of old records: MRI of the brain without contrast on 07/21/2024: Negative for acute infarct or acute intracranial process. Minimal age-appropriate chronic microvascular changes. No evidence of hydrocephalus. Assessment/Plan Diagnoses and all orders for this visit: Dizziness It is my impression that the patient has intermittent feelings of dizziness. MRI of the brain does not identify any acute process that would be responsible for the patient's symptoms. The patient is undergoing vestibular therapy currently. I do note that the patient does have an elevated blood pressure today and certainly fluctuations thereof could contribute to the patient's symptoms. I did suggest that the patient continue to have close monitoring of blood pressure and monitoring of fluctuations thereof. She states since a long-acting change to her blood pressure medication by primary care her symptoms have improved somewhat. She also notes that certain movements and positions could have provoked this suggesting that this may have been BPPV in nature. Symptoms are certainly much improved since the onset in June. Plan: Continue vestibular therapy Pt has been fully educated on their diagnosis, lab results, treatment options, follow up plan, and return instructions documented in this encounter [facility] 10-14-2024 Note Cardiovascular Medic [facility] SUBJECTIVE Anabela Helm is a 78 y.o. female here for 1 year follow-up CAD, hypertension, and hyperlipidemia. She had liver/lipid panel in January 2024, and again last month. Says her BP has been elevated lately, so Dr. Bryant switched her Lopressor to Toprol. She's been having a lot of issues with dizziness. Said Dr. Bryant is referring her to neurology. Denies chest pain, SOB, palpitations, and syncope. HPI PMHx: CAD s/p LAD stent 03/12/2011 [...] orthopnea, PND, LE edema, dizziness/LH, palpitations, syncope. UPDATE 10/14/2024 Doing well from a cardiac standpoint; denies [...] see a neurologist in the near future Patient Active Problem List Diagnosis Coronary arteriosclerosis Dyslipidemia Essential hypertension Past Medical History: Diagnosis Date Coronary artery disease Hyperlipidemia Hypertension No family history on file. Social History Tobacco Use Smoking status: Never Smokeless tobacco: Never Substance Use Topics Alcohol use: Not Currently Drug use: Never No Known Allergies Review of Systems Neurological: Positive for dizziness, light-headedness and vertigo. All other systems reviewed and are negative. OBJECTIVE Visit Vitals Smoking Status Never Medications: Current Outpatient Medications: aspirin 81 mg [...] mouth in the morning., Disp: , Rfl: rosuvastatin (Crestor) 40 mg tablet, Take 1 tablet (40 mg) by mouth at bedtime., Disp: 90 tablet, Rfl: 3 VS BP 158/74 (BP Location: Left arm, Patient Position: Sitting) Pulse 67 Ht 1.6 m (5' 3 ) Wt 72.1 kg (159 lb) SpO2 97% BMI 28.17 kg/m??? Physical Exam Vitals reviewed. Constitutional: Appearance: Normal [...] wave changes of ischemia 2. No provoked ch (more content not included)... [facility] 09-25-2022 Note PROCEDURE: XR FEMUR LT, XR [...] left knee replacement. Electronically authenticated by: RAQUEL Villalta: 2022-09-25 14:50 [facility] 09-25-2022 Note PROCEDURE: XR FEMUR LT, XR [...] by: RAQUEL KING Date: 2022-09-25 14:50 [facility] 10-11-2021 Evaluation note Encounter Date Diagnosis Assessment Notes Sep, Acquired spondylolisthesis of lumbosacral region (ICD-10 - M43.17) Patient appears to have made a very good outcome from surgical intervention . We will see her back at this point on an as-needed basis. She will continue to wear her spine stimulator for a total of 9 months. Sep, Kyphoscoliosis (ICD-10 - M41.9) [employer] Other evaluation noteNo Assessments Information Available [facility] information available [facility] Work Phone: Evaluation note* Diagnosis Dizziness- Primary Dizziness and giddiness documented in this encounter [facility]* Diagnosis Encounter for gynecological examination with abnormal finding Encounter for screening mammogram for malignant neoplasm of breast Osteoporosis, post-menopausal Senile osteoporosis Vaginal atrophy Postmenopausal atrophic vaginitis Osteoporosis screening Special screening for osteoporosis Asymptomatic menopause documented in this encounter [facility] Narrative - Reported* Type Description Date Medical History high blood pressure Medical History high cholesterol Surgical History heart stent Surgical History knee replacement Surgical History tonsillectomy Surgical History breast cyst Surgical History [facility] History see surgical hx [employer] Other reason for visit Narrative* Consultation (Routine) - Closed Specialty Diagnoses / Procedures Referred By Contac t Referred To Contact Neurology Diagnoses Dizziness and giddiness Procedures NE OFFICE/OUTPATIENT Ashok Dee MD [address] [facility] [place] [address] Phone: tel:[phone] fax: Raquel Lopez MD [address] [place] [address] Phone: tel: fax: Referral ID Status Reason Start Date Expiration Date V isits Requested Visits Authorized [id number] Closed Consult and Treat 10/15/2024 04/13/2025 1 1 [facility] Advance Directives No Advanced Directives Records Found Advance Directive Response Recorded Date/ Time Advance Directives No May 19 9:01am Advance Directive Response Recorded Date/ Time Advance Directives No May 19 8:01am Chief Complaint and Reason for Visit Chief Complaint m43.17 poc Spondylolisthesis Chief Complaint Admit Date sinus congestion December 19, 2024 9:32am Family History No Family History Records Found Relationship Condition Age at Onset Recorded Date/T ramakrishna Not Specified Diabetes mellitus Unknown Arthritis Unknown Heart disease Unknown Hypertension Unknown father Cardiomegaly Unknown sister Malignant neoplasm of breast Unknown sister Malignant neoplasm of lung Unknown brother Malignant neoplasm of throat Unknown brother Cerebrovascular accident (CVA) Unknown Relationship Condition Age at Onset Recorded Date/T ramakrishna mother Diabetes mellitus Unknown Arthritis Unknown Heart disease Unknown Hypertension Unknown father Cardiomegaly Unknown sister Malignant neoplasm of breast Unknown sister Malignant neoplasm of lung Unknown brother Malignant neoplasm of throat Unknown brother Cerebrovascular accident (CVA) Unknown brother Diabetes mellitus Unknown father Unknown mother History of stroke Unknown Unknown Diabetes mellitus Unknown sister Diabetes mellitus Unknown Malignant neoplasm Unknown Summary Purpose Additional Source Comments INFORMATION SOURCE (unrecogn ized section and content) DATE CREATED AUTHOR 03/27/2021 [facility] DATE CREATED AUTHOR AUTHOR'S ORGANIZ ATION 10/16/2021 [facility] DATE CREATED AUTHOR AUTHOR'S ORGANIZ ATION 02/01/2023 [facility] DATE CREATED AUTHOR AUTHOR'S ORGANIZ ATION 02/28/2023 [facility] DATE CREATED AUTHOR AUTHOR'S ORGANIZ ATION 10/17/[address] [facility] DATE CREATED AUTHOR AUTHOR'S ORGANIZ ATION 07/20/2025 [facility] EPIC REASON FOR VISIT (unrecogniz ed section and content) Reason Comments Gynecologic Exam Pt presents for year ly. Denies breast,bowel,bladder,pastry cook helper problems. Care Teams (unrecognized sec tion and content) Team Status: Active Member Role Status Dates Ashok Bryant MD Primary Care Provider Active Team Status: Inactive Member Role Status Dates Ashok Bryant MD Primary Care Provider Active Start: December 19, 2024 End: December 19, 2024 Ana Maria Goodwin APRN Attending Provider Active Start: December 19, 2024 End: December 19, 2024 Pulmonary Disease Specialist Relationship Specialty Start Date End Date Ashok Bryant MD [address] [phone] PCP - General Family Medicine 06/03/24 Pulmonary Disease Specialist Relationship Specialty Start Date End Date Ashok Bryant MD [address] [id number] PCP - General Family Medicine 06/03/24 Pulmonary Disease Specialist Relationship Specialty Start Date End Date Ashok Bryant MD [address] [phone] PCP - General Family Medicine 06/03/24 Pulmonary Disease Specialist Relationship Specialty Start Date End Date Ashok Bryant MD [address] [phone] PCP - General Family Medicine 06/03/24 Goals (unrecognized section and content) Goals may be documented in a n alternate section FOR RECORDS PERTAINING TO PATIENTS WHO ARE [...] BE BASED ON THE PRIMARY CLINICAL RECORDS. [facility] provides no warranty or guarantee of the accuracy or completeness of information in this document.
[2025-08-10 08:43] LABS: Hematocrit 40.9 % (36.0-48.0); Hemoglobin 14.2 g/dL (12.0-16.0); Immature Granulocytes Abs Auto 0.01 10^3/uL (0.00-0.03); Immature Granulocytes Pct Auto 0.2 % (0.0-0.5); Lymphocytes Absolute Auto 2.4 10^3/uL (1.2-3.8); Mean Corpuscular HGB Conc 34.7 g/dL (29.9-35.2); Mean Corpuscular Hemoglobin 29.8 pg (26.7-34.0); Mean Corpuscular Volume 85.7 fL (81.0-99.0); Platelet Count 339 10^3/uL (150-450); Red Blood Count 4.77 10^6/uL (4.20-5.40); White Blood Count 5.3 10^3/uL (4.0-11.0)
[2025-08-10 09:05] LABS: Alanine Aminotransferase 24 U/L (14-59); Albumin Globulin Ratio 0.9; Albumin Level 3.4 g/dL (3.4-5.0); Alkaline Phosphatase 56 U/L (46-116); Anion Gap 12.1; Aspartate Amino Transferase 20 U/L (15-37); Blood Urea Nitrogen 13.0 mg/dL (7.0-18.0); Calcium 9.1 mg/dL (8.5-10.1); Carbon Dioxide 28.3 mmol/L (21.0-32.0); Chloride 104 mmol/L (98-107); Cholesterol 134 mg/dL (<=200); Estimated GFR (African America >60 (>=60 mL/min/1.73m^2); Estimated GFR (Non-African Ame >60 (>=60 mL/min/1.73m^2); Globulin 3.7 g/dL; Glucose 108 mg/dL (74-106); HDL Cholesterol 38 mg/dL (40-60); NT Pro B Type Natriuretic Pept 156.0 pg/mL (<=1800.0); Potassium 4.4 mmol/L (3.5-5.1); Sodium 140 mmol/L (136-145); Total Protein 7.1 g/dL (6.4-8.2); Triglycerides 165 mg/dL (<=150); VLDL CHOLESTEROL 33.0 mg/dL
== END 2025-08-10 08:14 | disposition home or self-care (01) ==
LOC: LAB 08:17
PROVIDERS: PCP Family Medicine
DX: I25.10 Atherosclerotic heart disease of native coronary artery without angina pectoris (principal); R06.02 Shortness of breath
CPT/HCPCS: 36415; 80053; 80061; 83880; 85025

== ENCOUNTER 2025-08-12 06:58 | Outpatient (OUT) | payer MEDICARE, OTHER, SELFPAY ==
--- NOTE | 2025-08-12 07:00 | CA_ITS ---
Patient Name: LORENZO ABBASI MR#: [id number] : 1945 Exam Date: 08/12/2025 Ordering Doctor: HAJA REEVES ECHOCARDIOGRAM REPORT PROCEDURE: CA ECHO DOPPLER COMPLETE INDICATIONS: Shortness of breath COMPARISON: None. DESCRIPTION: COMPLETE ECHOCARDIOGRAM Real-time transthoracic echocardiography with 2D, M-mode, spectral and color flow Doppler performed. QUALITY: Technical quality was good. LEFT VENTRICLE: Normal chamber size. Mild concentric left ventricular hypertrophy. LV EF: Global left ventricular systolic function is hyperdynamic; visually estimated ejection fraction is 65 to 70%. No significant wall motion abnormalities. DIASTOLIC: Normal diastolic function. ATRIAL SEPTUM: Inadequately seen. LEFT ATRIUM: Normal chamber size. RIGHT ATRIUM: Normal chamber size. RIGHT VENTRICLE: Normal chamber size. Normal right ventricular systolic function. TRICUSPID VALVE: Normal mobility and thickness. No stenosis with trivial regurgitation. No evidence of pulmonary hypertension. RVSP 33mmHg MITRAL VALVE: Normal mobility and thickness. No evidence of mitral valve stenosis. There is no mitral annular calcification. No mitral regurgitation. AORTIC VALVE: Normal trileaflet appearance. Thickened aortic valve. Normal leaflet mobility. No evidence of aortic valve stenosis. Trivial aortic regurgitation. AORTIC ROOT: Normal diameter and appearance. PULMONIC VALVE: Normal thickness and mobility. No stenosis. Trivial regurgitation. PERICARDIUM: Anterior free space; trivial effusion versus fat pad. IVC: Collapses with inspiration. Normal size CONCLUSION: 1. Global left ventricular systolic function is hyperdynamic; visually estimated ejection fraction 65 to 70% 2. Mild left ventricular hypertrophy 3. The right ventricle is normal in size and systolic function 4. Normal diastolic function 5. No significant valvular abnormalities 6. Anterior free space; trivial effusion versus fat pad Adult Echocardiography Procedure Report Left Ventricle LVEDD (3.7 - 5.6 cm): 3.99 cm LVESD (2.2 - 4.0 cm): 2.50 cm LVIVS thickness (0.6 - 1.2 cm): 1.29 cm LVPW thickness (0.5 - 1.0 cm): 1.24 cm e': 0.09 m/s E - e': 6.08 LVOT Max Gradient: 4.25 mm[Hg] LVOT Area (cm2): 1.03 m/s Peak Velocity (LVOT): 1.03 m/s Mean Velocity (LVOT): 0.69 m/s LVOT Diameter 1.87 cm Left Ventricular Ejection Fraction: 66.93 % Left Atrium LA Volume Index (2D A2C): 21.29 ml/m2 Left Atrium Systolic Dimension: 3.41 cm Mitral Valve MV E to A Ratio: 0.72 Mitral Valve A-Wave Peak Velocity: 0.78 m/s Mitral Valve E-Wave Peak Velocity: 0.56 m/s Right Ventricle RV Internal Diastolic Dimension: 3.67 cm Aorta AO Root Diam: 3.14 cm Ascending Ao Diam: 2.89 cm Aortic Valve AoV Area (Peak Emanuel): 2.65 cm2, 2.60 cm2 AoV Area (VTI): 2.75 cm2, 2.75 cm2 Peak Velocity(Antegrade Flow): 1.09 m/s, 1.05 m/s Peak Gradient(Antegrade Flow): 4.76 mm[Hg], 4.38 mm[Hg] Mean Velocity(Antegrade Flow): 0.75 m/s, 0.74 m/s Mean Gradient(Antegrade Flow): 2.56 mm[Hg], 2.49 mm[Hg] Velocity Time Integral: 22.49 cm, 22.46 cm Tricuspid Valve Peak Velocity (Regurgitant Flow): 2.66 m/s, 2.73 m/s Pulmonic Valve Mean Gradient: 2.52 mm[Hg], 3.10 mm[Hg] Mean Velocity: 0.74 m/s, 0.82 m/s Peak Velocity: 1.13 m/s Peak Gradient: 4.53 mm[Hg], 5.79 mm[Hg] Right Atrium Right Atrium Systolic Pressure: 37.98 ml, 37.98 ml Dictated by: Estelita Gallardo M.D. on 08/12/2025 at 15:54 Approved by: Estelita Gallardo M.D. on 08/12/2025 at 15:58
--- OUTSIDE RECORDS SUMMARY | 2025-08-12 07:00 | XMS_ITS | CCD ---
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 [place] [address] Banking Supervisor: Shamir Milton MD Troponinon 09-26-2022 Troponin, High Sens 9 ng/L Normal 0-14 [facility] Comment on above: Result Comment: High Sensitivity Troponin values cannot be compared with other Troponin methodologies. Patients with high levels of Biotin oral intake (i.e >5mg/day) may have falsely decreased Troponin levels. Samples collected within 8 hours of biotin intake may require additional information for diagnosis. Performed By: #### B MP, MATIAS, MG, CDP #### [facility] [address] [place] [address] Banking Supervisor: Shamir Milton MD Vitamin D 25 OHon 09-26-2022 Vitamin D 25 [place] 47.8 ng/mL Normal >29.9 [facility] Comment on above: Result Comment: Reference Range: Vitamin D status Range Deficiency <20 ng/mL Mild Deficiency 20-30 ng/mL Sufficiency 30-100 ng/mL Toxicity >100 ng/mL Performed By: #### C DP, BMP, MATIAS #### [employer] [address] [place], [place] [address] Banking Supervisor: Shamir Milton MD Vitamin D 25 [place] 49.4 ng/mL Normal >29.9 [facility] Comment on above: Result Comment: Reference Range: Vitamin D status Range Deficiency <20 ng/mL Mild Deficiency 20-30 ng/mL Sufficiency 30-100 ng/mL Toxicity >100 ng/mL Performed By: #### B MP, MATIAS, MG, CDP #### [facility] [address] [place] [address] Banking Supervisor: Shamir Milton MD XR FEMUR LEFT (MIN [...] C Connors MD 09/26/22 Final result Normal [facility] XR KNEE LEFT (3 VIEWS)on XR KNEE [...] C Connors MD 09/26/22 Final result Normal [facility] XR PELVIS (MIN 3 VIEWS)on XR PELVIS [...] Sanjuana Desouza MD 09/26/22 Final result Normal [facility] CARDIAC RADHA ADMITon 09-25- 022 CK [Catalytic activity/Vol] 450 U/L Critically high 26-192 [facility] Comment on above: Performed By: #### C JUAN CARLOS MORGAN CMADM ####[facility] [address] [place] [address]DrAshley Espinoza CK.MB [Mass/Vol] 10.56 ng/mL Critically high <=3.60 [facility] Comment on above: Performed By: #### C JUAN CARLOS MORGAN CMADM ####[facility] [address] [place] [address]DrAshley Espinoza HSTROP 7.0 pg/mL Normal 4.0-51.3 [facility] Comment on above: Result Comment: CUT- OFF POINTS HAVE BEEN ESTABLISHED BASED ON THE FOURTH UNIVERSAL DEFINITIONS OF MYOCARDIAL INFARCTION. THE UPPER REFERENCE LIMIT (URL) OF TROPONIN, DEFINED THE 99TH PERCENTILE OF cTnI DISTRIBUTION IN A REFERENCE POPULATION, HAS BEEN CONFIRMED THE DECISION THRESHOLD FOR CT DIAGNOSIS. Performed By: #### C JUAN CARLOS MORGAN CMADM ####[facility] [address] [place] [address]DrAshley Espinoza KARL 1641 ng/mL Critically high 9-82 [facility] Comment on above: Performed By: #### C MP, JUAN CARLOS, CMADM ####[facility] [address] [place] [address]Dr. Karey Espinoza CBC AUTO DIFFon 09-25-2022 BASO # 0.1 103/ul Normal 0.0-0.1 [facility] Comment on above: Performed By: #### C BC ####[facility] [address] [place] [address]Dr. Karey Espinoza Basophils/100 WBC (Bld) 0.4 % Normal 0.2-2.0 [facility] Comment on above: Performed By: #### C BC ####[facility] [address] [place], [place] [address]Dr. Karey Espinoza EO # 0.2 103/ul Normal 0.0-0.7 [facility] Comment on above: Performed By: #### C BC ####[facility] [address] [place] [address]Dr. Karey Espinoza Eosinophils/100 WBC (Bld) 1.2 % Normal 0.9-7.0 [facility] Comment on above: Performed By: #### C BC ####[facility] [address] [place], [place] [address]Dr. Karey Espinoza Erythrocyte distribution width (RBC) [Ratio] 13.0 % Normal 11.0-15.0 [facility] Comment on above: Performed By: #### C BC ####[facility] [address] [place], [place] [address]Dr. Karey Espinoza Hematocrit (Bld) [Volume fraction] 40.8 % Normal 36.0-48.0 [facility] Comment on above: Performed By: #### C BC ####[facility] [address] [place], [place] [address]Dr. Karey Espinoza Hemoglobin (Bld) [Mass/Vol] 14.0 g/dL Normal 12.0-16.0 [facility] Comment on above: Performed By: #### C BC ####[facility] [address] [place] [id number]. Karey Espinoza IG # 0.22 10e3/ul Critically high 0.00-0.03 [facility] Comment on above: Performed By: #### C BC ####[facility] [address] [place] [address]Dr. Karey Espinoza IG % 1.6 % Critically high 0.0-0.5 [facility] Comment on above: Performed By: #### C BC ####[facility] [address] [place] [address]Dr. Karey Espinoza LYMPH # 1.9 103/ul Normal 1.2-3.8 [facility] Comment on above: Performed By: #### C BC ####[facility] [address] [place] [address]Dr. Karey Espinoza Lymphocytes/100 WBC (Bld) 13.3 % Critically low 20.5-60.0 [facility] Comment on above: Performed By: #### C BC ####[facility] [address] [place] [address]Dr. Karey Espinoza MANUAL DIFF REQ NO Normal [facility] Comment on above: Performed By: #### C BC ####[facility] [address] [place] [address]Dr. Karey Espinoza MCH (RBC) [Entitic mass] 30.0 pg Normal 26.7-34.0 [facility] Comment on above: Performed By: #### C BC ####[facility] [address] [place] [address]Dr. Karey Espinoza MCHC (RBC) [Mass/Vol] 34.3 g/dL Normal 29.9-35.2 [facility] Comment on above: Performed By: #### C BC ####[facility] [address] [place] [address]Dr. Karey Espinoza MCV (RBC) [Entitic vol] 87.4 fL Normal 81.0-99.0 [facility] Comment on above: Performed By: #### C BC ####[facility] [address] [place] [address]Dr. Karey Espinoza MONO # 0.8 103/ul Normal 0.3-0.8 [facility] Comment on above: Performed By: #### C BC ####[facility] [address] [place] [address]Dr. Karey Espinoza Monocytes/100 WBC (Bld) 5.4 % Normal 1.7-12.0 [facility] Comment on above: Performed By: #### C BC ####[facility] [address] [place] [address]Dr. Karey Espinoza NEUT # 10.8 103/ul Critically high 1.4-6.5 [facility] Comment on above: Performed By: #### C BC ####[facility] [address] [place] [address]Dr. Karey Espinoza Neutrophils/100 WBC (Bld) 78.1 % Critically high 43.0-75.0 [facility] Comment on above: Performed By: #### C BC ####[facility] [address] [place] [address]Dr. Karey Espinoza Platelet mean volume (Bld) [Entitic vol] 9.0 fL Critically low 9.5-13.5 [facility] Comment on above: Performed By: #### C BC ####[facility] [address] [place] [address]Dr. Karey Espinoza PLT 345 103/ul Normal 150-450 [facility] Comment on above: Performed By: #### C BC ####[facility] [address] [place] [address]Dr. Karey Espinoza RBC 4.67 106/ul Normal 4.20-5.40 [facility] Comment on above: Performed By: #### C BC ####[facility] [address] [place] [address]Dr. Karey Espinoza WBC 13.9 103/ul Critically high 4.0-11.0 [facility] Comment on above: Performed By: #### C BC ####[facility] [address] [place], [place] [address]Dr. Karey Espinoza CT ABD/PELV W CONon 09-25-20 [...] FADY BAUER Date: 2022-09-25 15:00 Normal [facility] CT HEAD WO CONon 09-25-2022 CT [...] SHAHLA CLAIRE Date: 2022-09-25 14:41 Normal [facility] Covid-19 PCR (CVDTB)on 08-29 SARS-CoV-2 (COVID-19) RNA JORI+probe Ql (Unsp spec) Not detected Normal NOT DETECTED [facility] Comment on above: Result Comment: When [...] for this test is supported by the [place] of Health and Human Service's declaration that [...] longer be used). Performed By: #### [facility] #### [facility] [address] [address] [address] Karey Espinoza ER URINE PROFILEon 2 Bilirubin Ql (U) Negative Normal NEGATIVE [facility] Comment on above: Performed By: #### NEDA REYES ####[facility] [address] [place], [place] [address]DrAshley Espinoza Clarity (U) SL CLOUDY Abnormal CLEAR [facility] Comment on above: Performed By: #### NEDA REYES ####[facility] [address] [place] [address]DrAshley Espinoza Color (U) YELLOW Normal YELLOW [facility] Comment on above: Performed By: #### COLTON REYESRO ####[facility] [address] [place] [address]Dr. Karey ARREDONDOD A micrscopic examination will be performed if indicated. Normal [facility] Comment on above: Performed By: #### NEDA REYES ####[facility] [address] [place] [address]DrAshley Espinoza Glucose Ql (U) Negative Normal NEGATIVE [facility] Comment on above: Performed By: #### Kvng REDDING UMICRO ####[facility] [address] [place] [address]Dr. Karey Espinoza Hemoglobin Ql (U) SMALL Abnormal NEGATIVE [facility] Comment on above: Performed By: #### Kvng REDDING UMICRO ####[facility] [address] [place] [address]Dr. Karey Espinoza Ketones Ql (U) Negative Normal NEGATIVE [facility] Comment on above: Performed By: #### Kvng REDDING UMICRO ####[facility] [address] [place], [place] [address]Dr. Karey Espinoza LEUKOCYTES Negative Normal NEGATIVE [facility] Comment on above: Performed By: #### Kvng REDDING UMICRO ####[facility] [address] [place], [place] [address]Dr. Karey Espinoza Nitrite Ql (U) Negative Normal NEGATIVE [facility] Comment on above: Performed By: #### Kvng REDDING UMICRO ####[facility] [address] [place], [place] [address]Dr. Karey Espinoza pH (U) 5.0 [pH] Normal 5-9 [facility] Comment on above: Performed By: #### Kvng REDDING UMICRO ####[facility] [address] [place], [place] [address]Dr. Karey Espinoza SPEC GRAVITY 1.010 Normal 1.005-<=1.025 [facility] Comment on above: Performed By: #### Kvng REDDING UMICRO ####[facility] [address] [place] [address]Dr. Karey Espinoza UA PROTEIN Negative Normal NEGATIVE/ TRACE [facility] Comment on above: Performed By: #### NELSON REYESICRO ####[facility] [address] [place] [address]Dr. Karey Espinoza UR MICRO IND INDICATED Normal [facility] Comment on above: Performed By: #### NELSON REYESICRO ####[facility] [address] [place] [address]Dr. Karey Espinoza Urobilinogen Qn (U) 0.2 {Jose'U}/dL Normal 0.2 - 1. 0 [facility] Comment on above: Performed By: #### E NEDA REDDING ####[facility] [address] [place] [address]Dr. Karey Espinoza LIPASEon 09-25-2022 Lipase [Catalytic activity/Vol] 341.0 U/L Normal 73.0-393.0 [facility] Comment on above: Performed By: #### C MP, LIPA, CMADM ####[facility] [address]mb[address] [place] [address]Dr. Karey Espinoza PROF 14(COMP METB)on 022 Albumin [Mass/Vol] 3.6 g/dL Normal 3.4-5.0 [facility] Comment on above: Performed By: #### C MP, LIPA, CMADM ####[facility] [address] [place], [place] [address]Dr. Karey Espinoza Albumin/Globulin [Mass ratio] 1.1 {ratio} Normal [facility] Comment on above: Performed By: #### C MP, LIPA, CMADM ####[facility] [address] [place], [place] [address]Dr. Karey Espinoza ALP [Catalytic activity/Vol] 92 U/L Normal 46-116 [facility] Comment on above: Performed By: #### C MP, LIPA, CMADM ####[facility] [address] [place] [address]Dr. Karey Espinoza ALT [Catalytic activity/Vol] 77 U/L Critically high 14-59 [facility] Comment on above: Performed By: #### C MP, LIPA, CMADM ####[facility] [address]wgso[address] [place] [address]Dr. Karey Espinoza Anion gap [Moles/Vol] 11.6 mmol/L Normal [facility] Comment on above: Performed By: #### C MP, LIPA, CMADM ####[facility] [address] [place] [address]Dr. Karey Espinoza AST [Catalytic activity/Vol] 85 U/L Critically high 15-37 [facility] Comment on above: Performed By: #### C MP, LIPA, CMADM ####[facility] [address]xxf[address] [place] [address]Dr. Karey Espinoza Bilirubin [Mass/Vol] 0.6 mg/dL Normal 0.2-1.0 [facility] Comment on above: Performed By: #### C MP, LIPA, CMADM ####[facility] [address] [place] [address]Dr. Karey Espinoza Calcium [Mass/Vol] 9.2 mg/dL Normal 8.5-10.1 [facility] Comment on above: Performed By: #### C MP, LIPA, CMADM ####[facility] [address] [place], [place] [address]Dr. Karey Espinoza Chloride [Moles/Vol] 101 mmol/L Normal 98-107 [facility] Comment on above: Performed By: #### C MP, LIPA, CMADM ####[facility] [address] [place], [place] [address]Dr. Karey Espinoza CO2 [Moles/Vol] 25.9 mmol/L Normal 21.0-32.0 [facility] Comment on above: Performed By: #### C MP, LIPA, CMADM ####[facility] [address] [place] [address]Dr. Karey Espinoza Creatinine [Mass/Vol] 1.11 mg/dL Critically high 0.55-1.02 [facility] Comment on above: Performed By: #### C MP, LIPA, CMADM ####[facility] [address] [place], [place] [address]Dr. Karey Espinoza EGFR-AF FIJIAN 58 mL/min/1.73m2 Critically low >=60 [facility] Comment on above: Performed By: #### C MP, LIPA, CMADM ####[facility] [address] [place] [address]Dr. Karey Espinoza EGFR-NON AF FIJIAN 48 mL/min/1.73m2 Critically low >=60 [facility] Comment on above: Performed By: #### C MP, LIPA, CMADM ####[facility] [address]og[address] [place] [address]Dr. Karey Espinoza Globulin (S) [Mass/Vol] 3.3 g/dL Normal [facility] Comment on above: Performed By: #### C MP, LIPA, CMADM ####[facility] [address]biu[address] [place] [address]Dr. Karey Espinoza Glucose [Mass/Vol] 149 mg/dL Critically high 74-106 T [facility] Comment on above: Performed By: #### C MP, LIPA, CMADM ####[facility] [address]umdj[address] [place] [address]Dr. Karey Espinoza Potassium [Moles/Vol] 4.5 mmol/L Normal 3.5-5.1 [facility] Comment on above: Performed By: #### C MP, LIPA, CMADM ####[facility] [address] [place] [id number]. Karey Espinoza Protein [Mass/Vol] 6.9 g/dL Normal 6.4-8.2 [facility] Comment on above: Performed By: #### C MP, LIPA, CMADM ####[facility] [address] [place] [address]Dr. Karey Espinoza Sodium [Moles/Vol] 134 mmol/L Critically low 136-145 [facility] Comment on above: Performed By: #### C MP, LIPA, CMADM ####[facility] [address] [place] [address]Dr. Karey Espinoza Urea nitrogen [Mass/Vol] 18.0 mg/dL Normal 7.0-18.0 [facility] Comment on above: Performed By: #### C MP, LIPA, CMADM ####[facility] [address] [place] [address]Dr. Karey Espinoza Urea nitrogen/Creatinine [Mass ratio] 16.2 mg/mg Normal [facility] Comment on above: Performed By: #### C MP, LIPA, CMADM ####[facility] [address] [place], [place] [address]OyDr. Karey Espinoza PROTIMEon 09-25-2022 INR Coag (PPP) [Relative time] 1.11 {INR} Normal [facility] Comment on above: Performed By: #### P T, PTT #### [facility] [address] [address] [address] Karey Espinoza INR GUIDELINES SEE BELOW Normal [facility] Comment on above: Result Comment: FAHAD RED INR: 2.0 - 3.0 CONDITIONS NOT LISTED BELOW 2.5 - 3.5 FOR PROSTHETIC HEART VALVE REPLACEMENT 2.5 - 3.5 RECURRENT THROMBOSIS Performed By: #### P T, PTT #### [facility] [address] [address] [address] Karey Espinoza PT Coag (PPP) [Time] 11.9 s Critically high 9.0-11.6 [facility] Comment on above: Performed By: #### P T, PTT #### [facility] [address] [address] [address] Karey Espinoza PTTon 09-25-2022 aPTT Coag (Bld) [Time] 30.4 s Normal 22.3-36.2 [facility] Comment on above: Performed By: #### P T, PTT #### [facility] [address] [address] [address] Karey Espinoza Trauma Profileon 09-25-2022 Anion gap [Moles/Vol] 12 mmol/L Normal 9-17 [facility] Comment on above: Performed By: #### B MP, MATIAS, MG, CDP #### [employer] [address] [place] [address] Banking Supervisor: Shamir Milton MD Chloride [Moles/Vol] 102 mmol/L Normal 98-107 [facility] Comment on above: Performed By: #### B MP, MATIAS, MG, CDP #### [employer] [address] [place] [address] Banking Supervisor: Shamir Milton MD CO2 [Moles/Vol] 20 mmol/L Normal 20-31 [facility] Comment on above: Performed By: #### B MP, MATIAS, MG, CDP #### [address] [address] Banking Supervisor: Shamir Milton MD Creatinine [Mass/Vol] 0.76 mg/dL Normal 0.50-0.90 [facility] Comment on above: Performed By: #### B MP, MATIAS, MG, CDP #### [address] [address] Banking Supervisor: Shamir Milton MD Ethanol [Mass/Vol] mg/dL Normal <10 [facility] Comment on above: Performed By: #### B MP, MATIAS, MG, CDP #### [address] [address] Banking Supervisor: Shamir Milton MD Ethanol percent <0.010 Normal <0.010 [facility] Comment on above: Performed By: #### B MP, MATIAS, MG, CDP #### [place] [address] Banking Supervisor: Shamir Milton MD GFR/1.73 sq M.predicted among non-blacks MDRD (S/P/Bld) [Vol rate/Area] mL/min/{1.73_m2} Normal >60 [facility] Comment on above: Result Comment: Effective Jul [...] #### B MP, MATIAS, MG, CDP #### [facility] [address] [place] [address] Banking Supervisor: Shamir Milton MD Glucose [Mass/Vol] 127 mg/dL High 70-99 [facility] Comment on above: Performed By: #### B MP, MATIAS, MG, CDP #### [address] [address] Banking Supervisor: Shamir Milton MD Potassium [Moles/Vol] 4.1 mmol/L Normal 3.7-5.3 [facility] Comment on above: Performed By: #### B MP, MATIAS, MG, CDP #### [address] [address] Banking Supervisor: Shamir Milton MD Sodium [Moles/Vol] 134 mmol/L Low 135-144 [facility] Comment on above: Performed By: #### B MP, MATIAS, MG, CDP #### [address] [address] Banking Supervisor: Shamir Milton MD Urea nitrogen [Mass/Vol] 14 mg/dL Normal 8-23 [facility] Comment on above: Performed By: #### B MP, MATIAS, MG, CDP #### [facility] [employer] [address] [place] [address] Banking Supervisor: Shamir Milton MD aPTT Coag (Bld) [Time] 24.4 s Normal 20.5-30.5 [facility] Comment on above: Result Comment: IV Heparin Therapy Range: 48.6-77.8 Performed By: #### B MP, MATIAS, MG, CDP #### [address] [address] Banking Supervisor: Shamir Milton MD INR Coag (PPP) [Relative time] 1.1 {INR} Normal [facility] Comment on above: Result Comment: Therapeutic Range: Moderate Anticoagulant Intensity: INR = 2.0-3.0 High Anticoagulant Intensity: INR = 2.5-3.5 Performed By: #### B MP, MATIAS, MG, CDP #### [employer] [address] [place] [address] Banking Supervisor: Shamir Milton MD PT Coag (PPP) [Time] 11.3 s Normal 9.1-12.3 [facility] Comment on above: Performed By: #### B MP, MATIAS, MG, CDP #### [facility] [address] [place] [address] Banking Supervisor: Shamir Milton MD HCG Screen, Blood Negative Normal NEG [facility] Comment on above: Result Comment: Spec imens with hCG levels near the threshold of the test (25 mIU/mL) may give a negative or indeterminate result. In such cases, another test should be performed with a new specimen in 48-72 hours. If early is suspected clinically in this setting, correlation with quantitative serum b-hCG level is suggested. [employer] [facility] has confirmed the use of plasma for this test. This has not been cleared or approved by the [place].S. Food and Drug Administration. The FDA has determined that such clearance is not necessary. Performed By: #### B MP, MATIAS, MG, CDP #### [facility] [address] [place] [address] Banking Supervisor: Shamir Milton MD Body Temp. 37.0 Normal [facility] Comment on above: Performed By: #### B MP, MATIAS, MG, CDP #### [employer] [address] [place] [address] Banking Supervisor: Shamir Milton MD Carboxy Hgb 2.3 % Normal 0-5 [facility] Comment on above: Result Comment: Reference Range: Non-Smokers 0-2% Average Smoker 2-4% Heavy Smoker <10% Performed By: #### B MP, MATIAS, MG, CDP #### [employer] [address] [place] [address] Banking Supervisor: Shamir Milton MD FIO2 INFORMATION NOT PROVIDED Normal [facility] Comment on above: Performed By: #### B MP, MATIAS, MG, CDP #### [facility] [address] [place] [address] Banking Supervisor: Shamir Milton MD HCO3 (Bld) [Moles/Vol] 22.7 mmol/L Low 24-30 [facility] Comment on above: Performed By: #### B MP, MATIAS, MG, CDP #### [facility] [address] [place] [address] Banking Supervisor: Shamir Milton MD Negative Base Excess 2.5 mmol/L High 0.0-2.0 [facility] Comment on above: Performed By: #### B MP, MATIAS, MG, CDP #### [facility] [address] [place] [address] Banking Supervisor: Shamir Milton MD Oxygen saturation in Blood 73.8 % Normal 60.0-85.0 [facility] Comment on above: Performed By: #### B MP, MATIAS, MG, CDP #### [facility] [address] [place] [address] Banking Supervisor: Shamir Milton MD pCO2 42.6 mm Hg Normal 39-55 [facility] Comment on above: Performed By: #### B MP, MATIAS, MG, CDP #### [facility] [address] [place] [address] Banking Supervisor: Shamir Milton MD pH (Bld) 7.345 [pH] Normal 7.320-7.420 [facility] Comment on above: Performed By: #### B MP, MATIAS, MG, CDP #### [employer] [address] [place] [address] Banking Supervisor: Shamir Milton MD pO2 40.7 mm Hg Normal 30-50 [facility] Comment on above: Performed By: #### B MP, MATIAS, MG, CDP #### [address] [address] Banking Supervisor: Shamir Milton MD Erythrocyte distribution width (RBC) [Ratio] 13.0 % Normal 11.8-14.4 [facility] Comment on above: Performed By: #### B MP, MATIAS, MG, CDP #### [address] [address] Banking Supervisor: Shamir Milton MD Hematocrit (Bld) [Volume fraction] 42.4 % Normal 36.3-47.1 [facility] Comment on above: Performed By: #### B MP, MATIAS, MG, CDP #### [facility] [employer] [address] [place] [address] Banking Supervisor: Shamir Milton MD Hemoglobin (Bld) [Mass/Vol] 14.5 g/dL Normal 11.9-15.1 [facility] Comment on above: Performed By: #### B MP, MATIAS, MG, CDP #### [facility] [address] [place] [address] Banking Supervisor: Shamir Milton MD MCH (RBC) [Entitic mass] 30.1 pg Normal 25.2-33.5 [facility] Comment on above: Performed By: #### B MP, MATIAS, MG, CDP #### [facility] [address] [place] [address] Banking Supervisor: Shamir Milton MD MCHC (RBC) [Mass/Vol] 34.2 g/dL Normal 28.4-34.8 [facility] Comment on above: Performed By: #### B MP, MATIAS, MG, CDP #### [facility] [address] [place] [address] Banking Supervisor: Shamir Milton MD MCV (RBC) [Entitic vol] 88.1 fL Normal 82.6-102.9 [facility] Comment on above: Performed By: #### B MP, MATIAS, MG, CDP #### [facility] [address] [place] [address] Banking Supervisor: Shamir Milton MD NRBC Automated 0.0 per 100 WBC Normal 0.0 [facility] Comment on above: Performed By: #### B MP, MATIAS, MG, CDP #### [facility] [address] [place] [address] Banking Supervisor: Shamir Milton MD Platelet mean volume (Bld) [Entitic vol] 9.3 fL Normal 8.1-13.5 [facility] Comment on above: Performed By: #### B MP, MATIAS, MG, CDP #### [facility] [address] [place] [address] Banking Supervisor: Shamir Milton MD Platelets (Bld) [#/Vol] 335 10*3/uL Normal 138-453 [facility] Comment on above: Performed By: #### B MP, MATIAS, MG, CDP #### [facility] [address] [place] [address] Banking Supervisor: Shamir Milton MD RBC (Bld) [#/Vol] 4.81 10*6/uL Normal 3.95-5.11 [facility] Comment on above: Performed By: #### B MP, MATIAS, MG, CDP #### [facility] [address] [place] [address] Banking Supervisor: Shamir Milton MD WBC (Bld) [#/Vol] 12.0 10*3/uL High 3.5-11.3 [facility] Comment on above: Performed By: #### B MP, MATIAS, MG, CDP #### [facility] [address] [place] [address] Banking Supervisor: Shamir Milton MD Blood Bank BILL FOR SERVICES PERFORMED Normal [facility] Comment on above: Performed By: #### B MP, MATIAS, MG, CDP #### [employer] [address] [place], [place] [phone] Banking Supervisor: Shamir Milton MD Type + Screenon 09-25-2022 Type + Screen Sample Expiration 09/28/2022,2359 Arm Band Number [id number] ABO/Rh(D) O POSITIVE Antibody Screen NEGATIVE Normal [facility] Comment on above: Performed By: #### C DP, BMP, MATIAS #### [facility] [address] [place] [address] Banking Supervisor: Shamir Milton MD URINE MICROSCOPIC ONLYon BACTERIA NONE SEEN Normal NONE SEEN [facility] Comment on above: Performed By: #### COLTON REYESRO ####[facility] [address] [place] [address]Dr. Karey Espinoza Bacteria identified Cx Nom (U) NOT INDICATED Normal [facility] Comment on above: Performed By: #### COLTON REYESRO ####[facility] [address] [place], [place] [address]Dr. Karey Espinoza CAST NONE SEEN Normal NONE SEEN [facility] Comment on above: Performed By: #### COLTON REYESRO ####[facility] [address] [place], [place] [address]Dr. Karey Espinoza Crystals LM Nom (Urine sed) NONE SEEN Normal NONE SEEN [facility] Comment on above: Performed By: #### COLTON REYESRO ####[facility] [address] [place] [address]Dr. Karey Espinoza Epithelial cells LM Ql (Urine sed) RARE Normal NONE SEEN /RARE [facility] Comment on above: Performed By: #### COLTON REYESRO ####[facility] [address] [place], [place] [address]Dr. Yilan Espinoza MUCOUS NONE SEEN Normal NONE SEEN [facility] Comment on above: Performed By: #### COLTON REYESRO ####[facility] [address] [place] [address]Dr. Karey Espinoza RBC 0-2 Normal 0-2 [facility] Comment on above: Performed By: #### Kvng NEDA REDDING ####[facility] [address] [place], [place] [address]Ya. Karey Espinoza WBC NONE SEEN Normal NONE SEEN [facility] Comment on above: Performed By: #### E NEDA REDDING ####[facility] [address] [place], [place] [address]Uj. Karey Espinoza XR HIP LEFT (2-3 VIEWS)on [...] Mikie Caba MD 09/25/22 Final result Normal [facility] XR PELVIS (MIN 3 VIEWS)on XR PELVIS [...] Mikie Caba MD 09/25/22 Final result Normal [facility] XR TIBIA FIBULA LEFT (2 VIEW S)on [...] Mikie Caba MD 09/25/22 Final result Normal [facility] LIPID PROFILEon 09-14-2022 CHOL-HDL RATIO NORM SEE BELOW Normal [facility] Comment on above: Result Comment: 3.3 - 4.4 LOW RISK 4.4 - 7.1 AVERAGE RISK 7.1 - 11.0 MODERATE RISK >11.0 HIGH RISK Performed By: #### L IPID, LIVER #### [facility] [address] [place] [address] Dr. Karey Espinoza Cholesterol [Mass/Vol] 165 mg/dL Normal <=200 [facility] Comment on above: Performed By: #### L IPID, LIVER #### [facility] [address] [address] [address] Karey Espinoza Cholesterol in HDL [Mass/Vol] 57 mg/dL Normal 40-60 [facility] Comment on above: Performed By: #### L IPID, LIVER #### [facility] [address] [address] [address] Karey Espinoza Cholesterol in LDL [Mass/Vol] 83.2 mg/dL Normal [facility] Comment on above: Performed By: #### L IPID, LIVER #### [facility] [address] [place] [address] Dr. Karey Espinoza Cholesterol.total/Cho lesterol in HDL [Mass ratio] 2.9 {ratio} Normal [facility] Comment on above: Performed By: #### L IPID, LIVER #### [facility] [address] [address] [address] Karey Espinoza HDL NORMAL > or = 60 mg/dl - LO W CARDIOVASCULAR RISK <40 mg/dl - HIGH CARDIOVASCULAR RISK Normal [facility] Comment on above: Performed By: #### L IPID, LIVER #### [facility] [address] [place] [address] Dr. Karey Espinoza LDL CALC NORMAL SEE BELOW Normal [facility] Comment on above: Result Comment: <100 mg/dl OPTIMAL 100 - 129 mg/dl NEAR OR ABOVE OPTIMAL 130 - 159 mg/dl BORDERLINE HIGH 160 - 189 mg/dl HIGH >190 mg/dl VERY HIGH Performed By: #### L IPID, LIVER #### [facility] [address] [address] [address] Karey Espinoza Triglyceride [Mass/Vol] 124 mg/dL Normal <=150 [facility] Comment on above: Performed By: #### L IPID, LIVER #### [facility] [address] [address] [address] Karey Espinoza VLDL CALC 24.8 mg/dL Normal [facility] Comment on above: Performed By: #### L IPID, LIVER #### [facility] [address] [address] [address] Karey Espinoza LIVER PROFILEon 09-14-2022 Albumin [Mass/Vol] 3.6 g/dL Normal 3.4-5.0 [facility] Comment on above: Performed By: #### L IPID, LIVER #### [facility] [address] [address] [address] Karey Espinoza Albumin/Globulin [Mass ratio] 1.1 {ratio} Normal [facility] Comment on above: Performed By: #### L IPID, LIVER #### [facility] [address] [address] [address] Karey Espinoza ALP [Catalytic activity/Vol] 75 U/L Normal 46-116 [facility] Comment on above: Performed By: #### L IPID, LIVER #### [facility] [address] [place] [address] Dr. Karey Espinoza ALT [Catalytic activity/Vol] 57 U/L Normal 14-59 [facility] Comment on above: Performed By: #### L IPID, LIVER #### [facility] [address] [place] [address] Dr. Karey Espinoza AST [Catalytic activity/Vol] 35 U/L Normal 15-37 [facility] Comment on above: Performed By: #### L IPID, LIVER #### [facility] [address] [address] [address] Karey Espinoza BILI, CONJUGATED 0.1 mg/dL Normal 0.0-0.2 [facility] Comment on above: Performed By: #### L IPID, LIVER #### [facility] [address] [address] [address] Karey Espinoza Bilirubin [Mass/Vol] 0.5 mg/dL Normal 0.2-1.0 [facility] Comment on above: Performed By: #### L IPID, LIVER #### [facility] [address] [address] [address] Karey Espinoza Globulin (S) [Mass/Vol] 3.3 g/dL Normal [facility] Comment on above: Performed By: #### L IPID, LIVER #### [facility] [address] [place], [place] [address] Dr. Karey Espinoza Protein [Mass/Vol] 6.9 g/dL Normal 6.4-8.2 [facility] Comment on above: Performed By: #### L IPID, LIVER #### [facility] [address] [place], [place] [address] Dr. Karey Espinoza [facility] SARS-CoV-2 (COVID-19) RNA JORI+probe Ql (Unsp spec) Not detected Normal NOT DETECTED [facility] Comment on above: Result Comment: This test is not yet approved or cleared by the [place] FDA. When there are no FDA-approved or cleared tests available, and other criteria are met, FDA can make tests available under an emergency access mechanism called an Emergency Use Authorization (EUA). The EUA for this test is supported by the [place] of Health and Human Service's (HHS's) declaration [...] SARS-CoV-2. Performed By: #### C VDTBH #### [facility] [address] [place], [place] [address] Dr. Karey Espinoza SYMPTOMATIC COVID-19 ANTIGEN on 04-20-2022 EUA Statement SEE BELOW Normal [facility] Comment on above: Result Comment: This [...] is revoked sooner. Performed By: #### C ELLIOTS ####[facility] [address] [place] [address]Dr. Karey Espinoza SARS-CoV-2 (COVID-19) RNA JORI+probe Ql (Unsp spec) Negative Normal NEGATIVE [facility] Comment on above: Performed By: #### C SHEILA ####[facility] [address] [place] [address]Dr. Karey Espinoza LIPID PROFILEon 04-04-2022 CHOL-HDL RATIO NORM SEE BELOW Normal [facility] Comment on above: Result Comment: 3.3 - 4.4 LOW RISK 4.4 - 7.1 AVERAGE RISK 7.1 - 11.0 MODERATE RISK >11.0 HIGH RISK Performed By: #### L RAJ LIPID ####[facility] [address] [place] [address]Dr. Karey Espinoza Cholesterol [Mass/Vol] 198 mg/dL Normal <=200 [facility] Comment on above: Performed By: #### L RAJ LIPID ####[facility] [address] [place] [address]Dr. Karey Espinoza Cholesterol in HDL [Mass/Vol] 50 mg/dL Normal 40-60 [facility] Comment on above: Performed By: #### L IVROGELIO, LIPID ####[facility] [address] [place] [address]Dr. Karey Espinoza Cholesterol in LDL [Mass/Vol] 110.8 mg/dL Normal [facility] Comment on above: Performed By: #### L IVROGELIO, LIPID ####[facility] [address] [place] [address]Dr. Karey Espinoza Cholesterol.total/Cho lesterol in HDL [Mass ratio] 4.0 {ratio} Normal [facility] Comment on above: Performed By: #### L IVER, LIPID ####[facility] [address] [place] [id number]. Karey Espinoza HDL NORMAL > or = 60 mg/dl - LO W CARDIOVASCULAR RISK <40 mg/dl - HIGH CARDIOVASCULAR RISK Normal [facility] Comment on above: Performed By: #### L IVER, LIPID ####[facility] [address] [place] [id number]. Karey Espinoza LDL CALC NORMAL SEE BELOW Normal [facility] Comment on above: Result Comment: <100 mg/dl OPTIMAL 100 - 129 mg/dl NEAR OR ABOVE OPTIMAL 130 - 159 mg/dl BORDERLINE HIGH 160 - 189 mg/dl HIGH >190 mg/dl VERY HIGH Performed By: #### L IVROGELIO, LIPID ####[facility] [address] [place] [id number]. Karey Espinoza Triglyceride [Mass/Vol] 186 mg/dL Critically high <=150 [facility] Comment on above: Performed By: #### L IVROGELIO, LIPID ####[facility] [address] [place] [id number]. Karey Espinoza VLDL CALC 37.2 mg/dL Normal [facility] Comment on above: Performed By: #### L IVER, LIPID ####[facility] [address] [place] [id number]. Karey Espinoza LIVER PROFILEon 04-04-2022 Albumin [Mass/Vol] 3.8 g/dL Normal 3.4-5.0 [facility] Comment on above: Performed By: #### L IVER, LIPID ####[facility] [address] [place] [address]Dr. Karey Espinoza Albumin/Globulin [Mass ratio] 1.2 {ratio} Normal [facility] Comment on above: Performed By: #### L IVER, LIPID ####[facility] [address] [place] [id number]. Karey Espinoza ALP [Catalytic activity/Vol] 78 U/L Normal 46-116 [facility] Comment on above: Performed By: #### L IVER, LIPID ####[facility] [address] [place] [id number]. Karey Espinoza ALT [Catalytic activity/Vol] 33 U/L Normal 14-59 [facility] Comment on above: Performed By: #### L IVER, LIPID ####[facility] [address] [place] [phone]. Karey Espinoza AST [Catalytic activity/Vol] 26 U/L Normal 15-37 [facility] Comment on above: Performed By: #### L IVER, LIPID ####[facility] [address] [place] [id number]. Karey Espinoza BILI, CONJUGATED 0.1 mg/dL Normal 0.0-0.2 [facility] Comment on above: Performed By: #### L IVER, LIPID ####[facility] [address] [place] [phone]. Karey Espinoza Bilirubin [Mass/Vol] 0.5 mg/dL Normal 0.2-1.0 [facility] Comment on above: Performed By: #### L IVER, LIPID ####[facility] [address] [place] [phone]. Karey Espinoza Globulin (S) [Mass/Vol] 3.2 g/dL Normal [facility] Comment on above: Performed By: #### L IVER, LIPID ####[facility] [address] [place] [phone]. Karey Espinoza Protein [Mass/Vol] 7.0 g/dL Normal 6.4-8.2 [facility] Comment on above: Performed By: #### L IVER, LIPID ####[facility] [id number] [place] [id number]. Karey Espinoza XR lumbar spine 2-3V*on XR lumbar spine 2-3V* [facility] [place] [address] XRay Report Signed Patient: Anabela Abbasi MR#: [id number] 5 : 1945 Acct:[id number] Age/Sex: 75 / F ADM Date: 03/30/21 Loc: XD Room: Type: [facility] Attending Dr: Brian Gonzales MD Ordering [...] Wang Jr., M.D.03/30/2021 2:53 PM Dictation Location: [place] [address] Transcribed By: [facility] 03/30/21 145 Dictated By: Camryn Wang Jr, MD 03/30/21 145 Signed By: 03/30/21 145 [facility] Home Health Recordson 2020 Home Health Records [id number] Normal [facility] Glucose Poct Glucometerson 0 03-03-2021 Commemt1 Glu2: Cleaned Meter Normal [facility] Comment on above: Result Comment: PERF ORMED BY: [facility] [address] [place] [address] PATHOLOGIST CAT WAGON OPERATOR JU MCPHERSON M.D. Performed By: #### G LULS ####Point of Care testing, Glucose [Mass/Vol] 99 mg/dL Normal [facility] Comment on above: Result Comment: [place] om Glucose Reference Range is dependent on time and content of last meal. Glucose of more than 200 mg/dL in a nonstressed, ambulatory subject supports the diagnosis of Diabetes Mellitus. Performed By: #### G LULS ####Point of Care testing, Glucose Poct Glucometerson 0 03-02-2021 Commemt1 Glu2: Cleaned Meter [facility] Comment on above: Result Comment: PERF ORMED BY: [address] [place] [id number] PATHOLOGIST CAT WAGON OPERATOR JU MCPHERSON M.D. Performed By: #### G LULS ####Point of Care testing, Glucose [Mass/Vol] 87 mg/dL Normal [facility] Comment on above: Result Comment: [place] om Glucose Reference Range is dependent on time and content of last meal. Glucose of more than 200 mg/dL in a nonstressed, ambulatory subject supports the diagnosis of Diabetes Mellitus. Performed By: #### G LULS ####Point of Care testing, Glucose [Mass/Vol] 131 mg/dL Normal [facility] Comment on above: Result Comment: [place] om Glucose Reference Range is dependent on time and content of last meal. Glucose of more than 200 mg/dL in a nonstressed, ambulatory subject supports the diagnosis of Diabetes Mellitus. PERFORMED BY: [address] [place] [id number] PATHOLOGIST CAT WAGON OPERATOR JU MCPHERSON M.D. Performed By: #### G LULS ####Point of Care testing, Glucose Poct Glucometerson 0 03-01-2021 Commemt1 Glu2: Cleaned Meter [facility] Comment on above: Result Comment: PERF ORMED BY: [address] [place] [address] PATHOLOGIST CAT WAGON OPERATOR JU MCPHERSON M.D. Performed By: #### G LULS ####Point of Care testing, Glucose [Mass/Vol] 197 mg/dL Normal [facility] Comment on above: Result Comment: [place] Glucose Reference Range is dependent on time and content of last meal. Glucose of more than 200 mg/dL in a nonstressed, ambulatory subject supports the diagnosis of Diabetes Mellitus. Performed By: #### G LULS ####Point of Care testing, Commemt1 Glu2: Cleaned Meter Normal [facility] Comment on above: Result Comment: PERF ORMED BY: [facility] [address] [place] [id number] PATHOLOGIST CAT WAGON OPERATOR JU MCPHERSON M.D. Performed By: #### G LULS ####Point of Care testing, Glucose [Mass/Vol] 132 mg/dL Normal [facility] Comment on above: Result Comment: [place] om Glucose Reference Range is dependent on time and content of last meal. Glucose of more than 200 mg/dL in a nonstressed, ambulatory subject supports the diagnosis of Diabetes Mellitus. Performed By: #### G LULS ####Point of Care testing, ABO/Rh Retypeon 02-28-2021 ABO/RH Recheck Result Positive Normal [facility] Comment on above: Result Comment: PERF ORMED BY: [facility] [address] [place] [address] PATHOLOGIST CAT WAGON OPERATOR JU MCPHERSON M.D. Complete Blood Count Auto Di ffon 02-28-2021 Basophils (Bld) [#/Vol] 0.1 10*3/uL Normal 0.0-0.2 [facility] Comment on above: Result Comment: PERF ORMED BY: [facility] [address] [place] [id number] PATHOLOGIST CAT WAGON OPERATOR JU MCPHERSON M.D. Performed By: #### C MP, CBC, TROP ####[facility] [address] [place], [place] [id number] [place] Basophils/100 WBC (Bld) 0.4 % Normal . [facility] Comment on above: Performed By: #### C MP, CBC, TROP ####[place] [address] [place] [id number] [place] Eosinophils (Bld) [#/Vol] 0.0 10*3/uL Normal 0.0-0.45 [facility] Comment on above: Performed By: #### C MP, CBC, TROP ####[address] Eosinophils/100 WBC (Bld) 0.0 % Normal . [facility] Comment on above: Performed By: #### C MP, CBC, TROP ####[address] Erythrocyte distribution width (RBC) [Ratio] 13.6 % Normal 11.9-15.3 [facility] Comment on above: Performed By: #### C MP, CBC, TROP ####[address] Hematocrit (Bld) [Volume fraction] 38.3 % Normal 34.0-46.4 [facility] Comment on above: Performed By: #### C MP, CBC, TROP ####[address] Hemoglobin (Bld) [Mass/Vol] 13.0 g/dL Normal 11.8-15.4 [facility] Comment on above: Performed By: #### C MP, CBC, TROP ####[address] Lymphocytes (Bld) [#/Vol] 0.8 10*3/uL Low 1.00-4.8 [facility] Comment on above: Performed By: #### C MP, CBC, TROP ####[address] Lymphocytes/100 WBC (Bld) 5.8 % Normal . [facility] Comment on above: Performed By: #### C MP, CBC, TROP ####[address] MCH (RBC) [Entitic mass] 30.0 pg Normal 24.7-34.3 [facility] Comment on above: Performed By: #### C MP, CBC, TROP ####[address] MCV (RBC) [Entitic vol] 88.6 fL Normal 80-100 [facility] Comment on above: Performed By: #### C MP, CBC, TROP ####[address] Mean Corpuscular HGB Conc 33.8 g/dL Normal 32.0-35.0 [facility] Comment on above: Performed By: #### C MP, CBC, TROP ####[address] Monocytes (Bld) [#/Vol] 0.6 10*3/uL Normal 0.0-0.8 [facility] Comment on above: Performed By: #### C MP, CBC, TROP ####[address] Monocytes/100 WBC (Bld) 4.5 % Normal . [facility] Comment on above: Performed By: #### C MP, CBC, TROP ####[address] Neutrophils (Bld) [#/Vol] 11.8 10*3/uL High 1.8-7.7 [facility] Comment on above: Performed By: #### C MP, CBC, TROP ####[address] Neutrophils/100 WBC (Bld) 89.3 % Normal . [facility] Comment on above: Performed By: #### C MP, CBC, TROP ####[address] Nucleated RBC/100 WBC (Bld) [Ratio] 0.1 % Normal 0-0.5 [facility] Comment on above: Performed By: #### C MP, CBC, TROP ####[address] Platelet mean volume (Bld) [Entitic vol] 7.2 fL Normal 6.3-10.7 [facility] Comment on above: Performed By: #### C MP, CBC, TROP ####[facility] [place] [address] [facility] Platelets (Bld) [#/Vol] 369 10*3/uL Normal 150-450 [facility] Comment on above: Performed By: #### C MP, CBC, TROP ####[place] [id number] [facility] RBC (Bld) [#/Vol] 4.32 10*6/uL Normal 3.60-5.00 [facility] Comment on above: Performed By: #### C MP, CBC, TROP ####[address] [address] [facility] WBC (Bld) [#/Vol] 13.2 10*3/uL High 4.5-11.0 [facility] Comment on above: Performed By: #### C MP, CBC, TROP ####[place] [id number] [facility] Comprehensive Metabolic Pane khalida 02-28-2021 Albumin [Mass/Vol] 3.4 g/dL Normal 3.2-5.5 [facility] Comment on above: Performed By: #### C MP, CBC, TROP ####[place] [id number] [facility] Albumin/Globulin [Mass ratio] 1.4 {ratio} Normal [facility] Comment on above: Performed By: #### C MP, CBC, TROP ####[place] [id number] [facility] ALP [Catalytic activity/Vol] 48 U/L Normal 32-92 [facility] Comment on above: Performed By: #### C MP, CBC, TROP ####[place] [id number] [facility] ALT [Catalytic activity/Vol] 23 U/L Normal 10-60 [facility] Comment on above: Performed By: #### C MP, CBC, TROP ####[place] [id number] [facility] AST [Catalytic activity/Vol] 32 U/L Normal 10-42 [facility] Comment on above: Performed By: #### C MP, CBC, TROP ####[place] [address] [place] [id number] [facility] Bilirubin [Mass/Vol] 0.5 mg/dL Normal 0.3-1.2 [facility] Comment on above: Performed By: #### C MP, CBC, TROP ####[place] [address] [place] [id number] [facility] Calcium [Mass/Vol] 8.9 mg/dL Normal 8.2-10.2 [facility] Comment on above: Performed By: #### C MP, CBC, TROP ####[place] [id number] [facility] Chloride [Moles/Vol] 102 mmol/L Normal 95-114 [facility] Comment on above: Performed By: #### C MP, CBC, TROP ####[place] [id number] [facility] CO2 [Moles/Vol] 22.6 mmol/L Normal 22.0-30.0 [facility] Comment on above: Performed By: #### C MP, CBC, TROP ####[place] [id number] [facility] Creatinine [Mass/Vol] 0.93 mg/dL Normal 0.44-1.03 [facility] Comment on above: Performed By: #### C MP, CBC, TROP ####[place] [id number] [place] Creatinine Clr Calc Pharmacy 50.13 [facility] Comment on above: Result Comment: PERF ORMED BY: [facility] [address] [place] [address] PATHOLOGIST CAT WAGON OPERATOR JU MCPHERSON M.D. Performed By: #### C MP, CBC, TROP ####[place] [id number] [facility] Estimated GFR ( [place] > 60 Normal [facility] Comment on above: Result Comment: GFR estimated reference range: According to KDOQI guidelines, <60 ml/min/1.73m2 is sufficient to diagnose a patient with chronic kidney disease. Performed By: #### C MP, CBC, TROP ####[facility] [place] [address] [facility] Estimated GFR (Non- Am 59 Normal [facility] Comment on above: Performed By: #### C MP, CBC, TROP ####[facility] [place] [address] [facility] Globulin (S) [Mass/Vol] 2.5 g/dL [facility] Comment on above: Performed By: #### C MP, CBC, TROP ####[place] [address] [place] [address] [facility] Glucose [Mass/Vol] 198 mg/dL High 70-100 [facility] Comment on above: Result Comment: [place] Glucose Reference Range is dependent on time and content of last meal. Glucose of more than 200 mg/dL in a nonstressed, ambulatory subject supports the diagnosis of Diabetes Mellitus. ADA recommended reference range Performed By: #### C MP, CBC, TROP ####[facility] [place] [address] [facility] Potassium [Moles/Vol] 3.9 mmol/L Normal 3.5-5.1 [facility] Comment on above: Performed By: #### C MP, CBC, TROP ####[facility] [place] [address] [facility] Protein [Mass/Vol] 5.9 g/dL Low 6.1-7.9 [facility] Comment on above: Performed By: #### C MP, CBC, TROP ####[facility] [place] [address] [facility] Sodium [Moles/Vol] 133 mmol/L Low 136-146 [facility] Comment on above: Performed By: #### C MP, CBC, TROP ####[facility] [place] [address] [facility] Urea nitrogen [Mass/Vol] 13 mg/dL Normal 9-23 [facility] Comment on above: Performed By: #### C MP, CBC, TROP ####[facility] [place] [address] [facility] ECG 12 lead ECGon 02-28-2021 ECG 12 lead ECG [facility] Main [place] [address] [place] [address] Electrocardiograph Report Signed Patient: Anabela Abbasi MR#: [id number] 5 : 1945 Acct:[id number] Age/Sex: 75 / F ADM Date: 02/28/21 Loc: Room: [address] [place] [address] Type: ADM IN Attending Dr: Brian Gonzales [...] MD 02/28/21 1425 Signed By: 02/28/21 1538 [facility] Glucose Poct Glucometerson 0 02-28-2021 Glucose [Mass/Vol] 192 mg/dL [facility] Comment on above: Result Comment: [facility] Glucose Reference Range is dependent on time and content of last meal. Glucose of more than 200 mg/dL in a nonstressed, ambulatory subject supports the diagnosis of Diabetes Mellitus. PERFORMED BY: [facility] [address] [place] [address] PATHOLOGIST CAT WAGON OPERATOR JU MCPHERSON M.D. Performed By: #### G LULS ####Point of Care testing, Commemt1 Glu2: Cleaned Meter [facility] Comment on above: Result Comment: PERF ORMED BY: [facility] [address] [place] [address] PATHOLOGIST CAT WAGON OPERATOR JU MCPHERSON M.D. Performed By: #### G LULS ####Point of Care testing, Glucose [Mass/Vol] 202 mg/dL Normal [facility] Comment on above: Result Comment: [place] Glucose Reference Range is dependent on time and content of last meal. Glucose of more than 200 mg/dL in a nonstressed, ambulatory subject supports the diagnosis of Diabetes Mellitus. Performed By: #### G LULS ####Point of Care testing, Troponin I(TnI)on 02-28-2021 Troponin I.cardiac [Mass/Vol] ng/mL Normal 0-0.02 [facility] Comment on above: Result Comment: VARGHESE CT Cut off value > or equal to 0.03 ng/mL in conjunction with clinical conditions of myocardial infarction. (www.escardio.org/guidelines) PERFORMED BY: [place] [address] PATHOLOGIST CAT WAGON OPERATOR JU MCPHERSON M.D. Performed By: #### C MP, CBC, TROP ####[facility] [address] [place] [address] XR lumbar spine 2-3V*on XR lumbar spine 2-3V* [facility] Main [place] [address] [place] [address] XRay Report Signed Patient: Anabela Abbasi MR#: [id number] 5 : 1945 Acct:[id number] Age/Sex: 75 / F ADM Date: 02/28/21 Loc: Room: [address] [place] [address] Type: ADM IN Attending Dr: Brian Gonzales [...] Rahul Desai M.D.02/28/2021 12:05 PM Dictation Location: [place] [address] Transcribed By: [facility] 02/28/21 1205 Dictated By: Rahul Desai DO 02/28/21 1153 Signed By: 02/28/21 1205 Normal [facility] COVID-19 FRMCon 02-24-2021 SARS-CoV-2 (COVID-19) RNA JORI+probe Ql (Unsp spec) Negative Normal Negative [facility] Comment on above: Order Comment: Healt hcare Worker?: N Result Comment: Test ing for SARS-CoV-2 by RT-PCR This test was developed and its performance characteristics determined by [employer] ([facility]) and validated at the [facility]. This test has not been FDA cleared [...] is terminated or revoked sooner. PERFORMED BY: [place] [address] PATHOLOGIST CAT WAGON OPERATOR JU MCPHERSON M.D. Performed By: #### C OVID-19 [facility] #### [address] Basic Metabolic Panelon 01-27 Calcium [Mass/Vol] 10.1 mg/dL Normal 8.2-10.2 [facility] Comment on above: Result Comment: PERF ORMED BY: [address] [place] [address] PATHOLOGIST CAT WAGON OPERATOR JU MCPHERSON M.D. Performed By: #### C BC, BMP #### [address] Chloride [Moles/Vol] 100 mmol/L Normal 95-114 [facility] Comment on above: Performed By: #### C BC, BMP #### [address] CO2 [Moles/Vol] 25.9 mmol/L Normal 22.0-30.0 [facility] Comment on above: Performed By: #### C BC, BMP #### [address] Creatinine [Mass/Vol] 1.00 mg/dL Normal 0.44-1.03 [facility] Comment on above: Performed By: #### C BC, BMP #### [address] Estimated GFR ( [place] > 60 [facility] Comment on above: Result Comment: GFR estimated reference range: According to KDOQI guidelines, <60 ml/min/1.73m2 is sufficient to diagnose a patient with chronic kidney disease. Performed By: #### C BC, BMP #### [address] Estimated GFR (Non- Am 54 [facility] Comment on above: Performed By: #### C BC, BMP #### [address] Glucose [Mass/Vol] 101 mg/dL High 70-100 [facility] Comment on above: Result Comment: [place] om Glucose Reference Range is dependent on time and content of last meal. Glucose of more than 200 mg/dL in a nonstressed, ambulatory subject supports the diagnosis of Diabetes Mellitus. ADA recommended reference range Performed By: #### C BC, BMP #### [address] Potassium [Moles/Vol] 4.6 mmol/L Normal 3.5-5.1 [facility] Comment on above: Performed By: #### C BC, BMP #### [facility] [address] Sodium [Moles/Vol] 135 mmol/L Low 136-146 [facility] Comment on above: Performed By: #### C BC, BMP #### [facility] [address] Urea nitrogen [Mass/Vol] 13 mg/dL Normal 9-23 [facility] Comment on above: Performed By: #### C BC, BMP #### [facility] [address] Basophils Auto (Bld) [#/Vol] on 02-16-2021 Basophils (Bld) [#/Vol] 0.0 10*3/uL 0.0-0.2 [facility] Basophils/100 WBC Auto (Bld) on 02-16-2021 Basophils/100 WBC (Bld) 0.9 % [facility] Blood hemoglobin measurement (mass/volume)on 02-16-2021 Hemoglobin (Bld) [Mass/Vol] 14.5 g/dL 11.8-15.4 [facility] Blood leukocytes automated c ount (number/volume)on 02-16-2021 WBC (Bld) [#/Vol] 5.6 10*3/uL 4.5-11.0 [facility] Complete Blood Count Auto Di ffon 02-16-2021 Basophils (Bld) [#/Vol] 0.0 10*3/uL Normal 0.0-0.2 [facility] Comment on above: Result Comment: PERF ORMED BY: [place] [address] PATHOLOGIST CAT WAGON OPERATOR JU MCPHERSON M.D. Performed By: #### C BC, BMP #### [address] Basophils/100 WBC (Bld) 0.9 % Normal . [facility] Comment on above: Performed By: #### C BC, BMP #### [facility] [address] [place] [address] Eosinophils (Bld) [#/Vol] 0.1 10*3/uL Normal 0.0-0.45 [facility] Comment on above: Performed By: #### C BC, BMP #### [address] Eosinophils/100 WBC (Bld) 1.0 % Normal . [facility] Comment on above: Performed By: #### C BC, BMP #### [address] Erythrocyte distribution width (RBC) [Ratio] 14.1 % Normal 11.9-15.3 [facility] Comment on above: Performed By: #### C BC, BMP #### [address] Hematocrit (Bld) [Volume fraction] 42.6 % Normal 34.0-46.4 [facility] Comment on above: Performed By: #### C BC, BMP #### [address] Hemoglobin (Bld) [Mass/Vol] 14.5 g/dL Normal 11.8-15.4 [facility] Comment on above: Performed By: #### C BC, BMP #### [address] Lymphocytes (Bld) [#/Vol] 1.9 10*3/uL Normal 1.00-4.8 [facility] Comment on above: Performed By: #### C BC, BMP #### [address] Lymphocytes/100 WBC (Bld) 33.3 % Normal . [facility] Comment on above: Performed By: #### C BC, BMP #### [address] MCH (RBC) [Entitic mass] 30.1 pg Normal 24.7-34.3 [facility] Comment on above: Performed By: #### C BC, BMP #### [address] MCV (RBC) [Entitic vol] 88.4 fL Normal 80-100 [facility] Comment on above: Performed By: #### C BC, BMP #### [address] Mean Corpuscular HGB Conc 34.0 g/dL Normal 32.0-35.0 [facility] Comment on above: Performed By: #### C BC, BMP #### [address] Monocytes (Bld) [#/Vol] 0.5 10*3/uL Normal 0.0-0.8 [facility] Comment on above: Performed By: #### C BC, BMP #### [address] Monocytes/100 WBC (Bld) 9.3 % Normal . [facility] Comment on above: Performed By: #### C BC, BMP #### [address] Neutrophils (Bld) [#/Vol] 3.1 10*3/uL Normal 1.8-7.7 [facility] Comment on above: Performed By: #### C BC, BMP #### [address] Neutrophils/100 WBC (Bld) 55.5 % Normal . [facility] Comment on above: Performed By: #### C BC, BMP #### [address] Nucleated RBC/100 WBC (Bld) [Ratio] 0.1 % Normal 0-0.5 [facility] Comment on above: Performed By: #### C BC, BMP #### [address] Platelet mean volume (Bld) [Entitic vol] 7.6 fL Normal 6.3-10.7 [facility] Comment on above: Performed By: #### C BC, BMP #### [address] Platelets (Bld) [#/Vol] 417 10*3/uL Normal 150-450 [facility] Comment on above: Performed By: #### C JOSE L, BMP #### [facility] [address] RBC (Bld) [#/Vol] 4.82 10*6/uL Normal 3.60-5.00 [facility] Comment on above: Performed By: #### C JOSE L, BMP #### [facility] [address] WBC (Bld) [#/Vol] 5.6 10*3/uL Normal 4.5-11.0 [facility] Comment on above: Performed By: #### C JOSE L, BMP #### [facility] [address] Creatinine and Glomerular fi ltration rate.predicted panel (S/P/Bld)on 02-16-2021 Creatinine [Mass/Vol] 1.00 mg/dL 0.44-1.03 [facility] Eosinophils Auto (Bld) [#/Vo l]on 02-16-2021 Eosinophils (Bld) [#/Vol] 0.1 10*3/uL 0.0-0.45 [facility] Eosinophils/100 WBC Auto (Bl d)on 02-16-2021 Eosinophils/100 WBC (Bld) 1.0 % [facility] Erythrocyte distribution wid th Auto (RBC) [Ratio]on 02-16-2021 Erythrocyte distribution width (RBC) [Ratio] 14.1 % 11.9-15.3 [facility] Estimated glomerular filtrat ion rate (GFR) non- Americanon 02-16-2021 GFR/1.73 sq M.predicted among non-blacks MDRD (S/P/Bld) [Vol rate/Area] 54 mL/Min [facility] Hematocrit Auto (Bld) [Volum e fraction]on 02-16-2021 Hematocrit (Bld) [Volume fraction] 42.6 % 34.0-46.4 [facility] Laboratory - Hematology and Cell countson 02-16-2021 Nucleated RBC/100 WBC (Bld) [Ratio] 0.1 % 0-0.5 [facility] Lymphocytes Auto (Bld) [#/Vo l]on 02-16-2021 Lymphocytes (Bld) [#/Vol] 1.9 10*3/uL 1.00-4.8 [facility] Lymphocytes/100 WBC Auto (Bl d)on 02-16-2021 Lymphocytes/100 WBC (Bld) 33.3 % [facility] MCH Auto (RBC) [Entitic mass ]on 02-16-2021 MCH (RBC) [Entitic mass] 30.1 pg 24.7-34.3 [facility] MCHC Auto (RBC) [Mass/Vol]on 02-16-2021 MCHC (RBC) [Mass/Vol] 34.0 g/dL 32.0-35.0 [facility] MCV Auto (RBC) [Entitic vol] on 02-16-2021 MCV (RBC) [Entitic vol] 88.4 fL 80-100 [facility] Monocytes Auto (Bld) [#/Vol] on 02-16-2021 Monocytes (Bld) [#/Vol] 0.5 10*3/uL 0.0-0.8 [facility] Monocytes/100 WBC Auto (Bld) on 02-16-2021 Monocytes/100 WBC (Bld) 9.3 % [facility] Neutrophils Auto (Bld) [#/Vo l]on 02-16-2021 Neutrophils (Bld) [#/Vol] 3.1 10*3/uL 1.8-7.7 [facility] Neutrophils/100 WBC Auto (Bl d)on 02-16-2021 Neutrophils/100 WBC (Bld) 55.5 % [facility] No Panel Informationon 02-16 Estimated GFR () > 60 mL/Min [facility] Comment on above: GFR estimated refere nce range: According to KDOQI guidelines, <60 ml/min/1.73m2 is sufficient to diagnose a patient with chronic kidney disease. Pharmacy Creatinine Clearance (Chem N/A [facility] PST Type and Screenon 2020 ABO and Rh group Nom (Bld) Blood group O Rh(D) positive Normal [facility] Comment on above: Order Comment: Date of Surgery: [id number] Result Comment: PERF ORMED BY: [facility] [place] [address] PATHOLOGIST CAT WAGON OPERATOR JU MCPHERSON M.D. Platelet mean volume Auto (B ld) [Entitic vol]on 02-16-2021 Platelet mean volume (Bld) [Entitic vol] 7.6 fL 6.3-10.7 [facility] Platelets Auto (Bld) [#/Vol] on 02-16-2021 Platelets (Bld) [#/Vol] 417 10*3/uL 150-450 [facility] RBC Auto (Bld) [#/Vol]on RBC (Bld) [#/Vol] 4.82 10*6/uL 3.60-5.00 [facility] Serum or plasma calcium samir urement (mass/volume)on 02-16-2021 Calcium [Mass/Vol] 10.1 mg/dL 8.2-10.2 [facility] Serum or plasma chloride valeria surement (moles/volume)on 02-16-2021 Chloride [Moles/Vol] 100 mmol/L 95-114 [facility] Serum or plasma glucose samir urement (mass/volume)on 02-16-2021 Glucose [Mass/Vol] 101 mg/dL 70-100 [facility] Comment on above: ADA recommended refe rence rangeRandom Glucose Reference Range is dependent on time and content of last meal. Glucose of more than 200 mg/dL in a nonstressed, ambulatory subject supports the diagnosis of Diabetes Mellitus. Serum or plasma potassium me asurement (moles/volume)on 02-16-2021 Potassium [Moles/Vol] 4.6 mmol/L 3.5-5.1 [facility] Serum or plasma sodium measu rement (moles/volume)on 02-16-2021 Sodium [Moles/Vol] 135 mmol/L 136-146 [facility] Serum or plasma total carbon dioxide measurement (moles/volume)on 02-16-2021 CO2 [Moles/Vol] 25.9 mmol/L 22.0-30.0 [facility] Serum or plasma urea nitroge n measurement (mass/volume)on 02-16-2021 Urea nitrogen [Mass/Vol] 13 mg/dL 07-20 [facility] STR cardiac stress/lexiscano n 02-09-2021 STR cardiac stress/lexiscan [facility] Main [address] [address] Cardiac Stress Test Signed Patient: Anabela Abbasi MR#: [id number] 5 : 1945 Acct:[id number] Age/Sex: 75 / F ADM Date: 02/07/21 Loc: [place] Room: Type: [facility] Attending Dr: Mikie Daugherty MD Ordering [...] 02/09/21 1831 Signed By: 02/10/21 1408 Normal [facility] NM karl perf SPECT rest stron 02-07-2021 NM karl perf SPECT rest str [address] [address] Nuclear Medicine Report Signed Patient: Anabela Abbasi MR#: [id number] 5 : 1945 Acct:[id number] Age/Sex: 75 / F ADM Date: 02/07/21 Loc: [place] Room: Type: [facility] CLI Attending Dr: Mikie Daugherty [...] available for comparison. Transcribed By: ISSAC 02/07/21 5358 Dictated By: Bjorn Simon MD 02/07/21 1654 Signed By: 02/08/21 0929 Normal [facility] XR lumbar spine 6V w bending on 01-05-2021 XR lumbar spine 6V w bending [facility] [place] [address] XRay Report Signed Patient: Anabela Abbasi MR#: [id number] 5 : 1945 Acct:[id number] Age/Sex: 75 / F ADM Date: 01/05/21 Loc: XD Room: Type: [facility] CLI Attending Dr: Brian Gonzales MD Ordering Provider: Brian Gonzales MD Date of Service: 01/05/21 XR/XR lumbar spine 6V w bending: m54.16 ([id number]) XR/XR scoliosis survey: M54.16 Copies to: Brian [...] Wang Jr., M.D.01/05/2021 3:44 PM Dictation Location: [place] [address] Transcribed By: [facility] 01/05/21 1544 Dictated By: Camryn Wang Jr, MD 01/05/21 1535 Signed By: 01/05/21 1544 [facility] Vital Signs Date Time Vital Sign Value Performing Clinician Meño zabala 07-19-2025 14:24040 Body height 157.5 cm Camryn Amador DO Work Phone: [facility] [employer] 07-19-2025 14:24-0400 Body mass index (BMI) [Ratio] 30.36 kg/m2 Camryn Cumuluxi DO Work Phone: [facility] [employer] 07-19-2025 14:24-040 Body weight 75.3 kg Camryn Bonneri [employer] Work Phone: [facility] [employer] 07-19-2025 14:24-0400 Diastolic blood pressure 80 mm[Hg] Camryn Bonneri DO Work Phone: [facility] 07-19-2025 14:24-0400 Systolic blood pressure 128 mm[Hg] Camryn Amador DO Work Phone: [facility] 12-23-2024 15:27-0500 Body mass index (BMI) [Ratio] 29.19 kg/m2 Jorge A Avalos DO Work Phone: [facility] 12-23-2024 15:27-0500 Body weight 72.39 kg Jorge A Avalos DO Work Phone: [facility] 12-23-2024 15:27-0500 Diastolic blood pressure 92 mm[Hg] Jorge A Avalos DO Work Phone: [facility] 12-23-2024 15:27-0500 Heart rate 67 /min Jorge A Avalos DO Work Phone: [facility] 12-23-2024 15:27-0500 SaO2% (BldA) [Mass fraction] 98 % Jorge A Avalos DO Work Phone: [facility] 12-23-2024 15:27-0500 Systolic blood pressure 148 mm[Hg] Jorge A Avalos DO Work Phone: [facility] 12-19-2024 10:16-0500 Body height 160.02 cm [facility] 12-19-2024 10:16-0500 Body mass index (BMI) [Ratio] 28.3 kg/m2 [facility] 12-19-2024 10:16-0500 Body temperature 99.1 [degF] [facility] 12-19-2024 10:16-0500 Body weight 72.57 kg [facility] 12-19-2024 10:16-0500 Diastolic blood pressure 80 mm[Hg] [facility] 12-19-2024 10:16-0500 Heart rate 56 /min [facility] 12-19-2024 10:16-0500 Respiratory rate 18 /min [facility] 12-19-2024 10:16-0500 SaO2% (BldA) [Mass fraction] 97 % [facility] 12-19-2024 10:16-0500 Systolic blood pressure 137 mm[Hg] [facility] 10-11-2021 14:00-0500 Body height 160.02 cm Brian Gonzales Other [employer] Other 10-11-2021 14:00-0500 Body mass index (BMI) [Ratio] 27.63 kg/m2 Brian Gonzales Other [employer] Other 10-11-2021 14:00-0500 Body weight 70.76 kg Brian Gonzales Other [employer] Other 10-11-2021 14:00-0500 Diastolic blood pressure 86 mm[Hg] Brian Gonzales Other [employer] Other 10-11-2021 14:00-0500 Systolic blood pressure 132 mm[Hg] Brian Gonzales Other [employer] Other 02-07-2021 14:28-0400 Body height 160.02 cm M [employer] Work Phone: [facility] 02-07-2021 14:28-0400 Body weight 72.12 kg M Ashok Hoy Work Phone: [facility] 02-07-2021 14:20-0400 Diastolic blood pressure 82 mm[Hg] M Ashok Hoy Work Phone: [facility] 02-07-2021 14:20-0400 Heart rate 64 /min M Ashok Hoy Work Phone: [facility] 02-07-2021 14:20-0400 Systolic blood pressure 145 mm[Hg] M Ashok Hoy Work Phone: [facility] Encounters Encounter Date Encounter Type Care Provider Facility Start: 08-09-2025 End: 08-09-2025 [facility] Start: 07-19-2025 End: 07-19-2025 Office outpatient visit 25 minutes Camryn A Visci DO Work Phone: [facility] Comment on above: Encounter for gyneco logical examination with abnormal finding; Encounter for screening mammogram for malignant neoplasm of breast; Osteoporosis, post-menopausal ; Vaginal atrophy; Osteoporosis screening; Asymptomatic menopause Start: 07-19-2025 End: 07-19-2025 Patient encounter status Camryn A Visci DO Work Phone: [facility] Start: 07-19-2025 End: 07-19-2025 ambulatory CAMRYN A VISCI Not Available Start: 07-19-2025 End: 07-19-2025 Bamboo flowsheet Camryn A Visci DO Work Phone: [facility] Start: 07-19-2025 End: 07-19-2025 Bamboo flowsheet Camryn A Visci DO Work Phone: [facility] Start: 06-14-2025 End: 06-14-2025 ambulatory CAMRYN A VISCI Not Available Start: 12-23-2024 End: 12-23-2024 Office outpatient new 45 minutes Danielopher Bailey DO Work Phone: [facility] Comment on above: Dizziness (Primary D x) Start: 12-23-2024 End: 12-23-2024 ambulatory CHRISTOPHER BAILEY Not Available Start: 12-23-2024 End: 12-23-2024 Bamboo flowsheet Christopher Bailey DO Work Phone: [facility] Start: 12-23-2024 End: 12-23-2024 Bamboo flowsheet Christopher Bailey DO Work Phone: [facility] Start: 12-19-2024 End: 12-19-2024 ambulatory [facility] Work Phone: Start: 12-19-2024 End: 12-19-2024 Patient encounter procedure [facility] Work Phone: Start: 10-14-2024 End: 10-14-2024 ambulatory SHADE GALLARDO [facility] Start: 12-18-2022 End: 12-18-2022 ambulatory [facility] Start: 11-06-2022 End: 11-06-2022 [facility]ulatory [facility] Start: 09-25-2022 End: 10-01-2022 Evaluation and management of inpatient [facility] Start: 09-25-2022 End: 09-25-[address] RAQUEL KING Facility:[facility] Start: 09-14-2022 End: 09-15-[address] SHADE GALLARDO Facility:[facility] Start: 04-20-2022 End: 04-20-[address] ASHOK BRYANT . Facility:[facility] Start: 04-04-2022 End: 04-05-2022 ambulatory KATLYN COLINDRES Facility:[facility] Start: 10-11-2021 End: 10-11-2021 ambulatory Brian Gonzales Other [employer] Other Start: 10-11-2021 Office outpatient vi sit 15 minutes Brian Gonzales [facility] [place] Start: 02-16-2021 End: 02-16-2021 Patient encounter procedure Tim Nielson Phone: -Pre-Surgical Testing Start: 02-07-2021 End: 02-07-2021 Patient encounter procedure Tim Nielson Phone: -Nuc Med [facility] [place] Start: 01-05-2021 End: 01-05-2021 Patient encounter procedure Tim Nielson Phone: -XRay [facility] Procedures Date Procedure Procedure Detail Performing Clinician Start: 02-16-2021 Antibody screen Comment on above: Order Comment: Date of Surgery: [id number] Result Comment: PERF ORMED BY: [facility] [address] [place] [address] PATHOLOGIST CAT WAGON OPERATOR JU MCPHERSON M.D. Start: 02-07-2021 Single photon [...] [address] [place] [address] Camryn Amador DO [address] [place] [id number] [facility] Start: 07-19-2026 End: 09-18-2026 DBT Breast - bilateral screening Bilateral screening mammogram with tomosynthesis Imaging Routine Encounter for screening mammogram for malignant neoplasm of breast Expected: 07/19/2026, Expires: 09/18/2026 [facility] Work Phone: Comment on above: Expected: 07/19/2026 , Expires: 09/18/2026 Start: 07-19-2026 End: 07-19-2026 DXA Skeletal system Views for bone density DEXA bone density Imaging Routine Osteoporosis, post-menopausal Osteoporosis screening Asymptomatic menopause Expected: 07/19/2026, Expires: 07/19/2026 [facility] Comment on above: Expected: 07/19/2026 , Expires: 07/19/2026 Start: 06-17-2026 End: 06-17-2026 Professional / ancillary services management [facility] Start: 07-19-2025 End: 07-19-2025 Patient encounter procedure 07/19/2025 2:15 PM EDT Office Visit [facility] [address] [place] [phone] Camryn Amador DO [address] [place] [address] Encounter for gynecological examination with abnormal finding; Encounter for screening mammogram for malignant neoplasm of breast; Osteoporosis, post-menopausal ; Vaginal atrophy [facility] [place] [facility] Comment on above: Encounter for gyneco logical examination with abnormal finding; Encounter for screening mammogram for malignant neoplasm of breast; Osteoporosis, post-menopausal ; Vaginal atrophy Start: 06-28-2025 Influenza vaccination Influenza Vacc ine (#1) [facility] Start: 06-14-2025 End: 06-14-2025 Professional / ancillary services management 06/14/2025 11:00 AM EDT Ancillary Procedure [facility] [place] [address] [place] [phone] [facility] [place] Start: 06-14-2025 End: 06-14-2025 Patient encounter procedure 06/14/2025 10:00 AM EDT Office Visit [facility] [address] [place] [address] Camryn Amador, DO [address] [place] [address] [facility] Start: 12-23-2024 End: 12-23-2024 Patient encounter procedure 12/23/2024 3:30 PM EST Office Visit [facility] [address] [place] [phone] Jorge A Avalos DO [address] [place] [id number] Arrived [facility] Comment on above: Arrived Start: 06-28-2024 Influenza vaccination Influenza Vacc ine (#1) [facility] Immunizations Immunization Date Immunization Notes Care Provider Fa cility 08-10-2024 influenza virus vaccine, unspecified formulation Camryn Amador DO Work Phone: [facility] 07-28-2021 influenza virus vaccine, unspecified formulation Jorge A Avalos DO Work Phone: [facility] 01-12-2021 COVID-19 mRNA,[id number] b2 ([employer]) Tim Bryant Work Phone: [facility] 12-22-2020 COVID-19 mRNA,[id number] b2 (Pfizer) Tim Bryant Work Phone: [facility] Payers Date Payer Category Payer Private Health Insurance CIGRUBA Dumont ember LACHELLE LYNCH [id number] 2022 Unknown [id number] 2022 Unknown [id number] 2011 Medicare MEDICARE [id number] 1959 Medicare [id number] 1959 Private Health Insurance [id number] 1945 Unknown [id number] .175 1945 Unknown [id number] .[id number] .175 1945 Unknown [id number] [id number] .175 1945 Unknown [id number] [id number] .593 1945 Unknown [id number] [id number] .593 1945 Unknown [id number] [id number] .593 1945 Unknown [id number] 2.16.840.1.155648.3.579.2 .593 1945 Unknown [id number] 2.16.840.1.098882.3.579.2 .1259 1945 Unknown [id number] [id number] .1259 1945 Unknown [id number] [id number] .1259 Self-pay Self Pay [id number] Social History Date Type Detail Facility Start: 02-16-2021 End: 06-03-2024 Tobacco smoking status NHIS Never smoked tobacco (finding) [facility] Start: 1945 Sex Assigned At Female [facility] Start: 06-03-2024 End: 07-13-2025 Sex Assigned At [facility] Other Start: 12-19-2024 Sex Female (finding) [facility] Start: 06-03-2024 Tobacco use and exposure Smokeless [...] Sex assigned at Not on file [facility] Medical Equipment Procedure Code Equipment Code Equipment Origin al Text Equipment Identifier Dates Fusion, spine, lumbar, XLIF CANCELLOUS 15CC CRUSHED FDA Start: 02-28-2021 Fusion, spine, lumbar, XLIF Bone-screw internal spinal fixation system, non-sterile ()[id number] FDA Start: 02-28-2021 Fusion, spine, lumbar, XLIF Bone-screw internal spinal fixation system, non-sterile ()[id number] FDA Start: 02-28-2021 Fusion, spine, lumbar, XLIF Bone-screw internal spinal fixation system, non-sterile ()[id number] FDA Start: 02-28-2021 Fusion, spine, lumbar, XLIF MAS REDUCTION FIXATION ADD LEV FDA Start: 02-28-2021 Fusion, spine, lumbar, XLIF Bone-screw internal spinal fixation system, non-sterile ()[id number] FDA Start: 02-28-2021 Fusion, spine, lumbar, XLIF Bone-screw internal spinal fixation system, non-sterile ()[id number] FDA Start: 02-28-2021 Fusion, spine, lumbar, XLIF Polymeric spinal fusion cage, non-sterile ()[id number] FDA Start: 02-28-2021 Fusion, spine, lumbar, XLIF MAS REDUCTION FIXATION ADD LEV FDA Start: 02-28-2021 Fusion, spine, lumbar, XLIF XLIF 1 LEVEL MAS REDUCTION FDA Start: 02-28-2021 Fusion, spine, lumbar, XLIF Spinal fusion graft kit ()[id number] FDA Start: 02-28-2021 Fusion, spine, lumbar, XLIF Spinal fusion graft kit ()[id number] FDA Start: 02-28-2021 Fusion, spine, lumbar, XLIF Bone matrix implant, human-derived ()[id number] FDA Start: 02-28-2021 Fusion, spine, lumbar, XLIF Metallic spinal fusion cage, non-sterile ()[id number] FDA Start: 02-28-2021 Fusion, spine, lumbar, XLIF Bone-screw internal spinal fixation system, non-sterile ()[id number] FDA Start: 02-28-2021 Goals Date Patient Goal Desired Activity /State Clinical Notes 10-11-2021 to 08-09-2025 Ruthy Monreal LPN - 07/19/2025 2:15 PM Anjelica Avalos DO - 12/23/2024 3:30 PM EST Note Date & Type Note Facility 08-09-2025 Note SUBJECTIVE Reason for Visit: Anabela Abbasi is a 79 y.o. year old female patient being seen for shortness of breath HPI: Anabela Abbasi is a 79 y.o. year old female with significant medical history of CAD s/p LAD stent 03/12/[address] Collins, HTN, and HLD. 08/09/2025 office visit: Patient seen evaluated in the office today. She reports progressively worsening CIFUENTES; unable to walk up stairs, or long distances greater than half [...] the following laboratory results above. These findings have been analyzed in the context of [...] all available cardiac diagnostic tests and imaging reports. Findings have been analyzed in the context of the patient's clinical status. Assessment and Plan #ESAU CIFUENTES has gotten progressively worse over the [...] month or 2 her blood pressure was aroun (more content not included)... [facility] 07-19-2025 History of Present illness Narrative Images from the original note were not included. Camryn Amador, Obstetrics and Gynecology Anabela Abbasi 1945 07/19/25 [id number] Yearly Wellness Exam Chief Complaint Patient presents with Gynecologic Exam Pt presents for yearly. Denies breast,bowel,bladder,education sales consultant problems. Visit Vitals BP 128/80 Ht 5' [...] forearm (fosamax) Mammogram 06/14/25- Neg ([facility]) Colonoscopy 2017 ROS General: Denies fevers/chills Eyes: Denies vision [...] palpable. BACK: No obvious scoliosis/kyphosis. FEMALE GENITOURINARY: Barrel Racer in room-EFG without sores/lesions, atrophic vaginal mucosa-no [...] and the decisions I made. Signature: Camryn Amador DO Assessment & Plan documented in this encounter [facility] 12-23-2024 History of Present illness Narrative Images from the original note were not included. Chief Complaint: dizziness Subjective Anabela Abbasi, 79 y.o., female Patient presents today for [...] History: Diagnosis Date CAD (coronary artery disease) ([facility]) Heart disease Hyperlipidemia ([facility]) IBS (irritable bowel syndrome) Osteopenia Past Surgical History: Procedure Laterality Date ANGIOPLASTY BACK SURGERY 2020 COLONOSCOPY 2018 CYST REMOVAL L breast x3 TONSILLECTOMY TOTAL KNEE ARTHROPLASTY Left TUBAL LIGATION No family history on file. Social History Tobacco Use Smoking status: Never Smokeless tobacco: Never Substance Use Topics Alcohol use: Yes Allergies: Hylan g-f 20 Vitals: 12/23/24 1527 BP: (!) [...] , wrist extensors , wrist flexor , assistant quality manager strength 5/5. LUE Strength deltoid , biceps , triceps , wrist extensors , wrist flexor , assistant quality manager strength 5/5. RLE Strength illopsoas, quadriceps, tibialis [...] reflex 2+ . Cummings's sign negative. Coordination: Goqcdp-pk-yamj testing and rapid alternating movements are normal [...] and return instructions documented in this encounter [facility] 10-14-2024 Note Cardiovascular Medic [facility] SUBJECTIVE Anabela Abbasi is a 78 y.o. female here for [...] ch (more content not included)... [facility] 09-25-2022 Note PROCEDURE: XR FEMUR LT, [...] authenticated by: RAQUEL KING Date: 2022-09-25 14:50 [facility] 09-25-2022 Note PROCEDURE: XR FEMUR LT, [...] by: RAQUEL KING Date: 2022-09-25 14:50 [facility] 10-11-2021 Evaluation note Encounter Date Diagnosis Assessment Notes Sep, Acquired spondylolisthesis of lumbosacral region (ICD-10 - M43.17) Patient appears to have made a very good outcome from surgical intervention . We will see her back at this point on an as-needed basis. She will continue to wear her spine stimulator for a total of 9 months. 15 Sep, 2021 Kyphoscoliosis (ICD-10 - M41.9) [employer] Other evaluation noteNo Assessments Information Available [facility] assessment information available [facility] Work Phone: Evaluation note* [...] XLIF-[facility] Hospitalization History see surgical hx [facility] Other reason for visit Narrative* Consultation (Routine) - Closed Specialty Diagnoses / Procedures Referred By Contac t Referred To Contact Neurology Diagnoses Dizziness and giddiness Procedures [place] OFFICE/OUTPATIENT [facility] Ashok Bryant MD [address] [place] [address] Phone: tel:[phone] fax: Raquel Lopez MD [address] [place] [address] Phone: tel: fax: Referral ID Status Reason Start Date Expiration Date V isits Requested Visits Authorized [id number] Closed Consult and Treat 10/15/2024 04/13/2025 1 1 [facility] Advance Directives No Advanced Directives Records [...] section and content) DATE CREATED AUTHOR 03/27/2021 [facility] DATE CREATED AUTHOR AUTHOR'S ORGANIZ ATION 10/16/2021 [facility] DATE CREATED AUTHOR AUTHOR'S ORGANIZ ATION 02/01/2023 [facility] DATE CREATED AUTHOR AUTHOR'S ORGANIZ ATION 02/28/2023 [facility] DATE CREATED AUTHOR AUTHOR'S ORGANIZ ATION 07/20/2025 [facility] EPIC DATE CREATED AUTHOR AUTHOR'S ORGANIZ ATION 08/10/2025 [facility] REASON FOR VISIT (unrecogniz ed section and content) Reason Comments Gynecologic Exam Pt presents for year ly. Denies breast,bowel,bladder,education sales consultant problems. Care Teams (unrecognized sec tion and content) Team Status: Active Member Role Status Dates Ashok Bryant MD Primary Care Provider Active Team Status: Inactive Member Role Status Dates Ashok Byrant MD Primary Care Provider Active Start: December 19, 2024 End: December 19, 2024 Ana Maria Goodwin APRN Attending Provider Active Start: December 19, 2024 End: December 19, 2024 Strategic Partnership Manager Relationship Specialty Start Date End Date Ashok Bryant MD [address] [place] [address] PCP - General Family Medicine 06/03/24 Strategic Partnership Manager Relationship Specialty Start Date End Date Ashok Bryant MD [address] [place] [address] PCP - General Family Medicine 06/03/24 Strategic Partnership Manager Relationship Specialty Start Date End Date Ashok Bryant MD [address] [place] [phone] PCP - General Family Medicine 06/03/24 Strategic Partnership Manager Relationship Specialty Start Date End Date Ashok Bryant MD [address] [place] [phone] PCP - General Family Medicine 06/03/24 Goals [...] BE BASED ON THE PRIMARY CLINICAL RECORDS. [facility] [employer] [facility]. provides no warranty or guarantee of the accuracy or completeness of information in this document.
== END 2025-08-12 06:59 | disposition home or self-care (01) ==
LOC: CARD 06:58
PROVIDERS: PCP Family Medicine
DX: R06.02 Shortness of breath (principal); I25.10 Atherosclerotic heart disease of native coronary artery without angina pectoris
CPT/HCPCS: 93306

== ENCOUNTER 2025-08-16 06:57 | Outpatient (OUT) | payer MEDICARE, OTHER, SELFPAY ==
--- OUTSIDE RECORDS SUMMARY | 2025-08-09 14:40 | XMS_ITS | Encounter Summary ---
Author Organization [facility] Address [address] [address] Care Team Providers Care Bulk Tank Driver Name Role Phone Gio Agustin MD Primary Care Provider [phone] Reason for Referral * Imaging (Routine) - Pending Review Specialty Diagnoses / Procedures Referred By Nehal frey Referred To Contact Cardiology Diagnoses Shortness of breath Coronary artery disease involving ho-chunk coronary artery of ho-chunk heart without angina pectoris Procedures Transthoracic echo (TTE) complete Julio C Cruz CNP [address] [place] [address] Phone: tel: fax: Referral ID Status Reason Start Date Expiration Date Visits Requested Visits Authorized [id number] Pending Review Perform Procedure 5 08/09/2026 1 1 Reason for Visit * Reason Comments Shortness of Breath Patient is here toda y for a requested appointment for SOB/CIFUENTES x 6 month with activity. Coronary Artery Disease Hypertension Hyperlipidemia Encounter Details Date Type Department Care Team (Late st Contact Info) Description 08/09/2025 2:40 PM EDT Office Visit [facility] [address] [place] [address] Julio C Cruz CNP [address] [place] [address] Shortness of breath (Primary Dx); Coronary artery disease involving ho-chunk coronary artery of ho-chunk heart without angina pectoris; Essential hypertension; Mixed hyperlipidemia Social History Tobacco Use Types Packs/Day Years Used Date Smoking Tobacco: Never Smokeless Tobacco: Never Alcohol Use Standard Drinks/Week Comments Not Currently 0 (1 standard drink = 0.6 oz pur e alcohol) [place] Safety & Environment Answer Date Rec orded Fear of Current or Ex-Partner Not on file Emotionally Abused Not on file 12/19/2023 Physically Abused Not on file 12/19/2023 Sexually Abused Not on file 12/19/2023 Physically or Sexually Abused Not on file Comments Unknown Sex and Gender Information Value Date Recorded Sex Assigned at Female 08/06/2025 10:37 AM EDT Legal Sex Female 10:26 PM EDT Gender Identity Female 08/06/2025 10:37 AM EDT Sexual Orientation Heterosexual or Straight 07/28 10:37 AM EDT documented as of this encounter Last Filed Vital Signs Vital Sign Reading Time Taken Comments Blood Pressure 149/70 08/09/2025 2:40 PM EDT Pulse 60 08/09/2025 2:40 PM EDT Temperature - - Respiratory Rate - - Oxygen Saturation 100% 08/09/2025 2:40 PM EDT Inhaled Oxygen Concentration - - Weight 74.8 kg (165 lb) 08/09/2025 2:40 PM EDT Height 160 cm (5' 3 ) 08/09/2025 2:40 PM EDT Body Mass Index 29.23 08/09/2025 2:40 PM EDT documented in this encounter Functional Status * BP Answer Date of Assessment Author 149/70 08/09/2025 2:40 PM EDT Denise Godfrey MA * Pulse Answer Date of Assessment Author 60 08/09/2025 2:40 PM EDT Denise Godfrey MA * Patient Position Answer Date of Assessment Author Sitting 08/09/2025 2:40 PM EDT Denise Godfrey MA * BP Answer Date of Assessment Author 149/70 08/09/2025 2:40 PM EDT Denise Godfrey MA * Pulse Answer Date of Assessment Author 60 08/09/2025 2:40 PM EDT Denise Godfrey MA * SpO2 Answer Date of Assessment Author 100 08/09/2025 2:40 PM EDT Denise Godfrey MA * BP Location Answer Date of Assessment Author Right arm 08/09/2025 2:40 PM EDT Denise Godfrey MA * Patient Position Answer Date of Assessment Author Sitting 08/09/2025 2:40 PM EDT Denise Godfrey MA documented as of this encounter Progress Notes * Julio C Cruz, HEPATOLOGY PHYSICIAN - 08/09/2025 2:40 PM EDT SUBJECTIVE Reason for Visit: Anabela Helm is a 79 y.o. year old female patient being seen for shortness of breath HPI: Anabela Helm is a 79 y.o. year old female with significant medical history of CAD s/p LAD stent 03/12/[address] Collins, HTN, and HLD. 08/09/2025 office visit: Patient seen evaluated in the office today. She reports progressively worsening CIFUENTES; unable to walkup stairs, or long distances greater than half a block. Denies chest pain, palpitations, lower extremity edema, lightheadedness or dizziness. Blood pressure is noted to be elevated today. 10/14/2024 office visit (Dr. Gallardo): Doing well from a cardiac standpoint; denies chest pain, no worsening shortness of breath Is able to walk up and down her basement stairs with laundry with no exertional chest pain No orthopnea, no paroxysmal external dyspnea, no lower extremity edema Her main symptom has been dizziness for the past 4 months; her primary care physician has been working on this and she is scheduled to see a neurologist in the near future Medical History[1] Surgical History[2] Problem List[3] family history is not on file. Social History[4] OBJECTIVE Visit Vitals Smoking Status Never Physical Exam Constitutional: General Appearance: well-developed, appears stated age. Level of Distress: no acute distress. Neck: Jugular Veins: normal jugular venous pressure. Lungs: Auscultation: no rales or rhonchi and normal breath sounds. Cardiovascular: Rate And Rhythm: regular Heart Sounds: normal S1 and s2; Systolic Murmur: not heard. Diastolic Murmur: not heard. Extremities: no edema Peripheral Pulses: Pulses: full and equal in all extremities except if noted. Abdomen: Inspection and Palpation: non distended or tender and soft. Musculoskeletal: Inspection: no joint tenderness or swelling. Neurologic: Gait: normal gait. Psychiatric: Mental Status: alert and normal affect. Skin: Inspection and Palpation: warm and dry. Allergies: Allergies[5] Outpatient Medications: Current Outpatient Medications Medication Instructions alendronate (FOSAMAX) 70 mg, oral, Every 7 days aspirin 81 mg EC tablet Take 1 tablet every day by oral route. atorvastatin (LIPITOR) 80 mg, oral, Every morning cholecalciferol (VITAMIN D-3) 1,000 Units, oral, Daily RT diclofenac (VOLTAREN) 75 mg, oral, 2 times daily PRN ezetimibe (ZETIA) 10 mg, oral, Every morning lisinopril 30 mg, oral, Every morning metoprolol succinate XL (TOPROL-XL) 100 mg, oral, Daily pantoprazole (ProtoNix) 40 mg EC tablet 1 tablet, oral, Daily rosuvastatin (CRESTOR) 40 mg, oral, Nightly Recent Labs: No visits with results within 6 Month(s) from this visit. Latest known visit with results is: No results found for any previous visit. I have personally reviewed and anaylzed the following laboratory results above. These findings havebeen analyzed in the context of the patient's clinical presentation. Cardiovascular Diagnostic Studies: ECHO at OSH - 09/26/2022 Summary Left [...] 3. No previous study available for comparison Labs 09/15/2024: BUN 21, creatinine 1.14 AST ALT normal Triglycerides 93, cholesterol 185, LDL 103, HDL 64 12 Lead ECG: No results found for this or any previous visit (from the past 4464 hours). I have personally reviewed and analyzed all available cardiac diagnostic tests and imaging reports.Findings have been analyzed in the context of the patient's clinical status. Assessment and Plan #CIFUENTES CIFUENTES has gotten progressively worse over the last few months unable to walk more than half a block or up stairs without needing breaks She has not had a cardiac catheterization since 2010, her last stress test was over 4 years ago. - Will order TTE - Will order Lexiscan #CAD Denies chest pain Coronary artery disease status post LAD stent 03/12/[address] Vyas GDMT: - Continue aspirin 81 mg daily - Continue rosuvastatin 40 mg daily - Continue ezetimibe 10 mg daily - Continue lisinopril 30 mg daily - Continue metoprolol succinate 100 mg daily #Hypertension Blood pressure today is 149/70, heart rate 60 Elevated She states that at her recent PCP appointment in the last month or 2 her blood pressure was around 120 systolic - Instructed pt to take BP at home, before medication and 1-2 hours after, and to call the office in about 1 week with BP log so we can adjust medications as appropriate - Continue lisinopril 30 mg daily - Continue metoprolol succinate 100 mg daily #Hyperlipidemia Lipid panel 09/15/2024: LDL 103, HDL 64, triglycerides 93, total cholesterol 185 Lipid panel 02/08/2024: LDL 73, HDL 53, triglycerides 144, total cholesterol 155 Elevated, not at goal Target LDL goal < 55 - Continue rosuvastatin 40 mg daily - Continue ezetimibe 10 mg daily - Repeat lipid panel and adjust cholesterol medications as clinically indicated #Dizziness Denied Plan Overview: Repeat TTE Lexiscan Labs: CMP, CBC, BnP, lipid panel Follow-up in about 2 months This note was partially composed using voice recognition software. While every effort was made to ensure accuracy, some unintentional dormitory keeper errors may be present. [facility] [1] Past Medical History: Diagnosis Date Coronary artery disease Hyperlipidemia Hypertension [2] Past Surgical History: Procedure Laterality Date CARDIAC CATHETERIZATION CORONARY STENT PLACEMENT [3] Patient Active Problem List Diagnosis Coronary arteriosclerosis Dyslipidemia Essential hypertension Multiple closed fractures of pelvis with unstable disruption of pelvic [place] (CMS/HCC) Pubic ramus fracture, left, closed, initial encounter (CMS/HCC) [4] Social History Tobacco Use Smoking status: Never Smokeless tobacco: Never Substance Use Topics Alcohol use: Not Currently Drug use: Never [5] No Known Allergies documented in this encounter Plan of Treatment Scheduled Orders Name Type Priority Associated Diagnoses Order Schedule Comprehensive metabolic panel Lab Routine Shortness of breath Coronary artery disease involving ho-chunk coronary artery of ho-chunk heart without angina pectoris Expected: 08/09/2025 (Approximate), Expires: 08/09/2026 CBC and differential Lab Routine Shortness of breath Coronary artery disease involving ho-chunk coronary artery of ho-chunk heart without angina pectoris Expected: 08/09/2025 (Approximate), Expires: 08/09/2026 B-type natriuretic peptide Lab Routine Shortness of breath Coronary artery disease involving ho-chunk coronary artery of ho-chunk heart without angina pectoris Expected: 08/09/2025 (Approximate), Expires: 08/09/2026 Transthoracic echo (TTE) complete Echocardiography Routine Shortness of breath Coronary artery disease involving ho-chunk coronary artery of ho-chunk heart without angina pectoris Expected: 08/09/2025 (Approximate), Expires: 08/09/2027 Lexiscan Stress Myocardial Perfusion Imaging Cardiac Services Routine Shortness of breath Coronary artery disease involving ho-chunk coronary artery of ho-chunk heart without angina pectoris Expected: 08/09/2025 (Approximate), Expires: 08/09/2027 Lipid panel Lab Routine Coronary artery disease involving ho-chunk coronary artery of ho-chunk heart without angina pectoris Expected: 08/09/2025 (Approximate), Expires: 08/09/2026 documented as of this encounter Visit Diagnoses Diagnosis Shortness of breath- Primary Coronary artery disease involving ho-chunk coronary artery of ho-chunk heart without angina pectoris Essential hypertension Unspecified essential hypertension Mixed hyperlipidemia documented in this encounter Care Teams Bulk Tank Driver Relationship Specialty Start Date End Date Gio Agustin MD [id number] [facility] [place] [id number] PCP - General 07/08/22 documented as of this encounter
--- OUTSIDE RECORDS SUMMARY | 2025-08-16 07:00 | XMS_ITS | Encounter Summary ---
Author Organization [facility] Address [address] [facility] [place] [address] Care Team Providers Care Project Control Officer Name Role Phone Gio Agustin MD Primary Care Provider [phone] Encounter Details Date Type Department Care Team (Late st Contact Info) Description 06/30/2025 Telephone [facility] [address] [facility] [address] [place] [phone] Godwin Schofield MA Social History Tobacco Use Types Packs/Day Years Used Date Smoking Tobacco: Never Smokeless Tobacco: Never Alcohol Use Standard Drinks/Week Comments Yes 0 (1 standard drink = 0.6 oz pur e alcohol) AUDIT-C Answer Date Recorded Q1: How often do you have a drink containing alc ohol? Monthly or less 06/03/2024 Q2: How many drinks containi ng alcohol do you have on a typical day when you are drinking? 1 or 2 06/03/2024 Q3: How often do you have si x or more drinks on one occasion? Never 06/03/2024 Comments No Sex and Gender Information Value Date Recorded Sex Assigned at Not on file Legal Sex Female 7:16 PM EDT Gender Identity Not on file Sexual Orientation Not on file documented as of this encounter Miscellaneous Notes * Addendum Note - Godwin Schofield MA - 08/09/2025 12:15 PM EDTAddended by: GODWIN SCHOFIELD on: 08/09/2025 12:15 PM Modules accepted: Orders * Telephone Encounter - Godwin Schofield MA - 07/30/2025 9:36 AM EDT 07/19/25 3 refills sent Denied- pt has refills * Telephone Encounter - Godwin Schofield MA - 07/30/2025 9:34 AM EDT Pt left vm: Anabela [address] 1945 [address] in [place], [place]. A linear gn Sodium an R. N. Sodium 70 mg. Thank you. * Telephone Encounter - Godwin Schofield MA - 06/30/2025 9:03 AM EDT Spoke with pt. Pt confirmed that she needed a refill on her Fosamax. 28 day refill sent in as pt isscheduled for her yearly on 07/19 with RADHA. Confirmed pt preferred pharmacy. * Telephone Encounter - Godwin Schofield MA - 06/30/2025 8:52 AM EDT Attempt 1- lvm for pt to cb Clarification needed * Telephone Encounter - Godwin Schofield MA - 06/30/2025 8:44 AM EDT Pt left vm 06/30 at 8:13am: Anabela Helm, [id number] bonnie sodium ad, [facility] You m70 milligram tablets drug Jose and [place], [place]. Thank you. documented in this encounter Plan of Treatment Upcoming Encounters Date Type Department Care Team (Late st Contact Info) Description 06/17/2026 9:00 AM EDT Ancillary Procedure [facility] [address] [place] [phone] 06/17/2026 9:30 AM EDT Ancillary Procedure [facility] [address] [place] [address] 08/08/2026 10:00 AM EDT Office Visit [facility] [address] [place] [address] Maciel Pastor DO [address] [place] [address] documented as of this encounter Visit Diagnoses Diagnosis Osteoporosis, post-menopausal Senile osteoporosis documented in this encounter Care Teams Project Control Officer Relationship Specialty Start Date End Date Gio Agustin MD [address] [facility] [place] [address] PCP - General Family Medicine 06/03/24 documented as of this encounter
--- OUTSIDE RECORDS SUMMARY | 2025-08-16 07:00 | XMS_ITS | Encounter Summary ---
Author Organization [facility] Address [address] [place] [address] Care Team Providers Care Head Bone Grinder Name Role Phone Gio Agustin MD Primary Care Provider [phone] Encounter Details Date Type Department Care Team (Late st Contact Info) Description 08/13/2025 Orders Only [facility] [address] [place] [address] ProviderTracy MD [address] [place] [id number] Social History Tobacco Use Types Packs/Day Years [...] AM EDT documented as of this encounter Plan of Treatment Not on file documented as of this encounter Procedures Procedure Name Priority Date/Time Associated Diagnosis Comments COMPLETE TRANSTHORACIC ECHO (TTE) W/WO IMAGING AGENT, STRAIN, 3D, BUBBLE STUDY Routine 08/12/2025 8:38 AM EDT documented in this encounter Results * Complete Echo (TTE) w/wo Imaging Agent, Strain, 3D, Bubble Study (08/12/2025 8:38 AM EDT) Anatomical Region Laterality Modality Ultrasound us Historical Provider CV ECHO PROCEDURES Final Result documented in this encounter Visit Diagnoses Not on filedocumented in this encounter Care Teams Head Bone Grinder Relationship Specialty Start Date End Date Gio Agustin MD [address] [facility] [address] [address] PCP - General 07/08/22 documented as of this encounter
--- OUTSIDE RECORDS SUMMARY | 2025-08-16 07:00 | XMS_ITS | Clinical Summary ---
Author Organization [facility] Address [address] [place] [address] Care Team Providers Care Hide Inspector And Sorter Name Role Phone Gio Agustin MD Primary Care Provider Allergies Active Allergy Reactions Criticality Noted Date Comments Sulfamethoxazole-Trimethoprim Nausea Only 07/19 Medications aspirin 81 mg EC tablet Take 1 tablet every day by oral route. Active pantoprazole (ProtoNix) 40 mg EC tablet Take 1 tablet by mouth in the morning. Active atorvastatin (Lipitor) 80 mg tabletIndications:H yperlipidemia, unspecified hyperlipidemia type Take 1 tablet (80 mg) by mouth in the morning. 90 tablet 3 3 Active rosuvastatin (Crestor) 40 mg tabletIndications:H yperlipidemia, unspecified hyperlipidemia type Take 1 tablet (40 mg) by mouth at bedtime. 90 tablet 3 4 Active lisinopril 30 mg tabletIndications:E ssential hypertension Take 1 tablet (30 mg) by mouth in the morning. 90 tablet 3 4 Active ezetimibe (Zetia) 10 mg tabletIndications:H yperlipidemia, unspecified hyperlipidemia type Take 1 tablet (10 mg) by mouth in the morning. 90 tablet 3 4 Active diclofenac (Voltaren) 75 mg EC tablet Take 75 mg by mouth if needed in the morning and at bedtime. 4 Active metoprolol succinate XL (Toprol-XL) 100 mg 24 hr tablet Take 100 mg by mouth in the morning. 4 Active cholecalciferol (Vitamin D-3) 25 MCG (1000 UT) capsule Take 1,000 Units by mouth in the morning. Active alendronate (Fosamax) 70 mg tablet Take 70 mg by mouth every 7 (seven) days. Active Active Problems Problem Noted Date Diagnosed Date Acquired spondylolisthesis 08/06/2025 Allergic rhinitis 08/06/2025 Arthritis of knee 08/06/2025 Cervical disc disease 08/06/2025 Degeneration of lumbar intervertebral disc 08/06 Displacement of cervical int ervertebral disc without myelopathy 08/06/2025 Diverticular disease of colon 08/06/2025 Gastroesophageal reflux disease 08/06/2025 Hand pain 08/06/2025 Hypercholesterolemia 08/06/2025 Irritable bowel syndrome 08/06/2025 Lumbar radiculopathy 08/06/2025 Osteopenia 08/06/2025 Vertigo 08/06/2025 Multiple closed fractures of pelvis with unstable disruption of pelvic shishmaref ira 09/26/2022 Pubic ramus fracture, left, closed, initial enco unter 09/25/2022 Dyslipidemia 10/03/2021 Essential hypertension 10/03/2021 Coronary arteriosclerosis 04/17/2021 Encounters Date Type Department Care Team Description 08/13/2025 Orders Only [address] [address] Provider, MD Tracy 08/10/[address] [address] IsabelPati MA 08/09/2025 2:40 PM EDT Office Visit [address] [address] Julio C Cruz CNP Shortness of breath (Primary Dx); Coronary artery disease involving tanana coronary artery of tanana heart without angina pectoris; Essential hypertension; Mixed hyperlipidemia from Last 3 Months Immunizations Immunization Administration Dates Next Due Influenza, High Dose Seasona l, Preservative Free 07/12/2017,09/03/2015 Influenza, seasonal, injectable 07/28/2020 Influenza, seasonal, injecta ble, preservative free, 6 moonths & older 08/28/2020,07/28/2018 Influenza, seasonal,quadriva lent, preservative free 08/28/2015 Influenza, trivalent, adjuvanted 08/05/2020 Pfizer SARS-CoV-2 Vaccination 05/22/2022 Pneumococcal Conjugate PCV 13 12/18/2017 Pneumococcal Polysaccharide PPV23 2017,11/16/2016,10/28/2012,08/21 Td (adult), 5 Lf tetanus tox oid, preservative free, adsorbed 11/16/2016 Unspecified Sars-Cov-2 Vaccination 09/28/2021,,12/22/2020 Family History Relation Name Status Comments Father Mother Social History Tobacco Use Types Packs/Day Years Used Date Smoking Tobacco: Never Smokeless Tobacco: Never Tobacco Cessation:Counseling Given: Not Answered Alcohol Use Standard Drinks/Week Comments Not Currently [...] Heterosexual or Straight 07/28 10:37 AM EDT Last Filed Vital Signs Vital Sign Reading Time Taken Comments Blood Pressure 149/70 08/09/2025 2:40 PM EDT Pulse 60 08/09/2025 2:40 PM EDT Temperature - - Respiratory Rate 11 09/18/2023 10:00 AM EST Oxygen Saturation 100% 08/09/2025 2:40 PM EDT Inhaled Oxygen Concentration - - Weight 74.8 kg (165 lb) 08/09/2025 2:40 PM EDT Height 160 cm (5' 3 ) 08/09/2025 2:40 PM EDT Body Mass Index 29.23 08/09/2025 2:40 PM EDT Plan of Treatment Health Maintenance Due Date Last Done Comments Medicare Annual Wellness (AWV) 1945 Depression Screening 1958 Zoster Vaccines (1 of 2) 1996 Fall Risk Screening 2011 COVID-19 Vaccine ( season) 2025 08/12/2024, 11/04/2023, 05/22/2022, Additional history exists Influenza Vaccine (#1) 2025 , 08/23/2023, 08/28/2020, Additional history exists Adult Tetanus 11/16/2026 11/16/2016 Pneumococcal Vaccine: 50+ Years Completed 12/18/2017, 10/28/2017, 11/16/2016, Additional history exists HIB Vaccines Aged Out No longer eligi ble based on patient's age to complete this topic HPV Vaccines Aged Out No longer eligi ble based on patient's age to complete this topic IPV Vaccines Aged Out No longer eligi ble based on patient's age to complete this topic Meningococcal B Vaccine Aged Out No l onger eligible based on patient's age to complete this topic Meningococcal Vaccine Aged Out No khalida edwardo eligible based on patient's age to complete this topic Rotavirus Vaccines Aged Out No longer eligible based on patient's age to complete this topic Procedures Procedure Name Priority Date/Time Associated Diagnosis Comments COMPLETE TRANSTHORACIC ECHO (TTE) W/WO IMAGING AGENT, STRAIN, 3D, BUBBLE STUDY Routine 08/12/2025 8:38 AM EDT from Last 3 Months Results * Complete Echo (TTE) w/wo Imaging Agent, Strain, 3D, Bubble Study (08/12/2025 8:38 AM EDT) Anatomical Region Laterality Modality Ultrasound Historical Provider MD ROJAS ECHO PROCEDURES Final Result from Last 3 Months Insurance MEDICARE [employer] Care Teams Hide Inspector And Sorter Relationship Specialty Start Date End Date Gio Agustin MD [address] [place] [address] PCP - General 07/08/22
--- OUTSIDE RECORDS SUMMARY | 2025-08-16 07:00 | XMS_ITS | Encounter Summary ---
Author Organization [facility] Address [address] [place] [address] Care Team Providers Care Eeg Technician Name Role Phone Gio Agustin MD Primary Care Provider [phone] Encounter Details Date Type Department Care Team (Late st Contact Info) Description 08/10/2025 Telephone [facility] at [facility] [address] [place] [address] Pati Hall MA Social History Tobacco Use Types Packs/Day [...] AM EDT documented as of this encounter Miscellaneous Notes * Telephone Encounter - Pati Hall MA - 08/10/2025 2:57 PM EDT Regarding lab results from 08/10/2025: Per Julio C Cruz CNP: Labs looked good, and LDL is down to 63 from 103. No adjustments needed, thanks! just remind her to keep the BP log for a week and to call us with updates - her BP was elevated yesterday. Thanks. Spoke with patient and made here aware. She will call us in a week or so with BP log. documented in this encounter Plan of Treatment Not on file documented as of this encounter Visit Diagnoses Not on filedocumented in this encounter Care Teams Eeg Technician Relationship Specialty Start Date End Date Gio Agustin MD [address] [place] [address] PCP - General 07/08/22 documented as of this encounter
--- OUTSIDE RECORDS SUMMARY | 2025-08-16 07:00 | XMS_ITS | Clinical Summary ---
Author Organization [facility] Address [address] [place] [address] Care Team Providers Care Mechanic Helper Name Role Phone Gio Agustin MD Primary Care Provider [phone] Allergies Active Allergy Reactions Criticality Noted Date Comments Hylan G-F 05/27/2024 Other Reaction(s): swelling in legs Sulfamethoxazole-Trimetho prim Nausea Only 07/19/2025 Medications rosuvastatin (Crestor) 40 MG tablet Take 40 mg by mouth at bedtime 4 Active pantoprazole (ProtoNix) 40 MG EC tablet Take 40 mg by mouth Daily Active therapeutic multivitamin-mi nerals (Theragran-M) tablet Take 1 tablet by mouth Daily Active magnesium citrate oral solution Take 296 mL by mouth Active lisinopril 30 MG tablet Take 30 mg by mouth in the morning. 4 Active ezetimibe (Zetia) 10 MG tablet Take 10 mg by mouth in the morning. 4 Active CALCIUM PO Take 500 mg by mouth Daily Active aspirin 81 MG EC tablet Take 1 tablet by mouth Daily Active B Complex Vitamins (VITAMIN B COMPLEX PO) Vitamin B Complex Active cholecalciferol (Vitamin D-3) 25 MCG (1000 UT) capsule Take 1,000 Units by mouth Daily Active diclofenac (Voltaren) 75 MG EC tablet Take 75 mg by mouth 2 (two) times a day as needed 5 Active ibuprofen 600 MG tablet Take 1 tablet by mouth every 6 (six) hours 5 Active meclizine (Antivert) 25 MG tablet Take 25 mg by mouth every 6 (six) hours if needed 5 Active metoprolol succinate XL (Toprol-XL) 100 MG 24 hr tablet Take 100 mg by mouth Daily 5 Active tiZANidine (Zanaflex) 4 MG tablet Take 4 mg by mouth if needed for muscle spasms Active alendronate (Fosamax) 70 MG tabletIndicatio ns:Osteoporosis , post-menopausal Take 1 tablet (70 mg) by mouth every 7 (seven) days Take in the morning with a full glass of water, on an empty stomach, and do not take anything else by mouth or lie down for the next 30 min. 12 tablet 2 5 04/18/20 26 Active metoprolol tartrate (Lopressor) 50 MG tablet Take 50 mg by mouth in the morning and 50 mg in the evening. Take with meals. 07/19/20 Discontinu ed(Dose adjustment ) alendronate (Fosamax) 70 MG tabletIndicatio ns:Osteoporosis , post-menopausal Take 1 tablet (70 mg) by mouth every 7 (seven) days for 28 days Take in the morning with a full glass of water, on an empty stomach, and do not take anything else by mouth or lie down for the next 30 min. 4 tablet 5 07/19/20 25 Discontinu ed(Reorder ) alendronate (Fosamax) 70 MG tabletIndicatio ns:Osteoporosis , post-menopausal Take 1 tablet (70 mg) by mouth every 7 (seven) days Take in the morning with a full glass of water, on an empty stomach, and do not take anything else by mouth or lie down for the next 30 min. 12 tablet 3 5 08/09/20 25 Discontinu ed(Reorder ) Encounters Date Type Department Care Team Description 07/19/2025 2:15 PM EDT Office Visit [facility] [address] [place] [address] Maciel Pastor, Encounter for gynecological examination with abnormal finding; Encounter for screening mammogram for malignant neoplasm of breast; Osteoporosis, post-menopausal ; Vaginal atrophy; Osteoporosis screening; Asymptomatic menopause 07/19/2025 Bamboo flowsheet [facility] [address] [place] [address] Maciel Pastor DO 07/19/2025 Travel 06/30/2025 Telephone [facility] [address] [place] [address] Mandi Caceres MA 06/14/2025 11:00 AM EDT [facility] [address] [place] [address] Encounter for screening mammogram for malignant neoplasm of breast 06/14/2025 Travel 06/11/2025 Travel from Last 3 Months Family History Relation Name Status Comments Father Mother Social History Tobacco Use Types Packs/Day Years Used Date Smoking Tobacco: Never Smokeless Tobacco: Never Tobacco Cessation:Counseling Given: No Alcohol Use Standard Drinks/Week Comments Yes 0 [...] on file Sexual Orientation Not on file Last Filed Vital Signs Vital Sign Reading Time Taken Comments Blood Pressure 128/80 07/19/2025 2:24 PM EDT Pulse 67 12/23/2024 3:27 PM EST Temperature - - Respiratory Rate - - Oxygen Saturation 98% 12/23/2024 3:27 PM EST Inhaled Oxygen Concentration - - Weight 75.3 kg (166 lb) 07/19/2025 2:24 PM EDT Height 157.5 cm (5' 2 ) 07/19/2025 2:24 PM EDT Body Mass Index 30.36 07/19/2025 2:24 PM EDT Plan of Treatment Upcoming Encounters Date Type Department Care Team (Late st Contact Info) Description 06/17/2026 9:00 AM EDT Ancillary [facility] [address] [place] [address] 06/17/2026 9:30 AM EDT Ancillary Procedure [facility] [address] [place] [address] 08/08/2026 10:00 AM EDT Office Visit [facility] [address] [place] [phone] Maciel Pastor DO [address] [place] [address] Procedures Procedure Name Priority Date/Time Associated Diagnosis Comments BI MAMMOGRAM SCREENING TOMOSYNTHESIS BILATERAL Routine 06/14/2025 11:05 AM EDT Encounter for screening mammogram for malignant neoplasm of breast from Last 3 Months Results * Bilateral screening mammogram with tomosynthesis (06/14/2025 11:05 AM EDT) Anatomical Region Laterality Modality Breast Bilateral Mammography 06/15/2025 12:0 5 PM EDT Impressions 06/15/2025 12:17 PM EDT BI-RADS 2: BENIGN FINDINGS. ROUTINE FOLLOW-UP MAMMOGRAPHY IS SUGGESTED IN ONE YEAR. DENSITY: Heterogeneously dense. Board Certified Radiologists. Accredited by the ACR and FDA. MAMMOGRAPHY IS VERY IMPORTANT TO YOUR HEALTH. THE [employer] GUIDELINES RECOMMEND THAT WOMEN 40 [...] ANY PENDING ADDITIONAL VIEWS. ELECTRONICALLY SIGNED BY: DO Alecia Ponce 06/15/2025 12:17 PM EDT BI MAMMOGRAM SCREENING TOMOSYNTHESIS BILATERAL : 06/14/2025 [...] identified, given differences in technique and positioning. Procedure Note Sara Conner DO - 06/15/2025 BI MAMMOGRAM SCREENING TOMOSYNTHESIS BILATERAL : 06/14/2025 10:56 AM CLINICAL HISTORY: screening. COMPARISONS: September 12, 2020 through June 03, 2024. TECHNIQUE: Routine full field 3D breast tomosynthesis was performedbilaterally. CAD analysis was performed and used in the interpretation. FINDINGS: Both breasts remain heterogeneously dense with stable mild asymmetry. There are no dominant masses, suspicious microcalcifications, or areas ofarchitectural distortion identified on today's examination. There is no significant change when compared to the prior examinationsidentified, given differences in technique and positioning. IMPRESSION: BI-RADS 2: BENIGN FINDINGS. ROUTINE FOLLOW-UP MAMMOGRAPHY IS SUGGESTED IN ONE YEAR. DENSITY: Heterogeneously dense. Board Certified Radiologists. Accredited by the ACR and FDA. MAMMOGRAPHY IS VERY IMPORTANT TO YOUR HEALTH. THE [employer]UID[employer]INES RECOMMEND THAT WOMEN 40 YEARS OF AGE AND OLDER SHOULD HAVE AMAMMOGRAM EVERY YEAR. A REMINDER LETTER WILL BE SENT AT THE APPROPRIATE TIME. THIS FACILITYUTILIZES A REMINDER SYSTEM TO ENSURE ALL PATIENTS RECEIVE REMINDERNOTIFICATIONS AT THE APPROPRIATE TIME BASED ON THE RECOMMENDATIONS OF THISEXAM. THIS INCLUDES REMINDERS FOR ROUTINE SCREENING MAMMOGRAMS, DIAGNOSTICMAMMOGRAMS IN WHICH THE PATIENT IS ASKED TO RETURN FOR ADDITIONAL VIEWS,OR OTHER BREAST IMAGING INTERVENTIONS WHEN APPROPRIATE. THE PATIENT WILLBE PLACED IN THE APPROPRIATE REMINDER SYSTEM INCLUDING A REMINDER AT THEAPPROPRIATE TIME FOR ANY PENDING ADDITIONAL VIEWS. ELECTRONICALLY SIGNED BY: Sara Conner DO Maciel Pastor DO IMG BI PROCEDURES Final Resul t from Last 3 Months Insurance MEDICARE [facility] Care Teams Mechanic Helper Relationship Specialty Start Date End Date Gio Agustin MD [address] [place] [address] PCP - General Family Medicine 06/03/24
--- OUTSIDE RECORDS SUMMARY | 2025-08-16 07:01 | XMS_ITS | CCD ---
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 [address] [employer]ch[employer] Coordinator: Shamir Milton MD Troponinon 09-26-2022 Troponin, High Sens 9 ng/L Normal 0-14 [facility] Comment on above: Result Comment: High Sensitivity Troponin values cannot be compared with other Troponin methodologies. Patients with high levels of Biotin oral intake (i.e >5mg/day) may have falsely decreased Troponin levels. Samples collected within 8 hours of biotin intake may require additional information for diagnosis. Performed By: #### B MP, MATIAS, MG, CDP #### [facility] [address] [place] [address] [employer]chand[employer] Coordinator: Shamir Milton MD Vitamin D 25 OHon 09-26-2022 Vitamin D 25 [place] 47.8 ng/mL Normal >29.9 [facility] Comment on above: Result Comment: Reference Range: Vitamin D status Range Deficiency <20 ng/mL Mild Deficiency 20-30 ng/mL Sufficiency 30-100 ng/mL Toxicity >100 ng/mL Performed By: #### C DP, BMP, MATIAS #### [employer] [address] [place], [place] [phone] [employer] Coordinator: Shamir Milton MD Vitamin D 25 [place] 49.4 ng/mL Normal >29.9 [facility] Comment on above: Result Comment: Reference Range: Vitamin D status Range Deficiency <20 ng/mL Mild Deficiency 20-30 ng/mL Sufficiency 30-100 ng/mL Toxicity >100 ng/mL Performed By: #### B MP, MATIAS, MG, CDP #### [facility] [address] [place] [address] [employer] Coordinator: Shamir Milton MD XR FEMUR LEFT [...] C Connors MD 09/26/22 Final result Normal [facility] XR KNEE LEFT (3 VIEWS)on XR KNEE [...] C Connors MD 09/26/22 Final result Normal [facility] XR PELVIS (MIN 3 VIEWS)on XR PELVIS [...] Sanjuana Desouza MD 09/26/22 Final result Normal [facility] CARDIAC RADHA ADMITon 09-25- 022 CK [Catalytic activity/Vol] 450 U/L Critically high 26-192 [facility] Comment on above: Performed By: #### C JUAN CARLOS MORGAN CMADM ####[facility] [address] [place] [address]DrAshley Espinoza CK.MB [Mass/Vol] 10.56 ng/mL Critically high <=3.60 [facility] Comment on above: Performed By: #### C JUAN CARLOS MORGAN CMADM ####[facility] [address] [place] [address]DrAshley Espinoza HSTROP 7.0 pg/mL Normal 4.0-51.3 [facility] Comment on above: Result Comment: CUT- OFF POINTS HAVE BEEN ESTABLISHED BASED ON THE FOURTH UNIVERSAL DEFINITIONS OF MYOCARDIAL INFARCTION. THE UPPER REFERENCE LIMIT (URL) OF TROPONIN, DEFINED THE 99TH PERCENTILE OF cTnI DISTRIBUTION IN A REFERENCE POPULATION, HAS BEEN CONFIRMED THE DECISION THRESHOLD FOR TX DIAGNOSIS. Performed By: #### C JUAN CARLOS MORGAN CMADM ####[facility] [address] [place] [address]DrAshley Espinoza KARL 1641 ng/mL Critically high 9-82 [facility] Comment on above: Performed By: #### C MP, JUAN CARLOS, CMADM ####[facility] [address] [place] [address]Dr. Karey Espinoza CBC AUTO DIFFon 09-25-2022 BASO # 0.1 103/ul Normal 0.0-0.[address] [facility] Comment on above: Performed By: #### C BC ####[facility] [address] [place] [address]Dr. Karey Espinoza Basophils/100 WBC (Bld) 0.4 % Normal 0.2-2.[address] [facility] Comment on above: Performed By: #### C BC ####[facility] [address] [place], [place] [address]Dr. Karey Espinoza EO # 0.2 103/ul Normal 0.0-0.[address] [facility] Comment on above: Performed By: #### C BC ####[facility] [address] [place] [address]Dr. Karey Espinoza Eosinophils/100 WBC (Bld) 1.2 % Normal 0.9-7.[address] [facility] Comment on above: Performed By: #### C BC ####[facility] [address] [place], [place] [address]Dr. Karey Espinoza Erythrocyte distribution width (RBC) [Ratio] 13.0 % Normal 11.0-15.[address] [facility] Comment on above: Performed By: #### C BC ####[facility] [address] [place], [place] [address]Dr. Karey Espinoza Hematocrit (Bld) [Volume fraction] 40.8 % Normal 36.0-48.[address] [facility] Comment on above: Performed By: #### C BC ####[facility] [address] [place], [place] [address]Dr. Karey Espinoza Hemoglobin (Bld) [Mass/Vol] 14.0 g/dL Normal 12.0-16.[address] [facility] Comment on above: Performed By: #### C BC ####[facility] [address] [place] [id number]. Karey Espinoza IG # 0.22 10e3/ul Critically high 0.00-0.03 [facility] Comment on above: Performed By: #### C BC ####[facility] [address] [place] [id number]. Karey Espinoza IG % 1.6 % Critically high 0.0-0.5 [facility] Comment on above: Performed By: #### C BC ####[facility] [address] [place] [address]Dr. Karey Espinoza LYMPH # 1.9 103/ul Normal 1.2-3.[address] [facility] Comment on above: Performed By: #### C BC ####[facility] [address] [place] [address]Dr. Karey Espinoza Lymphocytes/100 WBC (Bld) 13.3 % Critically low 20.5-60.[address] [facility] Comment on above: Performed By: #### C BC ####[facility] [address] [place] [address]Dr. Karey Espinoza MANUAL DIFF REQ NO Normal [facility] Comment on above: Performed By: #### C BC ####[facility] [address] [place] [address]Dr. Karey Espinoza MCH (RBC) [Entitic mass] 30.0 pg Normal 26.7-34.[address] [facility] Comment on above: Performed By: #### C BC ####[facility] [address] [place] [address]Dr. Karey Espinoza MCHC (RBC) [Mass/Vol] 34.3 g/dL Normal 29.9-35.[address] [facility] Comment on above: Performed By: #### C BC ####[facility] [address] [place] [address]Dr. Karey Espinoza MCV (RBC) [Entitic vol] 87.4 fL Normal 81.0-99.[address] [facility] Comment on above: Performed By: #### C BC ####[facility] [address] [place] [id number]. Karey Espinoza MONO # 0.8 103/ul Normal 0.3-0.[address] [facility] Comment on above: Performed By: #### C BC ####[facility] [address] [place] [address]Dr. Karey Espinoza Monocytes/100 WBC (Bld) 5.4 % Normal 1.7-12.[address] [facility] Comment on above: Performed By: #### C BC ####[facility] [address] [place] [id number]. Karey Espinoza NEUT # 10.8 103/ul Critically high 1.4-6.5 [facility] Comment on above: Performed By: #### C BC ####[facility] [address] [place] [address]Dr. Karey Espinoza Neutrophils/100 WBC (Bld) 78.1 % Critically high 43.0-75.[address] [facility] Comment on above: Performed By: #### C BC ####[facility] [address] [place] [phone]. Karey Espinoza Platelet mean volume (Bld) [Entitic vol] 9.0 fL Critically low 9.5-13.[address] [facility] Comment on above: Performed By: #### C BC ####[facility] [address] [place] [phone]. Karey Espinoza PLT 345 103/ul Normal 150-[address] [facility] Comment on above: Performed By: #### C BC ####[facility] [address] [place] [address]Dr. Karey Espinoza RBC 4.67 106/ul Normal 4.20-5.[address] [facility] Comment on above: Performed By: #### C BC ####[facility] [address] [place] [address]Dr. Karey Espinoza WBC 13.9 103/ul Critically high 4.0-11.0 [facility] Comment on above: Performed By: #### C BC ####[facility] [address] [place], [place] [address]Dr. Karey Espinoza CT ABD/PELV W CONon 09-25-20 [...] FADY BAUER Date: 2022-09-25 15:[address] [facility] CT HEAD WO CONon 09-25-2022 [...] SHAHLA CLAIRE Date: 2022-09-25 14:[address] [facility] Covid-19 PCR (CVDTB)on 08-29 SARS-CoV-2 (COVID-19) RNA JORI+probe Ql (Unsp spec) Not detected Normal NOT DETECTED [facility] Comment on above: Result Comment: [...] for this test is supported by the [place] of Health and Human Service's declaration that [...] longer be used). Performed By: #### C [facility] #### [facility] [address] [place] [address] [address] Karey Espinoza ER URINE PROFILEon 2 Bilirubin Ql (U) Negative Normal NEGATIVE [facility] Comment on above: Performed By: #### NEDA REYES ####[facility] [address] [place], [place] [address]DrAshley Espinoza Clarity (U) SL CLOUDY Abnormal CLEAR [facility] Comment on above: Performed By: #### NEDA REYES ####[facility] [address] [place] [address]DrAshley Espinoza Color (U) YELLOW Normal YELLOW [facility] Comment on above: Performed By: #### COLTON REYESRO ####[facility] [address] [place] [address]Dr. Karey ARREDONDOD A micrscopic examination will be performed if indicated. Normal [facility] Comment on above: Performed By: #### NEDA REYES ####[facility] [address] [place] [address]DrAshley Espinoza Glucose Ql (U) Negative Normal NEGATIVE [facility] Comment on above: Performed By: #### Kvng REDDING UMICRO ####[facility] [address] [place] [address]Dr. Karey Espinoza Hemoglobin Ql (U) SMALL Abnormal NEGATIVE [facility] Comment on above: Performed By: #### Kvng REDDING UMICRO ####[facility] [address] [place] [address]Dr. Karey Espinoza Ketones Ql (U) Negative Normal NEGATIVE [facility] Comment on above: Performed By: #### Kvng REDDING UMICRO ####[facility] [address] [place], [place] [address]Dr. Karey Espinoza LEUKOCYTES Negative Normal NEGATIVE [facility] Comment on above: Performed By: #### Kvng REDDING UMICRO ####[facility] [address] [place], [place] [address]Dr. Karey Espinoza Nitrite Ql (U) Negative Normal NEGATIVE [facility] Comment on above: Performed By: #### Kvng REDDING UMICRO ####[facility] [address] [place], [place] [address]Dr. Karey Espinoza pH (U) 5.0 [pH] Normal 5-9 [facility] Comment on above: Performed By: #### Kvng REDDING UMICRO ####[facility] [address] [place], [place] [address]Dr. Karey Espinoza SPEC GRAVITY 1.010 Normal 1.005-<=1.025 [facility] Comment on above: Performed By: #### Kvng REDDING UMICRO ####[facility] [address] [place] [address]Dr. Karey Espinoza UA PROTEIN Negative Normal NEGATIVE/ TRACE [facility] Comment on above: Performed By: #### NELSON REYESICRO ####[facility] [address] [place] [address]Dr. Karey Espinoza UR MICRO IND INDICATED Normal [facility] Comment on above: Performed By: #### NELSON REYESICRO ####[facility] [address] [place] [address]Dr. Karey Espinoza Urobilinogen Qn (U) 0.2 {Jose'U}/dL Normal 0.2 - 1. 0 [facility] Comment on above: Performed By: #### E NEDA REDDING ####[facility] [address] [place] [address]Dr. Karey Espinoza LIPASEon 09-25-2022 Lipase [Catalytic activity/Vol] 341.0 U/L Normal 73.0-393.0 [facility] Comment on above: Performed By: #### C MP, LIPA, CMADM ####[facility] [address] [place] [address]Dr. Karey Espinoza PROF 14(COMP METB)on 022 Albumin [Mass/Vol] 3.6 g/dL Normal 3.4-5.0 [facility] Comment on above: Performed By: #### C MP, LIPA, CMADM ####[facility] [address] [place], [place] [address]Dr. Karey Espinoza Albumin/Globulin [Mass ratio] 1.1 {ratio} Normal [facility] Comment on above: Performed By: #### C MP, LIPA, CMADM ####[facility] [address] [place], [place] [address]Dr. Karey Espinoza ALP [Catalytic activity/Vol] 92 U/L Normal 46-116 [facility] Comment on above: Performed By: #### C MP, LIPA, CMADM ####[facility] [address] [place] [address]Dr. Karey Espinoza ALT [Catalytic activity/Vol] 77 U/L Critically high 14-59 [facility] Comment on above: Performed By: #### C MP, LIPA, CMADM ####[facility] [address] [place] [address]Dr. Karey Espinoza Anion gap [Moles/Vol] 11.6 mmol/L Normal [facility] Comment on above: Performed By: #### C MP, LIPA, CMADM ####[facility] [address] [place] [address]Dr. Karey Espinoza AST [Catalytic activity/Vol] 85 U/L Critically high 15-[address] [facility] Comment on above: Performed By: #### C MP, LIPA, CMADM ####[facility] [address] [place] [address]Dr. Karey Espinoza Bilirubin [Mass/Vol] 0.6 mg/dL Normal 0.2-1.[address] [facility] Comment on above: Performed By: #### C MP, LIPA, CMADM ####[facility] [address] [place] [address]Dr. Karey Espinoza Calcium [Mass/Vol] 9.2 mg/dL Normal 8.5-10.1 [facility] Comment on above: Performed By: #### C MP, LIPA, CMADM ####[facility] [address] [place], [place] [address]Dr. Karey Espinoza Chloride [Moles/Vol] 101 mmol/L Normal 98-[address] [facility] Comment on above: Performed By: #### C MP, LIPA, CMADM ####[facility] [address] [place], [place] [address]Dr. Karey Espinoza CO2 [Moles/Vol] 25.9 mmol/L Normal 21.0-32.0 [facility] Comment on above: Performed By: #### C MP, LIPA, CMADM ####[facility] [address] [place] [address]Dr. Karey Espinoza Creatinine [Mass/Vol] 1.11 mg/dL Critically high 0.55-1.02 [facility] Comment on above: Performed By: #### C MP, LIPA, CMADM ####[facility] [address] [place], [place] [address]Dr. Karey Espinoza EGFR-AF BOLIVIAN 58 mL/min/1.73m2 Critically low >=[address] [facility] Comment on above: Performed By: #### C MP, LIPA, CMADM ####[facility] [address] [place] [address]Dr. Karey Espinoza EGFR-NON AF BOLIVIAN 48 mL/min/1.73m2 Critically low >=60 [facility] Comment on above: Performed By: #### C MP, LIPA, CMADM ####[facility] [address] [place] [address]Dr. Karey Espinoza Globulin (S) [Mass/Vol] 3.3 g/dL Normal [facility] Comment on above: Performed By: #### C MP, LIPA, CMADM ####[facility] [address] [place] [address]Dr. Karey Espinoza Glucose [Mass/Vol] 149 mg/dL Critically high 74-106 [facility] Comment on above: Performed By: #### C MP, LIPA, CMADM ####[facility] [address] [place] [address]Dr. Karey Espinoza Potassium [Moles/Vol] 4.5 mmol/L Normal 3.5-5.1 [facility] Comment on above: Performed By: #### C MP, LIPA, CMADM ####[facility] [address] [place] [address]Dr. Karey Espinoza Protein [Mass/Vol] 6.9 g/dL Normal 6.4-8.2 [facility] Comment on above: Performed By: #### C MP, LIPA, CMADM ####[facility] [address] [place] [address]Dr. Karey Espinoza Sodium [Moles/Vol] 134 mmol/L Critically low 136-145 [facility] Comment on above: Performed By: #### C MP, LIPA, CMADM ####[facility] [address] [place] [address]Dr. Karey Espinoza Urea nitrogen [Mass/Vol] 18.0 mg/dL Normal 7.0-18.0 [facility] Comment on above: Performed By: #### C MP, LIPA, CMADM ####[facility] [address] [place] [address]Dr. Karey Espinoza Urea nitrogen/Creatinine [Mass ratio] 16.2 mg/mg Normal [facility] Comment on above: Performed By: #### C MP, LIPA, CMADM ####[facility] [address] [place], [place] [address]RnDr. Karey Espinoza PROTIMEon 09-25-2022 INR Coag (PPP) [Relative time] 1.11 {INR} Normal [facility] Comment on above: Performed By: #### P T, PTT #### [facility] [address] [address] [address] Karey Espinoza INR GUIDELINES SEE BELOW Normal [facility] Comment on above: Result Comment: FAHAD RED INR: 2.0 - 3.0 CONDITIONS NOT LISTED BELOW 2.5 - 3.5 FOR PROSTHETIC HEART VALVE REPLACEMENT 2.5 - 3.5 RECURRENT THROMBOSIS Performed By: #### P T, PTT #### [facility] [address] [address] [address] Karey Espinoza PT Coag (PPP) [Time] 11.9 s Critically high 9.0-11.6 [facility] Comment on above: Performed By: #### P T, PTT #### [facility] [address] [address] [address] Karey Espinoza PTTon 09-25-2022 aPTT Coag (Bld) [Time] 30.4 s Normal 22.3-36.2 [facility] Comment on above: Performed By: #### P T, PTT #### [facility] [address] [address] [address] Karey Espinoza Trauma Profileon 09-25-2022 Anion gap [Moles/Vol] 12 mmol/L Normal 9-17 [facility] Comment on above: Performed By: #### B MP, MATIAS, MG, CDP #### [employer] [address] [place] [address] [employer]chand[employer] Coordinator: Shamir Milton MD Chloride [Moles/Vol] 102 mmol/L Normal 98-107 [facility] Comment on above: Performed By: #### B MP, MATIAS, MG, CDP #### [employer] [address] [place] [address] [employer]chand[employer] Coordinator: Shamir Milton MD CO2 [Moles/Vol] 20 mmol/L Normal 20-31 [facility] Comment on above: Performed By: #### B MP, MATIAS, MG, CDP #### [address] [address] [employer] Coordinator: Shamir Milton MD Creatinine [Mass/Vol] 0.76 mg/dL Normal 0.50-0.90 [facility] Comment on above: Performed By: #### B MP, MATIAS, MG, CDP #### [address] [address] [employer] Coordinator: Shamir Milton MD Ethanol [Mass/Vol] mg/dL Normal <10 [facility] Comment on above: Performed By: #### B MP, MATIAS, MG, CDP #### [address] [address] [employer] Coordinator: Shamir Milton MD Ethanol percent <0.010 Normal <0.010 [facility] Comment on above: Performed By: #### B MP, MATIAS, MG, CDP #### [place] [address] [employer] Coordinator: Shamir Milton MD GFR/1.73 sq M.predicted among non-blacks MDRD (S/P/Bld) [Vol rate/Area] mL/min/{1.73_m2} Normal >60 [facility] Comment on above: Result Comment: Effective Jul [...] #### B MP, MATIAS, MG, CDP #### [facility] [address] [place] [address] [employer]and[employer] Coordinator: Shamir Milton MD Glucose [Mass/Vol] 127 mg/dL High 70-99 [facility] Comment on above: Performed By: #### B MP, MATIAS, MG, CDP #### [address] [address] [employer] Coordinator: Shamir Milton MD Potassium [Moles/Vol] 4.1 mmol/L Normal 3.7-5.3 [facility] Comment on above: Performed By: #### B MP, MATIAS, MG, CDP #### [address] [address] [employer] Coordinator: Shamir Milton MD Sodium [Moles/Vol] 134 mmol/L Low 135-144 [facility] Comment on above: Performed By: #### B MP, MATIAS, MG, CDP #### [address] [address] [employer] Coordinator: Shamir Milton MD Urea nitrogen [Mass/Vol] 14 mg/dL Normal 8-23 [facility] Comment on above: Performed By: #### B MP, MATIAS, MG, CDP #### [facility] [address] [place] [address] [employer] Coordinator: Shamir Milton MD aPTT Coag (Bld) [Time] 24.4 s Normal 20.5-30.5 [facility] Comment on above: Result Comment: IV Heparin Therapy Range: 48.6-77.8 Performed By: #### B MP, MATIAS, MG, CDP #### [address] [address] [address] [employer] Coordinator: Shamir Milton MD INR Coag (PPP) [Relative time] 1.1 {INR} Normal [facility] Comment on above: Result Comment: Therapeutic Range: Moderate Anticoagulant Intensity: INR = 2.0-3.0 High Anticoagulant Intensity: INR = 2.5-3.5 Performed By: #### B MP, MATIAS, MG, CDP #### [employer] [address] [place] [address] [employer]chand[employer] Coordinator: Shamir Milton MD PT Coag (PPP) [Time] 11.3 s Normal 9.1-12.3 [facility] Comment on above: Performed By: #### B MP, MATIAS, MG, CDP #### [facility] [address] [place] [address] [employer]chandising Coordinator: Shamir Milton MD HCG Screen, Blood Negative Normal NEG [facility] Comment on above: Result Comment: Spec imens with hCG levels near the threshold of the test (25 mIU/mL) may give a negative or indeterminate result. In such cases, another test should be performed with a new specimen in 48-72 hours. If early is suspected clinically in this setting, correlation with quantitative serum b-hCG level is suggested. [facility] has confirmed the use of plasma for this test. This has not been cleared or approved by the [place].S. Food and Drug Administration. The FDA has determined that such clearance is not necessary. Performed By: #### B MP, MATIAS, MG, CDP #### [facility] [address] [place] [address] [employer]chandising Coordinator: Shamir Milton MD Body Temp. 37.0 Normal [facility] Comment on above: Performed By: #### B MP, MATIAS, MG, CDP #### [employer] [address] [place] [address] [employer]chand[employer] Coordinator: Shamir Milton MD Carboxy Hgb 2.3 % Normal 0-5 [facility] Comment on above: Result Comment: Reference Range: Non-Smokers 0-2% Average Smoker 2-4% Heavy Smoker <10% Performed By: #### B MP, MATIAS, MG, CDP #### [employer] [address] [place] [address] [employer]chandising Coordinator: Shamir Milton MD FIO2 INFORMATION NOT PROVIDED Normal [facility] Comment on above: Performed By: #### B MP, MATIAS, MG, CDP #### [facility] [address] [place] [address] [employer]ch[employer] Coordinator: Shamir Milton MD HCO3 (Bld) [Moles/Vol] 22.7 mmol/L Low 24-30 [facility] Comment on above: Performed By: #### B MP, MATIAS, MG, CDP #### [facility] [address] [place] [address] [employer]chand[employer] Coordinator: Shamir Milton MD Negative Base Excess 2.5 mmol/L High 0.0-2.0 [facility] Comment on above: Performed By: #### B MP, MATIAS, MG, CDP #### [facility] [address] [place] [address] [employer]ch[employer] Coordinator: Shamir Milton MD Oxygen saturation in Blood 73.8 % Normal 60.0-85.0 [facility] Comment on above: Performed By: #### B MP, MATIAS, MG, CDP #### [facility] [address] [place] [address] [employer]chand[employer] Coordinator: Shamir Milton MD pCO2 42.6 mm Hg Normal 39-55 [facility] Comment on above: Performed By: #### B MP, MATIAS, MG, CDP #### [facility] [address] [place] [address] [employer]ch[employer] Coordinator: Shamir Milton MD pH (Bld) 7.345 [pH] Normal 7.320-7.420 [facility] Comment on above: Performed By: #### B MP, MATIAS, MG, CDP #### [employer] [address] [place] [address] [employer]ch[employer] Coordinator: Shamir Milton MD pO2 40.7 mm Hg Normal 30-50 [facility] Comment on above: Performed By: #### B MP, MATIAS, MG, CDP #### [address] [address] [address] [employer] Coordinator: Shamir Milton MD Erythrocyte distribution width (RBC) [Ratio] 13.0 % Normal 11.8-14.4 [facility] Comment on above: Performed By: #### B MP, MATIAS, MG, CDP #### [address] [address] [employer] Coordinator: Shamir Milton MD Hematocrit (Bld) [Volume fraction] 42.4 % Normal 36.3-47.1 [facility] Comment on above: Performed By: #### B MP, MATIAS, MG, CDP #### [facility] [address] [place] [address] [employer] Coordinator: Shamir Milton MD Hemoglobin (Bld) [Mass/Vol] 14.5 g/dL Normal 11.9-15.1 [facility] Comment on above: Performed By: #### B MP, MATIAS, MG, CDP #### [facility] [address] [place] [address] [employer] Coordinator: Shamir Milton MD MCH (RBC) [Entitic mass] 30.1 pg Normal 25.2-33.5 [facility] Comment on above: Performed By: #### B MP, MATIAS, MG, CDP #### [facility] [address] [place] [address] [employer]ch[employer] Coordinator: Shamir Milton MD MCHC (RBC) [Mass/Vol] 34.2 g/dL Normal 28.4-34.8 [facility] Comment on above: Performed By: #### B MP, MATIAS, MG, CDP #### [facility] [address] [place] [address] [employer]ch[employer] Coordinator: Shamir Milton MD MCV (RBC) [Entitic vol] 88.1 fL Normal 82.6-102.9 [facility] Comment on above: Performed By: #### B MP, MATIAS, MG, CDP #### [facility] [address] [place] [address] [employer]chandising Coordinator: Shamir Milton MD NRBC Automated 0.0 per 100 WBC Normal 0.0 [facility] Comment on above: Performed By: #### B MP, MATIAS, MG, CDP #### [facility] [address] [place] [address] [employer]chand[employer] Coordinator: Shamir Milton MD Platelet mean volume (Bld) [Entitic vol] 9.3 fL Normal 8.1-13.5 [facility] Comment on above: Performed By: #### B MP, MATIAS, MG, CDP #### [facility] [address] [place] [address] [employer]chandising Coordinator: Shamir Milton MD Platelets (Bld) [#/Vol] 335 10*3/uL Normal 138-453 [facility] Comment on above: Performed By: #### B MP, MATIAS, MG, CDP #### [facility] [address] [place] [address] [employer]chand[employer] Coordinator: Shamir Milton MD RBC (Bld) [#/Vol] 4.81 10*6/uL Normal 3.95-5.11 [facility] Comment on above: Performed By: #### B MP, MATIAS, MG, CDP #### [facility] [address] [place] [address] [employer]chand[employer] Coordinator: Shamir Milton MD WBC (Bld) [#/Vol] 12.0 10*3/uL High 3.5-11.3 [facility] Comment on above: Performed By: #### B MP, MATIAS, MG, CDP #### [facility] [address] [place] [address] [employer]chandising Coordinator: Shamir Milton MD Blood Bank BILL FOR SERVICES PERFORMED Normal [facility] Comment on above: Performed By: #### B MP, MATIAS, MG, CDP #### [employer] [address] [place], [place] [id number] [employer]chandising Coordinator: Shamir Milton MD Type + Screenon 09-25-2022 Type + Screen Sample Expiration 09/28/2022,2359 Arm Band Number BE [id number] ABO/Rh(D) O POSITIVE Antibody Screen NEGATIVE Normal [facility] Comment on above: Performed By: #### C DP, BMP, MATIAS #### [facility] [address] [place] [address] [employer]chandising Coordinator: Shamir Milton MD URINE MICROSCOPIC ONLYon BACTERIA NONE SEEN Normal NONE SEEN [facility] Comment on above: Performed By: #### COLTON REYESRO ####[facility] [address] [place] [address]Dr. Karey Espinoza Bacteria identified Cx Nom (U) NOT INDICATED Normal [facility] Comment on above: Performed By: #### COLTON REYESRO ####[facility] [address] [place], [place] [address]Dr. Karey Espinoza CAST NONE SEEN Normal NONE SEEN [facility] Comment on above: Performed By: #### COLTON REYESRO ####[facility] [address] [place], [place] [address]Dr. Karey Espinoza Crystals LM Nom (Urine sed) NONE SEEN Normal NONE SEEN [facility] Comment on above: Performed By: #### COLTON REYESRO ####[facility] [address] [place] [address]Dr. Karey Espinoza Epithelial cells LM Ql (Urine sed) RARE Normal NONE SEEN /RARE [facility] Comment on above: Performed By: #### COLTON REYESRO ####[facility] [address] [place], [place] [address]Dr. Yilan Espinoza MUCOUS NONE SEEN Normal NONE SEEN [facility] Comment on above: Performed By: #### COLTON REEYSRO ####[facility] [address] [place] [address]Dr. Karey Espinoza RBC 0-2 Normal 0-2 [facility] Comment on above: Performed By: #### Kvng NEDA REDDING ####[facility] [address] [place], [place] [address]Rw. Karey Espinoza WBC NONE SEEN Normal NONE SEEN [facility] Comment on above: Performed By: #### E NEDA REDDING ####[facility] [address] [place], [place] [address]Qf. Karey Espinoza XR HIP LEFT (2-3 VIEWS)on [...] Mikie Caba MD 09/25/22 Final result Normal [facility] XR PELVIS (MIN 3 VIEWS)on XR PELVIS [...] Mikie Caba MD 09/25/22 Final result Normal [facility] XR TIBIA FIBULA LEFT (2 VIEW S)on [...] Mikie Caba MD 09/25/22 Final result Normal [facility] LIPID PROFILEon 09-14-2022 CHOL-HDL RATIO NORM SEE BELOW Normal [facility] Comment on above: Result Comment: 3.3 - 4.4 LOW RISK 4.4 - 7.1 AVERAGE RISK 7.1 - 11.0 MODERATE RISK >11.0 HIGH RISK Performed By: #### L IPID, LIVER #### [facility] [address] [place] [address] Dr. Karey Espinoza Cholesterol [Mass/Vol] 165 mg/dL Normal <=200 [facility] Comment on above: Performed By: #### L IPID, LIVER #### [facility] [address] [address] [address] Karey Espinoza Cholesterol in HDL [Mass/Vol] 57 mg/dL Normal 40-60 [facility] Comment on above: Performed By: #### L IPID, LIVER #### [facility] [address] [address] [address] Karey Espinoza Cholesterol in LDL [Mass/Vol] 83.2 mg/dL Normal [facility] Comment on above: Performed By: #### L IPID, LIVER #### [facility] [address] [place] [address] Dr. Karey Espinoza Cholesterol.total/Cho lesterol in HDL [Mass ratio] 2.9 {ratio} Normal [facility] Comment on above: Performed By: #### L IPID, LIVER #### [facility] [address] [address] [address] Karey Espinoza HDL NORMAL > or = 60 mg/dl - LO W CARDIOVASCULAR RISK <40 mg/dl - HIGH CARDIOVASCULAR RISK Normal [facility] Comment on above: Performed By: #### L IPID, LIVER #### [facility] [address] [place] [address] Dr. Karey Espinoza LDL CALC NORMAL SEE BELOW Normal [facility] Comment on above: Result Comment: <100 mg/dl OPTIMAL 100 - 129 mg/dl NEAR OR ABOVE OPTIMAL 130 - 159 mg/dl BORDERLINE HIGH 160 - 189 mg/dl HIGH >190 mg/dl VERY HIGH Performed By: #### L IPID, LIVER #### [facility] [address] [address] [address] Karey Espinoza Triglyceride [Mass/Vol] 124 mg/dL Normal <=[address] [facility] Comment on above: Performed By: #### L IPID, LIVER #### [facility] [address] [address] [address] Karey Espinoza VLDL CALC 24.8 mg/dL Normal [facility] Comment on above: Performed By: #### L IPID, LIVER #### [facility] [address] [address] [address] Karey Espinoza LIVER PROFILEon 09-14-2022 Albumin [Mass/Vol] 3.6 g/dL Normal 3.4-5.0 [facility] Comment on above: Performed By: #### L IPID, LIVER #### [facility] [address] [address] [address] Karey Espinoza Albumin/Globulin [Mass ratio] 1.1 {ratio} Normal [facility] Comment on above: Performed By: #### L IPID, LIVER #### [facility] [address] [address] [address] Karey Espinoza ALP [Catalytic activity/Vol] 75 U/L Normal 46-116 [facility] Comment on above: Performed By: #### L IPID, LIVER #### [facility] [address] [place] [address] Dr. Karey Espinoza ALT [Catalytic activity/Vol] 57 U/L Normal 14-59 [facility] Comment on above: Performed By: #### L IPID, LIVER #### [facility] [address] [place] [address] Dr. Karey Espinoza AST [Catalytic activity/Vol] 35 U/L Normal 15-37 [facility] Comment on above: Performed By: #### L IPID, LIVER #### [facility] [address] [address] [address] Karey Espinoza BILI, CONJUGATED 0.1 mg/dL Normal 0.0-0.2 [facility] Comment on above: Performed By: #### L IPID, LIVER #### [facility] [address] [address] [address] Karey Espinoza Bilirubin [Mass/Vol] 0.5 mg/dL Normal 0.2-1.0 [facility] Comment on above: Performed By: #### L IPID, LIVER #### [facility] [address] [address] [address] Karey Espinoza Globulin (S) [Mass/Vol] 3.3 g/dL Normal [facility] Comment on above: Performed By: #### L IPID, LIVER #### [facility] [address] [place], [place] [address] Dr. Karey Espinoza Protein [Mass/Vol] 6.9 g/dL Normal 6.4-8.2 [facility] Comment on above: Performed By: #### L IPID, LIVER #### [facility] [address] [place], [place] [address] Dr. Karey Espinoza [facility]on [facility]29 SARS-CoV-2 (COVID-19) RNA JORI+probe Ql (Unsp spec) Not detected Normal NOT DETECTED [facility] Comment on above: Result Comment: This test is not yet approved or cleared by the [place] FDA. When there are no FDA-approved or cleared tests available, and other criteria are met, FDA can make tests available under an emergency access mechanism called an Emergency Use Authorization (EUA). The EUA for this test is supported by the [place] of Health and Human Service's (HHS's) declaration [...] SARS-CoV-2. Performed By: #### C VDTBH #### [facility] [address] [place], [place] [address] Dr. Karey Espinoza SYMPTOMATIC COVID-19 ANTIGEN on 04-20-2022 EUA Statement SEE BELOW Normal [facility] Comment on above: Result Comment: This [...] revoked sooner. Performed By: #### C ELLIOTS ####[facility] [address] [place] [address]Dr. Karey Espinoza SARS-CoV-2 (COVID-19) RNA JORI+probe Ql (Unsp spec) Negative Normal NEGATIVE [facility] Comment on above: Performed By: #### C SHEILA ####[facility] [address] [place] [address]Dr. Karey Espinoza LIPID PROFILEon 04-04-2022 CHOL-HDL RATIO NORM SEE BELOW Normal [facility] Comment on above: Result Comment: 3.3 - 4.4 LOW RISK 4.4 - 7.1 AVERAGE RISK 7.1 - 11.0 MODERATE RISK >11.0 HIGH RISK Performed By: #### L RAJ LIPID ####[facility] [address] [place] [address]Dr. Karey Espinoza Cholesterol [Mass/Vol] 198 mg/dL Normal <=200 [facility] Comment on above: Performed By: #### L RAJ LIPID ####[facility] [address] [place] [address]Dr. Karey Espinoza Cholesterol in HDL [Mass/Vol] 50 mg/dL Normal 40-[address] [facility] Comment on above: Performed By: #### L IVROGELIO, LIPID ####[facility] [address] [place] [address]Dr. Karey Espinoza Cholesterol in LDL [Mass/Vol] 110.8 mg/dL Normal [facility] Comment on above: Performed By: #### L IVROGELIO, LIPID ####[facility] [address] [place] [address]Dr. Karey Espinoza Cholesterol.total/Cho lesterol in HDL [Mass ratio] 4.0 {ratio} Normal [facility] Comment on above: Performed By: #### L IVER, LIPID ####[facility] [address] [place] [phone]. Karey Espinoza HDL NORMAL > or = 60 mg/dl - LO W CARDIOVASCULAR RISK <40 mg/dl - HIGH CARDIOVASCULAR RISK Normal [facility] Comment on above: Performed By: #### L IVER, LIPID ####[facility] [address] [place] [phone]. Karey Espinoza LDL CALC NORMAL SEE BELOW Normal [facility] Comment on above: Result Comment: <100 mg/dl OPTIMAL 100 - 129 mg/dl NEAR OR ABOVE OPTIMAL 130 - 159 mg/dl BORDERLINE HIGH 160 - 189 mg/dl HIGH >190 mg/dl VERY HIGH Performed By: #### L IVROGELIO, LIPID ####[facility] [address] [place] [phone]. Karey Espinoza Triglyceride [Mass/Vol] 186 mg/dL Critically high <=150 [facility] Comment on above: Performed By: #### L IVROGELIO, LIPID ####[facility] [address] [place] [phone]. Karey Espinoza VLDL CALC 37.2 mg/dL Normal [facility] Comment on above: Performed By: #### L IVER, LIPID ####[facility] [address] [place] [phone]. Karey Espinoza LIVER PROFILEon 04-04-2022 Albumin [Mass/Vol] 3.8 g/dL Normal 3.4-5.0 [facility] Comment on above: Performed By: #### L IVER, LIPID ####[facility] [address] [place] [phone]. Karey Espinoza Albumin/Globulin [Mass ratio] 1.2 {ratio} Normal [facility] Comment on above: Performed By: #### L IVER, LIPID ####[facility] [address] [place] [phone]. Karey Espinoza ALP [Catalytic activity/Vol] 78 U/L Normal 46-116 [facility] Comment on above: Performed By: #### L IVER, LIPID ####[facility] [address] [place] [phone]. Karey Espinoza ALT [Catalytic activity/Vol] 33 U/L Normal 14-59 [facility] Comment on above: Performed By: #### L IVER, LIPID ####[facility] [address] [place] [phone]. Karey Espinoza AST [Catalytic activity/Vol] 26 U/L Normal 15-37 [facility] Comment on above: Performed By: #### L IVER, LIPID ####[facility] [address] [place] [phone]. Karey Espinoza BILI, CONJUGATED 0.1 mg/dL Normal 0.0-0.2 [facility] Comment on above: Performed By: #### L IVER, LIPID ####[facility] [address] [place] [phone]. Karey Espinoza Bilirubin [Mass/Vol] 0.5 mg/dL Normal 0.2-1.0 [facility] Comment on above: Performed By: #### L IVER, LIPID ####[facility] [address] [place] [phone]. Karey Espinoza Globulin (S) [Mass/Vol] 3.2 g/dL Normal [facility] Comment on above: Performed By: #### L IVER, LIPID ####[facility] [address] [place] [phone]. Karey Espinoza Protein [Mass/Vol] 7.0 g/dL Normal 6.4-8.2 [facility] Comment on above: Performed By: #### L IVER, LIPID ####[facility] [address] [place] [phone]. Karey Espinoza XR lumbar spine 2-3V*on XR lumbar spine 2-3V* [facility] [place] [address] XRay Report Signed Patient: Anabela Abbasi MR#: [id number] 5 : 1945 Acct:[id number] Age/Sex: 75 / F ADM Date: 03/30/21 Loc: XD Room: Type: [facility] Attending Dr: Brian Gonzales MD Ordering Provider: [...] Wang Jr., M.D.03/30/2021 2:53 PM Dictation Location: [place] [address] Transcribed By: [facility] 03/30/21 145 Dictated By: Camryn Wang Jr, MD 03/30/21 145 Signed By: 03/30/21 145 [facility] Record[facility] 2020 Home Health Records [id number] Normal [facility] Glucose Poct Glucometerson 0 03-03-2021 Commemt1 Glu2: Cleaned Meter Normal [facility] Comment on above: Result Comment: PERF ORMED BY: [facility] [address] [place] [address] PATHOLOGIST [employer] ATTENDANT JU MCPHERSON M.D. Performed By: #### G LULS ####Point of Care testing, Glucose [Mass/Vol] 99 mg/dL Normal [facility] Comment on above: Result Comment: [place] om Glucose Reference Range is dependent on time and content of last meal. Glucose of more than 200 mg/dL in a nonstressed, ambulatory subject supports the diagnosis of Diabetes Mellitus. Performed By: #### G LULS ####Point of Care testing, Glucose Poct Glucometerson 0 03-02-2021 Commemt1 Glu2: Cleaned Meter [facility] Comment on above: Result Comment: PERF ORMED BY: [address] [place] [id number] PATHOLOGIST [employer]ATION ATTENDANT JU MCPHERSON M.D. Performed By: #### G LULS ####Point of Care testing, Glucose [Mass/Vol] 87 mg/dL Normal [facility] Comment on above: Result Comment: [place] om Glucose Reference Range is dependent on time and content of last meal. Glucose of more than 200 mg/dL in a nonstressed, ambulatory subject supports the diagnosis of Diabetes Mellitus. Performed By: #### G LULS ####Point of Care testing, Glucose [Mass/Vol] 131 mg/dL Normal [facility] Comment on above: Result Comment: [place] om Glucose Reference Range is dependent on time and content of last meal. Glucose of more than 200 mg/dL in a nonstressed, ambulatory subject supports the diagnosis of Diabetes Mellitus. PERFORMED BY: [address] [place] [id number] PATHOLOGIST [employer]ATION ATTENDANT JU MCPHERSON M.D. Performed By: #### G LULS ####Point of Care testing, Glucose Poct Glucometerson 0 03-01-2021 Commemt1 Glu2: Cleaned Meter [facility] Comment on above: Result Comment: PERF ORMED BY: [address] [address] PATHOLOGIST [employer]ATION ATTENDANT JU MCPHERSON M.D. Performed By: #### G LULS ####Point of Care testing, Glucose [Mass/Vol] 197 mg/dL Normal [facility] Comment on above: Result Comment: [place] om Glucose Reference Range is dependent on time and content of last meal. Glucose of more than 200 mg/dL in a nonstressed, ambulatory subject supports the diagnosis of Diabetes Mellitus. Performed By: #### G LULS ####Point of Care testing, Commemt1 Glu2: Cleaned Meter Normal [facility] Comment on above: Result Comment: PERF ORMED BY: [facility] [address] [place] [id number] PATHOLOGIST [employer]ATION ATTENDANT JU MCPHERSON M.D. Performed By: #### G LULS ####Point of Care testing, Glucose [Mass/Vol] 132 mg/dL Normal [facility] Comment on above: Result Comment: [place] om Glucose Reference Range is dependent on time and content of last meal. Glucose of more than 200 mg/dL in a nonstressed, ambulatory subject supports the diagnosis of Diabetes Mellitus. Performed By: #### G LULS ####Point of Care testing, ABO/Rh Retypeon 02-28-2021 ABO/RH Recheck Result Positive Normal [facility] Comment on above: Result Comment: PERF ORMED BY: [facility] [address] [place] [address] PATHOLOGIST [employer] ATTENDANT JU MCPHERSON M.D. Complete Blood Count Auto Di ffon 02-28-2021 Basophils (Bld) [#/Vol] 0.1 10*3/uL Normal 0.0-0.2 [facility] Comment on above: Result Comment: PERF ORMED BY: [facility] [address] [place] [id number] PATHOLOGIST [employer] ATTENDANT JU MCPHERSON M.D. Performed By: #### C MP, CBC, TROP ####[facility] [id number] [place], [place] [id number] [place] Basophils/100 WBC (Bld) 0.4 % Normal . [facility] Comment on above: Performed By: #### C MP, CBC, TROP ####[place] [address] [place] [id number] [place] Eosinophils (Bld) [#/Vol] 0.0 10*3/uL Normal 0.0-0.45 [facility] Comment on above: Performed By: #### C MP, CBC, TROP ####[address] Eosinophils/100 WBC (Bld) 0.0 % Normal . [facility] Comment on above: Performed By: #### C MP, CBC, TROP ####[address] Erythrocyte distribution width (RBC) [Ratio] 13.6 % Normal 11.9-15.3 [facility] Comment on above: Performed By: #### C MP, CBC, TROP ####[address] Hematocrit (Bld) [Volume fraction] 38.3 % Normal 34.0-46.4 [facility] Comment on above: Performed By: #### C MP, CBC, TROP ####[address] Hemoglobin (Bld) [Mass/Vol] 13.0 g/dL Normal 11.8-15.4 [facility] Comment on above: Performed By: #### C MP, CBC, TROP ####[address] Lymphocytes (Bld) [#/Vol] 0.8 10*3/uL Low 1.00-4.8 [facility] Comment on above: Performed By: #### C MP, CBC, TROP ####[address] Lymphocytes/100 WBC (Bld) 5.8 % Normal . [facility] Comment on above: Performed By: #### C MP, CBC, TROP ####[address] MCH (RBC) [Entitic mass] 30.0 pg Normal 24.7-34.3 [facility] Comment on above: Performed By: #### C MP, CBC, TROP ####[address] MCV (RBC) [Entitic vol] 88.6 fL Normal 80-100 [facility] Comment on above: Performed By: #### C MP, CBC, TROP ####[address] Mean Corpuscular HGB Conc 33.8 g/dL Normal 32.0-35.0 [facility] Comment on above: Performed By: #### C MP, CBC, TROP ####[address] Monocytes (Bld) [#/Vol] 0.6 10*3/uL Normal 0.0-0.8 [facility] Comment on above: Performed By: #### C MP, CBC, TROP ####[address] Monocytes/100 WBC (Bld) 4.5 % Normal . [facility] Comment on above: Performed By: #### C MP, CBC, TROP ####[address] Neutrophils (Bld) [#/Vol] 11.8 10*3/uL High 1.8-7.7 [facility] Comment on above: Performed By: #### C MP, CBC, TROP ####[address] Neutrophils/100 WBC (Bld) 89.3 % Normal . [facility] Comment on above: Performed By: #### C MP, CBC, TROP ####[address] Nucleated RBC/100 WBC (Bld) [Ratio] 0.1 % Normal 0-0.5 [facility] Comment on above: Performed By: #### C MP, CBC, TROP ####[address] Platelet mean volume (Bld) [Entitic vol] 7.2 fL Normal 6.3-10.7 [facility] Comment on above: Performed By: #### C MP, CBC, TROP ####[facility] [place] [address] [facility] Platelets (Bld) [#/Vol] 369 10*3/uL Normal 150-450 [facility] Comment on above: Performed By: #### C MP, CBC, TROP ####[place] [id number] [facility] RBC (Bld) [#/Vol] 4.32 10*6/uL Normal 3.60-5.00 [facility] Comment on above: Performed By: #### C MP, CBC, TROP ####[address] [address] [facility] WBC (Bld) [#/Vol] 13.2 10*3/uL High 4.5-11.0 [facility] Comment on above: Performed By: #### C MP, CBC, TROP ####[place] [id number] [facility] Comprehensive Metabolic Pane khalida 02-28-2021 Albumin [Mass/Vol] 3.4 g/dL Normal 3.2-5.5 [facility] Comment on above: Performed By: #### C MP, CBC, TROP ####[place] [id number] [facility] Albumin/Globulin [Mass ratio] 1.4 {ratio} Normal [facility] Comment on above: Performed By: #### C MP, CBC, TROP ####[place] [id number] [facility] ALP [Catalytic activity/Vol] 48 U/L Normal 32-92 [facility] Comment on above: Performed By: #### C MP, CBC, TROP ####[place] [id number] [facility] ALT [Catalytic activity/Vol] 23 U/L Normal 10-60 [facility] Comment on above: Performed By: #### C MP, CBC, TROP ####[place] [id number] [facility] AST [Catalytic activity/Vol] 32 U/L Normal 10-42 [facility] Comment on above: Performed By: #### C MP, CBC, TROP ####[place] [address] [place] [id number] [facility] Bilirubin [Mass/Vol] 0.5 mg/dL Normal 0.3-1.2 [facility] Comment on above: Performed By: #### C MP, CBC, TROP ####[place] [address] [place] [id number] [facility] Calcium [Mass/Vol] 8.9 mg/dL Normal 8.2-10.2 [facility] Comment on above: Performed By: #### C MP, CBC, TROP ####[place] [id number] [facility] Chloride [Moles/Vol] 102 mmol/L Normal 95-114 [facility] Comment on above: Performed By: #### C MP, CBC, TROP ####[place] [id number] [facility] CO2 [Moles/Vol] 22.6 mmol/L Normal 22.0-30.0 [facility] Comment on above: Performed By: #### C MP, CBC, TROP ####[place] [id number] [facility] Creatinine [Mass/Vol] 0.93 mg/dL Normal 0.44-1.03 [facility] Comment on above: Performed By: #### C MP, CBC, TROP ####[place] [id number] [place] Creatinine Clr Calc Pharmacy 50.13 [facility] Comment on above: Result Comment: PERF ORMED BY: [facility] [address] [place] [address] PATHOLOGIST [employer] ATTENDANT JU MCPHERSON M.D. Performed By: #### C MP, CBC, TROP ####[place] [id number] [facility] Estimated GFR ( [place] > 60 Normal [facility] Comment on above: Result Comment: GFR estimated reference range: According to KDOQI guidelines, <60 ml/min/1.73m2 is sufficient to diagnose a patient with chronic kidney disease. Performed By: #### C MP, CBC, TROP ####[facility] [place] [address] [facility] Estimated GFR (Non- Am 59 Normal [facility] Comment on above: Performed By: #### C MP, CBC, TROP ####[facility] [place] [address] [facility] Globulin (S) [Mass/Vol] 2.5 g/dL [facility] Comment on above: Performed By: #### C MP, CBC, TROP ####[place] [address] [place] [address] [facility] Glucose [Mass/Vol] 198 mg/dL High 70-100 [facility] Comment on above: Result Comment: [place] Glucose Reference Range is dependent on time and content of last meal. Glucose of more than 200 mg/dL in a nonstressed, ambulatory subject supports the diagnosis of Diabetes Mellitus. ADA recommended reference range Performed By: #### C MP, CBC, TROP ####[facility] [place] [address] [facility] Potassium [Moles/Vol] 3.9 mmol/L Normal 3.5-5.1 [facility] Comment on above: Performed By: #### C MP, CBC, TROP ####[facility] [place] [address] [facility] Protein [Mass/Vol] 5.9 g/dL Low 6.1-7.9 [facility] Comment on above: Performed By: #### C MP, CBC, TROP ####[facility] [place] [address] [facility] Sodium [Moles/Vol] 133 mmol/L Low 136-146 [facility] Comment on above: Performed By: #### C MP, CBC, TROP ####[facility] [place] [address] [facility] Urea nitrogen [Mass/Vol] 13 mg/dL Normal 9-23 [facility] Comment on above: Performed By: #### C MP, CBC, TROP ####[facility] [place] [address] [facility] ECG 12 lead ECGon 02-28-2021 ECG 12 lead ECG [facility] [place] [address] [place] [address] Electrocardiograph Report Signed Patient: Anabela Abbasi MR#: [id number] 5 : 1945 Acct:[id number] Age/Sex: 75 / F ADM Date: 02/28/21 Loc: Room: [address] [place] [address] Type: ADM [place] Attending Dr: Brian Gonzales [...] MD 02/28/21 1425 Signed By: 02/28/21 1538 [facility] Glucose Poct Glucometerson 0 02-28-2021 Glucose [Mass/Vol] 192 mg/dL [facility] Comment on above: Result Comment: [facility] Glucose Reference Range is dependent on time and content of last meal. Glucose of more than 200 mg/dL in a nonstressed, ambulatory subject supports the diagnosis of Diabetes Mellitus. PERFORMED BY: [facility] [address] [place] [address] PATHOLOGIST [employer] ATTENDANT JU MCPHERSON M.D. Performed By: #### G LULS ####Point of Care testing, Commemt1 Glu2: Cleaned Meter [facility] Comment on above: Result Comment: PERF ORMED BY: [facility] [address] [place] [address] PATHOLOGIST [employer] ATTENDANT JU MCPHERSON M.D. Performed By: #### G LULS ####Point of Care testing, Glucose [Mass/Vol] 202 mg/dL Normal [facility] Comment on above: Result Comment: [place] Glucose Reference Range is dependent on time and content of last meal. Glucose of more than 200 mg/dL in a nonstressed, ambulatory subject supports the diagnosis of Diabetes Mellitus. Performed By: #### G LULS ####Point of Care testing, Troponin I(TnI)on 02-28-2021 Troponin I.cardiac [Mass/Vol] ng/mL Normal 0-0.02 [facility] Comment on above: Result Comment: [place] Cut off value > or equal to 0.03 ng/mL in conjunction with clinical conditions of myocardial infarction. (www.escardio.org/guidelines) PERFORMED BY: [place] [address] PATHOLOGIST [employer]ATION ATTENDANT JU MCPHERSON M.D. Performed By: #### C MP, CBC, TROP ####[facility] [id number] [place] [address] XR lumbar spine 2-3V*on XR lumbar spine 2-3V* [facility] [place] [address] [place] [address] XRay Report Signed Patient: Anabela bAbasi MR#: [id number] 5 : 1945 Acct:[id number] Age/Sex: 75 / F ADM Date: 02/28/21 Loc: Room: [address] [place] [address] Type: ADM IN Attending Dr: Brian Gonzales [...] Rahul Desai M.D.02/28/2021 12:05 PM Dictation Location: [place] [address] Transcribed By: [facility] 02/28/21 1205 Dictated By: Rahul Desai DO 02/28/21 1153 Signed By: 02/28/21 1205 Normal [facility] COVID-19 FRMCon 02-24-2021 SARS-CoV-2 (COVID-19) RNA JORI+probe Ql (Unsp spec) Negative Normal Negative [facility] Comment on above: Order Comment: Healt hcare Worker?: N Result Comment: Test ing for SARS-CoV-2 by RT-PCR This test was developed and its performance characteristics determined by [employer] and validated at the [facility]. This test has not been FDA cleared [...] is terminated or revoked sooner. PERFORMED BY: [place] [address] PATHOLOGIST [employer] ATTENDANT JU MCPHERSON M.D. Performed By: #### C OVID-19 [facility] #### [address] Basic Metabolic Panelon 01-27 Calcium [Mass/Vol] 10.1 mg/dL Normal 8.2-10.2 [facility] Comment on above: Result Comment: PERF ORMED BY: [address] [place] [address] PATHOLOGIST [employer] ATTENDANT JU MCPHERSON M.D. Performed By: #### C BC, BMP #### [address] Chloride [Moles/Vol] 100 mmol/L Normal 95-114 [facility] Comment on above: Performed By: #### C BC, BMP #### [address] CO2 [Moles/Vol] 25.9 mmol/L Normal 22.0-30.0 [facility] Comment on above: Performed By: #### C BC, BMP #### [address] Creatinine [Mass/Vol] 1.00 mg/dL Normal 0.44-1.03 [facility] Comment on above: Performed By: #### C BC, BMP #### [address] Estimated GFR ( [place] > 60 [facility] Comment on above: Result Comment: GFR estimated reference range: According to KDOQI guidelines, <60 ml/min/1.73m2 is sufficient to diagnose a patient with chronic kidney disease. Performed By: #### C BC, BMP #### [address] Estimated GFR (Non- Am 54 [facility] Comment on above: Performed By: #### C BC, BMP #### [address] Glucose [Mass/Vol] 101 mg/dL High 70-100 [facility] Comment on above: Result Comment: [place] om Glucose Reference Range is dependent on time and content of last meal. Glucose of more than 200 mg/dL in a nonstressed, ambulatory subject supports the diagnosis of Diabetes Mellitus. ADA recommended reference range Performed By: #### C BC, BMP #### [address] Potassium [Moles/Vol] 4.6 mmol/L Normal 3.5-5.1 [facility] Comment on above: Performed By: #### C BC, BMP #### [facility] [address] Sodium [Moles/Vol] 135 mmol/L Low 136-146 [facility] Comment on above: Performed By: #### C BC, BMP #### [facility] [address] Urea nitrogen [Mass/Vol] 13 mg/dL Normal 9-23 [facility] Comment on above: Performed By: #### C BC, BMP #### [facility] [address] Basophils Auto (Bld) [#/Vol] on 02-16-2021 Basophils (Bld) [#/Vol] 0.0 10*3/uL 0.0-0.2 [facility] Basophils/100 WBC Auto (Bld) on 02-16-2021 Basophils/100 WBC (Bld) 0.9 % [facility] Blood hemoglobin measurement (mass/volume)on 02-16-2021 Hemoglobin (Bld) [Mass/Vol] 14.5 g/dL 11.8-15.4 [facility] Blood leukocytes automated c ount (number/volume)on 02-16-2021 WBC (Bld) [#/Vol] 5.6 10*3/uL 4.5-11.0 [facility] Complete Blood Count Auto Di ffon 02-16-2021 Basophils (Bld) [#/Vol] 0.0 10*3/uL Normal 0.0-0.2 [facility] Comment on above: Result Comment: PERF ORMED BY: [place] [address] PATHOLOGIST [employer] ATTENDANT JU MCPHERSON M.D. Performed By: #### C BC, BMP #### [address] Basophils/100 WBC (Bld) 0.9 % Normal . [facility] Comment on above: Performed By: #### C BC, BMP #### [facility] [address] [place] [address] Eosinophils (Bld) [#/Vol] 0.1 10*3/uL Normal 0.0-0.45 [facility] Comment on above: Performed By: #### C BC, BMP #### [address] Eosinophils/100 WBC (Bld) 1.0 % Normal . [facility] Comment on above: Performed By: #### C BC, BMP #### [address] Erythrocyte distribution width (RBC) [Ratio] 14.1 % Normal 11.9-15.3 [facility] Comment on above: Performed By: #### C BC, BMP #### [address] Hematocrit (Bld) [Volume fraction] 42.6 % Normal 34.0-46.4 [facility] Comment on above: Performed By: #### C BC, BMP #### [address] Hemoglobin (Bld) [Mass/Vol] 14.5 g/dL Normal 11.8-15.4 [facility] Comment on above: Performed By: #### C BC, BMP #### [address] Lymphocytes (Bld) [#/Vol] 1.9 10*3/uL Normal 1.00-4.8 [facility] Comment on above: Performed By: #### C BC, BMP #### [address] Lymphocytes/100 WBC (Bld) 33.3 % Normal . [facility] Comment on above: Performed By: #### C BC, BMP #### [address] MCH (RBC) [Entitic mass] 30.1 pg Normal 24.7-34.3 [facility] Comment on above: Performed By: #### C BC, BMP #### [address] MCV (RBC) [Entitic vol] 88.4 fL Normal 80-100 [facility] Comment on above: Performed By: #### C BC, BMP #### [address] Mean Corpuscular HGB Conc 34.0 g/dL Normal 32.0-35.0 [facility] Comment on above: Performed By: #### C BC, BMP #### [address] Monocytes (Bld) [#/Vol] 0.5 10*3/uL Normal 0.0-0.8 [facility] Comment on above: Performed By: #### C BC, BMP #### [address] Monocytes/100 WBC (Bld) 9.3 % Normal . [facility] Comment on above: Performed By: #### C BC, BMP #### [address] Neutrophils (Bld) [#/Vol] 3.1 10*3/uL Normal 1.8-7.7 [facility] Comment on above: Performed By: #### C BC, BMP #### [address] Neutrophils/100 WBC (Bld) 55.5 % Normal . [facility] Comment on above: Performed By: #### C BC, BMP #### [address] Nucleated RBC/100 WBC (Bld) [Ratio] 0.1 % Normal 0-0.5 [facility] Comment on above: Performed By: #### C BC, BMP #### [address] Platelet mean volume (Bld) [Entitic vol] 7.6 fL Normal 6.3-10.7 [facility] Comment on above: Performed By: #### C BC, BMP #### [address] Platelets (Bld) [#/Vol] 417 10*3/uL Normal 150-450 [facility] Comment on above: Performed By: #### C JOSE L, BMP #### [facility] [address] RBC (Bld) [#/Vol] 4.82 10*6/uL Normal 3.60-5.00 [facility] Comment on above: Performed By: #### C JOSE L, BMP #### [facility] [address] WBC (Bld) [#/Vol] 5.6 10*3/uL Normal 4.5-11.0 [facility] Comment on above: Performed By: #### C JOSE L, BMP #### [facility] [address] Creatinine and Glomerular fi ltration rate.predicted panel (S/P/Bld)on 02-16-2021 Creatinine [Mass/Vol] 1.00 mg/dL 0.44-1.03 [facility] Eosinophils Auto (Bld) [#/Vo l]on 02-16-2021 Eosinophils (Bld) [#/Vol] 0.1 10*3/uL 0.0-0.45 [facility] Eosinophils/100 WBC Auto (Bl d)on 02-16-2021 Eosinophils/100 WBC (Bld) 1.0 % [facility] Erythrocyte distribution wid th Auto (RBC) [Ratio]on 02-16-2021 Erythrocyte distribution width (RBC) [Ratio] 14.1 % 11.9-15.3 [facility] Estimated glomerular filtrat ion rate (GFR) non- Americanon 02-16-2021 GFR/1.73 sq M.predicted among non-blacks MDRD (S/P/Bld) [Vol rate/Area] 54 mL/Min [facility] Hematocrit Auto (Bld) [Volum e fraction]on 02-16-2021 Hematocrit (Bld) [Volume fraction] 42.6 % 34.0-46.4 [facility] Laboratory - Hematology and Cell countson 02-16-2021 Nucleated RBC/100 WBC (Bld) [Ratio] 0.1 % 0-0.5 [facility] Lymphocytes Auto (Bld) [#/Vo l]on 02-16-2021 Lymphocytes (Bld) [#/Vol] 1.9 10*3/uL 1.00-4.8 [facility] Lymphocytes/100 WBC Auto (Bl d)on 02-16-2021 Lymphocytes/100 WBC (Bld) 33.3 % [facility] MCH Auto (RBC) [Entitic mass ]on 02-16-2021 MCH (RBC) [Entitic mass] 30.1 pg 24.7-34.3 [facility] MCHC Auto (RBC) [Mass/Vol]on 02-16-2021 MCHC (RBC) [Mass/Vol] 34.0 g/dL 32.0-35.0 [facility] MCV Auto (RBC) [Entitic vol] on 02-16-2021 MCV (RBC) [Entitic vol] 88.4 fL 80-100 [facility] Monocytes Auto (Bld) [#/Vol] on 02-16-2021 Monocytes (Bld) [#/Vol] 0.5 10*3/uL 0.0-0.8 [facility] Monocytes/100 WBC Auto (Bld) on 02-16-2021 Monocytes/100 WBC (Bld) 9.3 % [facility] Neutrophils Auto (Bld) [#/Vo l]on 02-16-2021 Neutrophils (Bld) [#/Vol] 3.1 10*3/uL 1.8-7.7 [facility] Neutrophils/100 WBC Auto (Bl d)on 02-16-2021 Neutrophils/100 WBC (Bld) 55.5 % [facility] No Panel Informationon 02-16 Estimated GFR () > 60 mL/Min [facility] Comment on above: GFR estimated refere nce range: According to KDOQI guidelines, <60 ml/min/1.73m2 is sufficient to diagnose a patient with chronic kidney disease. Pharmacy Creatinine Clearance (Chem N/A [facility] [facility] PST Type and Screenon 2020 ABO and Rh group Nom (Bld) Blood group O Rh(D) positive Normal [facility] Comment on above: Order Comment: Date of Surgery: [id number] Result Comment: PERF ORMED BY: [facility] [place] [address] PATHOLOGIST [employer] ATTENDANT JU MCPHERSON M.D. Platelet mean volume Auto (B ld) [Entitic vol]on 02-16-2021 Platelet mean volume (Bld) [Entitic vol] 7.6 fL 6.3-10.7 [facility] Platelets Auto (Bld) [#/Vol] on 02-16-2021 Platelets (Bld) [#/Vol] 417 10*3/uL 150-450 [facility] RBC Auto (Bld) [#/Vol]on RBC (Bld) [#/Vol] 4.82 10*6/uL 3.60-5.00 [facility] Serum or plasma calcium samir urement (mass/volume)on 02-16-2021 Calcium [Mass/Vol] 10.1 mg/dL 8.2-10.2 [facility] Serum or plasma chloride valeria surement (moles/volume)on 02-16-2021 Chloride [Moles/Vol] 100 mmol/L 95-114 [facility] Serum or plasma glucose samir urement (mass/volume)on 02-16-2021 Glucose [Mass/Vol] 101 mg/dL 70-100 [facility] Comment on above: ADA recommended refe rence rangeRandom Glucose Reference Range is dependent on time and content of last meal. Glucose of more than 200 mg/dL in a nonstressed, ambulatory subject supports the diagnosis of Diabetes Mellitus. Serum or plasma potassium me asurement (moles/volume)on 02-16-2021 Potassium [Moles/Vol] 4.6 mmol/L 3.5-5.1 [facility] Serum or plasma sodium measu rement (moles/volume)on 02-16-2021 Sodium [Moles/Vol] 135 mmol/L 136-146 [facility] Serum or plasma total carbon dioxide measurement (moles/volume)on 02-16-2021 CO2 [Moles/Vol] 25.9 mmol/L 22.0-30.0 [facility] Serum or plasma urea nitroge n measurement (mass/volume)on 02-16-2021 Urea nitrogen [Mass/Vol] 13 mg/dL 07-20 [facility] STR cardiac stress/lexiscano n 02-09-2021 STR cardiac stress/lexiscan [facility] Main [address] [address] Cardiac Stress Test Signed Patient: Anabela Abbasi MR#: [id number] 5 : 1945 Acct:[id number] Age/Sex: 75 / F ADM Date: 02/07/21 Loc: CO Room: Type: [facility] Attending Dr: Mikie Daugherty MD [...] 02/09/21 1831 Signed By: 02/10/21 1408 Normal [facility] NM karl perf SPECT rest stron 02-07-2021 NM karl perf SPECT rest str [address] [address] Nuclear Medicine Report Signed Patient: Anabela Abbasi MR#: [id number] 5 : 1945 Acct:[id number] Age/Sex: 75 / F ADM Date: 02/07/21 Loc: NM Room: Type: [facility] CLI Attending Dr: Mikie Daugherty MD Ordering [...] available for comparison. Transcribed By: ISSAC 02/07/21 3296 Dictated By: Bjorn Simon MD 02/07/21 1654 Signed By: 02/08/21 0906 Normal [facility] XR lumbar spine 6V w bending on 01-05-2021 XR lumbar spine 6V w bending [facility] [place] [address] XRay Report Signed Patient: Anabela Abbasi MR#: [id number] 5 : 1945 Acct:[id number] Age/Sex: 75 / F ADM Date: 01/05/21 Loc: XD Room: Type: [facility] CLI Attending Dr: Brian Gonzales MD Ordering Provider: Brian Gonzales MD Date of Service: 01/05/21 XR/XR lumbar spine 6V w bending: m54.16 ([id number]) XR/XR scoliosis survey: M54.16 Copies to: Brian [...] Wang Jr., M.D.01/05/2021 3:44 PM Dictation Location: [place] [address] Transcribed By: [facility] 01/05/21 1544 Dictated By: Camryn Wang Jr, MD 01/05/21 1535 Signed By: 01/05/21 1544 [facility] Vital Signs Date Time Vital Sign Value Performing Clinician Meño zabala 07-19-2025 14:24040 Body height 157.5 cm Camryn Amador DO Work Phone: [facility] [employer] 07-19-2025 14:24-0400 Body mass index (BMI) [Ratio] 30.36 kg/m2 Camryn Pikimali DO Work Phone: [facility] [employer] 07-19-2025 14:24-040 Body weight 75.3 kg Camryn Bonneri Zumobi Work Phone: [facility] [employer] 07-19-2025 14:24-0400 Diastolic blood pressure 80 mm[Hg] Camryn Bonneri DO Work Phone: [facility] 07-19-2025 14:24-0400 Systolic blood pressure 128 mm[Hg] Camryn Amador DO Work Phone: [facility] 12-23-2024 15:27-0500 Body mass index (BMI) [Ratio] 29.19 kg/m2 Jorge A Avalos DO Work Phone: [facility] 12-23-2024 15:27-0500 Body weight 72.39 kg Jorge A Avalos DO Work Phone: [facility] 12-23-2024 15:27-0500 Diastolic blood pressure 92 mm[Hg] Jorge A Avalos DO Work Phone: [facility] 12-23-2024 15:27-0500 Heart rate 67 /min Jorge A Avalos DO Work Phone: [facility] 12-23-2024 15:27-0500 SaO2% (BldA) [Mass fraction] 98 % Jorge A Avalos DO Work Phone: [facility] 12-23-2024 15:27-0500 Systolic blood pressure 148 mm[Hg] Jorge A Avalos DO Work Phone: [facility] 12-19-2024 10:16-0500 Body height 160.02 cm [facility] 12-19-2024 10:16-0500 Body mass index (BMI) [Ratio] 28.3 kg/m2 [facility] 12-19-2024 10:16-0500 Body temperature 99.1 [degF] [facility] 12-19-2024 10:16-0500 Body weight 72.57 kg [facility] 12-19-2024 10:16-0500 Diastolic blood pressure 80 mm[Hg] [facility] 12-19-2024 10:16-0500 Heart rate 56 /min [facility] 12-19-2024 10:16-0500 Respiratory rate 18 /min [facility] 12-19-2024 10:16-0500 SaO2% (BldA) [Mass fraction] 97 % [facility] 12-19-2024 10:16-0500 Systolic blood pressure 137 mm[Hg] [facility] 10-11-2021 14:00-0500 Body height 160.02 cm Brian Gonzales Other [employer] Other 10-11-2021 14:00-0500 Body mass index (BMI) [Ratio] 27.63 kg/m2 Brian Gonzales Other [employer] Other 10-11-2021 14:00-0500 Body weight 70.76 kg Brian Gonzales Other [employer] Other 10-11-2021 14:00-0500 Diastolic blood pressure 86 mm[Hg] Brian Gonzales Other [employer] Other 10-11-2021 14:00-0500 Systolic blood pressure 132 mm[Hg] Brian Gonzales Other [employer] Other 02-07-2021 14:28-0400 Body height 160.02 cm M Winerist Work Phone: [facility] 02-07-2021 14:28-0400 Body weight 72.12 kg M Ashok Hoy Work Phone: [facility] 02-07-2021 14:20-0400 Diastolic blood pressure 82 mm[Hg] M Ashok Hoy Work Phone: [facility] 02-07-2021 14:20-0400 Heart rate 64 /min M Ashok Hoy Work Phone: [facility] 02-07-2021 14:20-0400 Systolic blood pressure 145 mm[Hg] M Ashok Hoy Work Phone: [facility] Encounters Encounter Date Encounter Type Care Provider Facility Start: 08-09-2025 End: 08-09-2025 [facility] Start: 07-19-2025 End: 07-19-2025 Office outpatient visit 25 minutes Camryn A Visci DO Work Phone: [facility] Comment on above: Encounter for gyneco logical examination with abnormal finding; Encounter for screening mammogram for malignant neoplasm of breast; Osteoporosis, post-menopausal ; Vaginal atrophy; Osteoporosis screening; Asymptomatic menopause Start: 07-19-2025 End: 07-19-2025 Patient encounter status Camryn A Visci DO Work Phone: [facility] Start: 07-19-2025 End: 07-19-2025 ambulatory CAMRYN A [...] KEYANA CURRY Start: 12-19-2024 End: 12-19-2024 ambulatory [facility] Work Phone: Start: 12-19-2024 End: 12-19-2024 Patient encounter procedure [facility] Work Phone: Start: 10-14-2024 End: 10-14-2024 ambulatory SHADE GALLARDO [facility] Start: 12-18-2022 End: 12-18-2022 ambulatory ASHOKTORREY BRYANT [facility] Start: 11-06-2022 End: 11-06-2022 [facility] Start: 09-25-2022 End: 10-01-2022 Evaluation and management of inpatient KEYONNA SUMMERS [facility] Start: 09-25-2022 End: 09-25-[address] RAQUEL KING Facility:[facility] Start: 09-14-2022 End: 09-15-[address] SHADE GALLARDO Facility:[facility] Start: 04-20-2022 End: 04-20-[address] ASHOK BRYANT . Facility:[facility] Start: 04-04-2022 End: 04-05-2022 ambulatory KATLYN COLINDRES Facility:[facility] Start: 10-11-2021 End: 10-11-2021 ambulatory Brian Gonzales Other [employer] Other Start: 10-11-2021 Office outpatient vi sit 15 minutes Brian Gonzales [facility] Start: 02-16-2021 End: 02-16-2021 Patient encounter procedure Tim Nielson Phone: -Pre-Surgical Testing Start: 02-07-2021 End: 02-07-2021 Patient encounter procedure Tim Nielson Phone: -Nuc [facility] [place] Start: 01-05-2021 End: 01-05-2021 Patient encounter procedure Tim Nielson Phone: -XRay [facility] Procedures Date Procedure Procedure Detail Performing Clinician Start: 02-16-2021 Antibody screen Comment on above: Order Comment: Date of Surgery: [id number] Result Comment: PERF ORMED BY: [facility] [address] [place] [id number] PATHOLOGIST [employer] STATION ATTENDANT JU MCPHERSON M.D. Start: 02-07-2021 Single photon [...] [address] [place] [id number] [facility] Start: 07-19-2026 End: 09-18-2026 DBT Breast - bilateral screening Bilateral screening mammogram with tomosynthesis Imaging Routine Encounter for screening mammogram for malignant neoplasm of breast Expected: 07/19/2026, Expires: 09/18/2026 [facility] Work Phone: Comment on above: Expected: 07/19/2026 , Expires: 09/18/2026 Start: 07-19-2026 End: 07-19-2026 DXA Skeletal system Views for bone density DEXA bone density Imaging Routine Osteoporosis, post-menopausal Osteoporosis screening Asymptomatic menopause Expected: 07/19/2026, Expires: 07/19/2026 [facility] Comment on above: Expected: 07/19/2026 , Expires: 07/19/2026 Start: 06-17-2026 End: 06-17-2026 Professional / ancillary services management [facility] Start: 07-19-2025 End: 07-19-2025 Patient encounter procedure 07/19/2025 2:15 PM EDT Office Visit [facility] [address] [place] [phone] Camryn Amador DO [address] [place] [address] Encounter for gynecological examination with abnormal finding; Encounter for screening mammogram for malignant neoplasm of breast; Osteoporosis, post-menopausal ; Vaginal atrophy [facility] [place] [facility] Comment on above: Encounter for gyneco logical examination with abnormal finding; Encounter for screening mammogram for malignant neoplasm of breast; Osteoporosis, post-menopausal ; Vaginal atrophy Start: 06-28-2025 Influenza vaccination Influenza Vacc ine (#1) [facility] Start: 06-14-2025 End: 06-14-2025 Professional / ancillary services management 06/14/2025 11:00 AM EDT Ancillary Procedure [facility] [place] [address] [place] [phone] [facility] [place] Start: 06-14-2025 End: 06-14-2025 Patient encounter procedure 06/14/2025 10:00 AM EDT Office Visit [facility] [address] [place] [address] Camryn Amador, DO [address] [place] [address] [facility] Start: 12-23-2024 End: 12-23-2024 Patient encounter procedure 12/23/2024 3:30 PM EST Office Visit KEYANA CURRY [address] [place] [phone] Jorge A Avalos DO [address] [place] [id number] Arrived KEYANA CURRY Comment on above: Arrived Start: 06-28-2024 Influenza vaccination Influenza Vacc ine (#1) [facility] Immunizations Immunization Date Immunization Notes Care Provider Fa cility 08-10-2024 influenza virus vaccine, unspecified formulation Camryn Amador DO Work Phone: [facility] 07-28-2021 influenza virus vaccine, unspecified formulation Jorge A Avalos DO Work Phone: [facility] 01-12-2021 COVID-19 mRNA,GFW271 b2 (Dine in) Tim Bryant Work Phone: [facility] 12-22-2020 COVID-19 mRNA,VMQ754 b2 (Pfizer) Tim Bryant Work Phone: [facility] Payers Date Payer Category Payer Private Health Insurance CIGRUBA Dumont ember LACHELLE LYNCH [id number] 2022 Unknown [id number] 2022 Unknown [id number] 2011 Medicare MEDICARE [id number] 1959 Medicare [id number] 1959 Private Health Insurance [id number] 1945 Unknown [id number] [id number] .175 1945 Unknown [id number] .[id number] .175 1945 Unknown [id number] 2.16.840.1.645079.3.579.2 .175 1945 Unknown [id number] 2.16.840.1.154519.3.579.2 .593 1945 Unknown [id number] [id number] .593 1945 Unknown [id number] [id number] .593 1945 Unknown [id number] 2.16.840.1.394493.3.579.2 .593 1946 Unknown [id number] 2.16.840.1.059244.3.579.2 .1259 1945 Unknown [id number] 2.16.840.1.941701.3.579.2 .1259 1945 Unknown [id number] [id number] .1259 Self-pay Self Pay [id number] Social History Date Type Detail Facility Start: 02-16-2021 End: 06-03-2024 Tobacco smoking status NHIS Never smoked tobacco (finding) [facility] Start: 1945 Sex Assigned At Female [facility] Start: 06-03-2024 End: 07-13-2025 Sex Assigned At [facility] Other Start: 12-19-2024 Sex Female (finding) [facility] Start: 06-03-2024 Tobacco use and exposure Smokeless [...] XLIF Bone-screw internal spinal fixation system, non-sterile ()[id number] FDA Start: 02-28-2021 Fusion, spine, lumbar, XLIF Bone-screw internal spinal fixation system, non-sterile ()[id number] FDA Start: 02-28-2021 Fusion, spine, lumbar, XLIF Bone-screw internal spinal fixation system, non-sterile ()[id number] FDA Start: 02-28-2021 Fusion, spine, lumbar, XLIF MAS REDUCTION FIXATION ADD LEV FDA Start: 02-28-2021 Fusion, spine, lumbar, XLIF Bone-screw internal spinal fixation system, non-sterile ()[id number] FDA Start: 02-28-2021 Fusion, spine, lumbar, XLIF Bone-screw internal spinal fixation system, non-sterile ()[id number] FDA Start: 02-28-2021 Fusion, spine, lumbar, XLIF Polymeric spinal fusion cage, non-sterile ()[id number] FDA Start: 02-28-2021 Fusion, spine, lumbar, XLIF MAS REDUCTION FIXATION ADD LEV FDA Start: 02-28-2021 Fusion, spine, lumbar, XLIF XLIF 1 LEVEL MAS REDUCTION FDA Start: 02-28-2021 Fusion, spine, lumbar, XLIF Spinal fusion graft kit ()[id number] FDA Start: 02-28-2021 Fusion, spine, lumbar, XLIF Spinal fusion graft kit ()[id number] FDA Start: 02-28-2021 Fusion, spine, lumbar, XLIF Bone matrix implant, human-derived ()[id number] FDA Start: 02-28-2021 Fusion, spine, lumbar, XLIF Metallic spinal fusion cage, non-sterile ()[id number] FDA Start: 02-28-2021 Fusion, spine, lumbar, XLIF Bone-screw internal spinal fixation system, non-sterile ()[id number] FDA Start: 02-28-2021 Goals Date Patient Goal [...] pressure was aroun (more content not included)... [facility] 07-19-2025 History of Present illness Narrative Images from the original note were not included. Camryn Amador, Obstetrics and Gynecology Anabela Abbasi 1945 07/19/25 [id number] Yearly Wellness Exam Chief Complaint Patient presents with Gynecologic Exam Pt presents for yearly. Denies breast,bowel,bladder,pesticide use medical coordinator problems. Visit Vitals BP 128/80 Ht 5' [...] palpable. BACK: No obvious scoliosis/kyphosis. 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) Heart disease Hyperlipidemia ([facility]) IBS (irritable bowel syndrome) Osteopenia Past Surgical [...] , wrist extensors , wrist flexor , ginning operator strength 5/5. LUE Strength deltoid , biceps , triceps , wrist extensors , wrist flexor , ginning operator strength 5/5. RLE Strength illopsoas, quadriceps, tibialis [...] reflex 2+ . Cummings's sign negative. Coordination: [id number] testing and rapid alternating movements are normal [...] and return instructions documented in this encounter [facility] 10-14-2024 Note Cardiovascular Medic [facility] SUBJECTIVE Anabela Abbasi is a 78 [...] No provoked ch (more content not included)... [facility] 09-25-2022 Note PROCEDURE: XR FEMUR LT, XR [...] authenticated by: RAQUEL KING Date: 2022-09-25 14:50 [facility] 09-25-2022 Note PROCEDURE: XR FEMUR LT, XR [...] by: RAQUEL KING Date: 2022-09-25 14:[address] [facility] 10-11-2021 Evaluation note Encounter Date [...] 15 Sep, 2021 Kyphoscoliosis (ICD-10 - M41.9) [employer] Other evaluation noteNo Assessments Information Available [facility] assessment information available [facility] Work Phone: Evaluation note* Diagnosis [...] XLIF-Doctor Elskens Hospitalization History see surgical hx [facility] [employer] Other reason for visit Narrative* Consultation (Routine) - Closed Specialty Diagnoses / Procedures Referred By Contac t Referred To Contact Neurology Diagnoses Dizziness and giddiness Procedures VA OFFICE/OUTPATIENT [facility] Ashok Bryant MD [address] [place] [address] Phone: tel:[phone] fax: Raquel Lopez MD [address] [place] [address] Phone: tel: fax: Referral ID Status Reason Start Date Expiration Date V isits Requested Visits Authorized [id number] Closed Consult and Treat 10/15/2024 04/13/2025 1 1 [facility] Advance Directives No Advanced Directives Records [...] section and content) DATE CREATED AUTHOR 03/27/2021 [facility] DATE CREATED AUTHOR AUTHOR'S ORGANIZ ATION 10/16/2021 [facility] DATE CREATED AUTHOR AUTHOR'S ORGANIZ ATION 02/01/2023 [facility] DATE CREATED AUTHOR AUTHOR'S ORGANIZ ATION 02/28/2023 [facility] DATE CREATED AUTHOR AUTHOR'S ORGANIZ ATION 07/20/2025 [facility] EPIC DATE CREATED AUTHOR AUTHOR'S ORGANIZ ATION 08/10/2025 [facility] REASON FOR VISIT (unrecogniz ed section and content) Reason Comments Gynecologic Exam Pt presents for year ly. Denies breast,bowel,bladder,pesticide use medical coordinator problems. Care Teams (unrecognized sec tion and content) Team Status: Active Member Role Status Dates Ashok Bryant MD Primary Care Provider Active Team Status: Inactive Member Role Status Dates Ashok Bryant MD Primary Care Provider Active Start: December 19, 2024 End: December 19, 2024 Ana Maria Goodwin APRN Attending Provider Active Start: December 19, 2024 End: December 19, 2024 Qual Research Manager Relationship Specialty Start Date End Date Ashok Bryant MD [address] [place] [address] PCP - General Family Medicine 06/03/24 Qual Research Manager Relationship Specialty Start Date End Date Ashok Bryant MD [address] [place] [address] PCP - General Family Medicine 06/03/24 Qual Research Manager Relationship Specialty Start Date End Date Ashok Bryant MD [address] [place] [phone] PCP - General Family Medicine 06/03/24 Qual Research Manager Relationship Specialty Start Date End Date Ashok Bryant MD [address] [place] [phone] PCP - General Family Medicine 06/03/24 Goals [...] BE BASED ON THE PRIMARY CLINICAL RECORDS. [facility] [employer] [facility]. provides no warranty or guarantee of the accuracy or completeness of information in this document.
--- OUTSIDE RECORDS SUMMARY | 2025-08-16 07:01 | XMS_ITS | Patient Health Record ---
Author Organization The [facility] in [place] Address [address] [place] [address] Care Team Providers Care Personal Companion Name Role Phone MohsenRobbie pina Primary Care Provider Shey Shepherd Unavailable [phone] Allergies Allergen (clinical drug ingredient) Drug/Non Drug Allergy documented on EMR Reaction Allergy Type Onset Date Status sulfamethoxazole / trimethoprim Bactrim nausea Drug Allergy Active Results Component Value Reference Range Notes CBC AUTO DIFF Reviewed date:08/10/2025 01:45:02 PM Interpretation: Performing Lab: Notes/Report: [facility] , White Blood Count 5.3 4.0-11.0 10 3/uL Red Blood Count 4.77 4.20-5.40 10 6/uL Hemoglobin 14.2 12.0-16.0 g/dL Hematocrit 40.9 36.0-48.0 % Mean Corpuscular Volume 85.7 81.0-99.0 fL Mean Corpuscular Hemoglobin 29.8 26.7-34.0 pg Mean Corpuscular HGB Conc 34.7 29.9-35.2 g/dL Red Cell Distribution Width 13.1 11.0-15.0 % Platelet Count 339 150-450 10 3/uL Mean Platelet Volume 9.2 9.5-13.5 fL Neutrophils Percent Auto 42.1 43.0-75.0 % Lymphocytes Percent Auto 44.1 20.5-60.0 % Monocytes Percent Auto 10.7 1.7-12.0 % Eosinophils Percent Auto 2.1 0.9-7.0 % Basophils Percent Auto 0.8 0.2-2.0 % Immature Granulocytes Pct Auto 0.2 0.0-0.5 % Neutrophils Absolute Auto 2.3 1.4-6.5 10 3/uL Lymphocytes Absolute Auto 2.4 1.2-3.8 10 3/uL Monocytes Absolute Auto 0.6 0.3-0.8 10 3/uL Eosinophils Absolute Auto 0.1 0.0-0.7 10 3/uL Basophils Absolute Auto 0.0 0.0-0.1 10 3/uL Immature Granulocytes Abs Auto 0.01 0.00-0.03 10 3/uL Performing Lab: see note ML - [facility] CA echo doppler complete Reviewed date:08/12/2025 07:04:28 PM Interpretation: Performing Lab: Notes/Report: Source Facility: [place] [address] Cardiology Report Signed Patient: LORENZO HELM MR#: [id number] : 1945 Acct:[id number] Age/Sex: 79 / F ADM Date: 08/12/25 Loc: CARD Attending Dr: Julio C Reeves NP Ordering Physician: Julio C Reeves NP Date of Service: 08/12/25 Procedure(s): CA echo doppler complete Accession Number(s): [id number] cc: Gio Agustin M.D.; Julio C Reeves NP Patient Name: LORENZO HELM MR#: [id number] : 1945 Exam Date: 08/12/2025 Ordering Doctor: JULIO C REEVES ECHOCARDIOGRAM REPORT PROCEDURE: CA ECHO DOPPLER COMPLETE INDICATIONS: Shortness of breath COMPARISON: None. DESCRIPTION: COMPLETE ECHOCARDIOGRAM Real-time transthoracic echocardiography with 2D, M-mode, spectral and color flow Doppler performed. QUALITY: Technical quality was good. LEFT VENTRICLE: Normal chamber size. Mild concentric left ventricular hypertrophy. LV EF: Global left ventricular systolic function is hyperdynamic; visually estimated ejection fraction is 65 to 70%. No significant wall motion abnormalities. DIASTOLIC: Normal diastolic function. ATRIAL SEPTUM: Inadequately seen. LEFT ATRIUM: Normal chamber size. RIGHT ATRIUM: Normal chamber size. RIGHT VENTRICLE: Normal chamber size. Normal right ventricular systolic function. TRICUSPID VALVE: Normal mobility and thickness. No stenosis with trivial regurgitation. No evidence of pulmonary hypertension. RVSP 33mmHg MITRAL VALVE: Normal mobility and thickness. No evidence of mitral valve stenosis. There is no mitral annular calcification. No mitral regurgitation. AORTIC VALVE: Normal trileaflet appearance. Thickened aortic valve. Normal leaflet mobility. No evidence of aortic valve stenosis. Trivial aortic regurgitation. AORTIC ROOT: Normal diameter and appearance. PULMONIC VALVE: Normal thickness and mobility. No stenosis. Trivial regurgitation. PERICARDIUM: Anterior free space; trivial effusion versus fat pad. IVC: Collapses with inspiration. Normal size CONCLUSION: 1. Global left ventricular systolic function is hyperdynamic; visually estimated ejection fraction 65 to 70% 2. Mild left ventricular hypertrophy 3. The right ventricle is normal in size and systolic function 4. Normal diastolic function 5. No significant valvular abnormalities 6. Anterior free space; trivial effusion versus fat pad Adult Echocardiography Procedure Report Left Ventricle LVEDD (3.7 - 5.6 cm): 3.99 cm LVESD (2.2 - 4.0 cm): 2.50 cm LVIVS thickness (0.6 - 1.2 cm): 1.29 cm LVPW thickness (0.5 - 1.0 cm): 1.24 cm e': 0.09 m/s E - e': 6.08 LVOT Max Gradient: 4.25 mm[Hg] LVOT Area (cm2): 1.03 m/s Peak Velocity (LVOT): 1.03 m/s Mean Velocity (LVOT): 0.69 m/s LVOT Diameter 1.87 cm Left Ventricular Ejection Fraction: 66.93 % Left Atrium LA Volume Index (2D A2C): 21.29 ml/m2 Left Atrium Systolic Dimension: 3.41 cm Mitral Valve MV E to A Ratio: 0.72 Mitral Valve A-Wave Peak Velocity: 0.78 m/s Mitral Valve E-Wave Peak Velocity: 0.56 m/s Right Ventricle RV Internal Diastolic Dimension: 3.67 cm Aorta AO Root Diam: 3.14 cm Ascending Ao Diam: 2.89 cm Aortic Valve AoV Area (Peak Emanuel): 2.65 cm2, 2.60 cm2 AoV Area (VTI): 2.75 cm2, 2.75 cm2 Peak Velocity(Antegrade Flow): 1.09 m/s, 1.05 m/s Peak Gradient(Antegrade Flow): 4.76 mm[Hg], 4.38 mm[Hg] Mean Velocity(Antegrade Flow): 0.75 m/s, 0.74 m/s Mean Gradient(Antegrade Flow): 2.56 mm[Hg], 2.49 mm[Hg] Velocity Time Integral: 22.49 cm, 22.46 cm Tricuspid Valve Peak Velocity (Regurgitant Flow): 2.66 m/s, 2.73 m/s Pulmonic Valve Mean Gradient: 2.52 mm[Hg], 3.10 mm[Hg] Mean Velocity: 0.74 m/s, 0.82 m/s Peak Velocity: 1.13 m/s Peak Gradient: 4.53 mm[Hg], 5.79 mm[Hg] Right Atrium Right Atrium Systolic Pressure: 37.98 ml, 37.98 ml Dictated by: Estelita Gallardo M.D. on 08/12/2025 at 15:54 Approved by: Estelita Gallardo M.D. on 08/12/2025 at 15:58 Dictated By: Estelita Gallardo M.D. Signed By: 08/12/251599 DD/ 1559 TD/TT: [place] Worker: TSH Reviewed date:09/15/2024 11:09:04 AM Interpretation: Performing Lab: Notes/Report: [facility] , Thyroid Stimulating Hormone 1.856 0.358-3.740 u IU/mL Performing Lab: see note ML - [facility] T4 Reviewed date:09/15/2024 11:09:04 AM Interpretation: Performing Lab: Notes/Report: [facility] , T4 Thyroxine 9.90 4.80-13.90 ug/dL Performing Lab: see note ML - [facility] PROF 14(COMP METB) Reviewed date:09/15/2024 11:09:04 AM Interpretation: Performing Lab: Notes/Report: [facility] , Sodium 138 136-145 mmol/L Potassium 4.6 3.5-5.1 mmol/L Chloride 102 98-107 mmol/L Carbon Dioxide 25.4 21.0-32.0 mmol/L Anion Gap 15.2 Glucose 103 74-106 mg/dL Blood Urea Nitrogen 21.0 7.0-18.0 mg/dL Creatinine 1.14 0.55-1.02 mg/dL Estimated GFR ( [place] 56 >=60 mL/min/1.73m 2 Estimated GFR (Non- Sloane 46 >=60 mL/min/1.73m 2 BUN Creatinine Ratio 18.4 Calcium 9.0 8.5-10.1 mg/dL Bilirubin Total 0.6 0.2-1.0 mg/dL Aspartate Amino Transferase 28 15-37 U/L Alanine Aminotransferase 43 14-59 U/L Alkaline Phosphatase 65 46-116 U/L Total Protein 6.8 6.4-8.2 g/dL Albumin Level 3.4 3.4-5.0 g/dL Globulin 3.4 Albumin Globulin Ratio 1.0 Performing Lab: see note ML - [facility] LIPID PROFILE Reviewed date:09/15/2024 11:09:04 AM Interpretation: Performing Lab: Notes/Report: [facility] , Triglycerides 93 <=150 mg/dL Cholesterol 185 <=200 mg/dL HDL Cholesterol 64 40-60 mg/dL > or =60 mg/dl - LOW CARDIOVASCULAR RISK <40 mg/dl - HIGH CARDIOVASCULAR RISK LDL Cholesterol Calculated 103.0 <100 mg/dl OPTIMAL 100-129 mg/dl NEAR OR ABOVE OPTIMAL 130-159 mg/dl BORDERLINE HIGH 160-189 mg/dl HIGH >190 mg/dl VERY HIGH VLDL CHOLESTEROL 18.6 Chol HDL Ratio 2.9 3.3 - 4.4 LOW RISK 4.4 - 7.1 AVERAGE RISK 7.1 - 11.0 MODERATE RISK >11.0 HIGH RISK Performing Lab: see note ML - [facility] IRON Reviewed date:09/15/2024 11:09:04 AM Interpretation: Performing Lab: Notes/Report: [facility] , Iron 63.0 50.0-170.0 ug/dL Performing Lab: see note ML - [facility] GLYCOHEMOGLOBIN A1C Reviewed date:09/15/2024 11:09:04 AM Interpretation: Performing Lab: Notes/Report: [facility] , Glycohemoglobin A1C 5.8 4.5-6.2 % ADA RECOMMENDED LIMIT 4.0 - 6.0 ADA THERAPEUTIC TARGET < 7.0 ACTION SUGGESTED > 7.0 Estimated Average Glucose 120 Performing Lab: see note ML - [facility] FREE T3 Reviewed date:09/15/2024 11:09:04 AM Interpretation: Performing Lab: Notes/Report: [facility] , Free T3 2.54 2.18-3.98 pg/mL Performing Lab: see note ML - [facility] LB CBC AUTO DIFF Reviewed date:09/15/2024 11:09:04 AM Interpretation: Performing Lab: Notes/Report: [facility] , White Blood Count 8.7 4.0-11.0 10 3/uL Red Blood Count 4.87 4.20-5.40 10 6/uL Hemoglobin 14.8 12.0-16.0 g/dL Hematocrit 43.4 36.0-48.0 % Mean Corpuscular Volume 89.1 81.0-99.0 fL Mean Corpuscular Hemoglobin 30.4 26.7-34.0 pg Mean Corpuscular HGB Conc 34.1 29.9-35.2 g/dL Red Cell Distribution Width 13.4 11.0-15.0 % Platelet Count 350 150-450 10 3/uL Mean Platelet Volume 8.9 9.5-13.5 fL Neutrophils Percent Auto 63.3 43.0-75.0 % Lymphocytes Percent Auto 26.6 20.5-60.0 % Monocytes Percent Auto 7.8 1.7-12.0 % Eosinophils Percent Auto 1.3 0.9-7.0 % Basophils Percent Auto 0.5 0.2-2.0 % Immature Granulocytes Pct Auto 0.5 0.0-0.5 % Neutrophils Absolute Auto 5.5 1.4-6.5 10 3/uL Lymphocytes Absolute Auto 2.3 1.2-3.8 10 3/uL Monocytes Absolute Auto 0.7 0.3-0.8 10 3/uL Eosinophils Absolute Auto 0.1 0.0-0.7 10 3/uL Basophils Absolute Auto 0.0 0.0-0.1 10 3/uL Immature Granulocytes Abs Auto 0.04 0.00-0.03 10 3/uL Performing Lab: see note ML - [facility] LB PROF 14(COMP METB) Reviewed date:08/10/2025 01:45:02 PM Interpretation: Performing Lab: Notes/Report: [facility] , Sodium 140 136-145 mmol/L Potassium 4.4 3.5-5.1 mmol/L Chloride 104 98-107 mmol/L Carbon Dioxide 28.3 21.0-32.0 mmol/L Anion Gap 12.1 Glucose 108 74-106 mg/dL Blood Urea Nitrogen 13.0 7.0-18.0 mg/dL Creatinine 0.84 0.55-1.02 mg/dL Estimated GFR ( [place] >60 >=60 mL/min/1.73m 2 Estimated GFR (Non- [place]lo[place] >60 >=60 mL/min/1.73m 2 BUN Creatinine Ratio 15.5 Calcium 9.1 8.5-10.1 mg/dL Bilirubin Total 0.5 0.2-1.0 mg/dL Aspartate Amino Transferase 20 15-37 U/L Alanine Aminotransferase 24 14-59 U/L Alkaline Phosphatase 56 46-116 U/L Total Protein 7.1 6.4-8.2 g/dL Albumin Level 3.4 3.4-5.0 g/dL Globulin 3.7 Albumin Globulin Ratio 0.9 Performing Lab: see note ML - [facility] LIPID PROFILE Reviewed date:08/10/2025 01:45:02 PM Interpretation: Performing Lab: Notes/Report: [facility] , Triglycerides 165 <=150 mg/dL Cholesterol 134 <=200 mg/dL HDL Cholesterol 38 40-60 mg/dL > or =60 mg/dl - LOW CARDIOVASCULAR RISK <40 mg/dl - HIGH CARDIOVASCULAR RISK LDL Cholesterol Calculated 63.0 <100 mg/dl OPTIMAL 100-129 mg/dl NEAR OR ABOVE OPTIMAL 130-159 mg/dl BORDERLINE HIGH 160-189 mg/dl HIGH >190 mg/dl VERY HIGH VLDL CHOLESTEROL 33.0 Chol HDL Ratio 3.5 3.3 - 4.4 LOW RISK 4.4 - 7.1 AVERAGE RISK 7.1 - 11.0 MODERATE RISK >11.0 HIGH RISK Performing Lab: see note ML - [facility] BNP Reviewed date:08/10/2025 01:45:02 PM Interpretation: Performing Lab: Notes/Report: [facility] , NT Pro B Type Natriuretic Pept 156.0 <=1800.0 pg/mL Performing Lab: see note ML - [facility] Reason For Referral Diagnosis 1 Vertigo (R42) Referral Organization [facility] Referring Provider First Name Robbie Referring Provider Last Name Nikole Referring Provider Speciality [facility] brittany Referred Provider Rajni Diego Referred Provider Specialty Neurology Referral Priority Routine Medications Medication SIG (Take, Route, Frequency, Duration) Notes Start Date End Date Status Aspirin 81 81 MG 1 tablet Orally Once a day Active predniSONE 20 MG 2 tablets Orally Onc e a day; Duration: 5 days 01/11/2025 Active Caltrate 600+D3 600-20 MG-MCG 1 tablet with a meal Orally Once a day Active Vitamin B Complex - as directed Orally Active Meclizine HCl 25 MG 1 tablet as needed O rally Q 6 hours 07/10/2024 Active Rosuvastatin Calcium 40 MG TAKE 1 TABLET BY MOUTH AT BEDTIME Oral; Duration: 90 Days Active Lisinopril 30 MG 1 tablet Oral Once a day; Duration: 90 days Active Diclofenac Sodium 75 MG 1 tablet as need ed Orally Twice a day 02/21/2024 Active Magnesium 100 MG 1 capsule with food Orally Four times a day Active Zetia 10 MG 1 tablet Orally Once a day; Duration: 90 days Active Centrum Adults - as directed Orally Active Vitamin D (Cholecalciferol) 25 MCG (1000 UT) 1 capsule Orally Once a day Active oxyCODONE HCl 5 MG 1 tablet as needed O rally every 6 hrs Active tiZANidine HCl 4 MG 1 tablet Orally at bedtime; Duration: 30 days PRN Active Pantoprazole Sodium 40 mg TAKE 1 TABLET BY MOUTH DAILY; Duration: 90 Active levoFLOXacin 750 MG 1 tablet Orally Once a day; Duration: 10 day(s) 01/11/2025 Active Metoprolol Succinate ER 100 MG 1 tablet Orally Once a day; Duration: 90 days 10/07/2024 Active Immunizations Vaccine Route Administration Date Status Comme nts Flu, (60347) -historic- Split, Prsrvtve Free, for Intradermal use Unknown 08/28/2015 Administered Flu, Fluad (8671-0339) (90360) 65 yrs+, single-dose syringe IM Intramuscular 08/23/2023 Administered Flu, Fluad (91156) 65 yrs and older, single-dose syringe (7522-6987) IM Intramuscular 08/10/2024 Administered Pneumococcal (Pneumovax 23) Unknown 08/21/2008 Administered Pneumococcal (Pneumovax 23) Unknown 10/28/2012 Administered Social History Tobacco Use: Social History Observation Description Date Details (start date - stop date) Never Smoker NA - NA Tobacco Control (Standard) Question Answer Notes Tobacco use: Nonsmoker AUDIT-C (Standard) Question Answer Notes Did you have a drink containing alcohol in the p ast year? No Points 0 Interpretation Negative Problems Problem Type SNOMED Code ICD Code Onset Dates Problem Status W/U Status Risk Notes Problem Hypertension (69850660) Hypertension (I10) Active confirmed Problem Gastroesophageal reflux disease (425007756) GERD (gastroesophageal reflux disease) (K21.9) Active confirmed Problem Osteopenia (467690089) Osteopenia (M85.80) Active confirmed Problem Vertigo (163886243) Vertigo (R42) Active confir med Problem Hiatal hernia (56632282) Hiatal hernia (K44.9) Active confirmed Problem Diverticular disease of colon (198250003) Diverticulosis (K57.90) Active confirmed Problem Coronary artery disease (63072922) CAD (coronary artery disease) (I25.10) Active confirmed Problem Lumbar radiculopathy (084093976) Lumbar radiculopathy (M54.16) Active confirmed Problem Allergic rhinitis (66958515) Allergic rhinitis (J30.9) Active confirmed Problem Cervical disc diseas e (629535679) Cervical disc disease (M50.90) Active confirmed Problem Cervical spondylosis (059944083) Cervical spondylosis (M47.812) Active confirmed Problem Hand pain (71610405) Hand pain (M79.643) Active confirmed Problem Displacement of cervical intervertebral disc without myelopathy (09957570) Herniated cervical disc (M50.20) Active confirmed Problem Acquired spondylolisthesis (771551971) Spondylisthesis (M43.10) Active confirmed Problem Irritable bowel syndrome (95883304) IBS (irritable colon syndrome) (K58.9) Active confirmed Problem Degeneration of lumbar intervertebral disc (51075364) Degeneration of intervertebral disc of lumbar region (M51.36) Active confirmed Problem Hypercholesterolemia (57366298) Hypercholesterolemia (E78.00) Active confirmed Problem Arthritis of knee (424802819) Arthritis of knee (M17.10) Active confirmed Vital Signs Blood pressure diastolic 68 mm Hg 01/11/2025 Height 63 in 01/11/2025 Blood pressure systolic 118 mm Hg 01/11/2025 Weight 159 lbs 01/11/2025 BMI 28.16 kg/m2 01/11/2025 Encounters Encounter Location Date Provider Diagnosis [facility] [address] [address] 05/19/2025 Robbie Connollyy [facility] [address] [place] [address] 06/21/2025 Robbie Hoy [facility] [address] [address] 06/30/2025 Robbie Hoy [facility] [address] [place] [address] 07/06/2025 Robbie Hoy Hand pain M79.643 [facility] [address] [place] [address] 07/30/2025 Robbie Hoy Vertigo R42 [facility] [address] [place] [address] 09/18/2024 Robbie Connollyy [facility] [address] [place] [address] 10/05/2024 Robbie Connollyy Hiatal hernia K44.9 [facility] [address] [place] [address] 10/07/2024 Robbie Connollyy [facility] [address] [place] [address] 10/07/2024 Robbie Mohseny [facility] [address] [place] [address] 10/13/2024 Robbie Hoy Vertigo R42 [facility] [address] [address] 05/03/2025 Robbie Hoy Hand pain M79.643 [facility] [address] [place] [address] 09/15/2024 Robbie Hoy [facility] [address] [address] 10/13/2024 Robbie Connollyy Encounter for Medica re annual wellness exam Z00.00 [facility] [address] [place] [address] 08/17/2024 Shey Shepherd Acute sinusitis J01. 90 [facility] [address] [place] [address] 09/11/2024 Robbie Hoy Hiatal hernia K44.9 ; CAD (coronary artery disease) I25.10 ; Hypertension I10 ; GERD (gastroesophageal reflux disease) K21.9 and Vertigo R42 [facility] [address] [place] [address] 09/30/2024 Robbie Hoy Vertigo R42 [facility] [address] [place] [address] 01/11/2025 Robbie Hoy Acute non-recurrent sinusitis, unspecified location J01.90 and Nasal congestion R09.81 Assessments Encounter Date Diagnosis (ICD Code) Assessment Notes Treatment Notes Treatment Clinical Notes Section Notes 08/17/2024 Acute sinusitis (ICD-10 - J01.90) push fluids COVID and flu neg 09/11/2024 Hiatal hernia (ICD-10 - K44.9) 09/11/2024 CAD (coronary artery disease) (ICD-10 - I25.10) 10/05/2024 Hiatal hernia (ICD-10 - K44.9) 10/13/2024 Vertigo (ICD-10 - R42) 05/03/2025 Hand pain (ICD-10 - M79.643) 07/06/2025 Hand pain (ICD-10 - M79.643) 07/30/2025 Vertigo (ICD-10 - R42) 10/13/2024 Encounter for Medicare annual wellness exam (ICD-10 - Z00.00) 09/30/2024 Vertigo (ICD-10 - R42) 01/11/2025 Acute non-recurrent sinusitis, unspecified location (ICD-10 - J01.90) Rest and drink more liquids, especially water. You may use a humidifier or vaporizer to help keep the drainage moist. Psww-ccx-wmhbikp Nasal Saline may help the stuffy and runny nose. Use Ibuprofen and or Tylenol as needed for fever, chills, body aches or pain. Children 5 years old should not be given swug-rch-ykkjamh cough and cold medications such as guaifenesin and dextromethorphan. If you're over age 5, you may try ejdv-aor-dypqoqc cold medications such as guaifenesin and dextromethorphan, or multi-symptom cold reliever such as Dayquil to help reduce the symptoms. Antibiotics have been prescribed. You should take these until completed and follow the directions. Antibiotics can sometimes cause upset stomach, and in rare cases, serious allergic reactions or serious gastrointestinal problems. If you start having severe abdominal pain, severe vomiting, or bloody diarrhea, you should be reevaluated by your physician or urgent care immediately. Follow up with your Primary Care Provider or return to clinic if symptoms do not improve within 3-5 days 01/11/2025 Nasal congestion (ICD-10 - R09.81) 09/11/2024 Hypertension (ICD-10 - I10) bp check on saturday09/11/2024 GERD (gastroesophagea l reflux disease) (ICD-10 - K21.9) 09/11/2024 Vertigo (ICD-10 - R42) Plan Of Treatment Pending Test Test Name Order Date CMP (COMPLETE METABOLIC PANEL) 4 HEMOGLOBIN A1C (GLYCO) 09/11/2024 IRON, TOTAL 09/11/2024 LIPID PANEL (CHOL/TRIG/HDL/LDL) 09/11/20 24 CBC WITH DIFF 09/11/2024 XR Hand RT (2 views) 03/31/2024 MRI Brain w/o Contrast 07/14/2024 THYROID PANEL (T4/TSH/FREE T3) 4 Insurance Providers Payer Name Payer Address Payer Phone Subscriber Number Group Number Insured Name Patient Relationship to Insured Coverage Start Date Coverage End Date [place]IC[place] [address] [place] [address] [id number] Lorenzo Helm Self - patient is the insured [employer] T[employer] CHOICE MEDICARE SUPPLEMENT [address] [address] [place] [address] [id number] Lorenzo Helm Self - patient is the insured Medications Administered Medication Instructions Date of Administration Dosage Notes Kenalog-40 07/10/2024 80 mg 80 Ketorolac Tromethamine 07/10/2024 30 mg 30 Medical (General) History Medical History History ICD Code Fracture Left Pubis Spondylisthesis M43.10 Fracture Sacrum Eczema L30.9 IBS (irritable colon syndrome) K58.9 Degeneration of intervertebral disc of l umbar region M51.36 Lumbar radiculopathy M54.16 Cervical disc disease M50.90 Osteopenia M85.80 Cervical spondylosis M47.812 Herniated cervical disc M50.20 CAD (coronary artery disease) I25.10 Hypertension I10 Diverticulosis K57.90 Allergic rhinitis J30.9 Hypercholesterolemia E78.00 GERD (gastroesophageal reflux disease) K 21.9 Hiatal hernia K44.9 Arthritis of knee M17.10 Surgical History Surgery Date(Month/Year) Interventional pain procedures Bilat total knee T&A Cardiac Stent Tubal Ligation D&C EGD with biopsy 11/25/2019 Laminectomy and fusion Hospitalization History Reason Date(Month/Year) see above
--- NOTE | 2025-08-16 07:10 | NM_ITS ---
Patient Name: LORENZO ABBASI MR#: [id number] : 1945 Exam Date: 08/16/2025 Ordering Doctor: HAJA REEVES RADIOLOGY REPORT PROCEDURE: NM KARL PERF SPECT REST STR COMPARISON: None. INDICATIONS: SHORTNESS OF BREATH, CORONARY ARTERY DISEASE TECHNIQUE: Exam Description: Stress/Rest one day protocol gated SPECT Rest Imagin.6 mCi Tc-99m Cardiolite IV on 08/16/2025 Stress Imaging 30.4 mCi Tc-99m Cardiolite IV on 08/16/2025 Exercise Protocol: 0.4 mg Lexiscan given IV Heart Rate (bpm): Rest: 56 Max: 80 PMHR: 56 Blood Pressure: Rest: 152/61 Max: 152/61 Symptoms: Rest and peak stress ECG findings were pending and the exercise portion of the study was pending per attending physician [facility]. For more details please see separate cardiac stress test report. FINDINGS: QUALITY OF STUDY: Adequate PERFUSION DEFECT: LOCATION: N/A SIZE: N/A SEVERITY: N/A TYPE: N/A WALL MOTION: Normal wall motion LV SIZE: 68 mL. TID / TCD: 0.9 LVEF: Calculated EF 84%. SUMMARY: Myocardial perfusion imaging study is normal CONCLUSION: 1. Myocardial perfusion is probably normal with soft tissue attenuation 2. Global left ventricular systolic function is hyperdynamic; visually estimated ejection fraction is 84% 3. No evidence of significant transient ischemic dilatation Dictated by: Estelita Gallardo M.D. on 08/16/2025 at 16:44 Approved by: Estelita Gallardo M.D. on 08/16/2025 at 16:47
--- NOTE | 2025-08-16 09:20 | PC.NURSE ---
Nursing Note Cardiac Stress Test Reviewed: Medication, allergies and patient history reviewed. Stress Test: [x ] Patient tolerated stress test well. [ ] Patient unable to tolerate walking on treadmill. Switched to Lexiscan stress test. [x ] No chest pain noted per patient [ ] Chest pain that resolved prior to leaving stress lab. [x ] No dyspnea noted. [ ] Dyspnea that resolved prior to leaving stress lab. [x ] Patient left stress lab asymptomatic and hemodynamically stable. [ ] Patient taken to the Emergency Room due to non-resolving symptoms following stress test. [ ] Patient achieved target heart rate. [ ] Patient unable to achieve target heart rate. [ ] Aminophylline administered as reversal agent to Lexiscan (Regadenoson). [ ] Nitro administered. Nursing Comments:
[2025-08-16] MEDS: REGADENOSON 0.4 MG/5 ML SYRINGE IV (09:35)
--- NOTE | 2025-08-16 10:34 | PM.STRESS ---
Stress Test Stress Test Requesting physician: Julio C Cruz Procedure: Lexiscan pharmacological stress test General Information: Reason for Stress Test: [Shortness of breath] Cardiac History and Risk Factors: [Primary artery disease, prior stents, hypertension] Resting 12 - Lead Electrocardiogram: Sinus bradycardia with first-degree AV block Otherwise normal EKG Stress Test: Protocol: [Lexiscan pharmacological stress test] Exercise Capacity: [N/A] Blood Pressure Response: [Resting blood pressure 152/61, minimal blood pressure of 140/63] Rhythm: [Sinus rhythm; resting heart rate of 56 bpm increasing to a maximum of 78 bpm. No significant arrhythmias.] ST - Response: [No significant ST-T wave changes noted] Patient Response: [Chest heaviness that resolved within 3 minutes, no chest pain or shortness of breath] Interpretation: 1. No ischemic ST-T wave changes noted on Lexiscan pharmacological stress test 2. Nuclear images to be read, interpreted, and reported separately
== END 2025-08-16 06:58 | disposition home or self-care (01) ==
LOC: NM 06:58
PROVIDERS: PCP Family Medicine
DX: R06.02 Shortness of breath (principal); I25.10 Atherosclerotic heart disease of native coronary artery without angina pectoris
CPT/HCPCS: 78452; 93017; A9500; J2785

== ENCOUNTER 2025-08-20 08:45 | Outpatient (OUT) | payer MEDICARE, OTHER, SELFPAY ==
--- OUTSIDE RECORDS SUMMARY | 2025-08-20 08:55 | XMS_ITS | CCD ---
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 [facility] [address] [place] [address]347 Escrow Clerk: Omar Walshtelets (Bld) [#/Vol]460 10*3/hMKuyt669-945 [facility] HospitalComment on above:Performed By: #### CDP, BMP, MATIAS #### [facility] [address] [place] [address] Escrow Clerk: Shamir Milton MDRBC (Bld) [#/Vol]3.01 10*6/uLLow3.95-5.11[facility] HospitalComment on above:Performed By: #### CDP, BMP, MATIAS #### [facility] [address] [place] [address] Escrow Clerk: FLORINDA WalshBC (Bld) [#/Vol]7.2 10*3/uLNormal3.5-11.3MWestside Hospital– Los AngelesComment on above:Performed By: #### CDP, BMP, MATIAS #### [facility] [address] [place] [address] 9[address] Escrow Clerk: Shamir Milton MDPhosphorus, Inorg.on [id number], Inorg.2.5 mg/dLLow2.6-4.5[facility] HospitalComment on above: Performed By: #### CDP, BMP, MATIAS #### [facility] [address] [place] [address] 70167 Escrow Clerk: Patrick Walsh Metabolic Profon [id number] gap [Moles/Vol]12 mmol/LNormal9-17[facility] HospitalComment on above: Performed By: #### CDP, BMP, MATIAS #### [facility] [address] [place] [address]50 Escrow Clerk: Shamir Milton MDCalcium [Mass/Vol]8.6 mg/dLNormal8.6-10.4[facility] HospitalComment on above:Performed By: #### CDP, BMP, MATIAS #### [facility] [address] [place] [address] Escrow Clerk: BOBBY Walshhloride [Moles/Vol]99 mmol/EThiyig08-385ZzsmfPromedica Defiance Regional HospitalComment on above:Performed By: #### CDP, BMP, MATIAS #### [facility] [address] [place] [address] Escrow Clerk: Shamir Milton MDCO2 [Moles/Vol]22 mmol/WFhmucv19-40KuxnbPromedica Defiance Regional HospitalComment on above:Performed By: #### CDP, BMP, MATIAS #### [facility] [address] [place] [address] 22096 Escrow Clerk: BOBBY Walshreatinine [Mass/Vol]0.62 mg/dLNormal0.50-0.90 [facility] HospitalComment on above:Performed By: #### MILAGROS DEL ROSARIO, MATIAS #### [facility] [address] [place] [address] 16558 Escrow Clerk: Shamir Milton MDGFR/1.73 sq M.predicted among non-blacks MDRD (S/P/Bld) [Vol rate/Area]mL/min/{1.73_m2}Normal>60[facility] HospitalComment on above:Result Comment: Effective Jul 30, 2022 These results [...] or following therapy that affects renal tubular secretion.Performed By: #### MILAGROS DEL ROSARIO, MATIAS #### [facility] [address] [place] [address] 87995 Escrow Clerk: Shamir Milton MDGlucose [Mass/Vol]84 mg/yEZsyiqq53-99IuxtuWestside Hospital– Los AngelesComment on above:Performed By: #### MILAGROS DEL ROSARIO, MATIAS #### [facility] [address] [place] [address] 8[address]96 Escrow Clerk: Shamir Milton MDPotassium [Moles/Vol]4.0 mmol/LNormal3.7-5.3 [facility] HospitalComment on above:Performed By: #### MILAGROS DEL ROSARIO, MATIAS #### [facility] [address] [place] [address] 67[address] Escrow Clerk: Shamir Milton MDSodium [Moles/Vol]133 mmol/QTdd824-758BkxwiPromedica Defiance Regional HospitalComment on above:Performed By: #### MILAGROS DEL ROSARIO, MATIAS #### [facility] [address] [place] [address] Escrow Clerk: Shamir Milton MDUrea nitrogen [Mass/Vol]16 mg/dLNormal8-23[facility] HospitalComment on above:Performed By: #### CARIN, BMP, MATIAS #### [facility] [address] [place] [address] 25224 Escrow Clerk: BOBBY Walsh with Diffon [id number]. Basophil0.06 k/uL Normal0.00-0.20[facility] HospitalComment on above:Performed By: #### CARIN, BMP, MATIAS #### [place] [address] Escrow Clerk: Immanuel Walsh.Imm.Granulocyte0.07 k/uLNormal0.00-0.30[facility] HospitalComment on above:Performed By: #### CARIN, BMP, MATIAS #### [facility] [address] [place] [address] Escrow Clerk: Immanuel Walsh.Neutrophil (Seg)5.75 k/uLNormal1.50-8.10 [facility] HospitalComment on above:Performed By: #### CARIN, BMP, MATIAS #### [facility] [address] [place] [address] Escrow Clerk: Shamir Milton MDBasophils/100 WBC (Bld)1 %Normal0-2MWestside Hospital– Los AngelesComment on above:Performed By: #### CDP, BMP, MATIAS #### [facility] [address] [place] [address] Escrow Clerk: Shamir Milton MDEosinophils (Bld) [#/Vol]0.29 10*3/uLNormal 0.00-0.44[facility] HospitalComment on above:Performed By: #### CARIN, BMP, MATIAS #### [facility] [address] [place] [address] Escrow Clerk: Shamir Milton MDEosinophils/100 WBC (Bld)3 %Normal1-4[facility] HospitalComment on above:Performed By: #### CDP, BMP, MATIAS #### [facility] [address] [place] [address] 68672 Escrow Clerk: Shamir Milton MDImmature granulocytes/100 WBC (Bld)1 %Tpvu1NlgbzPromedica Defiance Regional HospitalComment on above:Performed By: #### CDP, BMP, MATIAS #### [facility] [address] [place] [address] 17822 Escrow Clerk: Shamir Milton MDLymphocytes (Bld) [#/Vol]1.57 10*3/uLNormal 1.10-3.70[facility] HospitalComment on above:Performed By: #### CDP, BMP, MATIAS #### [facility] [address] [place] [address] 72236 Escrow Clerk: Shamir Milton MDLymphocytes/100 WBC (Bld)18 %Kpo64-45EvqdqPromedica Defiance Regional HospitalComment on above:Performed By: #### CDP, BMP, MATIAS #### [facility] [address] [place] [address] 22226 Escrow Clerk: SHIRLEY Walshonocytes (Bld) [#/Vol]0.85 10*3/uLNormal 0.10-1.20[facility] HospitalComment on above:Performed By: #### CDP, BMP, MATIAS #### [facility] [address] [place] [address] 04622 Escrow Clerk: Shamir Milton MDMonocytes/100 WBC (Bld)10 %Normal3-12[facility] HospitalComment on above:Performed By: #### CDP, BMP, MATIAS #### [facility] [address] [place] [address] 98950 Escrow Clerk: Shamir Milton MDNeutrophil (Seg)67 %Yscv27-96GemovPromedica Defiance Regional HospitalComment on above:Performed By: #### MILAGROS DEL ROSARIO, MATIAS #### [facility] [address] [place] [address] 51813 Escrow Clerk: Shamir Milton MDErythrocyte distribution width (RBC) [Ratio]12.9 %Qpaymw79.8-14.4[facility] HospitalComment on above:Performed By: #### CARIN, BMP, MATIAS #### [facility] [address] [place] [address] 82670 Escrow Clerk: Shamir Milton MDHematocrit (Bld) [Volume fraction]31.9 %Low 36.3-47.1MWestside Hospital– Los AngelesComment on above:Performed By: #### CARIN BMP, MATIAS #### [address] [address] Escrow Clerk: Shamir Milton MDHemoglobin (Bld) [Mass/Vol]10.3 g/dLLow11.9-15.1 [facility] HospitalComment on above:Performed By: #### CARIN BMP, MATIAS #### [address] [address] Escrow Clerk: SHIRLEY WalshCH (RBC) [Entitic mass]30.1 xyMajozd62.2-33.5 [facility] HospitalComment on above:Performed By: #### CARIN, BMP, MATIAS #### [facility] [address] [place] [address] 75871 Escrow Clerk: SHIRLEY WalshCHC (RBC) [Mass/Vol]32.3 g/tHPjnwkj70.4-34.8 [facility] HospitalComment on above:Performed By: #### CDP, BMP, MATIAS #### [facility] [address] [place] [address] 52127 Escrow Clerk: JOSE Walsh (RBC) [Entitic vol]93.3 pSLzuhfy77.6-102.9 [facility] HospitalComment on above:Performed By: #### CDP, BMP, MATIAS #### [facility] [address] [place] [address] 30821 Escrow Clerk: YULY Walsh Automated0.0 per 100 WBCNormal0.0[facility] HospitalComment on above:Performed By: #### CDP, BMP, MATIAS #### [facility] [address] [place] [address] 05096 Escrow Clerk: Cesar Walsh mean volume (Bld) [Entitic vol]9.4 fL Normal8.1-13.5[facility] HospitalComment on above:Performed By: #### CARIN, BMP, MATIAS #### [facility] [address] [place] [address] 64184 Escrow Clerk: Saulo Walsh (Bld) [#/Vol]292 10*3/yCRicnsl834-767 [facility] HospitalComment on above:Performed By: #### CARIN, BMP, MATIAS #### [address] [address] Escrow Clerk: RADHA Walsh (Bld) [#/Vol]3.42 10*6/uLLow3.95-5.11[facility] HospitalComment on above:Performed By: #### CDP, BMP, MATIAS #### [facility] [address] [place] [address] 78929 Escrow Clerk: TIFFANIE Walsh (Bld) [#/Vol]8.6 10*3/uLNormal3.5-11.3MWestside Hospital– Los AngelesComment on above:Performed By: #### CDP, BMP, MATIAS #### [facility] [address] [place] [address] 05312 Escrow Clerk: Shamir Milton MDPhosphorus, Inorg.on 50-61-2335Jfedggrsus, Inorg.2.8 mg/dLNormal2.6-4.5[facility] HospitalComment on above: Performed By: #### CDP, BMP, MATIAS #### [facility] [address] [place] [address] 48321 Escrow Clerk: Patrick Walsh Metabolic Profon [id number] gap [Moles/Vol]8 mmol/LLow9-17[facility] HospitalComment on above: Performed By: #### CDP, BMP, MATIAS #### [facility] [address] [place] [address] 33912 Escrow Clerk: Shamir Milton MDCalcium [Mass/Vol]8.2 mg/dLLow8.6-10.4[facility] HospitalComment on above:Performed By: #### CDP, BMP, MATIAS #### [facility] [address] [place] [address] 42887 Escrow Clerk: Shamir Milton MDChloride [Moles/Vol]98 mmol/NHlamit28-597EgpllPromedica Defiance Regional HospitalComment on above:Performed By: #### CDP, BMP, MATIAS #### [facility] [address] [place] [address] 88351 Escrow Clerk: Shamir Milton MDCO2 [Moles/Vol]24 mmol/PSlvqrm28-93AsoqaPromedica Defiance Regional HospitalComment on above:Performed By: #### CDP, BMP, MATIAS #### [facility] [address] [place] [address] 25888 Escrow Clerk: Shamir Milton MDCreatinine [Mass/Vol]0.58 mg/dLNormal0.50-0.90 [facility] HospitalComment on above:Performed By: #### CDP, BMP, MATIAS #### [facility] [address] [place] [address] 20337 Escrow Clerk: Shamir Milton MDGFR/1.73 sq M.predicted among non-blacks MDRD (S/P/Bld) [Vol rate/Area]mL/min/{1.73_m2}Normal>60[facility] HospitalComment on above:Result Comment: Effective Jul 30, 2022 These results [...] or following therapy that affects renal tubular secretion.Performed By: #### MILAGROS DEL ROSARIO, MATIAS #### [facility] [address] [place] [address] Escrow Clerk: Shamir Milton MDGlucose [Mass/Vol]99 mg/pKUuxunh53-11XqkthWestside Hospital– Los AngelesComment on above:Performed By: #### MILAGROS DEL ROSARIO, MATIAS #### [facility] [address] [place] [address] Escrow Clerk: GABE Walshotassium [Moles/Vol]4.1 mmol/LNormal3.7-5.3 [facility] HospitalComment on above:Performed By: #### MILAGROS DEL ROSARIO, MATIAS #### [facility] [address] [place] [address] Escrow Clerk: Shamir Milton MDSodium [Moles/Vol]130 mmol/NPfi940-454LqchsPromedica Defiance Regional HospitalComment on above:Performed By: #### MILAGROS DEL ROSARIO, MATIAS #### [facility] [address] [place] [address] Escrow Clerk: Shamir Milton MDUrea nitrogen [Mass/Vol]14 mg/dLNormal8-23[facility] HospitalComment on above:Performed By: #### CDP, BMP, MATIAS #### [facility] [address] [place] [address] 73174 Escrow Clerk: DELANO Walsh with Diffon [id number]. Basophil0.04 k/uL Normal0.00-0.20[facility] HospitalComment on above:Performed By: #### CDP, MATIAS, BMP #### [facility] [address] [place] [address] 04557 Escrow Clerk: Immanuel Walsh.Imm.Granulocyte0.05 k/uLNormal0.00-0.30[facility] HospitalComment on above:Performed By: #### CDP, MATIAS, BMP #### [facility] [address] [place] [address] 15818 Escrow Clerk: Immanuel Walsh.Neutrophil (Seg)4.47 k/uLNormal1.50-8.10 [facility] HospitalComment on above:Performed By: #### CDP, MATIAS, BMP #### [address] [address] Escrow Clerk: Shamir Milton MDBasophils/100 WBC (Bld)1 %Normal0-2MWestside Hospital– Los AngelesComment on above:Performed By: #### CDP, MATIAS, BMP #### [facility] [address] [place] [address] Escrow Clerk: Shamir Milton MDEosinophils (Bld) [#/Vol]0.27 10*3/uLNormal 0.00-0.44[facility] HospitalComment on above:Performed By: #### CDP, MATIAS, BMP #### [facility] [address] [place] [address] 55189 Escrow Clerk: RAYNA Walshosinophils/100 WBC (Bld)4 %Normal1-4[facility] HospitalComment on above:Performed By: #### CDP, MATIAS, BMP #### [address] [address] Escrow Clerk: Shamir Milton MDErythrocyte distribution width (RBC) [Ratio]13.0 %Kgyuxz64.8-14.4[facility] HospitalComment on above:Performed By: #### CDP, MATIAS, BMP #### [address] [address] Escrow Clerk: Shamir Milton MDHematocrit (Bld) [Volume fraction]29.4 %Low 36.3-47.1MWestside Hospital– Los AngelesComment on above:Performed By: #### CDP, MATIAS, BMP #### [address] [address] Escrow Clerk: Shamir Milton MDHemoglobin (Bld) [Mass/Vol]9.8 g/dLLow11.9-15.1 [facility] HospitalComment on above:Performed By: #### CDP, MATIAS, BMP #### [address] [address] Escrow Clerk: Shamir Milton MDImmature granulocytes/100 WBC (Bld)1 %Qcmm2QwmzkPromedica Defiance Regional HospitalComment on above:Performed By: #### CDP, MATIAS, BMP #### [address] [address] Escrow Clerk: Shamir Milton MDLymphocytes (Bld) [#/Vol]1.61 10*3/uLNormal 1.10-3.70[facility] HospitalComment on above:Performed By: #### CDP, MATIAS, BMP #### [address] [address] Escrow Clerk: Shamir Milton MDLymphocytes/100 WBC (Bld)23 %Lht19-58BrdaePromedica Defiance Regional HospitalComment on above:Performed By: #### CDP, MATIAS, BMP #### [address] [address] Escrow Clerk: SHIRLEY WalshCH (RBC) [Entitic mass]30.3 ebQcetde64.2-33.5 [facility] HospitalComment on above:Performed By: #### CDP, MATIAS, BMP #### [place] [address] Escrow Clerk: SHIRLEY WalshCHC (RBC) [Mass/Vol]33.3 g/jAAitcle35.4-34.8 [facility] HospitalComment on above:Performed By: #### CDP, MATIAS, BMP #### [address] [address] Escrow Clerk: SHIRLEY WalshCV (RBC) [Entitic vol]91.0 cEUwcyki43.6-102.9 [facility] HospitalComment on above:Performed By: #### CDP, MATIAS, BMP #### [place] [address] Escrow Clerk: SHIRLEY Walshonocytes (Bld) [#/Vol]0.71 10*3/uLNormal 0.10-1.20[facility] HospitalComment on above:Performed By: #### CDP, MATIAS, BMP #### [place] [address] Escrow Clerk: SHIRLEY Waslhonocytes/100 WBC (Bld)10 %Normal3-12[facility] HospitalComment on above:Performed By: #### CDP, MATIAS, BMP #### [place] [address] Escrow Clerk: Shamir Milton MDNeutrophil (Seg)61 %Tfmmjx26-36XjnepPromedica Defiance Regional HospitalComment on above:Performed By: #### CDP, MATIAS, BMP #### [facility] [address] [place] [address]1939 Escrow Clerk: YULY Walsh Automated0.0 per 100 WBCNormal0.0[facility] HospitalComment on above:Performed By: #### CDP, MATIAS, BMP #### [facility] [address] [place] [address] 07017 Escrow Clerk: Cesar Walsh mean volume (Bld) [Entitic vol]9.5 fL Normal8.1-13.5[facility] HospitalComment on above:Performed By: #### CDP, MATIAS, BMP #### [facility] [address] [place] [address] 9[address]60 Escrow Clerk: Omar Walshtelets (Bld) [#/Vol]232 10*3/cOXrejnm749-593 [facility] HospitalComment on above:Performed By: #### CDP, MATIAS, BMP #### [facility] [address] [place] [address] 20562 Escrow Clerk: RADHA Walsh (Bld) [#/Vol]3.23 10*6/uLLow3.95-5.11[facility] HospitalComment on above:Performed By: #### CDP, MATIAS, BMP #### [address] [address] Escrow Clerk: TIFFANIE Walsh (Bld) [#/Vol]7.2 10*3/uLNormal3.5-11.3MWestside Hospital– Los AngelesComment on above:Performed By: #### CDP, MATIAS, BMP #### [facility] [address] [place] [address] 23162 Escrow Clerk: GABE Walshhosphorus, Inorg.on 73-72-2225Svkrydjwph, Inorg.2.9 mg/dLNormal2.6-4.5[facility] HospitalComment on above: Performed By: #### CDP, BMP, MATIAS #### [facility] [address] [place] [address]86 Escrow Clerk: Patrick Walsh Metabolic Profon 18-81-5115Oglky gap [Moles/Vol]10 mmol/LNormal9-17[facility] HospitalComment on above: Performed By: #### BMP, MATIAS, MG, CDP #### [facility] [address] [place] [address] 33090 Escrow Clerk: BOBBY Walshalcium [Mass/Vol]8.6 mg/dLNormal8.6-10.4[facility] HospitalComment on above:Performed By: #### BMP, MATIAS, MG, CDP #### [facility] [address] [place] [address] Escrow Clerk: Shamir Milton MDChloride [Moles/Vol]96 mmol/VQxy31-739TlkjjPromedica Defiance Regional HospitalComment on above:Performed By: #### BMP, MATIAS, MG, CDP #### [facility] [address] [place] [address]62 Escrow Clerk: Shamir Milton MDCO2 [Moles/Vol]23 mmol/RAfnpbm84-41QplttPromedica Defiance Regional HospitalComment on above:Performed By: #### BMP, MATIAS, MG, CDP #### [facility] [address] [place] [address] Escrow Clerk: BOBBY Walhsreatinine [Mass/Vol]0.67 mg/dLNormal0.50-0.90 [facility] HospitalComment on above:Performed By: #### BMP, MATIAS, MG, CDP #### [facility] [address] [place] [address]195 Escrow Clerk: Shamir Madoff, MDGFR/1.73 sq M.predicted among non-blacks MDRD (S/P/Bld) [Vol rate/Area]mL/min/{1.73_m2}Normal>60[facility] HospitalComment on above:Result Comment: Effective Jul 30, 2022 These results [...] or following therapy that affects renal tubular secretion.Performed By: #### BMP, MATIAS, MG, CDP #### [facility] [address] [place] [address] Escrow Clerk: Shamir Milton MDGlucose [Mass/Vol]115 mg/nFVihu32-35AswmjWestside Hospital– Los AngelesComment on above:Performed By: #### BMP, MATIAS, MG, CDP #### [facility] [address] [place] [address] Escrow Clerk: GABE Walshotassium [Moles/Vol]4.5 mmol/LNormal3.7-5.3 [facility] HospitalComment on above:Performed By: #### BMP, MATIAS, MG, CDP #### [facility] [address] [place] [address] Escrow Clerk: JACINDA Walshodium [Moles/Vol]129 mmol/GBkh533-292NruttPromedica Defiance Regional HospitalComment on above:Performed By: #### BMP, MATIAS, MG, CDP #### [facility] [address] [place] [address] Escrow Clerk: Shamir Milton MDUrea nitrogen [Mass/Vol]16 mg/dLNormal8-23[facility] HospitalComment on above:Performed By: #### BMP, MATIAS, MG, CDP #### [facility] [address] [place] [address] Escrow Clerk: BOBBY Walsh with Diffon [id number]. Basophil<0.03 Normal0.00-0.20[facility] HospitalComment on above:Performed By: #### BMP, MATIAS, MG, CDP #### [facility] [address] [place] [address] Escrow Clerk: Immanuel Walsh.Imm.Granulocyte0.07 k/uLNormal0.00-0.30[facility] HospitalComment on above:Performed By: #### BMP, MATIAS, MG, CDP #### [facility] [address] [place] [address] Escrow Clerk: Immanuel Walsh.Neutrophil (Seg)7.39 k/uLNormal1.50-8.10 [facility] HospitalComment on above:Performed By: #### BMP, MATIAS, MG, CDP #### [facility] [address] [place] [address] Escrow Clerk: Shamir Milton MDBasophils/100 WBC (Bld)0 %Normal0-2MWestside Hospital– Los AngelesComment on above:Performed By: #### BMP, MATIAS, MG, CDP #### [facility] HospitalC[facility] [address] [place] [address] Escrow Clerk: Shamir Milton MDEosinophils (Bld) [#/Vol]0.12 10*3/uLNormal 0.00-0.44[facility] HospitalComment on above:Performed By: #### BMP, MATIAS, MG, CDP #### [facility] [address] [place] [address] Escrow Clerk: Shamir Milton MDEosinophils/100 WBC (Bld)1 %Normal1-4[facility] HospitalComment on above:Performed By: #### BMP, MATIAS, MG, CDP #### [facility] [address] Escrow Clerk: Shamir Milton MDErythrocyte distribution width (RBC) [Ratio]13.0 %Ybunrq55.8-14.4[facility] HospitalComment on above:Performed By: #### BMP, MATIAS, MG, CDP #### [facility] [address] [place] [address] Escrow Clerk: Shamir Milton MDHematocrit (Bld) [Volume fraction]33.2 %Low 36.3-47.1MWestside Hospital– Los AngelesComment on above:Performed By: #### BMP, MATIAS, MG, CDP #### [facility] [address] [place] [address] Escrow Clerk: Shamir Milton MDHemoglobin (Bld) [Mass/Vol]10.9 g/dLLow11.9-15.1 [facility] HospitalComment on above:Performed By: #### BMP, MATIAS, MG, CDP #### [facility] [address] [place] [address] Escrow Clerk: Shamir Milton MDImmature granulocytes/100 WBC (Bld)1 %Otva7TbojxPromedica Defiance Regional HospitalComment on above:Performed By: #### BMP, MATIAS, MG, CDP #### [facility] [address] [place] [address] Escrow Clerk: Shamir Milton MDLymphocytes (Bld) [#/Vol]2.21 10*3/uLNormal 1.10-3.70[facility] HospitalComment on above:Performed By: #### BMP, MATIAS, MG, CDP #### [facility] [address] [place] [address] Escrow Clerk: Karo Walshmphocytes/100 WBC (Bld)21 %Gdk84-56DigztPromedica Defiance Regional HospitalComment on above:Performed By: #### BMP, MATIAS, MG, CDP #### [facility] [place] [address] Escrow Clerk: SHIRLEY WalshCH (RBC) [Entitic mass]30.8 mwWdluqb90.2-33.5 [facility] HospitalComment on above:Performed By: #### BMP, MATIAS, MG, CDP #### [facility] [address] [place] [address] Escrow Clerk: SHIRLEY WalshCHC (RBC) [Mass/Vol]32.8 g/vGSxwlmm86.4-34.8 [facility] HospitalComment on above:Performed By: #### BMP, MATIAS, MG, CDP #### [facility] [address] [place] [address] Escrow Clerk: SHIRLEY WalshCV (RBC) [Entitic vol]93.8 jJJwpxvr36.6-102.9 [facility] HospitalComment on above:Performed By: #### BMP, MATIAS, MG, CDP #### [facility] [address] [place] [address] Escrow Clerk: SHIRLEY Walshonocytes (Bld) [#/Vol]0.77 10*3/uLNormal 0.10-1.20[facility] HospitalComment on above:Performed By: #### BMP, MATIAS, MG, CDP #### [facility] [address] [place] [address] Escrow Clerk: SHIRLEY Walshonocytes/100 WBC (Bld)7 %Normal3-12[facility] HospitalComment on above:Performed By: #### BMP, MATIAS, MG, CDP #### [facility] [address] [place] [address] Escrow Clerk: Shamir Milton MDNeutrophil (Seg)70 %Jvcj86-60JdvcePromedica Defiance Regional HospitalComment on above:Performed By: #### BMP, MATIAS, MG, CDP #### [facility] [address] [place] [address] Escrow Clerk: YULY Walsh Automated0.0 per 100 WBCNormal0.0Prom[facility] Regional HospitalComment on above:Performed By: #### BMP, MATIAS, MG, CDP #### [facility] [address] [place] [address] Escrow Clerk: Omar Walshteangelia mean volume (Bld) [Entitic vol]9.8 fL Normal8.1-13.5[facility] HospitalComment on above:Performed By: #### BMP, MATIAS, MG, CDP #### [facility] [address] [place] [address] Escrow Clerk: Omar Walshtelets (Bld) [#/Vol]273 10*3/tIGvhogp603-062 [facility] HospitalComment on above:Performed By: #### BMP, MATIAS, MG, CDP #### [facility] [address] [place] [address] Escrow Clerk: RADHA Walsh (Bld) [#/Vol]3.54 10*6/uLLow3.95-5.11[facility] HospitalComment on above:Performed By: #### BMP, MATIAS, MG, CDP #### [facility] [address] [place] [address]689 Escrow Clerk: TIFFANIE Walsh (Bld) [#/Vol]10.6 10*3/uLNormal3.5-11.3MWestside Hospital– Los AngelesComment on above:Performed By: #### BMP, MATIAS, MG, CDP #### [facility] [address] [place] [address] Escrow Clerk: Danish Walshgnesiumon 55-43-5704Srhxnpukh [Mass/Vol]2.0 mg/dLNormal1.6-2.6Mgalion hospitaly Cedars-Sinai Medical CenterComment on above:Performed By: #### BMP, MATIAS, MG, CDP #### [facility] [address] [place] [address] Escrow Clerk: GABE Walshhosphokarolina, Inorg.on 86-92-5643Pcjnnhljcn, Inorg.1.9 mg/dLLow2.6-4.5[facility] HospitalComment on above: Performed By: #### BMP, MATIAS, MG, CDP #### [facility] [address] [place] [address] Escrow Clerk: Patrick Walsh Metabolic Profon 94-11-4642Ywikq gap [Moles/Vol]8 mmol/LLow9-17[facility] HospitalComment on above: Performed By: #### BMP, MATIAS, MG, CDP #### [facility] [address] [place] [address] Escrow Clerk: Shamir Milton MDCalcium [Mass/Vol]8.7 mg/dLNormal8.6-10.4[facility] HospitalComment on above:Performed By: #### BMP, MATIAS, MG, CDP #### [facility] [address] [place] [address] Escrow Clerk: Shamir Milton MDChloride [Moles/Vol]102 mmol/GYmhpnf31-521DftrdPromedica Defiance Regional HospitalComment on above:Performed By: #### BMP, MATIAS, MG, CDP #### [facility] [address] [place] [address] Escrow Clerk: Shamir Milton MDCO2 [Moles/Vol]23 mmol/FFhausd39-09MdynsPromedica Defiance Regional HospitalComment on above:Performed By: #### BMP, MATIAS, MG, CDP #### [facility] [address] [place] [address] Escrow Clerk: BOBBY Walshreatinine [Mass/Vol]0.61 mg/dLNormal0.50-0.90 [facility] HospitalComment on above:Performed By: #### BMP, MATIAS, MG, CDP #### [facility] [address] [place] [address] Escrow Clerk: Shamir Milton MDGFR/1.73 sq M.predicted among non-blacks MDRD (S/P/Bld) [Vol rate/Area]mL/min/{1.73_m2}Normal>60[facility] HospitalComment on above:Result Comment: Effective Jul 30, 2022 These results [...] or following therapy that affects renal tubular secretion.Performed By: #### BMP, MATIAS, MG, CDP #### [facility] [address] [place] [address] Escrow Clerk: Shamir Milton MDGlucose [Mass/Vol]129 mg/xJRipt72-18YqbyfWestside Hospital– Los AngelesComment on above:Performed By: #### BMP, MATIAS, MG, CDP #### [facility] [address] [place] [address] Escrow Clerk: Shamir Milton MDPotassium [Moles/Vol]4.4 mmol/LNormal3.7-5.3 [facility] HospitalComment on above:Performed By: #### BMP, MATIAS, MG, CDP #### [facility] [address] [place] [address] Escrow Clerk: Shamir Milton MDSodium [Moles/Vol]133 mmol/BJwb136-954QjtdkPromedica Defiance Regional HospitalComment on above:Performed By: #### BMP, MATIAS, MG, CDP #### [address] [address] Escrow Clerk: Shamir Milton MDUrea nitrogen [Mass/Vol]14 mg/dLNormal8-23[facility] HospitalComment on above:Performed By: #### BMP, MATIAS, MG, CDP #### [place] [address] Escrow Clerk: Shamir Milton [facility] with Diffon 76-62-9067Oeg. Basophil<0.03 Normal0.00-0.20[facility] HospitalComment on above:Performed By: #### BMP, MATIAS, MG, CDP #### [address] [address] Escrow Clerk: Immanuel Walsh. Eosinophil<0.04Iespxt1.00-0.44[facility]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 ####[facility] Cmbzwpznvl8429 [place], [place] [address]Iz. Karey ChangLEUKOCYTESNegativeNormalNEGATIVEThe [facility] HospitalComment on above:Performed By: #### TORREY UMICRO ####[facility] Ypfhdxecfo5619 [place], [place]Dr. Karey ChangNitrite Ql (U)NegativeNormal NEGATIVEThe [facility] HospitalComment on above:Performed By: #### TORREY UMICRO ####[facility] Edqouxfnht[address] [place] [address]Dr. Karey ChangpH (U)5.0 [pH]Normal5-9The [facility] HospitalComment on above: Performed By: #### TORREY ICRO ####[facility] Mmprmofrix[address] [place] [address]Dr. Yirony EspinozaSPEC GRAVITY1.683Pakgws9.005-<=1.025The [facility] HospitalComment on above:Performed By: #### TORREY ICRO ####[facility] Nnvshumfnu1044 [place], [place]Dr. Karey EspinozaUA PROTEINNegativeNormalNEGATIVE/ TRACEThe [facility] HospitalComment on above: Performed By: #### TORREY UMICRO ####[facility] Lkyhtpcrdo3307 [place], [place]Dr. Karey EspinozaUR MICRO INDINDICATEDNormalThe [facility] HospitalComment on above:Performed By: #### TORREY UMICRO ####[facility] Hnwzjuybik3138 [place], [place]Dr. Karey ChangUrobilinogen Qn (U)0.2 {Jose'U}/dLNormal0.2 - 1.0The [facility] HospitalComment on above: Performed By: #### ERUR, UMICRO ####[facility] Ayfbugkhpp6057 [place], [place]Dr. Camillalan ChangLIPASEon 79-49-1682Ebfqwu [Catalytic activity/Vol]341.0 U/BQpgxxq79.0-393.0The [facility] HospitalComment on above: Performed By: #### CMP, LIPA, CMADM ####[facility] Hlsulmvbrr[address] [place] [address]Dr. Yilan ChangPROF 14(COMP METB)on 09-25-2022 Albumin [Mass/Vol]3.6 g/dLNormal3.4-5.0The [facility] HospitalComment on above: Performed By: #### CMP, LIPA, CMADM ####[facility] Vdwjyuieax[address] [place], [place] [address]Dr. Camillalan ChangAlbumin/Globulin [Mass ratio]1.1 {ratio}NormalThe [facility] HospitalComaleda e. l[facility] on above:Performed By: #### CMP, LIPA, CMADM ####[facility] Valtkubndg[address] [place], [place] [address]Dr. Yilan ChangALP [Catalytic activity/Vol]92 U/FExyzlm84-588Iei [facility] on above:Performed By: #### CMP, LIPA, CMADM ####[facility] Onnfldbzsf[address] [place] [address]Dr. Yilan ChangALT [Catalytic activity/Vol]77 U/LCritically gtxb09-09Dye [facility] HospitalComment on above:Performed By: #### CMP, LIPA, CMADM ####[facility] Zlbuweynpn47[address] [place] [address]Dr. Yilan ChangAnion gap [Moles/Vol]11.6 mmol/LNormalThe [facility] on above:Performed By: #### CMP, LIPA, CMADM ####[facility] Uzhkrncvmn32[address] [place] [address]Dr. Camillalan ChangAST [Catalytic activity/Vol]85 U/L Critically oypd97-63Ddu [facility] HospitalComment on above:Performed By: #### CMP, LIPA, CMADM ####[facility] Ssnrzaiyga[address] [place] [address]Dr. Yilan ChangBilirubin [Mass/Vol]0.6 mg/dLNormal0.2-1.0The [facility] HospitalComment on above:Performed By: #### CMP, LIPA, CMADM ####[facility] Ljnyvhkgww6[address] [place] [address]Dr. Yilan Espinoza Calcium [Mass/Vol]9.2 mg/dLNormal8.5-10.1The [facility] HospitalComment on above: Performed By: #### CMP, LIPA, CMADM ####[facility] Tcfqgyofnu[address] [place], [place] [address]Dr. Yilan ChangChloride [Moles/Vol]101 mmol/L Ijhfxu49-192Hon [facility] Hospitalment on above:Performed By: #### CMP, LIPA, CMADM ####[facility] Qfnzwcwzni[address] [place], [place] [address]Dr. Yilan ChangCO2 [Moles/Vol]25.9 mmol/PTcvpzy64.0-32.0The [facility] HospitalComment on above:Performed By: #### CMP, LIPA, CMADM ####[facility] Wjncibxbxw[address] [place], [place] [address]Dr. Yilan Espinoza Creatinine [Mass/Vol]1.11 mg/dLCritically high0.55-1.02The [facility] Comment on above:Performed By: #### CMP, LIPA, CMADM ####[facility] Kxhnudmxub[address] [place], [place] [address]Dr. Yilan ChangEGFR-AF BGJIUVYO43 mL/min/1.94h3Fuielsfyyj low>=60The [facility] HospitalComment on above: Performed By: #### CMP, LIPA, CMADM ####[facility] [address]wvlsftcfs[address] [place], [place] [address]Dr. Yilan ChangEGFR-NON AF QYIBCGYO76 mL/min/1.39w5Ymclpgpgft low>=60The [facility] HospitalComment on above:Performed By: #### CMP, LIPA, CMADM ####[facility] Qafdkoedse[address] [place] [address]Dr. Yilan ChangGlobulin (S) [Mass/Vol]3.3 g/dLNormal The [facility] HospitalComment on above:Performed By: #### CMP, LIPA, CMADM ####[facility] Rfgzgznnyi40[address] [place] [address]Dr. Yilan ChangGlucose [Mass/Vol]149 mg/dLCritically ftlq67-443Yrq [facility] Comment on above:Performed By: #### CMP, LIPA, CMADM ####[facility] Ffjmiykhat[address] [place] [address]Dr. Yilan ChangPotassium [Moles/Vol]4.5 mmol/LNormal3.5-5.1The [facility] HospitalComment on above: Performed By: #### CMP, LIPA, CMADM ####[facility] Xfrmcsolfa[address] [place] [address]Dr. Yilan ChangProtein [Mass/Vol]6.9 g/dLNormal 6.4-8.2The [facility] HospitalComment on above:Performed By: #### CMP, LIPA, CMADM ####[facility] Temwnkdbxo[address] [place] [address]Dr. Yilan ChangSodium [Moles/Vol]134 mmol/LCritically kvv502-086Buz [facility] HospitalComment on above:Performed By: #### CMP, LIPA, CMADM ####[facility] Tyrdhowcbk[address] [place] [address]Dr. Yilan ChangUrea nitrogen [Mass/Vol]18.0 mg/dLNormal7.0-18.0The [facility] HospitalComment on above:Performed By: #### CMP, LIPA, CMADM ####[facility] Ezywqnrdtt[address] [place], [place] [address]Dr. Yilan ChangUrea nitrogen/Creatinine [Mass ratio]16.2 mg/mgNormalThe [facility] HospitalComment on above:Performed By: #### CMP, LIPA, CMADM ####[facility] Uvgvcxmnzp0578 [place], [place] [address]UxDr. Karey EspinozaPROTIMEon [id number] Coag (PPP) [Relative time]1.11 {INR}NormalThe [facility] HospitalComment on above:Performed By: #### PT, PTT #### [facility] [address] [place] [address] [address] Karey Limon GUIDELINESSEE BELOWNormalThProMedica Flower HospitalComment on above:Result Comment: DESIRED INR: 2.0 - 3.0 CONDITIONS NOT LISTED BELOW 2.5 - 3.5 FOR PROSTHETIC HEART VALVE REPLACEMENT 2.5 - 3.5 RECURRENT THROMBOSIS Performed By: #### PT, PTT #### [facility] [address] [place] [address] Dr. Karey Henson Coag (PPP) [Time]11.9 sCritically high9.0-11.6The [facility] HospitalComment on above:Performed By: #### PT, PTT #### [facility] [address] [place] [address] Dr. Karey Shearer [id number] Coag (Bld) [Time]30.4 hTznrml53.3-36.2St. [facility] HospitalComment on above:Performed By: #### PT, PTT #### [facility] [address] [place] [address] Dr. Karey EspinozaTrauma Profileon 91-99-2991Gncgy gap [Moles/Vol]12 mmol/LNormal 9-17[facility] HospitalComment on above:Performed By: #### BMP, MATIAS, MG, CDP #### [facility] [address] [place] [address] Escrow Clerk: BOBBY Walshhloride [Moles/Vol]102 mmol/RUipddn64-547UdyhgPromedica Defiance Regional HospitalComment on above:Performed By: #### BMP, MATIAS, MG, CDP #### [facility] [address] [place], [place] [address] Escrow Clerk: BOBBY WalshO2 [Moles/Vol]20 mmol/EChuetu69-06VrbdcPromedica Defiance Regional HospitalComment on above:Performed By: #### BMP, MATIAS, MG, CDP #### [facility] [address] [place] [address] Escrow Clerk: BOBBY Walshreatinine [Mass/Vol]0.76 mg/dLNormal0.50-0.90 [facility] HospitalComment on above:Performed By: #### BMP, MATIAS, MG, CDP #### [facility] [address] [place] [address] Escrow Clerk: Shamir Milton MDEthanol [Mass/Vol]mg/dLNormal<10[facility] HospitalComment on above:Performed By: #### BMP, MATIAS, MG, CDP #### [facility] [address] [place] [address] Escrow Clerk: Shamir Milton MDEthanol percent<0.010Normal<0.010[facility] HospitalComment on above:Performed By: #### BMP, MATIAS, MG, CDP #### [facility] HospitalClementia Pharm[facility] [address] [place] [address] Escrow Clerk: Shamir Milton MDGFR/1.73 sq M.predicted among non-blacks MDRD (S/P/Bld) [Vol rate/Area]mL/min/{1.73_m2}Normal>60[facility] HospitalComment on above:Result Comment: Effective Jul 30, 2022 These results [...] or following therapy that affects renal tubular secretion.Performed By: #### BMP, MATIAS, MG, CDP #### [facility] [address] [place] [address] Escrow Clerk: Shamir Milton MDGlucose [Mass/Vol]127 mg/oYKkbt31-85ParthWestside Hospital– Los AngelesComment on above:Performed By: #### BMP, MATIAS, MG, CDP #### [facility] [address] [place] [address] Escrow Clerk: GABE Walshotassium [Moles/Vol]4.1 mmol/LNormal3.7-5.3 [facility] HospitalComment on above:Performed By: #### BMP, MATIAS, MG, CDP #### [facility] [address] [place] [address] Escrow Clerk: JACINDA Walshodium [Moles/Vol]134 mmol/JVek072-354XbknePromedica Defiance Regional HospitalComment on above:Performed By: #### BMP, MATIAS, MG, CDP #### [facility] [address] [place] [address] Escrow Clerk: Shamir Milton MDUrea nitrogen [Mass/Vol]14 mg/dLNormal8-23[facility] HospitalComment on above:Performed By: #### BMP, MATIAS, MG, CDP #### [facility] [place] [address] Escrow Clerk: Hilario Walsh Coag (Bld) [Time]24.4 xAyjhkh96.5-30.5[facility] HospitalComment on above:Result Comment: IV Heparin Therapy Range: 48.6-77.8Performed By: #### BMP, MATIAS, MG, CDP #### [facility] [address] [place] [address] Escrow Clerk: CECILY Walsh Coag (PPP) [Relative time]1.1 {INR}Normal [facility] HospitalComment on above:Result Comment: Therapeutic Range: Moderate Anticoagulant Intensity: INR = 2.0-3.0 High Anticoagulant Intensity: INR = 2.5-3.5Performed By: #### BMP, MATIAS, MG, CDP #### [facility] [address] [place] [address] Escrow Clerk: CELESTINA Walsh Coag (PPP) [Time]11.3 sNormal9.1-12.3[facility]inai Medical CenterComment on above:Performed By: #### BMP, MATIAS, MG, CDP #### [facility] [address] [place] [address] Escrow Clerk: Shamir Milton MDHCG Screen, BloodNegativeNoalNEGPromedica Defiance Regional HospitalComment on above:Result Comment: Specimens with hCG levels near the threshold of the test (25 mIU/mL) may give a negative or indeterminate result. In such cases, another test should be performed with a new specimen in 48-72 hours. If early is suspected clinically in this setting, correlation with quantitative serum b-hCG level is suggested. [facility] has confirmed the use of plasma for this test. This has not been cleared or approved by the U.S. Food and Drug Administration. The FDA has determined that such clearance is not necessary.Performed By: #### BMP, MATIAS, MG, CDP #### [facility] [address] [place] [address] Escrow Clerk: Suresh Walsh Temp.37.0NormalPromedica Defiance Regional HospitalComment on above:Performed By: #### BMP, MATIAS, MG, CDP #### [facility] [address] [place] [address] Escrow Clerk: Ev Walsh Hgb2.3 %Normal0-5[facility]inai Medical CenterComment on above:Result Comment: Reference Range: Non-Smokers 0-2% Average Smoker 2-4% Heavy Smoker <10%Performed By: #### BMP, MATIAS, MG, CDP #### [facility] [address] [place] [address] Escrow Clerk: Shamir Milton MDFIO2INFORMATION NOT PROVIDEDNormalPromedica Defiance Regional HospitalComment on above:Performed By: #### BMP, MATIAS, MG, CDP #### [facility] HospitalClementia Pharmaceuticals [address] [place] [address] Escrow Clerk: Shamir Milton MDHCO3 (Bld) [Moles/Vol]22.7 mmol/XZqm21-36BjebjPromedica Defiance Regional HospitalComment on above:Performed By: #### BMP, MATIAS, MG, CDP #### [facility] Hospitaly [facility] [place] [address] Escrow Clerk: Shamir Milton MDNegative Base Excess2.5 mmol/LHigh0.0-2.0[facility] HospitalComment on above:Performed By: #### BMP, MATIAS, MG, CDP #### [facility] [place] [address] Escrow Clerk: Shamir Milton MDOxygen saturation in Blood73.8 %Qumhnh74.0-85.0 [facility] HospitalComment on above:Performed By: #### BMP, MATIAS, MG, CDP #### [facility] [place] [address] Escrow Clerk: Gabe WalshCO242.6 mm XsZfzuql76-80NzoxwPromedica Defiance Regional HospitalComment on above:Performed By: #### BMP, MATIAS, MG, CDP #### [facility] [place] [address] Escrow Clerk: Gabe Walsh (Bld)7.345 [pH]Normal7.320-7.420[facility] HospitalComment on above:Performed By: #### BMP, MATIAS, MG, CDP #### [facility] [place] [address] Escrow Clerk: Gabe WalshO240.7 mm TdYgbqem17-60EclizPromedica Defiance Regional HospitalComment on above:Performed By: #### BMP, MATIAS, MG, CDP #### [facility] [address] [place] [address] Escrow Clerk: Shamir Milton MDErythrocyte distribution width (RBC) [Ratio]13.0 %Lcskpg58.8-14.4Promedica Defiance Regional HospitalComment on above:Performed By: #### BMP, MATIAS, MG, CDP #### [place] [address] Escrow Clerk: Shamir Milton MDHematocrit (Bld) [Volume fraction]42.4 %Normal 36.3-47.1MWestside Hospital– Los AngelesComment on above:Performed By: #### BMP, MATIAS, MG, CDP #### [place] [address] Escrow Clerk: Shamir Milton MDHemoglobin (Bld) [Mass/Vol]14.5 g/dLNormal 11.9-15.1MWestside Hospital– Los AngelesComment on above:Performed By: #### BMP, MATIAS, MG, CDP #### [place] [address] Escrow Clerk: SHIRLEY WalshCH (RBC) [Entitic mass]30.1 qsLjkkbe38.2-33.5 [facility] HospitalComment on above:Performed By: #### BMP, MATIAS, MG, CDP #### [address] [address] Escrow Clerk: SHIRLEY WalhsCHC (RBC) [Mass/Vol]34.2 g/yFSwqhux84.4-34.8 [facility] HospitalComment on above:Performed By: #### BMP, MATIAS, MG, CDP #### [facility] [place] [address] Escrow Clerk: SHIRLEY WalshCV (RBC) [Entitic vol]88.1 qGGynhxp03.6-102.9 [facility] HospitalComment on above:Performed By: #### BMP, MATIAS, MG, CDP #### [facility] [address] [place] [address] Escrow Clerk: YULY Walsh Automated0.0 per 100 WBCNormal0.0[facility] HospitalComment on above:Performed By: #### BMP, MATIAS, MG, CDP #### [facility] [address] [place] [address] Escrow Clerk: Cesar Walsh mean volume (Bld) [Entitic vol]9.3 fL Normal8.1-13.5[facility] HospitalComment on above:Performed By: #### BMP, MATIAS, MG, CDP #### [facility] [address] [place] [address] Escrow Clerk: Saulo Walsh (Bld) [#/Vol]335 10*3/rWZrllcg156-479 [facility] HospitalComment on above:Performed By: #### BMP, MATIAS, MG, CDP #### [facility] [address] [place] [address] Escrow Clerk: RADHA Walsh (Bld) [#/Vol]4.81 10*6/uLNormal3.95-5.11 [facility] HospitalComment on above:Performed By: #### BMP, MATIAS, MG, CDP #### [facility] [address] [place] [address] Escrow Clerk: TIFFANIE Walsh (Bld) [#/Vol]12.0 10*3/uLHigh3.5-11.3MWestside Hospital– Los AngelesComment on above:Performed By: #### BMP, MATIAS, MG, CDP #### [facility] [address] [place] [address] Escrow Clerk: Raghav Walsh [facility] PERFORMEDNoProMedica Bay Park HospitalComment on above:Performed By: #### MILAGROS, MATIAS, MG, CDP #### [facility] [address] [place], [place] [phone] Escrow Clerk: Shamir Milton MDType + Screenon [id number] + ScreenSample Expiration 09/28/2022,2359 Arm Band Number BE [id number] ABO/Rh(D) O POSITIVE Antibody Screen NEGATIVENoProMedica Bay Park HospitalComment on above: Performed By: #### CDP, BMP, MATIAS #### [facility] [address] [place], [place] [phone] Escrow Clerk: Shamir Milton MDURINE MICROSCOPIC ONLYon 81-74-6418TIGMVSUTWQAA SEENNormalNONE SEENSt. Francis HospitalComment on above:Performed By: #### COLOTN HIRSCHRO ####[facility] Nqew[address]pbgq2844 [place], [place] [address]Qk. Karey EspinozaBacteria identified Cx Nom (U)NOT INDICATEDNoOhioHealth Arthur G.H. Bing, MD, Cancer CenterComment on above:Performed By: #### NEDA HIRSCH ####[facility] [address] [place] [address]Dr. Karey EspinozaCAST NONE SEENNormalNONE SEENSt. Francis HospitalComment on above:Performed By: #### COLTON HIRSCHRO ####[facility] Qboqbwn[address] [place] [phone]. Karey EspinozaCrystals LM Nom (Urine sed)NONE SEENNormalNONE SEENSt. Francis HospitalComment on above:Performed By: #### COLTON HIRSCHRO ####[facility] [address] [place] [address]Dr. Karey Espinoza Epithelial cells LM Ql (Urine sed)RARENormalNONE SEEN /RARESt. Francis Hospital Comment on above:Performed By: #### COLTON HIRSCHRO ####[facility] [address]jtp[address] [place] [address]Dr. Karey EspinozaMUCOUSNONE SEEN NormalNONE SEENSt. Francis HospitalComment on above:Performed By: #### NEDA HIRSCH ####[facility] Quduvmtysm8545 [place], [place] [address]Of. Karey EspinozaKvrhsWEK2-1Mjceqz8-6Xhm [facility] HospitalComment on above: Performed By: #### NEDA HIRSCH ####[facility] Enscfentuh[address] [place], [place]Dr. Karey EspinozaWBCNONE SEENNormalNONE SEENSt. Francis HospitalComment on above:Performed By: #### NEDA HIRSCH ####[facility] Ebumirqxji5186 [place], [place]Dr. Karey ChangXR HIP LEFT (2- 3 VIEWS)on 35-49-2880GX HIP LEFT (2-3 VIEWS)EXAMINATION: XRAY VIEWS OF THE LEFT TIBIA AND [...] Signed by: Mikie Caba MD 09/25/22 Final resultNormalPromedica Defiance Regional HospitalXR PELVIS (MIN 3 VIEWS)on 02-52-6821NQ PELVIS (MIN 3 VIEWS)EXAMINATION: XRAY VIEWS OF THE LEFT TIBIA AND [...] Signed by: Mikie Caba MD 09/25/22 Final resultNoProMedica Bay Park HospitalXR TIBIA FIBULA LEFT (2 VIEWS) on 41-92-7654NN TIBIA FIBULA LEFT (2 VIEWS)EXAMINATION: XRAY VIEWS OF THE LEFT TIBIA AND [...] Signed by: Mikie Caba MD 09/25/22 Final resultUniversity Hospitals Health SystemLIPID PROFILEon 09-14-2022 CHOL-HDL RATIO NORMSWVUMedicine Harrison Community HospitalComaleda e. [facility] on above:Result Comment: 3.3 - 4.4 LOW RISK 4.4 - 7.1 AVERAGE RISK 7.1 - 11.0 MODERATE RISK >11.0 HIGH RISKPerformed By: #### LIPID, LIVER #### [facility] [address] [place] [address] [address] Karey EspinozaCholesterol [Mass/Vol]165 mg/dLNormal<=200[facility] Comment on above:Performed By: #### LIPID, LIVER #### [facility] [address] [place] [address] [address] Karey EspinozaCholesterol in HDL [Mass/Vol]57 mg/cARrkwtw91-66RwmSt. Francis HospitalComment on above:Performed By: #### LIPID, LIVER #### [facility] [address] [address] [address] Karey EspinozaCholesterol in LDL [Mass/Vol]83.2 mg/dLSelect Medical Specialty Hospital - Boardman, IncComment on above:Performed By: #### LIPID, LIVER #### [facility] [address] [address] [address] Karey Kasperestertyron.total/Cholesterol in HDL [Mass ratio]2.9 {ratio} NormalSt. Francis HospitalComment on above:Performed By: #### LIPID, LIVER #### [facility] [address] [place] [address] Dr. Karey Wheeler NORMAL> or = 60 mg/dl - LOW CARDIOVASCULAR RISK <40 mg/dl - HIGH CARDIOVASCULAR RISKSelect Medical Specialty Hospital - [facility], IncComaleda e. lutz veterans affairs medical center on above:Performed By: #### LIPID, LIVER #### [facility] [address] [address] [address] Karey EspinozaLDL CALC NORMALSEE [facility] County HospitalComaleda [facility] on above:Result Comment: <100 mg/dl OPTIMAL 100 - 129 mg/dl NEAR OR ABOVE OPTIMAL 130 - 159 mg/dl BORDERLINE HIGH 160 - 189 mg/dl HIGH >190 mg/dl VERY HIGH Performed By: #### LIPID, LIVER #### [facility] [address] [place] [address] Dr. Karey EspinozaTriglyceride [Mass/Vol]124 mg/dLNormal<=150The [facility] Comment on above:Performed By: #### LIPID, LIVER #### [facility] [address] [place] [address] Dr. Kaery ClayLDL CALC24.8 mg/dLNormalThe [facility] HospitalComment on above: Performed By: #### LIPID, LIVER #### [facility] [address] [address] [address] Karey Rolon PROFILEon 17-76-9915Eewpyxn [Mass/Vol]3.6 g/dLNormal3.4-5.0 The [facility] HospitalComment on above:Performed By: #### LIPID, LIVER #### [facility] [address] [place] [address] Dr. Karey EspinozaAlbumin/Globulin [Mass ratio]1.1 {ratio}NormalThe [facility] HospitalComment on above:Performed By: #### LIPID, LIVER #### [facility] [address] [place] [address] Dr. Karey Walls [Catalytic activity/Vol]75 U/TGdfthb37-222Rjr [facility] HospitalComment on above:Performed By: #### LIPID, LIVER #### [facility] [address] [place] [address] Dr. Karey Mace [Catalytic activity/Vol]57 U/HBvnhqp21-81Gzo [facility] HospitalComment on above:Performed By: #### LIPID, LIVER #### [facility] [address] [place] [address] Dr. Karey Acosta [Catalytic activity/Vol]35 U/WBmcbng65-50Fyj [facility] on above:Performed By: #### LIPID, LIVER #### [facility] [address] [place] [address] Dr. Karey Jacobs, CONJUGATED0.1 mg/dLNormal0.0-0.2The [facility] Comment on above:Performed By: #### LIPID, LIVER #### [facility] [address] [place], [place] [address] Dr. Karey EspinozaBilirubin [Mass/Vol]0.5 mg/dLNormal0.2-1.0The [facility] Comment on above:Performed By: #### LIPID, LIVER #### [facility] [address] [place] [address] Dr. Karey EspinozaGlobulin (S) [Mass/Vol]3.3 g/dLNormalThe [facility] HospitalComment on above:Performed By: #### LIPID, LIVER #### [facility] [address] [place] [address] Dr. Karey EspinozaProtein [Mass/Vol]6.9 g/dLNormal6.4-8.2The [facility] Comment on above:Performed By: #### LIPID, LIVER #### [facility] [address] [place] [address] Dr. Karey EspinozaCovid-19 PCR (CVDTBH)on 98-01-5042YPMM-CoV-2 (COVID-19) RNA JORI+probe Ql (Unsp spec)Not detectedNormalNOT DETECTEDThe [facility] Comment on above:Result Comment: This test is not yet approved or cleared by the [place] FDA. When there are no FDA-approved or cleared tests available, and other criteria are met, FDA can make tests available under an emergency access mechanism called an Emergency Use Authorization (EUA). The EUA for this test is supported by the Battery Stacker of Health and Human Service's (HHS's) declaration that circumstances exist to justify the emergency use of in vitro diagnostics for the detection and/or diagnosis of the virus that causes COVID- 19. This EUA will remain in effect (meaning [...] of clinical signs and symptoms consistent with SARS-CoV-2.Performed By: #### CVDTBH #### [facility] [address] [place] [address] Dr. Karey EspinozaSYMPTOMATIC COVID-19 ANTIGENon 69-24-8603IMK StatementSEE BELOW NormalSelect Medical Specialty Hospital [facility] on above:Result Comment: This test has not been FDA [...] declaration is terminated or authorization is revoked sooner.Performed By: #### CVDAGS ####[facility] [address] [place], [place] [address]DrAshley HudsonRS-CoV-2 (COVID-19) RNA JORI+probe Ql (Unsp spec)NegativeNormalNEGATIVEThe [facility] HospitalComment on above:Performed By: #### CVDAGS ####[facility] Rhco[address] [place], [place] [address]Dr. Karey EspinozaLIPID PROFILEon 49-86-3918YIUZ-HDL RATIO NORMSEE BELOWNormalThe [facility] HospitalComment on above:Result Comment: 3.3 - 4.4 LOW RISK 4.4 - 7.1 AVERAGE RISK 7.1 - 11.0 MODERATE RISK >11.0 HIGH RISKPerformed By: #### LIVER, LIPID ####[facility] T[address]ukt[address] [place], [place]Dr. Karey EspinozaCholesterol [Mass/Vol]198 mg/dL Normal<=200The [facility] HospitalComment on above:Performed By: #### LIVER, LIPID ####[facility] Huqqzohqck7938 [place], [place]Dr. Karey EspinozaCholesterol in HDL [Mass/Vol]50 mg/fEJpsadx52-25Gqg [facility] Comment on above:Performed By: #### LIVER, LIPID ####[facility] Gqaknrkvsn7365 [place], [place]Dr. Yilan ChangCholesterol in LDL [Mass/Vol]110.8 mg/dLSelect Medical Specialty Hospital - [facility], IncComaleda e. lutz veterans affairs medical center on above:Performed By: #### LIVER, LIPID ####[facility] [address] [place] [phone]. Yilan ChangCholesterol.total/Cholesterol in HDL [Mass ratio]4.0 {ratio}NormalThe [facility] HospitalComment on above:Performed By: #### LIVER, LIPID ####[facility] [address]kj[address] [place] [phone]. Yilan ChangHDL NORMAL> or = 60 mg/dl - LOW CARDIOVASCULAR RISK <40 mg/dl - HIGH CARDIOVASCULAR RISKSelect Medical Specialty Hospital - [facility], IncComment on above: Performed By: #### LIVER, LIPID ####[facility] Xtnwhouvkx[address] [place] [address]Dr. Yilan ChangLDL CALC NORMALSEE BELOWNoOhioHealth Arthur G.H. Bing, MD, Cancer CenterComment on above:Result Comment: <100 mg/dl OPTIMAL 100 - 129 mg/dl NEAR OR ABOVE OPTIMAL 130 - 159 mg/dl BORDERLINE HIGH 160 - 189 mg/dl HIGH >190 mg/dl VERY HIGHPerformed By: #### LIVER, LIPID ####[facility] Guijkutvff6045 [place], [place]Dr. Yilan ChangTriglyceride [Mass/Vol]186 mg/dLCritically high<=150The [facility] HospitalComment on above: Performed By: #### LIVER, LIPID ####[facility] [address]dwhavih[address] [place] [address]Dr. Yilan ChangVLDL CALC37.2 mg/dLSelect Medical Specialty Hospital - [facility], IncComment on above:Performed By: #### LIVER, LIPID ####[facility] Osduqtladr4114 [place], [place]Dr. Yilan ChangLIVER PROFILEon 52-72-8947Pozqdyh [Mass/Vol]3.8 g/dLNormal3.4-5.0The [facility] HospitalComment on above:Performed By: #### LIVER, LIPID ####[facility] Gmcmkvwemi9416 [place], [place]Dr. Yilan ChangAlbumin/Globulin [Mass ratio] 1.2 {ratio}NormalThe [facility] HospitalComment on above:Performed By: #### LIVER, LIPID ####[facility] Hknqyispjx4152 [place], [place] [address]Lt. Yilan ChangALP [Catalytic activity/Vol]78 U/UYphkpe53-855Wyu [facility] HospitalComment on above:Performed By: #### LIVER, LIPID ####[facility] Qtgdsodszf4724 [place], [place]Dr. Yilan ChangALT [Catalytic activity/Vol]33 U/MCuwldk36-68Wjj [facility] HospitalComment on above:Performed By: #### LIVER, LIPID ####[facility] Fwgskmbzfl4904 [place], [place]Dr. Yilan ChangAST [Catalytic activity/Vol]26 U/LNormal 15-37The [facility] HospitalComment on above:Performed By: #### LIVER, LIPID ####[facility] Nharsxdrqy3119 [place], [place]Dr. Yilan ChangBILI, CONJUGATED0.1 mg/dLNormal0.0-0.2The [facility] HospitalComment on above:Performed By: #### LIVER, LIPID ####[facility] Qgolouirdd5018 [place], [place]Dr. Yilan ChangBilirubin [Mass/Vol]0.5 mg/dLNormal 0.2-1.0The [facility] HospitalComment on above:Performed By: #### LIVER, LIPID ####[facility] Zdxbvhjwpa4774 [place], [place]Dr. Yilan ChangGlobulin (S) [Mass/Vol]3.2 g/dLNormalThe [facility] HospitalComment on above:Performed By: #### LIVER, LIPID ####[facility] Xehxbkyqlv1310 [place], [place]Dr. Yilan ChangProtein [Mass/Vol]7.0 g/dLNormal 6.4-8.2St. Francis HospitalComment on above:Performed By: #### LIVER, LIPID ####[facility] Kmyhvlmkss2119 [place], [place]Dr. Karey EspinozaXR lumbar spine 2-3V*on 13-87-7200MP lumbar spine 2-3V*[facility] [place] [address] [place] [address] XRay Report Signed Patient: Anabela Abbasi MR#: [id number] 5 : 1945 Acct:[id number] Age/Sex: 75 / F ADM Date: 03/30/21 Loc: XD Room: Type: [facility] CLI Attending Dr: Brian Gonzales MD [...] Wang Jr., M.D.03/30/2021 2:53 PM Dictation Location: [place] [address] Transcribed By: [facility] 03/30/21 1459 Dictated By: Camryn Wang Jr, MD 03/30/21 145 Signed By: 03/30/21 145[facility] 17-69-3974RcrkEdgefield County [id number]:127 [facility] HospitalGlucose Poct Glucometerson 24-60-9426Uxatxjd8 Glu2: Cleaned MeterSouthview Medical CenterComment on above: Result Comment: PERFORMED BY: [facility] [address] [facility] CENTERKvngAshley [place]IRELIZ[place] [id number] PATHOLOGIST CALL WORKER JU MCPHERSON M.D.Performed By: #### GLULS ####Point of Care testing,Glucose [Mass/Vol]99 mg/dLSouthview Medical CenterComment on above:Result Comment: Random Glucose Reference Range is dependent on time and content of last meal. Glucose of more than 200 mg/dL in a nonstressed, ambulatory subject supports the diagnosis of Diabetes Mellitus.Performed By: #### GLULS ####Point of Care testing,Glucose Poct Glucometerson 75-84-0536Fcizsws4Uxg3: Cleaned MeterSouthview Medical CenterComment on above:Result Comment: PERFORMED BY: [facility] [address] [facility] [place] [address] PATHOLOGIST CALL WORKER JU MCPHERSON M.D.Performed By: #### GLULS ####Point of Care testing,Glucose [Mass/Vol]87 mg/dLSouthview Medical CenterComment on above:Result Comment: Random Glucose Reference Range is dependent on time and content of last meal. Glucose of more than 200 mg/dL in a nonstressed, ambulatory subject supports the diagnosis of Diabetes Mellitus.Performed By: #### GLULS ####Point of Care testing,Glucose [Mass/Vol]131 mg/dLSouthview Medical CenterComment on above: Result Comment: Random Glucose Reference Range is dependent on time and content of last meal. Glucose of more than 200 mg/dL in a nonstressed, ambulatory subject supports the diagnosis of Diabetes Mellitus. PERFORMED BY: [facility] [address] [facility] [place] [address] PATHOLOGIST CALL WORKER JU MCPHERSON M.D.Performed By: #### GLULS ####Point of Care testing,Glucose Poct Glucometerson 21-34-7301Xjgmwoq9Nwf6: Cleaned [facility]. John of God HospitalComment on above:Result Comment: PERFORMED BY: [address] [place] [address] PATHOLOGIST CALL WORKER JU MCPHERSON M.D.Performed By: #### GLULS ####Point of Care testing,Glucose [Mass/Vol]197 mg/dLSouthview Medical CenterComment on above: Result Comment: Random Glucose Reference Range is dependent on time and content of last meal. Glucose of more than 200 mg/dL in a nonstressed, ambulatory subject supports the diagnosis of Diabetes Mellitus.Performed By: #### GLULS ####Point of Care testing,Commemt1 Glu2: Cleaned MeterSouthview Medical CenterComment on above: Result Comment: PERFORMED BY: [address] [place] [address] PATHOLOGIST CALL WORKER JU MCPHERSON M.D.Performed By: #### GLULS ####Point of Care testing,Glucose [Mass/Vol]132 mg/dLSouthview Medical CenterComment on above: Result Comment: Random Glucose Reference Range is dependent on time and content of last meal. Glucose of more than 200 mg/dL in a nonstressed, ambulatory subject supports the diagnosis of Diabetes Mellitus.Performed By: #### GLULS ####Point of Care testing,ABO/Rh Retypeon 96-27-6571JFW/RH Recheck ResultPositiveSouthview Medical CenterComment on above:Result Comment: PERFORMED BY: [address] [place] [address] PATHOLOGIST CALL WORKER JU MCPHERSON M.D.Complete Blood Count Auto Diffon 39-00-0670Eqrglsxds (Bld) [#/Vol]0.1 10*3/uLNormal0.0-0.2FGeorgetown Behavioral HospitalComment on above:Result Comment: PERFORMED BY: [facility] [address] [place] [address] PATHOLOGIST CALL WORKER JU MCPHERSON M.D.Performed By: #### CMP, CBC, TROP ####[place] [id number] USABasophils/100 WBC (Bld)0.4 %Normal. [facility]. Rita'S HospitalComment on above:Performed By: #### CMP, CBC, TROP ####[place] [address] [place] Eosinophils (Bld) [#/Vol]0.0 10*3/uLNormal0.0-0.45St. Rita'S HospitalComment on above:Performed By: #### CMP, CBC, TROP ####[place] [address] USAEosinophils/100 WBC (Bld)0.0 % Normal.St. Rita'S HospitalComment on above:Performed By: #### CMP, CBC, TROP ####[place] [address] USAErythrocyte distribution width (RBC) [Ratio]13.6 %Kqcasl51.9-15.3FGeorgetown Behavioral HospitalComment on above:Performed By: #### CMP, CBC, TROP ####[place] [address] [place] Hematocrit (Bld) [Volume fraction]38.3 %Bfjlvo86.0-46.4FGeorgetown Behavioral HospitalComment on above:Performed By: #### CMP, CBC, TROP ####[place] [address] USAHemoglobin (Bld) [Mass/Vol]13.0 g/bMXuylye46.8-15.4FGeorgetown Behavioral HospitalComment on above:Performed By: #### CMP, CBC, TROP ####[place] [address] USALymphocytes (Bld) [#/Vol]0.8 10*3/uLLow 1.00-4.8St. Rita'S HospitalComment on above:Performed By: #### CMP, CBC, TROP ####[place] [address] USALymphocytes/100 WBC (Bld)5.8 %Normal.[facility] Comment on above:Performed By: #### CMP, CBC, TROP ####[place] [address] [facility] (RBC) [Entitic mass]30.0 faFvorjp27.7-34.3FGeorgetown Behavioral HospitalComment on above:Performed By: #### CMP, CBC, TROP ####[place] [address] [facility] CITYV (RBC) [Entitic vol]88.6 vZRwkyad55-776WzbljdzfgSt. Rita'S HospitalComment on above:Performed By: #### CMP, CBC, TROP ####[place] [address] USAMean Corpuscular HGB Conc33.8 g/iLWngkle03.0-35.0St. Rita'S HospitalComment on above:Performed By: #### CMP, CBC, TROP ####[place] [address] USAMonocytes (Bld) [#/Vol]0.6 10*3/uLNormal0.0-0.8 [facility]'S HospitalComment on above:Performed By: #### CMP, CBC, TROP ####[place] [address] [place] Monocytes/100 WBC (Bld)4.5 %Normal.St. Rita'S HospitalComment on above:Performed By: #### CMP, CBC, TROP ####[place] [address] USANeutrophils (Bld) [#/Vol]11.8 10*3/uLHigh 1.8-7.7FGeorgetown Behavioral HospitalComment on above:Performed By: #### CMP, CBC, TROP ####[place] [address] USANeutrophils/100 WBC (Bld)89.3 %Normal.[facility] Comment on above:Performed By: #### CMP, CBC, TROP ####[place] [address] USANucleated RBC/100 WBC (Bld) [Ratio]0.1 %Normal0-0.5FGeorgetown Behavioral HospitalComment on above: Performed By: #### CMP, CBC, TROP ####[place] [address] USAPlatelet mean volume (Bld) [Entitic vol]7.2 fLNormal 6.3-10.7FGeorgetown Behavioral HospitalComment on above:Performed By: #### CMP, CBC, TROP ####[address] [address] USAPlatelets (Bld) [#/Vol]369 10*3/gNLruqir878-165OtpspqphiSt. Rita'S HospitalComment on above:Performed By: #### CMP, CBC, TROP ####[place] [address] USARBC (Bld) [#/Vol]4.32 10*6/uLNormal3.60-5.00St. Rita'S HospitalComment on above: Performed By: #### CMP, CBC, TROP ####[place] [address] USAWBC (Bld) [#/Vol]13.2 10*3/uLHigh4.5-11.0St. Rita'S HospitalComment on above:Performed By: #### CMP, CBC, TROP ####[place] [address] [place] Comprehensive Metabolic Panelon 97-40-2014Wcfawlp [Mass/Vol]3.4 g/dLNormal 3.2-5.5FGeorgetown Behavioral HospitalComment on above:Performed By: #### CMP, CBC, TROP ####[place] [id number] USAAlbumin/Globulin [Mass ratio]1.4 {ratio}NormalSt. Rita'S HospitalComment on above:Performed By: #### CMP, CBC, TROP ####[place] [address] [place] [address] USAALP [Catalytic activity/Vol]48 U/IYgcqoo44-29InagqzqixSt. Rita'S HospitalComment on above:Performed By: #### CMP, CBC, TROP ####[place] [address] [place] [address] USAALT [Catalytic activity/Vol]23 U/AMoaeqj51-15LsjoucbkkSt. Rita'S HospitalComment on above:Performed By: #### CMP, CBC, TROP ####[place] [address] [place] [address] USAAST [Catalytic activity/Vol]32 U/FIcspkz70-59HfsufixylSt. Rita'S HospitalComment on above: Performed By: #### CMP, CBC, TROP ####[place] [address] [place] [address] USABilirubin [Mass/Vol]0.5 mg/dLNormal0.3-1.2FGeorgetown Behavioral HospitalComment on above:Performed By: #### CMP, CBC, TROP ####[address] [address] USACalcium [Mass/Vol]8.9 mg/dLNormal8.2-10.2FGeorgetown Behavioral HospitalComment on above:Performed By: #### CMP, CBC, TROP ####[address] [address] USAChloride [Moles/Vol]102 mmol/THgujzw82-283 St. Rita'S HospitalComment on above:Performed By: #### CMP, CBC, TROP ####[address] [address] [place] CO2 [Moles/Vol]22.6 mmol/PUftarl41.0-30.0[facility] Comment on above:Performed By: #### CMP, CBC, TROP ####[address] [address] USACreatinine [Mass/Vol]0.93 mg/dLNormal0.44-1.03St. Rita'S HospitalComment on above:Performed By: #### CMP, CBC, TROP ####[place] [address] [place] [id number] USACreatinine Clr Calc Mbwwyfey66.13Southview Medical CenterComment on above:Result Comment: PERFORMED BY: [facility] [address] [place] [address] PATHOLOGIST CALL WORKER JU MCPHERSON M.D.Performed By: #### CMP, CBC, TROP ####[place] [address] [place] [address] USAEstimated GFR ( [place]> 60 NormalSt. Rita'S HospitalComment on above:Result Comment: GFR estimated reference range: According to KDOQI guidelines, <60 ml/min/1.73m2 is sufficient to diagnose a patient with chronic kidney disease.Performed By: #### CMP, CBC, TROP ####[place] [id number] [place] Estimated GFR (Non- Nw05LyqijpVieqiiuflSouthview Medical CenterComment on above:Performed By: #### CMP, CBC, TROP ####[place] [id number] USAGlobulin (S) [Mass/Vol]2.5 g/dLNoPike Community HospitalComment on above:Performed By: #### CMP, CBC, TROP ####[place] [id number] USAGlucose [Mass/Vol]198 mg/xJWmva42-349ZnsevpcneSt. Rita'S HospitalComment on above: Result Comment: Random Glucose Reference Range is dependent on time and content of last meal. Glucose of more than 200 mg/dL in a nonstressed, ambulatory subject supports the diagnosis of Diabetes Mellitus. ADA recommended reference rangePerformed By: #### CMP, CBC, TROP ####[place] [id number] USAPotassium [Moles/Vol] 3.9 mmol/LNormal3.5-5.1FGeorgetown Behavioral HospitalComment on above: Performed By: #### CMP, CBC, TROP ####[facility] [place] [address] USAProtein [Mass/Vol]5.9 g/dLLow6.1-7.9St. Rita'S HospitalComment on above:Performed By: #### CMP, CBC, TROP ####[facility] [place] [phone] USASodium [Moles/Vol]133 mmol/SMyb381-913OtqfotpbvSt. Rita'S HospitalComment on above:Performed By: #### CMP, CBC, TROP ####[facility] [place] 7[address]370 USAUrea nitrogen [Mass/Vol]13 mg/dLNormal9-23 St. Rita'S HospitalComment on above:Performed By: #### CMP, CBC, TROP ####[place] [address] [place] [phone] [facility] [[email or web address]] ECG 12 lead ECGon 85-29-4936RYY 12 lead ECGTRUMBULL MEM[place] [address] Electrocardiograph Report Signed Patient: Anabela Abbasi MR#: [id number] 5 : 1945 Acct:[id number] Age/Sex: 75 / F ADM Date: 02/28/21 Loc: Room: [address] [place] [address] Type: ADM IN Attending Dr: Brian Gonzales [...] Montaño MD 02/28/21 1425 Signed By: 02/28/21 1538Southview Medical CenterGlucose Poct Glucometerson 72-42-6280Xjlbncg [Mass/Vol]192 mg/dLNoPike Community HospitalComment on above:Result Comment: Random Glucose Reference Range is dependent on time and content of last meal. Glucose of more than 200 mg/dL in a nonstressed, ambulatory subject supports the diagnosis of Diabetes Mellitus. PERFORMED BY: [address] [place] [id number] PATHOLOGIST CALL WORKER JU MCPHERSON M.D.Performed By: #### GLULS ####Point of Care testing,Fyfopny3Mam7: Cleaned MeterSouthview Medical CenterComment on above:Result Comment: PERFORMED BY: [address] [place] [address] PATHOLOGIST CALL WORKER JU MCPHERSON M.D.Performed By: #### GLULS ####Point of Care testing,Glucose [Mass/Vol]202 mg/dLSouthview Medical CenterComment on above: Result Comment: Random Glucose Reference Range is dependent on time and content of last meal. Glucose of more than 200 mg/dL in a nonstressed, ambulatory subject supports the diagnosis of Diabetes Mellitus.Performed By: #### GLULS ####Point of Care testing,Troponin I(TnI)on 02-53-6483Daxvkcab I.cardiac [Mass/Vol]ng/mLNormal0-0.02St. Rita'S HospitalComment on above:Result Comment: VARGHESE ME Cut off value > or equal to 0.03 ng/mL in conjunction with clinical conditions of myocardial infarction. (www.escardio.org/guidelines) PERFORMED BY: [address] [address] PATHOLOGIST CALL WORKER JU MCPHERSON M.D.Performed By: #### CMP, CBC, TROP ####[facility] [address] [place] [address] USAXR lumbar spine 2-3V*on 40-80-1989VP lumbar spine 2-3V*[facility] Main [place] [address] [place] [address] XRay Report Signed Patient: Anabela Abbasi MR#: [id number] 5 : 1945 Acct:[id number] Age/Sex: 75 / F ADM Date: 02/28/21 Loc: Room: [address] [place] [address] Type: ADM IN Attending Dr: Brian Gonzales [...] Rahul Desai M.D.02/28/2021 12:05 PM Dictation Location: [place] [address] Transcribed By: [facility] 02/28/21 1205 Dictated By: Rahul Desai DO 02/28/21 1153 Signed By: 02/28/21 1205NoPike Community HospitalCOVID-19 [facility] SARS-CoV-2 (COVID-19) RNA JORI+probe Ql (Unsp spec)NegativeNormalNegative St. Rita'S HospitalComment on above:Order Comment: Healthcare Worker?: NResult Comment: Testing for SARS-CoV-2 by RT-PCR This test was developed and its performance characteristics determined by [employer]) and validated at the [facility]. This test has not been FDA [...] is terminated or revoked sooner. PERFORMED BY: [place] [address] PATHOLOGIST CALL WORKER JU MCPHERSON M.D.Performed By: #### COVID-19 [facility] #### [place] [address] USABasic Metabolic Panelon 37-33-0493Rgwwgam [Mass/Vol]10.1 mg/dLNormal8.2-10.2FGeorgetown Behavioral HospitalComment on above:Result Comment: PERFORMED BY: [place] [address] PATHOLOGIST CALL WORKER JU MCPHERSON M.D.Performed By: #### CBC, BMP #### [facility] [address] [place] [address] USAChloride [Moles/Vol]100 mmol/JVoalbr83-667TumczqwdwSt. Rita'S HospitalComment on above:Performed By: #### CBC, BMP #### [facility] [address] [place] [address] USACO2 [Moles/Vol]25.9 mmol/FEiezzv66.0-30.0St. Rita'S HospitalComment on above:Performed By: #### CBC, BMP #### [place] [address] USACreatinine [Mass/Vol]1.00 mg/dLNormal0.44-1.03St. Rita'S HospitalComment on above:Performed By: #### CBC, BMP #### [place] [address] USAEstimated GFR ( [place]> 60NormalSt. Rita'S HospitalComment on above:Result Comment: GFR estimated reference range: According to KDOQI guidelines, <60 ml/min/1.73m2 is sufficient to diagnose a patient with chronic kidney disease.Performed By: #### CBC, BMP #### [facility] [address] [place] [address] USAEstimated GFR (Non- Lw53LuewlnGqllbrxhwSt. Rita'S HospitalComment on above:Performed By: #### CBC, BMP #### [facility] [address] [place] [address] USAGlucose [Mass/Vol]101 mg/pYKues58-087NfjiqivtdSt. Rita'S HospitalComment on above:Result Comment: Random Glucose Reference Range is dependent on time and content of last meal. Glucose of more than 200 mg/dL in a nonstressed, ambulatory subject supports the diagnosis of Diabetes Mellitus. ADA recommended reference rangePerformed By: #### CBC, BMP #### [facility] [address] [place] [address] USAPotassium [Moles/Vol]4.6 mmol/LNormal3.5-5.1FGeorgetown Behavioral HospitalComment on above:Performed By: #### CBC, BMP #### [place] [address] USASodium [Moles/Vol]135 mmol/KAay361-980QmuiokyzxSt. Rita'S HospitalComment on above:Performed By: #### CBC, BMP #### [place] [address] USAUrea nitrogen [Mass/Vol]13 mg/dLNormal9-23St. Rita'S HospitalComment on above:Performed By: #### CBC, BMP #### [facility] [address] [place] [address] USABasophils Auto (Bld) [#/Vol]on 66-49-5596Zutqvbima (Bld) [#/Vol]0.0 10*3/uL0.0-0.2FMcCullough-Hyde Memorial HospitalBasophils/100 WBC Auto (Bld)on 57-41-1555Qnxlkmltt/100 WBC (Bld)0.9 %[facility] Blood hemoglobin measurement (mass/volume)on 38-48-1676Hjlrbmhddf (Bld) [Mass/Vol]14.5 g/dL11.8-15.4FMcCullough-Hyde Memorial HospitalBlood leukocytes automated count (number/volume)on 49-10-8512JEN (Bld) [#/Vol]5.6 10*3/uL4.5-11.[address] [facility] HospitalComplete Blood Count Auto Diffon 02-16-2021 Basophils (Bld) [#/Vol]0.0 10*3/uLNormal0.0-0.2FGeorgetown Behavioral Hospital Comment on above:Result Comment: PERFORMED BY: [place] [address] PATHOLOGIST CALL WORKER JU MCPHERSON M.D.Performed By: #### CBC, BMP #### [facility] [address] [place] [address] USABasophils/100 WBC (Bld)0.9 %Normal.St. Rita'S HospitalComment on above:Performed By: #### CBC, BMP #### [facility] [address] [place] [address] USAEosinophils (Bld) [#/Vol]0.1 10*3/uLNormal0.0-0.45 [facility]'S HospitalComment on above:Performed By: #### CBC, BMP #### [facility] [address] [place] [address] USAEosinophils/100 WBC (Bld)1.0 %Normal.St. Rita'S HospitalComment on above:Performed By: #### CBC, BMP #### [facility] [address] [place] [address] USAErythrocyte distribution width (RBC) [Ratio]14.1 %Normal 11.9-15.3FGeorgetown Behavioral HospitalComment on above:Performed By: #### CBC, BMP #### [facility] [address] [place] [address] USAHematocrit (Bld) [Volume fraction]42.6 %Mfwtor42.0-46.4 [facility]'S HospitalComment on above:Performed By: #### CBC, BMP #### [facility] [address] [place] [address] USAHemoglobin (Bld) [Mass/Vol]14.5 g/mVOjunqv70.8-15.4 [facility]'S HospitalComment on above:Performed By: #### CBC, BMP #### [facility] [address] [place] [address] USALymphocytes (Bld) [#/Vol]1.9 10*3/uLNormal1.00-4.8 [facility] Rita'S HospitalComment on above:Performed By: #### CBC, BMP #### [facility] [address] [place] [address] USALymphocytes/100 WBC (Bld)33.3 %Normal.St. Rita'S HospitalComment on above:Performed By: #### CBC, BMP #### [place] [address] USAMCH (RBC) [Entitic mass]30.1 zaOjeduv60.7-34.3FGeorgetown Behavioral HospitalComment on above:Performed By: #### CBC, BMP #### [place] [address] USAMCV (RBC) [Entitic vol]88.4 oOHltixr04-889PhazjzjizSt. Rita'S HospitalComment on above:Performed By: #### CBC, BMP #### [facility] [address] [place] [address] USAMean Corpuscular HGB Conc34.0 g/uYMqjggj09.0-35.0St. Rita'S HospitalComment on above:Performed By: #### CBC, BMP #### [facility] [address] [place] [address] USAMonocytes (Bld) [#/Vol]0.5 10*3/uLNormal0.0-0.8St. Rita'S HospitalComment on above:Performed By: #### CBC, BMP #### [facility] [address] [place] [address] USAMonocytes/100 WBC (Bld)9.3 %Normal.St. Rita'S HospitalComment on above:Performed By: #### CBC, BMP #### [facility] [address] [place] [address] USANeutrophils (Bld) [#/Vol]3.1 10*3/uLNormal1.8-7.7FGeorgetown Behavioral HospitalComment on above:Performed By: #### CBC, BMP #### [facility] [address] [place] [address] USANeutrophils/100 WBC (Bld)55.5 %Normal.St. Rita'S HospitalComment on above:Performed By: #### CBC, BMP #### [place] [address] USANucleated RBC/100 WBC (Bld) [Ratio]0.1 %Normal0-0.5 [facility]'S HospitalComment on above:Performed By: #### CBC, BMP #### [place] [address] USAPlatelet mean volume (Bld) [Entitic vol]7.6 fLNormal 6.3-10.7FGeorgetown Behavioral HospitalComment on above:Performed By: #### CBC, BMP #### [place] [address] USAPlatelets (Bld) [#/Vol]417 10*3/fIDelnpc256-841RjbedaogrSt. Rita'S HospitalComment on above:Performed By: #### CBC, BMP #### [place] [address] USARBC (Bld) [#/Vol]4.82 10*6/uLNormal3.60-5.00St. Rita'S HospitalComment on above:Performed By: #### CBC, BMP #### [place] [address] USAWBC (Bld) [#/Vol]5.6 10*3/uLNormal4.5-11.0St. Rita'S HospitalComment on above:Performed By: #### CBC, BMP #### [facility] [address] [place] [address] USACreatinine and Glomerular filtration rate.predicted panel (S/P/Bld)on 29-94-8097Yaaqdqvpeo [Mass/Vol]1.00 mg/dL0.44-1.03[facility] CtrEosinophils Auto (Bld) [#/Vol]on 38-41-6784Uzvxohjrree (Bld) [#/Vol] 0.1 10*3/uL0.0-0.45[facility] CtrEosinophils/100 WBC Auto (Bld) on 32-97-0508Fdpozbzsisk/100 WBC (Bld)1.0 %[facility] Erythrocyte distribution width Auto (RBC) [Ratio]on 38-18-8164Uadhtrhrudk distribution width (RBC) [Ratio]14.1 %11.9-15.3FMcCullough-Hyde Memorial Hospital Estimated glomerular filtration rate (GFR) non- Americanon 02-16-2021 GFR/1.73 sq M.predicted among non-blacks MDRD (S/P/Bld) [Vol rate/Area]54 mL/Min [facility] HospitalHematocrit Auto (Bld) [Volume fraction]on 55-44-1891Nktmbyjbrw (Bld) [Volume fraction]42.6 %34.0-46.4FWyandot Memorial Hospital CtrLaboratory - Hematology and Cell countson 76-84-5754Vsbebbmpo RBC/100 WBC (Bld) [Ratio]0.1 %0-0.5FWyandot Memorial Hospital CtrLymphocytes Auto (Bld) [#/Vol]on 23-78-6951Noydqiehmgq (Bld) [#/Vol]1.9 10*3/uL1.00-4.8[facility] CtrLymphocytes/100 WBC Auto (Bld)on 13-86-0945Mbakamigaph/100 WBC (Bld)33.3 %[facility] HospitalMCH Auto (RBC) [Entitic mass]on 78-52-2510ERQ (RBC) [Entitic mass]30.1 pg24.7-34.3FMcCullough-Hyde Memorial Hospital MCHC Auto (RBC) [Mass/Vol]on 04-23-5650CZYA (RBC) [Mass/Vol]34.0 g/dL32.0-35.[address] [facility] HospitalMCV Auto (RBC) [Entitic vol]on 99-68-2112JCY (RBC) [Entitic vol]88.4 kN14-186PthhibwlvAdams County Regional Medical Center CtrMonocytes Auto (Bld) [#/Vol]on 61-38-5905Dtopzehkw (Bld) [#/Vol]0.5 10*3/uL0.0-0.8[facility] CtrMonocytes/100 WBC Auto (Bld)on 06-47-0467Qoradobjk/100 WBC (Bld)9.3 % [facility] CtrNeutrophils Auto (Bld) [#/Vol]on 02-16-2021 Neutrophils (Bld) [#/Vol]3.1 10*3/uL1.8-7.7FWyandot Memorial Hospital Ctr Neutrophils/100 WBC Auto (Bld)on 10-40-4797Ckpcmixouwk/100 WBC (Bld)55.5 % [facility] CtrNo Panel Informationon 87-94-0883Nttvxmsrn GFR ()> 60 mL/MinAdams County Regional Medical Center CtrComment on above:GFR estimated reference range: According to KDOQI guidelines, <60 ml/min/1.73m2 is sufficient todiagnose a patient with chronic kidney disease.Pharmacy Creatinine Clearance (ChemN/[facility] CtrPST Type and Screenon 02-16-2021 ABO and Rh group Nom (Bld)Blood group O Rh(D) positiveNormalSt. Rita'S HospitalComment on above:Order Comment: Date of Surgery: [id number] Comment: PERFORMED BY: [place] [address] [place] [address] PATHOLOGIST CALL WORKER JU MCPHERSON M.D.Platelet mean volume Auto (Bld) [Entitic vol]on 02-16-2021 Platelet mean volume (Bld) [Entitic vol]7.6 fL6.3-10.7FWyandot Memorial Hospital CtrPlatelets Auto (Bld) [#/Vol]on 94-40-5131Jharwwaaw (Bld) [#/Vol]417 10*3/uL 150-450[facility] CtrRBC Auto (Bld) [#/Vol]on 00-99-5129RGU (Bld) [#/Vol]4.82 10*6/uL3.60-5.00[facility] CtrSerum or plasma calcium measurement (mass/volume)on 33-76-7247Fiuzemz [Mass/Vol]10.1 mg/dL 8.2-10.2FWyandot Memorial Hospital CtrSerum or plasma chloride measurement (moles/volume)on 74-85-0851Qiggiosz [Moles/Vol]100 mmol/C11-096AzqkwaiioAdams County Regional Medical Center CtrSerum or plasma glucose measurement (mass/volume)on 38-79-0111Fjzorqs [Mass/Vol]101 mg/hS14-382CowyohlruAdams County Regional Medical Center CtrComment on above:ADA recommended reference rangeRandom Glucose Reference Range is dependent on time and content of last meal. Glucose of more than 200 mg/dL in a nonstressed, ambulatory subject supports the diagnosisof Diabetes Mellitus.Serum or plasma potassium measurement (moles/volume)on 79-26-5598Rvzeouldf [Moles/Vol]4.6 mmol/L3.5-5.1FWyandot Memorial Hospital CtrSerum or plasma sodium measurement (moles/volume)on 08-02-4104Oplxfw [Moles/Vol]135 mmol/S357-014 [facility] CtrSerum or plasma total carbon dioxide measurement (moles/volume)on 68-23-1165LF7 [Moles/Vol]25.9 mmol/L22.0-30.0[facility] CtrSerum or plasma urea nitrogen measurement (mass/volume)on 02-16-2021 Urea nitrogen [Mass/Vol]13 mg/dL9-23[facility] CtrSTR cardiac stress/lexiscanon 33-07-3961KKM cardiac stress/lexiscanTRUMBULL MEMORIAL HOSPITAL Main [place] [id number] Cardiac Stress Test Signed Patient: Anabela Abbasi MR#: [id number] 5 : 1945 Acct:[id number] Age/Sex: 75 / F ADM Date: 02/07/21 Loc: NM [facility]: Mikie Daugherty MD Ordering Provider: [...] Simon MD 02/09/21 1831 Signed By: 02/10/[address] 1408[facility] emma perf SPECT rest [facility] 49-75-8322LK em[place] [address] Nuclear Medicine Report Signed Patient: Anabela Abbasi MR#: [id number] 5 : 1945 Acct:[id number] Age/Sex: 75 / F ADM Date: 02/07/21 Loc: NM Room: [facility]: Mikie Daugherty MD Ordering Provider: Mikie Daugherty MD Date of Service: 02/07/21 NM/NM emma perf SPECT rest str: Z01.81,I25.10 Copies to: [...] available for comparison. Transcribed By: ISSAC 02/07/21 1756 Dictated By: Bjorn Simon MD 02/07/21 1654 Signed By: 02/08/21 0943NoPike Community HospitalXR lumbar spine 6V w bending on 16-42-9202XB lumbar spine 6V w bendingTRUMBULL MEM[place] [address] XRay Report Signed Patient: Anabela Abbasi MR#: [id number] 5 : 1945 Acct:[id number] Age/Sex: 75 / F ADM Date: 01/05/21 Loc: XD Room: Type: [facility] Attending Dr: Brian Gonzales MD Ordering Provider: Brian Gonzales MD Date of Service: 01/05/21 XR/XR lumbar spine 6V w bending: m54.16 ([id number]) XR/XR scoliosis survey: M54.16 Copies to: Brian [...] Wang Jr., M.D.01/05/2021 3:44 PM Dictation Location: [place] [address] Transcribed By: [facility] 01/05/21 1544 Dictated By: Camryn Wang Jr, MD 01/05/21 1535 Signed By: 01/05/21 1544[facility] Vital Signs Date TimeVital SignValuePerforming GocwwpnliXejxjdfi72-40-1590 14:24-0400Body ykrtfz479.5 cmRichard Visci DO Work Phone: [employer] HealthCarondelet HealthQbwlpagmdb19-59-4805 14:24-0400Body mass index (BMI) [Ratio]30.36 kg/r5Lijuyto Visci DO Work Phone: noCarondelet HealthExyqlrblmz12-27-2442 14:24-0400Body .3 kg Camryn Visci DO Work Phone: noCarondelet HealthSbpfpjfird42-98-2909 14:24-0400Diastolic blood unauxfbu93 mm[Hg]Camryn Visci DO Work Phone: noCarondelet HealthEvvmwljymh84-52-1805 14:24-0400Systolic blood vedpgvkl850 mm[Hg]Camryn Visci DO Work Phone: noCarondelet HealthIjdnoxepki21-34-8790 15:27-0500Body mass index (BMI) [Ratio]29.19 kg/f0Tpzyipbmcpj Bailey DO Work Phone: noCarondelet HealthElgnrrwoyf40-01-7230 15:27-0500Body .39 kgChristopher Bailey DO Work Phone: [facility] CenterZxqzeninql17-54-9984 15:27-0500Diastolic blood aensavfi25 mm[Hg]Jorge A Avalos DO Work Phone: [facility] CenterVtwkcsjuyc87-76-2667 15:27-0500Heart rate67 /min Jorge A Avalos DO Work Phone: [facility] CenterAabzmhfjjj37-72-3905 15:27-8725LqO7% (BldA) [Mass fraction]98 %Jorge A Avalos DO Work Phone: [facility] CenterGndvshhbqg13-49-4794 15:27-0500Systolic blood snyhoett522 mm[Hg]Jorge A Avalos DO Work Phone: [facility] CenterBnpvsowtlo07-01-7535 10:16-0500Body oveeda475.02 cmSt. [facility]'S Hospital02-22-2025 10:16-0500Body mass index (BMI) [Ratio]28.3 kg/n2WlvebztutSt. Rita'S Hospital02-22-2025 10:16-0500Body ezrnigqkypm32.1 [degF][facility]02-22-2025 10:16-0500Body getsdq91.57 kgSt. Rita'S Hospital02-22-2025 10:16-0500Diastolic blood mm[Hg][facility]02-22-2025 10:16-0500 Heart rate56 /[facility]02-22-2025 10:16-0500 Respiratory rate18 /[facility]02-22-2025 10:16-0500 SaO2% (BldA) [Mass fraction]97 %[facility]02-22-2025 10:16-0500Systolic blood zskocnlj808 mm[Hg][facility] 10-11-2021 14:00-0500Body qvecyt249.02 cmBrian Gonzales Other [employer] Other 12-15-2021 14:00-0500Body mass index (BMI) [Ratio] 27.63 kg/v2Aejvch LoSodeshawn Other [employer] Other 12-15-2021 14:00-0500Body .76 kgDagarry Gonzales Other [employer] Other 12-15-2021 14:00-0500Diastolic blood njldoypa75 mm[Hg] Brian Gonzales Other [employer] Other 12-15-2021 14:00-0500Systolic blood qlnmhidj617 mm[Hg] Brian Gonzales Other [employer] Other 04-13-2021 14:28-0400Body fypguw089.02 cmM Ashok [employer] Work Phone: [facility]04-13-2021 14:28-0400 Body .12 kgM Ashok Hoy Work Phone: [facility]04-13-2021 14:20-0400 Diastolic blood zopbinzz61 mm[Hg]M Ashok Hoy Work Phone: [facility]04-13-2021 14:20-0400 Heart rate64 /minM Ashok Hoy Work Phone: [facility]04-13-2021 14:20-0400 Systolic blood hhsinmsz500 mm[Hg]M Ashok Hoy Work Phone: [facility] Encounters Encounter DateEncounter TypeCare ProviderFacilityStart: 08-09-2025 End: 02-34-2682mcvepyjjbjITCZMercy Health St. [facility] Warren Hospitaltart: 07-19-2025 End: 85-37-3633Ghchtw outpatient visit 25 minutesRichard A Visci DO Work Phone: NORK Clair OBGYNComment on above:Encounter for gynecological examination with abnormal finding; Encounter for screening mammogram for malignant neoplasm of breast; Osteoporosis, post-menopausal ; Vaginal atrophy; Osteoporosis screening; Asymptomatic menopauseStart: 07-19-2025 End: 37-46-5872Gvmmfxi encounter statusRichard A Visci DO Work Phone: NO HealthcareStart: 07-19-2025 End: 51-69-8995xiumrvqhazKFSJMBC A VISCINot AvailableStart: 07-19-2025 End: 99-68-3020Titxbe flowsheetRichard A Visci DO Work Phone: NOM[facility] Self OBGYNStart: 07-19-2025 End: 12-05-2487Pexwrt flowsheetRichard A Visci DO Work Phone: noMS Self OBGYNStart: 06-14-2025 End: 05-38-4581aqjbtnupxpGNCBIHU A VISCINot AvailableStart: 12-23-2024 End: 38-69-4470Qpcuqg outpatient new 45 minutesChristopher Bailey DO Work Phone: ana ALANNAUEComment on above:Dizziness (Primary Dx) Start: 12-23-2024 End: 75-32-1062jxmrpwkmobQCTCGKFQMAJ HASSETTNot AvailableStart: 12-23-2024 End: 00-20-7807Aorkes flowsheetChristopher Bailey DO Work Phone: ana BELLEVUEStart: 12-23-2024 End: 43-07-0080Uvuchm flowsheetChristopher Bailey DO Work Phone: ana BELLEVUEStart: 12-19-2024 End: 66-46-3751elnmryvpstMfuclucprSalem City Hospital Work Phone: Start: 12-19-2024 End: 20-57-2320Oxamywc encounter procedureD[facility] Work Phone: Start: 10-14-2024 End: 08-58-8320qqwoqmlsbjJMJJ [facility] Hospitaltart: 12-18-2022 End: 27-39-9294bjyysltkaxBJISGIF M HOYMercy [facility] Hospitaltart: 11-06-2022 End: 86-50-6938bxxbywtxykMFZWSZN M HOYMercy [facility] Hospitaltart: 09-25-2022 End: 47-31-0872Dqgliitrgo and management of inpatientAAARIANA Agosto [facility]: 09-25-2022 End: 80-61-9519vokltkxotcVW RAQUEL Johnson ZIEBERFacility:X7Whsza: 09-14-2022 End: 46-55-2630qswmismugvKA SHADE DOMÍNGUEZTAHAWYFacility:W0Anodx: 04-20-2022 End: 97-50-7367hmzaxeedtmZG ASHOK NELLY .Facility:O5Nncpu: 04-04-2022 End: 36-12-5058hwgrtxtiwkMBKSLUV TUCKROGELIOFacility:D7Nephc: 10-11-2021 End: 73-80-3835wgzyhcmapcTcoqkc Elskens Other [employer] Other start: 20-80-7009Krpewx outpatient visit 15 minutes Brian GonzalesFPG Neurosurgery BellevueStart: 02-16-2021 End: 14-20-6303Sokgods encounter procedureM Ashok Hoy Work Phone: -Pre-Surgical TestingStart: 02-07-2021 End: 82-06-4677Nvojypk encounter procedureM Ashok Hoy Work Phone: -[facility]uc Med [facility] CampusStart: 01-05-2021 End: 28-05-4645Knccyfz encounter procedureM Ashok Hoy Work Phone: -XRay [facility] Procedures DateProcedureProcedure DetailPerforming ClinicianStart: 55-83-8919Kvwatiqb screenComment on above:Order Comment: Date of Surgery: [id number] Comment: PERFORMED BY: [facility] [address] PATHOLOGIST CALL WORKER JU MCPHERSON M.D.Start: 43-67-8978Tpmtdg photon emission computerized tomographyM Ashok Hoy Work Phone: Start: 81-31-6553Sdxuplpmp survey X-rayM Ashok Bryant Work Phone: Start: 99-29-7788W-ray of lumbar spine, six views including bending viewsM Ashok Bryant Work Phone: Plan of Treatment DateCare ActivityDetailAuthorStart: 08-08-2026 End: 15-88-9518Fjcmvkz encounter sakwvitbp77/12/2026 10:00 AM EDT Office Visit CHANNINGEran RizviClairkristen SWIFT [address] [place] [phone] Camryn Amador, [address] [place] [address] BRANDY Self OBGYNStart: 07-19-2026 End: 14-15-7479ONK Breast - bilateral screeningBilateral screening mammogram with tomosynthesis Imaging Routine Encounter for screening mammogram for malignant neoplasm of breast Expected: 07/19/2026, Expires: 09/18/2026[facility] Work Phone: comment on above:Expected: 07/19/2026, Expires: 09/18/2026Start: 07-19-2026 End: 18-84-9271AHO Skeletal system Views for bone densityDEXA bone density Imaging Routine Osteoporosis, post-menopausal Osteoporosis screening Asymptomaticmenopause Expected: 07/19/2026, Expires: 07/19/2026[facility] Comment on above:Expected: 07/19/2026, Expires: 07/19/2026Start: 06-17-2026 End: 06-67-4163Wsybxffvjpkb / ancillary services managementNOMS Self Women's ImagingStart: 07-19-2025 End: 85-28-4048Zjpvyhm encounter /22/2025 2:15 PM EDT Office Visit BRANDY [place]en SWIFT [address] [place] [phone] Camryn Amador, [address] [place] [address] Encounter for gynecological examination with abnormal finding; Encounter for screening mammogram for malignant neoplasm of breast; Osteoporosis, post-menopausal ; Vaginal atrophyNOMS [place] OBGYNComment on above:Encounter for gynecological examination with abnormal finding; Encounter for screening mammogram for malignant neoplasm of breast; Osteoporosis, post-menopausal ; Vaginal atrophyStart: 93-12-2570Exjclohlq vaccinationInfluenza Vaccine (#1)[facility] HealthcareStart: 06-14-2025 End: 14-53-0720Khdbpdxrorgs / ancillary services kozppjfyth57/18/2025 11:00 AM EDT Ancillary Procedure [facility] [place] [address] [place] [phone] [facility] IMAGING SANDUSKYStart: 06-14-2025 End: 36-85-4440Gclegxg encounter daoiciqiv28/18/2025 10:00 AM EDT Office Visit [facility] RONAK OB [address] [place] [phone] Camryn Amador DO [address] [place] [address] NOMS SWS OBStart: 12-23-2024 End: 58-91-7645Cljzrrd encounter bipwgcwss93/26/2025 3:30 PM EST Office Visit KEYANA ANTOINETTE [address] [place] [address] Jorge A Avalos DO [address] [place] [address] ArrivedST. JOSEPH'S [facility]ICAL CENTERComment on above:ArrivedStart: 06-28-2024 Influenza vaccinationInfluenza Vaccine (#1)[facility] Immunizations Immunization DateImmunizationNotesCare KuqeuamqOdremrnz95-01-4099hegoehisy virus vaccine, unspecified formulationRichard Dawit DO Work Phone: NONM Jjizwobxou86-79-1539pjqhlotrq virus vaccine, unspecified formulationChristopher Avalos DO Work Phone: [facility] CenterBrrdecexas14-49-7582RWVGV-78 mRNA,VOH641o3 (Pfizer)Tim Bryant Work Phone: [facility]02-25-2021COVID-19 mRNA,[id number] (Pfizer)Tim Bryant Work Phone: [facility] Payers DatePayer CategoryPayerPolicy [id number] Health InsuranceCIGNA [id number] [id number] Member Subscriber Plan / Payer (Effective 2011-Present) Name: Anabela Abbasi Member ID: [id number] Relation to Subscriber: Self Name: Anabela Abbasi Subscriber ID: [id number] Payer ID: STATE Group ID: Not on file Type: Medicare Address: [facility] [place] [id number] [id number] Private Health [id number] [id number] 2.16.840.1.654134.3.579.2.76621-20-2713Vabanqc [id number] 2.16.840.1.960708.3.57[id number] 2.16.840.1.283184.3.57[id number] 2.16.840.1.123140.3.57[id number] 2.16.840.1.682889.3.57[id number] 2.16.840.1.244861.3.57[id number] 2.16.840.1.908920.3.57[id number] 2.16.840.1.030633.3.57[id number] 2.16.840.1.658129.3.57[id number] 2.16.840.1.635037.3.579.2.1259Self-paySelf Pay [id number] Social History DateTypeDetailFacilityStart: 02-16-2021 End: 63-89-9845Vmblkrm smoking status NHISNever smoked tobacco (finding) [facility] Centertart: 38-73-2390Pfi Assigned At [facility] Hospitaltart: 06-03-2024 End: 21-84-6579Zzc Assigned At [facility] [employer] Other start: 36-08-0034WnbCttcbz (finding)[facility] Centertart: 68-16-9466Wozdbew use and exposureSmokeless tobacco non-userNOMS HealthcareStart: 06-03-2024 End: 99-97-6869Rtxbplkgl beverage intakeCurrent drinker of alcohol (finding)[facility] HealthcareStart: 06-03-2024 End: 47-92-4870Faynmiz of Social functionNOMS HealthcareHow often to you have a drink containing alcohol?Monthly or lessNOMS HealthcareHow many standard drinks containing alcohol do you have on a typical day?1 or 2NOMS HealthcareHow often do you have 6 or more drinks on 1 occasion?NeverNOMS HealthcareStart: 1945 Sex assigned at birthNot on [facility] Medical Equipment Procedure CodeEquipment CodeEquipment Original TextEquipment IdentifierDates Fusion, spine, lumbar, XLIFCANCELLOUS 15CC CRUSHEDFDAStart: 40-71-7786Psbuym, spine, lumbar, XLIFBone-screw internal spinal fixation system, non-sterile ()[id number] FDAStart: 93-03-3376Wnfmdy, spine, lumbar, XLIFBone-screw internal spinal fixation system, non-sterile()[id number] FDAStart: 53-62-6802Koyccr, spine, lumbar, XLIFBone-screw internal spinal fixation system, non-sterile()[id number] FDAStart: 18-50-4010Auycvr, spine, lumbar, XLIF MAS REDUCTION FIXATION ADD LEVFDAStart: 63-06-9075Jshxjv, spine, lumbar, XLIF Bone-screw internal spinal fixation system, non-sterile()[id number] FDA Start: 96-48-4885Nyaaft, spine, lumbar, XLIFBone-screw internal spinal fixation system, non-sterile()[id number] FDAStart: 97-17-9047Adtklr, spine, lumbar, XLIFPolymeric spinal fusion cage, non-sterile()[id number] FDAStart: 55-38-6023Tgckuw, spine, lumbar, XLIFMAS REDUCTION FIXATION ADD LEVFDAStart: 46-32-8655Mzdhep, spine, lumbar, XLIFXLIF 1 LEVEL MAS REDUCTIONFDAStart: 65-60-5366Yeojpy, spine, lumbar, XLIFSpinal fusion graft kit ()[id number] FDAStart: 89-62-0109Hpwbyo, spine, lumbar, XLIFSpinal fusion graft kit()[id number] FDAStart: 42-16-6570Dbcizy, spine, lumbar, XLIFBone matrix implant, human-derived()[id number] FDAStart: 02-28-2021 Fusion, spine, lumbar, XLIFMetallic spinal fusion cage, non-sterile ()[id number] FDAStart: 20-31-1534Mgfbvm, spine, lumbar, XLIFBone-screw internal spinal fixation system, non-sterile()[id number] FDAStart: 02-28-2021 Goals DatePatient GoalDesired Activity/State Clinical Notes 10-11-2021 to 08-09-2025 Note Date & TeukJghnToooivor57-30-6204 NoteSUBJECTIVE Reason for Visit: Anabela Abbasi is a [...] blood pressure was aroun (more content not included)...[facility]09-22-2025 History of Present illness Narrative* Ruthy Monreal LPN - 07/19/2025 2:15 PM EDT Images from the original note were not included. Camryn Amador, Obstetrics and Gynecology Anabela Abbasi 1945 07/19/25 [id number] Yearly Wellness Exam Chief Complaint Patient presents with Gynecologic Exam Pt presents for yearly. Denies breast,bowel,bladder,billing collections specialist problems. Visit Vitals BP 128/80 Ht 5' [...] Laterality Date ANGIOPLASTY BACK SURGERY 2020 COLONOSCOPY 2017 CYST REMOVAL L breast x3 TONSILLECTOMY TOTAL [...] palpable. BACK: No obvious scoliosis/kyphosis. 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 Encouraged calcium and Vitamin D intake. Mammogramup to date, future order sent. Reviewed Dexa [...] DO Assessment & Plan documented in this encounterHedrick Medical CenterSdlgdznbur57-48-0192 History of Present illness Narrative* Jorge A Avalos, - 12/23/2024 3:30 PM EST Images from the original note were not included. Chief Complaint: dizziness Subjective Eden Rocjahaira Abbasi, 79 y.o., female Patient presents today [...] History: Diagnosis Date CAD (coronary artery disease) ([facility]/HCC) Heart disease Hyperlipidemia (CMS/[facility]) IBS (irritable bowel syndrome) Osteopenia Past [...] , wrist extensors , wrist flexor , traffic engineering technician strength 5/5. LUE Strength deltoid , biceps , triceps , wrist extensors , wrist flexor , traffic engineering technician strength 5/5. RLE Strength illopsoas, quadriceps, tibialis [...] reflex 2+ . Cummings's sign negative. Coordination: Zzpqrf-qh-wedv testing and rapid alternating movements are normal [...] plan, and return instructions documented in this encounterHedrick Medical CenterYlndooclme29-45-8348 NoteCardiovascular Medicine [facility] SUBJECTIVE Anabela Abbasi is a 78 y.o. [...] 2. No provoked ch (more content not included)...[facility]11-29-2022 NotePROCEDURE: XR FEMUR LT, XR HIP LT 2 [...] Electronically authenticated by: RAQUEL KING Date: 2022-09-25 14:50[facility]11-29-2022 NotePROCEDURE: XR FEMUR LT, XR HIP LT 2 [...] Electronically authenticated by: RAQUEL KING Date: 2022-09-25 14:50[facility]12-15-2021 Evaluation note* Encounter Date Diagnosis Assessment Notes Treatment Notes Treatment Clinical Notes Sep, Acquired spondylolisthesis of pina mbosacral region (ICD-10 - M43.17) Patient appears to have made a very good outcome from surgical intervention. We will see her back at this point on an as-needed basis. She will continue to wear her spine stimulator for a total of 9 months. Sep,Kyphoscoliosis (ICD-10 - M41.9) deeplocal Other evaluation noteNo Assessments Information Available [facility] noteNo assessment information available [facility] Work Phone: Evaluation note* [...] Date Medical History high blood pressure Medical Historyhigh cholesterolSurgical Historyheart stentSurgical Historyknee replacementSurgical HistorytonsillectomySurgical Historybreast cystSurgical HistoryXLIF-Doctor ElskensHospitalization Historysee surgical hx [facility] [employer] Other reason for visit Narrative* Consultation (Routine) - ClosedSpecialtyDiagnoses / ProceduresReferred By ContactReferred To Contact Neurology Diagnoses Dizziness and giddiness Procedures [place] OFFICE/OUTPATIENT [facility] Ashok Bryant MD [address] [place] [address] Phone: tel:[phone] fax: Raquel Lopez MD [address] [place] [address] Phone: tel: fax: Referral IDStatusReasonStart DateExpiration DateVisits RequestedVisits [id number] Consult and Treat [facility] Advance Directives No Advanced Directives [...] Date/T ramakrishna Not Specified Diabetes mellitus Unknown ArthritisUnknownHeart diseaseUnknownHypertensionUnknownfatherCardiomegalyUnknown sisterMalignant neoplasm of breastUnknownsisterMalignant neoplasm of lungUnknown brotherMalignant neoplasm of throatUnknownbrotherCerebrovascular accident (CVA) Unknown Relationship Condition Age at Onset Recorded Date/T ramakrishna mother Diabetes mellitus Unknown ArthritisUnknownHeart diseaseUnknownHypertensionUnknownfatherCardiomegalyUnknown sisterMalignant neoplasm of breastUnknownsisterMalignant neoplasm of lungUnknown brotherMalignant neoplasm of throatUnknownbrotherCerebrovascular accident (CVA) UnknownbrotherDiabetes mellitusUnknownfatherDeceasedUnknownmotherHistory of strokeUnknownDeceasedUnknownDiabetes mellitusUnknownsisterDiabetes mellitus UnknownMalignant neoplasmUnknown Summary Purpose Additional Source Comments INFORMATION SOURCE (unrecogn ized section and content) DATE CREATED AUTHOR 03/27/2021 [facility] DATE CREATED AUTHOR AUTHOR'S ORGANIZ ATION 10/16/2021 [facility] DATE CREATED AUTHOR AUTHOR'S ORGANIZ ATION 02/01/2023 [facility] DATE CREATED AUTHOR AUTHOR'S ORGANIZ ATION 02/28/2023 [facility] DATE CREATED AUTHOR AUTHOR'S ORGANIZ ATION 07/20/2025 [facility] EPIC DATE CREATED AUTHOR AUTHOR'S ORGANIZ ATION 08/18/[address] [facility] REASON FOR VISIT (unrecogniz ed section and content) ReasonCommentsGynecologic ExamPt presents for yearly. Denies breast,bowel,bladder,billing collections specialist problems. Care Teams (unrecognized sec tion and content) Team Status: Active Member Role Status Dates Ashok Bryant MD Primary Care Provider Active Team Status: Inactive Member Role Status Dates Ashok Bryant MD Primary Care Provider Active Start: December 19, 2024 End: December 19, 2024Ranjit Alcantara ProviderActiveStart: December 19, 2024 End: December 19, 2024Team MemberRelationshipSpecialtyStart DateEnd Date Ashok Bryant MD [address] [place] [phone] PCP - GeneralFami Medicine06/03/24Team MemberRelationshipSpecialtyStart DateEnd Date Ashok Bryant MD [address] [place] [address] [facility] - [facility]06/03/24Team MemberRelationshipSpecialtyStart DateEnd Date Ashok Bryant MD [address] [place] [address] PCP - Generalmi Medicine06/03/24Team MemberRelationshipSpecialtyStart DateEnd Date Ashok Bryant MD [address] [place] [address] PCP - GeneralAdventhealth [facility]06/03/24 Goals (unrecognized section and content) Goals may [...] BE BASED ON THE PRIMARY CLINICAL RECORDS. [facility]. provides no warranty or guarantee of the accuracy or completeness of information in this document.
== END 2025-08-20 08:46 | disposition home or self-care (01) ==
LOC: CARD 08:45
PROVIDERS: PCP Family Medicine
DX: R06.02 Shortness of breath (principal)
CPT/HCPCS: 94010; 94726; 94729